=== PATIENT | male | born 1950 | race Caucasian/White ===

== ENCOUNTER 2018-06-07 12:13 | Emergency (ER) | payer OTHER, SELFPAY ==
[2017-07-31 22:09] VITALS: BMI 29.2
[2018-06-07 12:27] VITALS: BP 177/73; PULSE 88; RESP 19; TEMP 36.7; O2SAT 100
[2018-06-07 12:40] VITALS: BP 177/73; PULSE 88; RESP 19; TEMP 36.7; O2SAT 100
--- NOTE | 2018-06-07 12:40 | DI.RAD.S_ITS ---
PROCEDURE: XR KNEE LT 3V INDICATIONS: Twisted knee felt a pop in his knee TECHNIQUE: 3 views of the knee were acquired. COMPARISON: None. FINDINGS: Bones: No fractures or dislocations. No suspicious bony lesions. Soft tissues: Mild joint effusion. No suspicious soft tissue calcifications. IMPRESSION: Mild effusion. No visualized acute fracture or dislocation. However, if clinical concern and/or pain persist, short interval imaging followup in 7-10 days is recommended, as occult injury cannot be definitively excluded. Dictated by: Vneita Ritchie M.D. on 06/07/2018 at 12:06 Approved by: Venita Ritchie M.D. on 06/07/2018 at 12:11
--- NOTE | 2018-06-07 12:48 | ED_ITS ---
HPI - Extremity Injury (Lower) <SHAKILA Uriarte - Last Filed: 06/07/18 22:12> General Chief Complaint: Extremity Injury, Lower Stated Complaint: Blew knee out Time Seen by Provider: 06/07/18 12:33 Source: patient Mode of arrival: wheelchair Limitations: no limitations History of Present Illness HPI Narrative: 68-year-old male with history of Parkinson's disease and is a nonsmoker for complaint of pain into his left knee. He reports that he twisted his knee and felt a pop in his knee 1 hr prior to arrival. He denies any falls or direct trauma to the knee. He reports increased pain with ambulation and reports is having difficulty ambulating due to pain at this timeframe. Pain is to the posterior knee. He denies any other injuries. MD complaint: knee injury Related Data Home Medications Medication Instructions Recorded Confirmed VITAMIN D (Vitamin D3) 4,000 u PO QDAY #0 03/13/16 08/01/17 carbidopa-levodopa 2 tab PO QID #0 03/13/16 07/31/17 glipizide 20 mg/dose PO BID #0 03/13/16 07/31/17 insulin glargine U-300 conc 102 unit SQ DAILY #0 03/13/16 08/01/17 [Toujeo SoloStar U-300 Insulin] saxagliptin [Onglyza] 2.5 mg PO DAILY #0 03/13/16 08/01/17 aspirin 81 mg PO DAILY 08/01/17 08/01/17 atorvastatin 40 mg PO DAILY 08/01/17 08/01/17 multivitamin with minerals 1 tab PO DAILY 08/01/17 08/01/17 rasagiline 1 mg PO DAILY 08/01/17 08/01/17 Previous Rx's Medication Instructions Recorded amlodipine [Norvasc] 10 mg PO DAILY #30 tab 08/02/17 benazepril 20 mg PO DAILY #30 tab 08/02/17 Allergies Allergy/AdvReac Type Severity Reaction Status Date / Time No Known Allergies Allergy Verified 06/07/18 12:54 Review of Systems <SHAKILA Uriarte - Last Filed: 06/07/18 22:12> Constitutional Denies chills, Denies fever(s), Denies lethargy and Denies weakness Eyes Denies change in vision, Denies eye discharge, Denies irritation and Denies loss of vision ENT Ears, Nose, Mouth, and Throat: Denies change in voice, Denies neck pain and Denies sore throat Cardiovascular Denies chest pain, Denies irregular heart rhythm, Denies lightheadedness, Denies palpitations, Denies dyspnea, Denies dyspnea on exertion and Denies orthopnea Respiratory Denies cough, Denies dyspnea, Denies dyspnea on exertion and Denies wheezing Gastrointestinal Gastrointestinal: Denies abdominal pain, Denies change in bowel habits, Denies diarrhea, Denies nausea and Denies vomiting Genitourinary Denies hematuria, Denies flank pain, Denies urinary incontinence and Denies urinary urgency Musculoskeletal Denies neck pain Comments: Left knee pain Integumentary/Breasts Denies pruritus, Denies erythema, Denies rash and Denies wounds Neurologic Denies confusion, Denies loss of vision and Denies weakness Psychiatric Denies anxiety, Denies confusion, Denies depression, Denies homicidal ideation and Denies suicidal ideation Endocrine Denies palpitations Hematologic/Lymphatic Denies easy bruising Allergic/Immunologic Denies wheezing PFSH <SHAKILA Uriarte - Last Filed: 06/07/18 22:12> Medical History Diabetes mellitus (Acute) Hypercholesteremia (Acute) Hypertension (Acute) Kidney stone (Acute) Parkinson disease (Acute) Family History Father No problems noted. Brother Diabetes mellitus Social History household members: none lives independently: Yes other: He drinks 1-2 glasses of wine at night. He quit smoking in 1969 Smoking Status: Former smoker Social History household members: none lives independently: Yes other: He drinks 1-2 glasses of wine at night. He quit smoking in 1969 Smoking Status: Current some day smoker Exam <SHAKILA Uriarte - Last Filed: 06/07/18 22:12> Initial Vital Signs Initial Vital Signs: Vital Signs Temperature 98.0 F 06/07/18 12:27 Pulse Rate 88 06/07/18 12:27 Respiratory Rate 06/07/18 12:27 Blood Pressure 177/73 H 06/07/18 12:27 Pulse Oximetry 100 06/07/18 12:27 Const General: cooperative and well developed Nutritional Appearance: well nourished Orientation: alert, awake, oriented x3 and not confused [facility] Mouth: oral mucosae normal and moist mucous membranes Eyes Conjunctivae: conjunctivae normal Sclera: sclerae normal Pupils: PERRL EOM: EOM intact bilaterally Resp Effort & Inspection: normal respiratory effort, able to speak in complete sentences, no respiratory distress and no use of accessory muscles Auscultation: clear to auscultation bilaterally, no rales, no rhonchi and no wheezes Cardio Rate: regular rate Rhythm: regular rhythm Heart Sounds: no click, no gallops, no murmurs and no rubs Pulses: normal peripheral pulses Skin General: no rashes or lesions noted, No jaundice and No petechiae Neuro General: alert, oriented x3, gait normal and no focal motor deficits Speech: speech normal Extrem Other: Left knee with no signs of trauma. No swelling no ecchymosis no erythema. Negative posterior and anterior drawer sign. Negative varus and valgus stress test. Distal sensation is intact. Distal range of motion is intact. Distal pulses are intact. <Rachael Solis DO - Last Filed: 06/08/18 07:46> Initial Vital Signs Initial Vital Signs: Vital Signs Temperature 98.0 F 06/07/18 12:27 Pulse Rate 88 06/07/18 12:27 Respiratory Rate 19 06/07/18 12:27 Blood Pressure 177/73 H 06/07/18 12:27 Pulse Oximetry 100 06/07/18 12:27 Course <SHAKILA Uriarte - Last Filed: 06/07/18 22:12> Orders Ordered: ED Orders 06/07/18 12:40 XR knee LT 3V Stat Vital Signs - 8 hr 06/07/18 14:16 Pulse Rate 90 Respiratory Rate 16 Blood Pressure 172/72 H Pulse Oximetry 98 <Rachael Solis DO - Last Filed: 06/08/18 07:46> Orders Ordered: ED Orders 06/07/18 12:40 XR knee LT 3V Stat Vital Signs - 8 hr 06/07/18 14:16 Pulse Rate 90 Respiratory Rate 16 Blood Pressure 172/72 H Pulse Oximetry 98 MDM - Extremity Injury (Lower) <SHAIKLA Uriarte - Last Filed: 06/07/18 22:12> Imaging Data Left knee : Radiologist's impression: [address] [address] XRay Report Signed Patient: Kiet Ca [facility]#: [id number] : 9Acct:[id number] Age/Sex: 68 / MDate of Service: 06/07/18 Loc: ED Accession Number: [id number] Procedure: XR knee LT 3V Ordering Provider: Reg Lion PROCEDURE: XR KNEE LT 3V INDICATIONS: Twisted knee felt a pop in his knee TECHNIQUE: 3 views of the knee were acquired. COMPARISON: None. FINDINGS: Bones: No fractures or dislocations. No suspicious bony lesions. Soft tissues: Mild joint effusion. No suspicious soft tissue calcifications. IMPRESSION: Mild effusion. No visualized acute fracture or dislocation. However, if clinical concern and/or pain persist, short interval imaging followup in 7-10 days is recommended, as occult injury cannot be definitively excluded. Dictated by: Venita Ritchie M.D. on 06/07/2018 at 12:06 Approved by: Venita Ritchie M.D. on 06/07/2018 at 12:11 [facility] Narrative Medical decision making narrative: X-ray the left knee was obtained was negative for any acute fractures or dislocations. Signs and symptoms presents as sprain to the left knee. He is placed in a immobilizer and crutches. Cqve-eml-[id number] ibuprofen as needed for any discomfort. Crutches and knee immobilizer until able to bear weight with out any pain. If continued pain does not resolve follow up with primary care provider and recommend MRI. For any worsening symptoms return to the emergency room Discharge Plan Departure Patient Disposition: Home Clinical Impression: Left knee sprain Qualifiers: Encounter type: initial encounter Involved ligament of knee: unspecified ligament Qualified Code(s): S83.92XA - Sprain of unspecified site of left knee, initial encounter Discharge Date/Time: 06/07/18 14:16 Interventions: ED Discharge Assessment Last Done: 06/07/18 14:16 Instructions: DI for Knee Sprain Activity Restrictions/Additional Instructions: X-ray the left knee was obtained was negative for any acute findings. Signs and symptoms presents sprain into the left knee. Use crutches and knee immobilizer as directed until able to bear weight without any discomfort. Ice and elevation help with any swelling. Follow up with primary care provider. If continued pain that does not resolve recommend further evaluation such as MRI. Return emergency room for any worsening symptoms. Use [id number] ibuprofen as needed for any discomfort. Prescriptions: No Action glipizide 10 MG tablet 20 mg/dose PO BID Qty: 0 RF: 0 insulin glargine U-300 conc [Toujeo SoloStar U-300 Insulin] 300 UNIT/1 ML insulin pen 102 unit SQ DAILY Qty: 0 RF: 0 carbidopa-levodopa 25 MG/100 MG tablet 2 tab PO QID Qty: 0 RF: 0 saxagliptin [Onglyza] 2.5 MG tablet 2.5 mg PO DAILY Qty: 0 RF: 0 VITAMIN D (Vitamin D3) 4,000 u PO QDAY Qty: 0 RF: 0 atorvastatin 40 mg Tablet 40 mg PO DAILY RF: 0 aspirin 81 mg Tablet,Delayed Release (Dr/Ec) 81 mg PO DAILY RF: 0 multivitamin with minerals 1 tab PO DAILY RF: 0 rasagiline 1 mg Tablet 1 mg PO DAILY RF: 0 amlodipine [Norvasc] 5 mg Tablet 10 mg PO DAILY Qty: 30 RF: 0 benazepril 20 mg tablet 20 mg PO DAILY Qty: 30 RF: 0 Referrals: Yessenia Johnson MD [Primary Care Provider] - <Rachael Solis DO - Last Filed: 06/08/18 07:46> [facility]: I was immediately available in the depart ment for consultation. Documentation has been reviewed. I agree with assessment and plan.
--- NOTE | 2018-06-07 14:12 | PC.NURSE ---
pt has parkinson's disease. he would prefer not to use crutches. I agreed and told patient to use his walker or a wheelchair. pt agreed.
[2018-06-07 14:16] VITALS: BP 172/72; PULSE 90; RESP 16; O2SAT 98
== END 2018-06-07 14:16 | disposition home or self-care (01) ==
PROVIDERS: Emergency Provider Nurse Practitioner Family; Family Provider Nutritionist; PCP Nutritionist
DX: S83.92XA Sprain of unspecified site of left knee, initial encounter (principal)
CPT/HCPCS: 73562; 99283

== ENCOUNTER → 2018-08-25 10:29 | Outpatient (CLI) | payer OTHER, SELFPAY ==
[2017-07-31 22:09] VITALS: BMI 29.2
--- NOTE | 2018-08-25 10:31 | DI.MRI.S_ITS ---
PROCEDURE: MR KNEE LT WO CON INDICATIONS: Left knee injury. TECHNIQUE: Noncontrast sagittal PD fast spin echo and T2 fast spin echo with fat saturation, sagittal 3-D FLASH with fat saturation; coronal T1 spin echo and PD fast spin echo with fat saturation, and axial PD fast spin echo with fat saturation through the knee. COMPARISON: [facility], CR, XR KNEE LT 3V, 06/07/2018, 12:50. FINDINGS: Image quality: Excellent. Menisci: There is medial extrusion of the medial meniscus. Moderately displaced radial tearing of the posterior horn medial meniscus at the meniscal root ligament insertion site is present. Amorphous high signal intensity within the posterior horn and body of the medial meniscus is present, without articular surface extension. The lateral meniscus is intact. Cruciate ligaments: The anterior and posterior cruciate ligaments appear intact. Medial structures: The medial collateral ligament appears intact. There is mild T2 signal elevation surrounding the medial collateral ligament, consistent with MCL strain. Visualized portions of the pes anserinus tendons appear normal. No abnormal bursal fluid. Lateral structures: The lateral collateral ligament, long and short heads of the biceps femoris tendon appear intact. The popliteus tendon appears normal. Iliotibial band appears normal. Anterior structures: The quadriceps and patellar tendons appear intact. Patellar alignment is normal. No femoral trochlear dysplasia or ventral trochlear prominence. Moderate edema in the infrapatellar fat pad. Moderate prepatellar subcutaneous edema and fluid is present. Bones and cartilage: Linear low T1/T2 signal intensity traverses the mid weightbearing aspect of the medial tibial plateau, measuring roughly 20 mm anteroposterior by 10 mm transverse. There is moderate ill-defined surrounding T2 signal elevation. There is mild tricompartmental periarticular osteophyte formation. There is severe diffuse articular cartilage loss overlying the weightbearing aspects of the medial femoral condyle and medial tibial plateau. Mild diffuse surgical cartilage loss overlies the weightbearing aspects of the lateral femoral condyle and lateral tibial plateau. Severe articular cartilage loss overlies the patellar apex and medial patellar facet. Joint space: There is a moderate knee joint effusion and a small Mejia's cyst. Normal appearing synovial plicae are incidentally noted. IMPRESSION: 1. Mildly displaced subchondral fracture of the medial tibial plateau, with surrounding contusion. 2. Medial meniscal myxoid degeneration and tearing. 3. MCL strain. 4. Knee joint effusion and Mejia's cyst. 5. Tricompartmental osteoarthritis with associated articular cartilage loss. 6. Prepatellar bursitis. Dictated by: Bola Butler M.D. on 08/27/2018 at 9:56 Approved by: Bola Butler M.D. on 08/27/2018 at 10:09
== END ==
PROVIDERS: Family Provider Nutritionist; PCP Nutritionist; Visit Provider Nurse Practitioner Acute Care
DX: M25.562 Pain in left knee (principal); S82.142A Displaced bicondylar fracture of left tibia, initial encounter for closed fracture; S83.242A Other tear of medial meniscus, current injury, left knee, initial encounter; S83.412A Sprain of medial collateral ligament of left knee, initial encounter; M17.12 Unilateral primary osteoarthritis, left knee; M70.42 Prepatellar bursitis, left knee; M25.462 Effusion, left knee; X58.XXXA Exposure to other specified factors, initial encounter
CPT/HCPCS: 73721

== ENCOUNTER 2019-05-19 11:49 | Emergency (ER) | payer OTHER, SELFPAY ==
[2017-07-31 22:09] VITALS: BMI 29.2
[2019-05-19 11:55] VITALS: BP 179/77; PULSE 93; RESP 21; O2SAT 99
[2019-05-19 12:00] VITALS: BP 179/77; PULSE 91; RESP 18; TEMP 36.9; O2SAT 99; BMI 49.4
--- NOTE | 2019-05-19 12:00 | ED_ITS ---
HPI - General Adult General Chief complaint: Diabetic Problem Stated complaint: Altered mental status, hypoglycemia Time Seen by Provider: 05/19/19 11:50 Source: patient and EMS Mode of arrival: EMS Limitations: no limitations History of Present Illness HPI narrative: Patient is a 68-year-old male. He is an insulin-dependent diabetic. Also has Parkinson's disease and has hypertension. She reported by EMS they were called for an evaluation of a patient who was unresponsive. Upon their arrival they did find that the patient was hypoglycemic. Had a blood sugar in the 30s. He did receive 1 amp of D50. Upon arrival he was eating a peanut butter sandwich which is given to him by the paramedics. He also rec eived D10 fluids in route to the ER. His reported that last evening the patient was drinking alcohol. He states he does not remember last evening. He stated that he is unsure if he took 2 doses of his insulin or if he took his regular dose and then just did not eat anything. Upon my evaluation patient has no complaints. Related Data Home Medications Medication Instructions Recorded Confirmed VITAMIN D (Vitamin D3) 4,000 u PO QDAY #0 03/13/16 08/01/17 carbidopa-levodopa 2 tab PO QID #0 03/13/16 07/31/17 glipizide 20 mg/dose PO BID #0 03/13/16 07/31/17 insulin glargine U-300 conc 102 unit SQ DAILY #0 03/13/16 08/01/17 [Toujeo SoloStar U-300 Insulin] saxagliptin [Onglyza] 2.5 mg PO DAILY #0 03/13/16 08/01/17 aspirin 81 mg PO DAILY 08/01/17 08/01/17 atorvastatin 40 mg PO DAILY 08/01/17 08/01/17 multivitamin with minerals 1 tab PO DAILY 08/01/17 08/01/17 rasagiline 1 mg PO DAILY 08/01/17 08/01/17 Previous Rx's Medication Instructions Recorded amlodipine [Norvasc] 10 mg PO DAILY #30 tab 08/02/17 benazepril 20 mg PO DAILY #30 tab 08/02/17 Allergies Allergy/AdvReac Type Severity Reaction Status Date / Time No Known Allergies Allergy Verified 05/19/19 12:29 Review of Systems Constitutional Constitutional: Denies fever(s) and Denies headache(s) ENT Ears, Nose, Mouth, and Throat: Denies headache(s) Cardiovascular Cardiovascular: Denies chest pain and Denies dyspnea Respiratory Respiratory: Denies dyspnea Gastrointestinal Gastrointestinal: Denies abdominal pain, Denies nausea and Denies vomiting Musculoskeletal Musculoskeletal: Denies myalgias and Denies arthralgias Integumentary/Breasts Skin/Breast: Denies lesions and Denies rash Neurologic Neurologic: Reports behavioral changes, Reports confusion and Denies headache(s) Psychiatric Psychiatric: Reports behavioral changes and Reports confusion Hematologic/Lymphatic Hematologic/Lymphatic: Denies easy bleeding and Denies easy bruising Patient History Medical History Diabetes mellitus (Acute) Hypercholesteremia (Acute) Hypertension (Acute) Kidney stone (Acute) Parkinson disease (Acute) Social History household members: none lives independently: Yes other: He drinks 1-2 glasses of wine at night. He quit smoking in 1969 Smoking Status: Current some day smoker Smoking Status: Current some day smoker alcohol intake frequency: 0-2 drinks per day Substance Use Type: does not use Exam Initial Vital Signs Initial Vital Signs: Vital Signs Pulse Rate 93 H 05/19/19 11:55 Respiratory Rate 21 05/19/19 11:55 Blood Pressure 179/77 H 05/19/19 11:55 Pulse Oximetry 99 05/19/19 11:55 Const General: cooperative, comfortable and well developed Limitations: mental status not altered HENMT Head: normal to inspection and normocephalic Resp Effort & Inspection: normal respiratory effort Auscultation: clear to auscultation bilaterally Cardio Rate: regular rate Rhythm: regular rhythm GI Inspection: non-distended Palpation: soft Skin Lesions: no lesions Rashes: no rashes Neuro General: alert, awake and oriented x3 Cognition: normal cognition Speech: speech normal Extrem General: normal to inspection and capillary refill normal Psych Appearance: grossly normal and well kempt Scores GCS Stewart coma scale eye opening: Spontaneous Marely coma scale verbal response: Orientated Marely coma scale motor response: Obey commands Stewart coma scale total score: 15 Course Orders Ordered: ED Orders 05/19/19 12:07 Basic Metabolic Panel Stat Complete Blood Count AUTO DIFF Stat Ethanol (ETOH) Stat Vital Signs Vital signs: Vital Signs - 8 hr 05/19/19 11:55 05/19/19 12:00 05/19/19 14:10 Temperature 98.5 F Pulse Rate 93 H 91 H 90 Respiratory Rate 21 18 16 Blood Pressure 179/77 H Blood Pressure [Right Arm] 179/77 H 180/75 H Pulse Oximetry 99 99 99 Medical Decision Making Lab Data Lab results reviewed: Yes I reviewed the patient's lab results. Result diagrams: 05/19/19 12:07 05/19/19 12:07 Labs: Lab Results 05/19/19 05/19/19 Range/Units 12:07 12:07 WBC 9.5 (4.5-11.0) X10^3/uL RBC 4.05 L (4.5-5.9) X10^6/uL Hgb 13.7 (13.5-17.5) g/dL Hct 39.7 L (41-53) % MCV 97.9 (80-100) fL MCH 33.7 (26-34) PG MCHC 34.5 (30-36) % RDW 13.4 (11.6-14.8) % Plt Count 221 (150-400) X10^3/uL Neut % (Auto) 86.5 H (50-75) % Lymph % (Auto) 8.3 L (25-40) % Jessamine % (Auto) 4.1 (3-14) % Eos % (Auto) 0.2 L (2-4) % Baso % (Auto) 0.9 (0-2) % Neut # (Auto) 8200 H (4038-5299) /uL Lymph # (Auto) 800 L (7200-2571) /uL Jessamine # (Auto) 400 (0-900) /uL Eos # (Auto) 0 (0-450) /uL Baso # (Auto) 100 (0-100) /uL Sodium 138 (137-145) mmol/L Potassium 4.6 (3.4-5.1) mmol/L Chloride 110 H (98-107) mmol/L Carbon Dioxide 18 L (22-32) mmol/L BUN 25 H (9-20) mg/dL Creatinine 1.10 (0.66-1.25) mg/dL Estimated GFR > 60.0 (>60) mL/min BUN/Creatinine Ratio 22.7 H (6-22) Glucose 276 H (80-110) mg/dL Calcium 7.6 L (8.4-10.2) mg/dL Ethyl Alcohol 38 H ( - 10) mg/dL Point of Care Testing Glucose POC 138 Point of care testing: Point of Care Testing Glucose POC 138 [facility] Narrative Medical decision making narrative: Patient was hypoglycemic upon arrival with EMS. He did receive IV glucose and also D 50. He has been able to tolerate oral intake. He has no complaints. Has maintained his blood sugar here in the ER. We did discuss his medications. Will hold on further workup in discharged home. Patient was given return precautions and follow-up instructions. He expressed understanding and agreement with plan. Discharge Plan Departure Patient Disposition: Home Clinical Impression: Hypoglycemia Instructions: Hypoglycemia Activity Restrictions/Additional Instructions: Continue to take your medications like we discussed. Return to the emergency department for any new or worsening symptoms Prescriptions: No Action glipizide 10 MG tablet 20 mg/dose PO BID Qty: 0 RF: 0 insulin glargine U-300 conc [Toujeo SoloStar U-300 Insulin] 300 UNIT/1 ML in sulin pen 102 unit SQ DAILY Qty: 0 RF: 0 carbidopa-levodopa 25 MG/100 MG tablet 2 tab PO QID Qty: 0 RF: 0 saxagliptin [Onglyza] 2.5 MG tablet 2.5 mg PO DAILY Qty: 0 RF: 0 VITAMIN D (Vitamin D3) 4,000 u PO QDAY Qty: 0 RF: 0 atorvastatin 40 mg Tablet 40 mg PO DAILY RF: 0 aspirin 81 mg Tablet,Delayed Release (Dr/Ec) 81 mg PO DAILY RF: 0 multivitamin with minerals 1 tab PO DAILY RF: 0 rasagiline 1 mg Tablet 1 mg PO DAILY RF: 0 amlodipine [Norvasc] 5 mg Tablet 10 mg PO DAILY Qty: 30 RF: 0 benazepril 20 mg tablet 20 mg PO DAILY Qty: 30 RF: 0 Referrals: Yessenia Johnson MD [Primary Care Provider] -
[2019-05-19 12:18] LABS: Add Manual Diff / Slide Review NO; Basophils Absolute Auto 100 /uL (0-100); Basophils Percent Auto 0.9 % (0-2); Eosinophils Absolute Auto 0 /uL (0-450); Eosinophils Percent Auto 0.2 % (2-4); Hematocrit 39.7 % (41-53); Hemoglobin 13.7 g/dL (13.5-17.5); Lymphocytes Absolute Auto 800 /uL (1100-4500); Lymphocytes Percent Auto 8.3 % (25-40); Mean Corpuscular HGB Conc 34.5 % (30-36); Mean Corpuscular Hemoglobin 33.7 PG (26-34); Mean Corpuscular Volume 97.9 fL (80-100); Monocytes Absolute Auto 400 /uL (0-900); Monocytes Percent Auto 4.1 % (3-14); Neutrophils Absolute Auto 8200 /uL (1500-7000); Neutrophils Percent Auto 86.5 % (50-75); Platelet Count 221 X10^3/uL (150-400); Red Blood Cell Count 4.05 X10^6/uL (4.5-5.9); Red Cell Distribution Width 13.4 % (11.6-14.8); White Blood Cell Count 9.5 X10^3/uL (4.5-11.0)
[2019-05-19 12:32] LABS: BUN Creatinine Ratio 22.7 (6-22); Blood Urea Nitrogen 25 mg/dL (9-20); Calcium 7.6 mg/dL (8.4-10.2); Carbon Dioxide 18 mmol/L (22-32); Chloride 110 mmol/L (98-107); Estimated Glomerular Filt Rate > 60.0 mL/min (>60); Ethanol (ETOH) 38 mg/dL; Glucose 276 mg/dL (80-110); HEMOLYSIS 51 (0-50); Potassium 4.6 mmol/L (3.4-5.1); Sodium 138 mmol/L (137-145)
[2019-05-19 14:10] VITALS: BP 180/75; PULSE 90; RESP 16; O2SAT 99
== END 2019-05-19 15:01 | disposition home or self-care (01) ==
PROVIDERS: Emergency Provider Emergency Medicine; Family Provider Nutritionist; PCP Nutritionist
DX: E11.649 Type 2 diabetes mellitus with hypoglycemia without coma (principal); Z79.4 Long term (current) use of insulin; I10 Essential (primary) hypertension; G20 Parkinson's disease
CPT/HCPCS: 80048; 80320; 82962; 85025; 99283

== ENCOUNTER 2019-07-03 16:59 | Emergency (ER) | payer OTHER, SELFPAY ==
[2017-07-31 22:09] VITALS: BMI 29.2
[2019-07-03 17:00] VITALS: BP 121/65; PULSE 96; RESP 26; TEMP 37.2; O2SAT 99
--- NOTE | 2019-07-03 17:07 | DI.RAD.S_ITS ---
PROCEDURE: XR CHEST 1V INDICATIONS: chest pain TECHNIQUE: One view of the chest was acquired. COMPARISON: None. FINDINGS: Surgical changes and devices: None. Lungs and pleura: There are indistinct peripheral air space opacities in the right mid to lower lung zones. A small irregular opacity is also noted peripherally in the left lung base. No pleural effusions or pneumothorax. Mediastinum: Heart size appears mildly enlarged. Prominent cardiophrenic fat is demonstrated medially in the right lung base. Bones and chest wall: No suspicious bony lesions. Overlying soft tissues appear unremarkable. IMPRESSION: 1. Bibasilar peripheral airspace opacities suggestive of pneumonia. This includes pneumonia secondary to atypical viral etiologies. Dictated by: Rupesh Fajardo M.D. on 07/03/2019 at 17:42 Approved by: Rupesh Fajardo M.D. on 07/03/2019 at 17:43
[2019-07-03] MEDS: CARBIDOPA-LEVODOPA 25/100 TABLET 1 EACH PO ×2 (17:19)
[2019-07-03 17:23] LABS: Add Manual Diff / Slide Review NO; Basophils Absolute Auto 100 /uL (0-100); Basophils Percent Auto 0.8 % (0-2); Eosinophils Absolute Auto 100 /uL (0-450); Eosinophils Percent Auto 0.8 % (2-4); Hematocrit 39.2 % (41-53); Hemoglobin 13.3 g/dL (13.5-17.5); Lymphocytes Absolute Auto 900 /uL (1100-4500); Lymphocytes Percent Auto 8.3 % (25-40); Mean Corpuscular HGB Conc 34.1 % (30-36); Mean Corpuscular Volume 96.9 fL (80-100); Monocytes Absolute Auto 900 /uL (0-900); Monocytes Percent Auto 8.2 % (3-14); Neutrophils Absolute Auto 8700 /uL (1500-7000); Neutrophils Percent Auto 81.9 % (50-75); Platelet Count 240 X10^3/uL (150-400); Red Blood Cell Count 4.05 X10^6/uL (4.5-5.9); Red Cell Distribution Width 13.6 % (11.6-14.8); White Blood Cell Count 10.6 X10^3/uL (4.5-11.0)
[2019-07-03 17:25] LABS: Prothrombin Time 11.9 SECONDS (10.1-12.7)
[2019-07-03 17:28] LABS: PTT Partial Thromboplastin Tim 30 SECONDS (26.4-36.2)
[2019-07-03 17:30] LABS: Alanine Aminotransferase 13 IU/L (<50); Albumin 4.3 g/dL (3.5-5.0); Albumin Globulin Ratio 1.3 (1.0-2.8); Alkaline Phosphatase 92 U/L (38-126); Aspartate Aminotransferase 38 IU/L (17-59); BUN Creatinine Ratio 10.8 (6-22); Bilirubin Total 1.1 mg/dL (0.2-1.3); Blood Urea Nitrogen 18 mg/dL (9-20); Calcium 9.5 mg/dL (8.4-10.2); Carbon Dioxide 21 mmol/L (22-32); Chloride 103 mmol/L (98-107); Creatine Kinase 140 U/L (55-170); Estimated Glomerular Filt Rate 40.8 mL/min (>60); Globulin 3.3 g/dL (1.7-4.1); Glucose 119 mg/dL (80-110); HEMOLYSIS < 15 (0-50); Lipase 101 U/L (23-300); Potassium 4.4 mmol/L (3.4-5.1); Sodium 137 mmol/L (137-145); Total Protein 7.6 g/dL (6.3-8.2)
[2019-07-03 17:36] LABS: Ethanol (ETOH) < 10 mg/dL
[2019-07-03 17:42] VITALS: BP 138/64; PULSE 89; RESP 16; O2SAT 99
[2019-07-03 17:42] LABS: Troponin I < 0.012 ng/mL (0.01-0.034)
[2019-07-03 17:45] LABS: CKMB % Relative Index 1.4 % (1.5-5.0); Creatine Kinase MB 1.93 ng/mL (<2.37)
--- NOTE | 2019-07-03 17:46 | PC.NURSE ---
moving all extremities to baseline functioning. Sensory intact. No focal weakness.
[2019-07-03 17:52] LABS: NT-proBNP (BNP-Adult 18+) 123 pg/mL (<125)
[2019-07-03 18:00] VITALS: BP 147/65; PULSE 88; RESP 17; O2SAT 94
--- NOTE | 2019-07-03 18:02 | ED_ITS ---
HPI - General Adult General Chief complaint: Syncope Stated complaint: thinks kidney failure, syncopal episodes Time Seen by Provider: 07/03/19 17:19 Source: patient Mode of arrival: Wheelchair Limitations: no limitations History of Present Illness HPI narrative: 72-year-old gentleman with a history of insulin-dependent type 2 diabetes, hypertension, Parkinson's disease and alcohol use disorder presents with a near syncopal episode today. Describes being increasingly weak over the past 24 hours in the last time he had similar symptoms he found that he was in renal failure. Describes no significant fevers cough, dyspnea, abdominal pain, lower extremity edema, chest pressure or tightness. Notes that he has had only 2 glasses of wine in the last month and with this alcohol restriction he has lost 30 lb this month and is quite pleased with his progress. He has been in isolation at home and does have a caregiver coming in every other day to help with bathing and his daily house keeper was tired after 2 weeks because ?she was a bad cook?. He describes an episode today of walking into the kitchen feeling like he was somewhat faint without palpitations, nausea, diaphoresis or focal weakness. He was concerned that he might feet so he began to sit on the floor and then he found himself on the floor. It looks like he used his left arm to slow his fall on the edge of the counter and hit the right side of his glasses on the counter any has an abrasion on the right side of his face. Related Data Home Medications Medication Instructions Recorded Confirmed VITAMIN D (Vitamin D3) 4,000 u PO QDAY #0 03/13/16 08/01/17 carbidopa-levodopa 2 tab PO QID #0 03/13/16 07/31/17 glipizide 20 mg/dose PO BID #0 03/13/16 07/31/17 insulin glargine U-300 conc 102 unit SQ DAILY #0 03/13/16 08/01/17 [Gloria Col[employer]Star U-300 Insulin] saxagliptin [Onglyza] 2.5 mg PO DAILY #0 03/13/16 08/01/17 aspirin 81 mg PO DAILY 08/01/17 08/01/17 atorvastatin 40 mg PO DAILY 08/01/17 08/01/17 multivitamin with minerals 1 tab PO DAILY 08/01/17 08/01/17 rasagiline 1 mg PO DAILY 08/01/17 08/01/17 Previous Rx's Medication Instructions Recorded amlodipine [Norvasc] 10 mg PO DAILY #30 tab 08/02/17 benazepril 20 mg PO DAILY #30 tab 08/02/17 Allergies Allergy/AdvReac Type Severity Reaction Status Date / Time No Known Allergies Allergy Verified 07/03/19 17:11 Review of Systems Review of Systems Narrative: All systems reviewed and are unremarkable except as noted in HPI and below Patient History Medical History Diabetes mellitus (Acute) Hypercholesteremia (Acute) Hypertension (Acute) Kidney stone (Acute) Parkinson disease (Acute) Family History Father No problems noted. Brother Diabetes mellitus Social History household members: none lives independently: Yes other: He drinks 1-2 glasses of wine at night. He quit smoking in 1969 Smoking Status: Current some day smoker Smoking Status: Current some day smoker alcohol intake frequency: 0-2 drinks per day Alcohol type: wine and hard liquor Substance Use Type: does not use Exam Narrative Exam Narrative: General: Healthy appearing, in no acute distress. Able to give a complete and coherent history. Well-nourished well-developed HEENT: Moist mucous membranes, normal sclera with reactive pupils, abrasion to the right cheek that correlates completely to the edge of his glasses. There was no injury to the glasses and nothing that needs suturing. No bony tenderness along the maxilla or orbit. Neck: No JVD, supple Respiratory: Lungs are clear to auscultation, no wheezing no rales no rhonchi. Full and symmetrical air movement Cardiac: Regular rate and rhythm no murmurs no bruits Abdomen: Soft nontender good bowel tones, no flank pain Skin: Warm and dry, no rashes Neurologic: Grossly neurologically intact with no obvious asymmetries or abnormalities, parkinsonian-type tremor Extremities: well perfused, he has some minor bruising to the inner aspect of the left forearm that looks like he scraped along the edge his counter Psych: Cooperative, appropriate insight and affect Initial Vital Signs Initial Vital Signs: Vital Signs Temperature 98.9 F 07/03/19 17:00 Pulse Rate 96 H 07/03/19 17:00 Respiratory Rate 26 H 07/03/19 17:00 Blood Pressure 121/65 07/03/19 17:00 Pulse Oximetry 99 07/03/19 17:00 Course Orders Ordered: ED Orders 07/03/19 17:07 XR chest 1V Stat EKG-12 Lead Stat 07/03/19 17:10 Complete Blood Count AUTO DIFF Stat Comprehensive Metabolic Panel Stat Ethanol (ETOH) Stat Lipase Stat NT-proBNP (BNP-Adult 18+) Stat Partial Thromboplastin Time Stat Procalcitonin Stat Prothrombin Time INR Stat Troponin & CK Cardiac Panel Stat Discontinued Medications Carbidopa/Levodopa (Sinemet 25-100 Tab) 1 each PO NOW ONE Stop: 07/03/19 17:12 Last Admin: 07/03/19 17:19 Dose: 1 each Documented by: KYLE Carbidopa/Levodopa (Sinemet 25-100 Tab) 1 each PO NOW ONE Stop: 07/03/19 17:13 Last Admin: 07/03/19 17:19 Dose: 1 each Documented by: KYLE Vital Signs Vital signs: Vital Signs - 8 hr 07/03/19 17:00 07/03/19 17:42 07/03/19 18:00 Temperature 98.9 F Pulse Rate 96 H 89 88 Respiratory Rate 26 H 16 17 Blood Pressure 121/65 Blood Pressure [Right Arm] 138/64 147/65 H Pulse Oximetry 99 99 94 07/03/19 18:40 Temperature Pulse Rate 90 Respiratory Rate 18 Blood Pressure Blood Pressure [Right Arm] 133/92 H Pulse Oximetry 99 Medical Decision Making Medical Records Medical records reviewed: Yes I reviewed the patient's medical records. Lab Data Lab results reviewed: Yes I reviewed the patient's lab results. Lab results narrative: Creatinine is stable at 1.6 Result diagrams: 07/03/19 17:10 07/03/19 17:10 Labs: Lab Results 07/03/19 07/03/19 07/03/19 Range/Units 17:10 17:10 17:10 WBC 10.6 (4.5-11.0) X10^3/uL RBC 4.05 L (4.5-5.9) X10^6/uL Hgb 13.3 L (13.5-17.5) g/dL Hct 39.2 L (41-53) % MCV 96.9 (80-100) fL MCH 33.0 (26-34) PG MCHC 34.1 (30-36) % RDW 13.6 (11.6-14.8) % Plt Count 240 (150-400) X10^3/uL Neut % (Auto) 81.9 H (50-75) % Lymph % (Auto) 8.3 L (25-40) % [place] % (Auto) 8.2 (3-14) % Eos % (Auto) 0.8 L (2-4) % Baso % (Auto) 0.8 (0-2) % Neut # (Auto) 8700 H (4240-3602) /uL Lymph # (Auto) 900 L (6656-0717) /uL [place] # (Auto) 900 (0-900) /uL Eos # (Auto) 100 (0-450) /uL Baso # (Auto) 100 (0-100) /uL PT 11.9 (10.1-12.7) SECONDS INR 1.0 (0.9-1.3) APTT 30 (26.4-36.2) SECONDS Sodium 137 (137-145) mmol/L Potassium 4.4 (3.4-5.1) mmol/L Chloride 103 (98-107) mmol/L Carbon Dioxide 21 L (22-32) mmol/L BUN 18 (9-20) mg/dL Creatinine 1.67 H (0.66-1.25) mg/dL Estimated GFR 40.8 L (>60) mL/min BUN/Creatinine Ratio 10.8 (6-22) Glucose 119 H (80-110) mg/dL Calcium 9.5 (8.4-10.2) mg/dL Total Bilirubin 1.1 (0.2-1.3) mg/dL AST 38 (17-59) IU/L ALT 13 (<50) IU/L Alkaline Phosphatase 92 (38-126) U/L Total Creatine Kinase 140 (55-170) U/L CK-MB (CK-2) 1.93 (<2.37) ng/mL CK-MB (CK-2) Rel Index 1.4 L (1.5-5.0) % Troponin I < 0.012 (0.01-0.034) ng/mL NT-Pro-B Natriuret Pep (<125) pg/mL Total Protein 7.6 (6.3-8.2) g/dL Albumin 4.3 (3.5-5.0) g/dL Globulin 3.3 (1.7-4.1) g/dL Albumin/Globulin Ratio 1.3 (1.0-2.8) Lipase 101 (23-300) U/L Procalcitonin (<0.5) ng/mL Ethyl Alcohol ( - 10) mg/dL 07/03/19 07/03/19 07/03/19 Range/Units 17:10 17:10 17:10 WBC (4.5-11.0) X10^3/uL RBC (4.5-5.9) X10^6/uL Hgb (13.5-17.5) g/dL Hct (41-53) % MCV (80-100) fL MCH (26-34) PG MCHC (30-36) % RDW (11.6-14.8) % Plt Count (150-400) X10^3/uL Neut % (Auto) (50-75) % Lymph % (Auto) (25-40) % [place] % (Auto) (3-14) % Eos % (Auto) (2-4) % Baso % (Auto) (0-2) % Neut # (Auto) (5614-9964) /uL Lymph # (Auto) (6147-3049) /uL [place] # (Auto) (0-900) /uL Eos # (Auto) (0-450) /uL Baso # (Auto) (0-100) /uL PT (10.1-12.7) SECONDS INR (0.9-1.3) APTT (26.4-36.2) SECONDS Sodium (137-145) mmol/L Potassium (3.4-5.1) mmol/L Chloride (98-107) mmol/L Carbon Dioxide (22-32) mmol/L BUN (9-20) mg/dL Creatinine (0.66-1.25) mg/dL Estimated GFR (>60) mL/min BUN/Creatinine Ratio (6-22) Glucose (80-110) mg/dL Calcium (8.4-10.2) mg/dL Total Bilirubin (0.2-1.3) mg/dL AST (17-59) IU/L ALT (<50) IU/L Alkaline Phosphatase (38-126) U/L Total Creatine Kinase (55-170) U/L CK-MB (CK-2) (<2.37) ng/mL CK-MB (CK-2) Rel Index (1.5-5.0) % Troponin I (0.01-0.034) ng/mL NT-Pro-B Natriuret Pep 123 (<125) pg/mL Total Protein (6.3-8.2) g/dL Albumin (3.5-5.0) g/dL Globulin (1.7-4.1) g/dL Albumin/Globulin Ratio (1.0-2.8) Lipase (23-300) U/L Procalcitonin 0.08 (<0.5) ng/mL Ethyl Alcohol < 10 ( - 10) mg/dL Imaging Data Chest x-ray: Radiologist's Impression: IMPRESSION: 1. Bibasilar peripheral airspace opacities suggestive of pneumonia. This includes pneumonia secondary to atypical viral etiologies. Dictated by: Rupesh Fajardo M.D. on 07/03/2019 at 17:42 ECG Data Attestation: I personally reviewed and interpreted this ECG as follows: Interpretation: Sinus rhythm at a rate of 92 Normal axis, normal intervals Nonspecific ST T wave changes without acute ischemia MDM Narrative Medical decision making narrative: 69-year-old gentleman with weakness enough that he had a near syncopal episode today. There is no overt evidence of infection based on his exam review of systems oxygen saturations on room air are in the 95-99% range, no evidence of acute coronary syndrome, anemia, dehydration, worsening renal failure or stroke like symptoms. Chest x-ray has some by basilar infiltrate suggestive of pneumonia. His clinical exam is entirely unremarkable and he describes no fevers. A Covid19 test was done. At this point he is feeling significantly better. He is able to stand without any dizziness, he is not orthostatic. Uncertain etiology for the near syncopal episode today. At this point I believe he is safe for home discharge. He will be contacted with the results of the Covid19 testing and will make recommendations that he continue home isolation at this time. Did review the chest x-ray findings and recommended that he return if he is having further weakness, near-syncope or is developing worsening dyspnea. Discharge Plan Departure Patient Disposition: Home Clinical Impression: Near syncope, Weakness Instructions: DI for Syncope in Adults (Fainting) Activity Restrictions/Additional Instructions: Thank you for coming in today I do not have a good explanation for the weakness that you experienced and the near syncope as well as the fall. With the fall, you will have a large bruise over your cheek and it will take a bit of time for that abrasion from your glasses to heal but it should heal nicely. Similarly, I would expect moderate bruise on the inside of your left forearm were scraped along the covered. Your workup today was extensive and revealed no evidence of worsening renal failure, dehydration, overwhelming bacterial infection, heart attack or stroke. Your chest x-ray did suggest the possibility of a bilateral viral pneumonia picture. We did do a Covid19 swab to see if you do have the miles virus. You will be contacted with results In the meantime, you are safe to go home. Please continue to wear mask in case this does box turner to be miles virus to make sure that you are not infecting others. If you find that you are having worsening weakness, trouble breathing, developed high fevers, chest pain or other new concerning symptoms please feel free to return to the emergency room and I am happy to re-evaluate I hope you feel better CDC Guidelines for home isolation: - Stay away from others - Limit contact with pets and animals: If you must care for a pet, wash your hands before and after interacting with them - Wear a mask if you are sick - Cover your mouth and nose with a tissue when you cough or sneeze. Dispose of tissues in a lined trash can and wash your hands immediately with soap and water for at least 20 seconds. If soap and water are not available, clean hands with alcohol-based hand global risk management director that contains at least 60% alcohol. - Clean your hands often with soap and water for at least 20 seconds - Avoid touching your eyes, nose and mouth with unwashed hands - Do not share dishes, drinking glasses, cups, eating utensils, towels, or bedding with other people in your home. After using these items, wash them thoroughly with soap and water or put in the mobile ui/ux designer. - Clean high-touch surfaces in your isolation area (?sick room? and bathroom) every day; let a caregiver clean and disinfect high-touch surfaces in other areas of the home. Clean the area or item with soap and water or another detergent if it is dirty. Then, use a household disinfectant. Seek medical attention, but call first: - Seek medical care right away if your illness is worsening (for example, if you have difficulty breathing). - Call your doctor before going in: Before going to the doctor?s office or emergency room, call ahead and tell them your symptoms. They will tell you what to do. - If possible, put on a facemask before you enter the building. If you can?t put on a facemask, try to keep a safe distance from other people (at least 6 feet away). This will help protect the people in the office or waiting room. - Follow care instructions from your healthcare provider and local health department: Your local health authorities will give instructions on checking your symptoms and reporting information. Emergency warning signs for COVID-19: - Difficulty breathing or shortness of breath - Persistent pain or pressure in the chest - New confusion or inability to arouse - Bluish lips or face Prescriptions: No Action glipizide 10 MG tablet 20 mg/dose PO BID Qty: 0 RF: 0 insulin glargine U-300 conc [Tou[employer] SoloStar U-300 Insulin] 300 UNIT/1 ML insulin pen 102 unit SQ DAILY Qty: 0 RF: 0 carbidopa-levodopa 25 MG/100 MG tablet 2 tab PO QID Qty: 0 RF: 0 saxagliptin [Onglyza] 2.5 MG tablet 2.5 mg PO DAILY Qty: 0 RF: 0 VITAMIN D (Vitamin D3) 4,000 u PO QDAY Qty: 0 RF: 0 atorvastatin 40 mg Tablet 40 mg PO DAILY RF: 0 aspirin 81 mg Tablet,Delayed Release (Dr/Ec) 81 mg PO DAILY RF: 0 multivitamin with minerals 1 tab PO DAILY RF: 0 rasagiline 1 mg Tablet 1 mg PO DAILY RF: 0 amlodipine [Norvasc] 5 mg Tablet 10 mg PO DAILY Qty: 30 RF: 0 benazepril 20 mg tablet 20 mg PO DAILY Qty: 30 RF: 0 Referrals: Yessenia Johnson MD [Primary Care Provider] -
[2019-07-03 18:40] VITALS: BP 133/92; PULSE 90; RESP 18; O2SAT 99
[2019-07-03 18:47] LABS: Procalcitonin 0.08 ng/mL (<0.5)
[2019-07-05 08:30] LABS: COVID19 Sendout Detected (Not Detected)
== END 2019-07-03 19:21 | disposition home or self-care (01) ==
PROVIDERS: Emergency Medicine; Emergency Provider Emergency Medicine; Family Provider Nutritionist; PCP Nutritionist
DX: R55 Syncope and collapse (principal); R53.1 Weakness; E11.8 Type 2 diabetes mellitus with unspecified complications; Z79.4 Long term (current) use of insulin; I10 Essential (primary) hypertension; G20 Parkinson's disease
CPT/HCPCS: 36415; 71045; 80053; 80320; 82550; 82553; 83690; 83880; 84145; 84484; 85025; 85610; 85730; 87635; 93005; 99284

== ENCOUNTER 2021-12-20 12:45 | Emergency (ER) | payer OTHER, SELFPAY ==
[2017-07-31 22:09] VITALS: BMI 29.2
[2021-12-20 12:57] VITALS: BP 135/69; PULSE 86; RESP 16; TEMP 36.6; O2SAT 100; BMI 22.8
--- NOTE | 2021-12-20 16:06 | PC.NURSE ---
Pt c/o 6 days left neck pain, non radiating, took 800g Ibuprofen today. Denies additional sx.
--- NOTE | 2021-12-20 16:16 | DI.RAD.S_ITS ---
PROCEDURE: XR CERVICAL SPINE 2V OR 3V INDICATIONS: c/f stress fracture, no trauma arthralgia? TECHNIQUE: 3 view(s) of the cervical spine were acquired. COMPARISON: None. FINDINGS: Bones: No fractures or dislocations to the T1 level. The lateral masses of C1 appear intact on the odontoid view. No suspicious bony lesions. C5-6, C6-7 disc space narrowing and anterior osteophyte. Reversal normal cervical lordosis present. Normal bone mineralization and craniovertebral a shapes. Soft tissues: No prevertebral soft tissue swelling. IMPRESSION: No fracture or malalignment Lower cervical spine degenerative disc disease and arthropathy Approved by: Thor Pacheco M.D. on 12/20/2021 at 16:02
[2021-12-20] MEDS: LIDOCAINE PATCH 1 EACH ADH..PATCH TOP (16:38)
[2021-12-20] MEDS: ACETAMINOPHEN 325 MG TABLET 975 MG PO (16:38)
--- NOTE | 2021-12-20 17:17 | ED_ITS ---
HPI - Neck Pain/Injury <Camilla Robetrs, [facility] - Last Filed: 12/20/21 17:35> General Chief Complaint: Neck Pain/Injury Stated Complaint: Pinched nerve in neck Time Seen by Provider: 12/20/21 16:06 Mode of arrival: Wheelchair History of Present Illness HPI Narrative: This is a pleasant 71-year-old gentleman who presents with his caregiver complaining of right-sided neck and shoulder pain over the last 6 days without trauma. Patient states that he slept on his neck ?funny? and since then he has had gradual worsening of his neck pain. He denies any weakness, lightheadedness, dizziness, he does endorse mild headache occasionally. He has been taking ibuprofen, Tylenol, using Salonpas lidocaine patches, and CBD cream and states it has helped but he still has this pain. His caregiver states that she is concerned he has a compression fracture and would like a neck x-ray. Patient's weakness, he is ambulatory, he is not on any anticoagulants, he denies palpitations, recent fever, sore throat, cough. Patient has a history of diab etes, on glipizide and glargine, hypercholesterolemia, hypertension, kidney stone with CKD with baseline creatinine 1.5-1.6, and Parkinson's disease on carbidopa levodopa. Patient ambulates with a cane at baseline. He denies any sensation changes. Denies any incontinence as well. Related Data Home Medications Medication Instructions Recorded Confirmed VITAMIN D (Vitamin D3) 4,000 u PO QDAY ##0 03/13/16 08/01/17 carbidopa 25 mg-levodopa 100 mg 2 tab PO QID ##0 03/13/16 07/31/17 tablet glipizide 10 mg tablet 20 mg/dose PO BID ##0 03/13/16 07/31/17 insulin glargine U-300 conc 300 102 unit SQ DAILY ##0 03/13/16 08/01/17 unit/mL (1.5 mL) subcutaneous pen (Gloria SoloStar U-300 Insulin) saxagliptin 2.5 mg tablet (Onglyza) 2.5 mg PO DAILY ##0 03/13/16 08/01/17 aspirin 81 mg tablet,delayed 81 mg PO DAILY 05/15/18 05/15/18 release atorvastatin 40 mg tablet 40 mg PO DAILY 08/01/17 08/01/17 multivitamin with minerals 1 tab PO DAILY 08/01/17 08/01/17 rasagiline 1 mg tablet 1 mg PO DAILY 08/01/17 08/01/17 Previous Rx's Medication Instructions Recorded amlodipine 5 mg tablet (Norvasc) 10 mg PO DAILY #30 tabs 08/02/17 benazepril 20 mg tablet 20 mg PO DAILY #30 tabs 08/02/17 diclofenac sodium 1 % topical gel 2 g topical QID PRN muscle strain 12/20/21 #100 grams methocarbamol 500 mg tablet 250 mg PO BEDTIME PRN neck pain 12/20/21 #10 tabs Allergies Allergy/AdvReac Type Severity Reaction Status Date / Time No Known Allergies Allergy Verified 12/20/21 13:00 Review of Systems <SHAKILA Ingram - Last Filed: 12/20/21 17:35> Review of Systems Narrative: Review of systems is negative for acute abnormalities unless otherwise noted in HPI Patient History <SHAKILA Ingram - Last Filed: 12/20/21 17:35> Medical History Diabetes mellitus Hypercholesteremia Hypertension Kidney stone Parkinson disease Family History Father No problems noted. Brother Diabetes mellitus Social History household members: none lives independently: Yes other: He drinks 1-2 glasses of wine at night. He quit smoking in 1969 Smoking Status: Former smoker Smoking Status: Former smoker alcohol intake frequency: other Alcohol type: wine and hard liquor Substance Use Type: marijuana Exam <SHAKILA Ingram - Last Filed: 12/20/21 17:35> Narrative Exam Narrative: Reviewed vitals signs and nursing notes. General: cooperative, comfortable, in no acute distress, well groomed, unchanged over, sitting in chair, with cane at his left, EOMI HEENT: symmetrical facial expressions, moist mucous membranes Cardiovascular: regular rate and rhythm, no peripheral edema, warm extremities Respiratory: normal effort, able to speak in complete sentences, without wheezing, stridor, or abnormal breath sounds. No retractions or tachypnea. GI: abdomen soft, nontender to palpation, nondistended, without masses, rebound tenderness or exquisite tenderness with exam. MSK: moves all extremities, neurovascularly intact, no weakness, normal tone, patient does trouble when he ambulates but has equal strength bilaterally, without any new weakness or sensation changes Skin: brisk capillary refill, without pallor or erythema Neuro: normal speech and cognition, A&O x3, ambulatory, clear speech, without neuro deficit Psych: mental status is grossly normal, congruent mood, normal affect, pleasant and cooperative Initial Vital Signs Initial Vital Signs: Vital Signs Temperature 98 F 12/20/21 12:57 Pulse Rate 86 12/20/21 12:57 Respiratory Rate 16 12/20/21 12:57 Blood Pressure 135/69 12/20/21 12:57 Pulse Oximetry 100 12/20/21 12:57 Oxygen Delivery Method 12/20/21 12:57 <Aleksandra Deleon MD - Last Filed: 12/20/21 17:45> Initial Vital Signs Initial Vital Signs: Vital Signs Temperature 98 F 12/20/21 12:57 Pulse Rate 86 12/20/21 12:57 Respiratory Rate 16 12/20/21 12:57 Blood Pressure 135/69 12/20/21 12:57 Pulse Oximetry 100 12/20/21 12:57 Oxygen Delivery Method 12/20/21 12:57 Course <SHAKILA Ingram - Last Filed: 12/20/21 17:35> Orders Ordered: ED Orders 12/20/21 16:16 XR cervical spine 2V or 3V Stat Discontinued Medications Acetaminophen (Acetaminophen 325 Mg Tablet) 975 mg PO NOW ONE Stop: 12/20/21 16:17 Last Admin: 12/20/21 16:38 Dose: 975 mg Documented By: BRIDGET Lidocaine (Lidocaine Patch 1 Each Adh..Patch) 1 each TOP NOW ONE Stop: 12/20/21 16:18 Last Admin: 12/20/21 16:38 Dose: 1 each Documented By: BRIDGET Vital Signs Vital signs: Vital Signs - 8 hr 12/20/21 12:57 12/20/21 17:32 Temperature 98 F Pulse Rate 86 74 Respiratory Rate 16 18 Blood Pressure 135/69 157/69 H Pulse Oximetry 100 100 Oxygen Delivery Method Room Air Room Air <Aleksandra Deleon MD - Last Filed: 12/20/21 17:45> Orders Ordered: ED Orders 12/20/21 16:16 XR cervical spine 2V or 3V Stat Discontinued Medications Acetaminophen (Acetaminophen 325 Mg Tablet) 975 mg PO NOW ONE Stop: 12/20/21 16:17 Last Admin: 12/20/21 16:38 Dose: 975 mg Documented By: BRIDGET Lidocaine (Lidocaine Patch 1 Each Adh..Patch) 1 each TOP NOW ONE Stop: 12/20/21 16:18 Last Admin: 12/20/21 16:38 Dose: 1 each Documented By: BRIDGET Vital Signs Vital signs: Vital Signs - 8 hr 12/20/21 12:57 12/20/21 17:32 Temperature 98 F Pulse Rate 86 74 Respiratory Rate 16 18 Blood Pressure 135/69 157/69 H Pulse Oximetry 100 100 Oxygen Delivery Method Room Air Room Air [facility] - Neck Pain/Injury <SHAKILA Ingram - Last Filed: 12/20/21 17:35> Imaging Data Extremity x-ray #1: Radiologist's Impression: PROCEDURE:? XR CERVICAL SPINE 2V OR 3V ? INDICATIONS:? c/f stress fracture, no trauma arthralgia? ? TECHNIQUE:? 3 view(s) of the cervical spine were acquired.? ? COMPARISON:? None. ? FINDINGS:? ? Bones:? No fractures or dislocations to the T1 level.? The lateral masses of C1 appear intact on the odontoid view.? No suspicious bony lesions.? C5-6, C6-7 disc space narrowing and anterior osteophyte.? Reversal normal cervical lordosis present.? Normal bone mineralization and craniovertebral a shapes. ? Soft tissues:? No prevertebral soft tissue swelling.? ? ? IMPRESSION:? ? No fracture or malalignment ? Lower cervical spine degenerative disc disease and arthropathy ? ? Approved by: Thor Pacheco M.D. on 12/20/2021 at 16:02? [facility] Narrative Medical decision making narrative: This is a 71-year-old gentleman presents to the emergency department complaining of right-sided neck pain without injury for the last 6 days. He had palpable tension and for musculature to the right trapezius, without erythema, rash, other visits concern. Patient did not have any neuro deficits on my exam, ambulatory, C-spine x-ray obtained for patient's caregivers request, she was concerned about compression fracture despite lack of trauma. That was negative for acute finding, it did however show degenerative disc disease and arthralgia in the lower cervical spine. Patient was prescribed diclofenac gel to use with his other medications, counseled him about taking ibuprofen as much as he has been due to his chronic kidney disease, encouraged hydration, light range of motion, Tylenol 650 mg every 6 hours as needed with use of adjuvant topical remedies including diclofenac gel. Gave him 250 mg of Robaxin to use at night only and counseled him about risk of falling due to sedation. Patient states understanding will follow-up with his primary care provider if this is ongoing. Discharge Plan Departure Patient Disposition: Home Clinical Impression: Acute cervical sprain Qualifiers: Encounter type: initial encounter Qualified Code(s): S13.9XXA - Sprain of joints and ligaments of unspecified parts of neck, initial encounter Instructions: Neck Sprain, DI for Neck Pain Activity Restrictions/Additional Instructions: *You have been diagnosed with a sprain/strain of the muscles in your neck. Your x-ray does not show any fracture dislocation, it does show lower cervical spine degenerative disc disease and arthritis. Please use topical Voltaren gel in conjunction your other creams and medications to help yourself feel better. Please take Tylenol 650 mg every 6 hours, use topical lidocaine patches and Voltaren gel frequently, take hot showers and avoid aggressive massage or exertional stretching. Please practice range of motion to help warm up your muscles and this should start to get better in the next week. These sprains can take 2 weeks to go away. I would recommend limiting your ibuprofen use due to your kidney disease to 400 mg in between to Tylenol dose is throughout the day. Use a muscle relaxer as needed at bedtime, please start with only 250 mg, half of a tab because it will make you very sleepy. This in conjunction with your carbidopa levodopa can be sedating and I do not want you to fall. I hope you feel better soon, please come back for any worsening or if you have weakness, numbness and tingling, or altered mental status. *What to do: *Please continue to take your regular medications as directed. [ x] New medication prescriptions sent to your pharmacy: [[facility] ] [ ] New medication written as a paper prescription [ ] No new medications given *Please follow up with your primary care provider in 2-3 days, call for an appointment. Let them know you were seen in the Emergency Department and that we asked that you be seen for follow-up. We will electronically transmit a record of today's note if your PCP is in our system *If you do not have a primary care provider please contact [phone] to establish care with one of the [facility] primary care providers. *Return to Emergency Department if you should have any new, worsening, or concerning symptoms, such as [fever greater than 101F, chills, worsening pain, persistent vomiting or other bothersome symptoms]. Prescriptions: New diclofenac sodium 1 % gel 2 g topical QID PRN (Reason: muscle strain) Qty: 100 0RF Rx Instructions: apply to neck up to 4 times daily for pain methocarbamol 500 mg tablet 250 mg PO BEDTIME PRN (Reason: neck pain) Qty: 10 0RF No Action glipizide 10 MG tablet 20 mg/dose PO BID Qty: 0 insulin glargine U-300 conc [Toujeo SoloStar U-300 Insulin] 300 UNIT/1 ML insulin pen 102 unit SQ DAILY Qty: 0 carbidopa-levodopa 25 MG/100 MG tablet 2 tab PO QID Qty: 0 saxagliptin [Onglyza] 2.5 MG tablet 2.5 mg PO DAILY Qty: 0 VITAMIN D (Vitamin D3) 4,000 u PO QDAY Qty: 0 atorvastatin 40 mg Tablet 40 mg PO DAILY aspirin 81 mg Tablet,Delayed Release (Dr/Ec) 81 mg PO DAILY multivitamin with minerals 1 tab PO DAILY rasagiline 1 mg Tablet 1 mg PO DAILY amlodipine [Norvasc] 5 mg Tablet 10 mg PO DAILY Qty: 30 0RF benazepril 20 mg tablet 20 mg PO DAILY Qty: 30 0RF Referrals: Yessenia Johnson MD [Primary Care Provider] - Visit Report Forms: Patient Portal/API <Aleksandra Deleon MD - Last Filed: 12/20/21 17:45> [facility] ED Attending Moraature Attestation: I was immediately available in the department for consultation throughout this patient's visit. I agree with documentation as above. Aleksandra Deleon MD
[2021-12-20 17:32] VITALS: BP 157/69; PULSE 74; RESP 18; O2SAT 100
== END 2021-12-20 17:33 | disposition home or self-care (01) ==
PROVIDERS: Emergency Provider Nurse Practitioner Critical Care Medicine; Family Provider Nutritionist; PCP Nutritionist
DX: S13.9XXA Sprain of joints and ligaments of unspecified parts of neck, initial encounter (principal); G20 Parkinson's disease
CPT/HCPCS: 72040; 99283; 99284

== ENCOUNTER → 2022-09-29 14:06 | Outpatient (CLI) | payer OTHER, SELFPAY ==
[2017-07-31 22:09] VITALS: BMI 29.2
== END ==
PROVIDERS: Family Provider Nutritionist; PCP Nutritionist; Visit Provider Urology
DX: R33.9 Retention of urine, unspecified (principal); G20 Parkinson's disease; R35.1 Nocturia; R79.89 Other specified abnormal findings of blood chemistry; Z87.442 Personal history of urinary calculi
CPT/HCPCS: 87077; 87086; 87186; 99214

== ENCOUNTER → 2022-10-03 14:32 | Outpatient (CLI) | payer OTHER, SELFPAY ==
[2017-07-31 22:09] VITALS: BMI 29.2
--- NOTE | 2022-10-03 14:34 | DI.RAD.S_ITS ---
PROCEDURE: XR KUB INDICATIONS: History of kidney stones TECHNIQUE: One view of the abdomen acquired. COMPARISON: [facility], , KUB XRAY (1 VIEW ABDOMEN), 03/28/2016, 10:57. FINDINGS: Surgical changes and devices: None. Interval removal of prior left ureteral stent. Bowel: Bowel gas pattern is normal. Large burden of stool. Soft tissues: No suspicious abdominal calcifications. Visualized solid organ contours appear normal in size. Bones: No suspicious bony lesions. Degenerative changes of the lumbar spine and pubic symphysis. IMPRESSION: 1. No definite kidney stones are identified. CT is more sensitive for the detection of renal stones if clinically indicated. 2. Nonobstructive bowel gas pattern. Large burden of stool, correlate for constipation. Dictated by: Janusz Franco M.D. on 10/03/2022 at 17:56 Approved by: Janusz Franco M.D. on 10/03/2022 at 17:57
== END ==
PROVIDERS: Family Provider Nutritionist; PCP Nutritionist; Referring Provider Urology; Visit Provider Urology
DX: Z09 Encounter for follow-up examination after completed treatment for conditions other than malignant neoplasm (principal); Z87.442 Personal history of urinary calculi
CPT/HCPCS: 74018

== ENCOUNTER 2024-01-03 10:45 | Outpatient (RCR) | payer OTHER, SELFPAY ==
[2017-07-31 22:09] VITALS: BMI 29.2
[2023-07-31 10:30] VITALS: BP 105/63; BP 125/48; BP 133/68
--- NOTE | 2023-07-31 15:30 | PT.OIE ---
Current Diagnoses Parkinson's disease without dyskinesia, without mention of fluctuations (07/31/23) Other lack of coordination (07/31/23) Weakness (07/31/23) Past Medical History (Last Updated 10/03/22 @ 14:04 by Heladio Stern MD) Diabetes mellitus Elevated serum creatinine History of arthritis History of kidney stones Hypercholesteremia Hypertension Kidney stone Nocturia more than twice per night Parkinson disease Urinary retention UTI (urinary tract infection) Past Surgical History (Last Reviewed 09/29/22 @ 13:56 by Heladio Stern MD) History of circumcision as Hx of vasectomy Visit Care Team Role Provider Type Yessenia Johnson MD Family Provider Non-Staff Primary Care Provider Specialty: Family Practice Address: [address] [place] [address], [id number] Email: Attending Provider Referring Provider Specialty: Address: Phone: Fax: Email: Physical Therapy Initial Evaluation PT-OP-A Visit Information Start: 07/31/23 10:30 Freq: Status: Active Protocol: Document 07/31/23 10:30 NM (Rec: 07/31/23 12:20 NM [id number]) Out-Patient Physical Therapy Visit Information Visit Information Visit Type Initial Evaluation Visit Note 15 visits Visit Start Time 10:30 Visit Stop Time 11:15 Visit Number 1 Evaluation Information Evaluation Date 07/31/23 Precautions Precautions Parkinson's Disease, fall risk , Orthostatic hypotension slow positional transitions* * PT-OP-B Current Condition Start: 07/31/23 10:30 Freq: Status: Active Protocol: Document 07/31/23 10:30 NM (Rec: 07/31/23 12:20 NM [id number]) Current Condition History of Current Condition Onset Date 12 years ago Current Complaints endurance and strength History of Current Condition Pt presents with BLE weakness. He has hx of Parkinson's disease, 12 years since dx. States he has good days and bad days. States weakness has progressively worsened. His daughter is getting ; he has wanting to dance with her. He uses a spc (5 years), only when he feels unsteady. States he has had no falls recently. He has a walker and electric wheel chair (that he hasn't used in years). Currently lives in 1 story home, lives with son and grandson, has a caregiver (primarily for showering and during mornings for medications. Pt reports that he has a walk in shower. States he is very sedentary overall, can only walk across yard with spc before becoming fatigued. States no dizziness. Currently on carbidopa/ levadopa, entacopone, and 1 more than he can't remember that he takes 4x/day every 4 hours. He has rigidity, decreased trunk rotation, muscle stiffness, bradykinesia ; no tremors, no freezing with gait or activities. States that he has had previous PT for PD which has been temporarily helpful. States R side is more affect (Leg > arms). He recently bought a theracycle that he is planning on using to supplement PT. Prior Treatments and Tests previous L RTC injury, no repair Treatment Goals Patient/Caregiver Goals slow dance with daughter in September for her wedding, improve household and community ambulation Current Functional Impairments (Reported) Functional Limitations- ADL's tranfers household Functional Limitations- Mobility/Gait household ambulation with spc; use of golf cart (street legal) which has more independence Functional Limitations- Recreation/ wood working Hobbies Functional Limitations- Other no longer driving PT-OP-C Subjective Start: 07/31/23 10:30 Freq: Status: Active Protocol: Document 07/31/23 10:30 NM (Rec: 07/31/23 12:20 NM [id number]) OP-PT Subjective Patient Comments Patient Comments see hx above for pt report Patient Questionnaires ABC- Activity Specific Balance Confidence Scale ABC Score 76.9% Dizziness Handicap Inventory DHI Score 28 (mild) Other Questionnaire Name and Score Falls Efficacy Scale International: 37/64 OP-PT Pain Assessment Comments Pain Comments Pt denies pain, reports 0/10 pain on chart PT-OP-D Balance Start: 07/31/23 10:30 Freq: Status: Active Protocol: Document 07/31/23 10:30 NM (Rec: 07/31/23 12:20 NM [id number]) Balance Tests Watkins Balance Test Watkins Balance Test Score 35/56 Semi-Tandem Standing Semi-Tandem Standing Balance 3 sec PT-OP-E Functional Tests Start: 07/31/23 10:30 Freq: Status: Active Protocol: Document 07/31/23 10:30 NM (Rec: 07/31/23 12:20 NM [id number]) Functional Tests 6 Minute Walk Test Distance 737 Device Used spc Comments festinating; several standing rest breaks 30 Second Sit to Stand Test Score 15 Comments 20, knees remain flexed; retropulses PT-OP-F Manual Assessment Start: 07/31/23 10:30 Freq: Status: Active Protocol: Document 07/31/23 10:30 NM (Rec: 07/31/23 12:20 NM [id number]) Manual Assessments Soft Tissue Assessment Soft Tissue Mobility Assessment Observable limitations in B hamstring and heel cord length . Joint Mobility Assessment Joint Mobility Assessment Rigidity of trunk, BLE/BUE. Limitations in PROM and AROM of BLE/BUE due to tone PT-OP-G Mobility & Gait Start: 07/31/23 10:30 Freq: Status: Active Protocol: Document 07/31/23 10:30 NM (Rec: 07/31/23 12:20 NM [id number]) OP Gait Assessment Gait Gait Assistance Required: Standby Assistance,Contact Guard Assist Distance (Feet) 737 Assistive Devices Assistive Device Gait Belt,Straight Cane Gait Deviations General Gait Pattern Festinating,Flexed Trunk, Narrow Based Gait Factors Limiting Gait Function Factors Limiting Gait Function Abnormal Tonal Influences, Decreased Activity Tolerance, Decreased Strength,Limited Range of Motion,Poor Balance Comments Gait Comments Decreased cardiovascular endurance. SBA>CGA with fatigue Stair Climbing Evaluation Evaluation Level of Assist On Stairs Contact Guard Assistance Devices Stair Climbing Assistive Devices Left Railing Technique/Endurance Stair Climbing Direction Ascend and Descend Stair Climbing Technique Step Over Step Number of Steps Climbed 4 Stair Climbing Set # Repetitions (reps) 2 Comments Stair Climbing Comments Decreased stability with descent, increased trunk sway and and backward trunk lean PT-OP-H Neuro Start: 07/31/23 10:30 Freq: Status: Active Protocol: Document 07/31/23 10:30 NM (Rec: 07/31/23 12:20 NM [id number]) Coordination Evaluation Upper Extremity Tests Right Finger to Nose Test Moderate Impairment Finger to Therapist's Finger Test Moderate Impairment Finger to Finger Test Moderate Impairment Alternate Nose to Finger Test Moderate Impairment Pronation/Supination Test Minimal Impairment Left Finger to Nose Test Moderate Impairment Finger to Therapist's Finger Test Moderate Impairment Finger to Finger Test Moderate Impairment Alternate Nose to Finger Test Moderate Impairment Pronation/Supination Test Minimal Impairment Lower Extremity Tests Right Alternate Heel to Knee; Heel to Toe Test Moderate Impairment Heel on [place] Test Minimal Impairment Foot Tapping Test Minimal Impairment Left Alternate Heel to Knee; Heel to Toe Test Minimal Impairment Heel on [place] Test Minimal Impairment Foot Tapping Test Minimal Impairment Comments Coordination Comments limited Vital Signs Blood Pressure Sitting Blood Pressure (90/60-120/80 mmHg) 105/63 Blood Pressure Source Automatic Cuff,Right Upper Extremity Standing Blood Pressure (90/60-120/80 mmHg) 125/48 H Blood Pressure Source Automatic Cuff,Right Upper Extremity Supine Blood Pressure (90/60-120/80 mmHg) 133/68 H Blood Pressure Source Automatic Cuff,Right Upper Extremity Comments Vital Signs Comments Denies symptoms with orthostatic testing PT-OP-J Posture/Palpation/Skin Start: 07/31/23 10:30 Freq: Status: Active Protocol: Document 07/31/23 10:30 NM (Rec: 07/31/23 12:20 NM [id number]) Posture Evaluation Position Standing Head/C-Spine Posture Forward Head T-Spine Posture Increased Kyphosis Pelvis Posture Anteriorly Tilted Weight Distribution Weight Shifted Posterior Comments Posture Comments Forward trunk flexion posture. During movement, tendency for retropulsion. Demos synergistic movements of neck/ trunk with BUE/BLE movement PT-OP-K Range of Motion Start: 07/31/23 10:30 Freq: Status: Active Protocol: Document 07/31/23 10:30 NM (Rec: 07/31/23 14:56 NM [id number]) Hip Goniometric Range of Motion Hip ROM Limitations Hip ROM Limitations Muscle Tone Comments Increased rigidity Knee Goniometric Range of Motion Knee ROM Limitations Knee ROM Limitations Soft Tissue Tightness, Contracture Comments Hamstring length limited: 130 deg L, 140 deg R PT-OP-M Strength Start: 07/31/23 10:30 Freq: Status: Active Protocol: Document 07/31/23 10:30 NM (Rec: 07/31/23 12:20 NM [id number]) Hip Strength Hip Manual Muscle Testing Right Flexion (L2) 3+ Fair+ Extension (S1) 4- Good- Abduction 4- Good- Adduction 4- Good- Left Flexion (L2) 4- Good- Extension (S1) 4- Good- Abduction 4- Good- Adduction 4- Good- Knee Strength Knee Manual Muscle Testing Right Flexion (S2) 4- Good- Extension (L3) 4- Good- Left Flexion (S2) 4- Good- Extension (L3) 4- Good- Ankle/Foot Strength Ankle and Foot Manual Muscle Testing Left Dorsiflexion (L4) 4 Good Plantarflexion (S1) 4 Good Inversion 4 Good Eversion (S1) 4 Good Right Dorsiflexion (L4) 3+ Fair+ Plantarflexion (S1) 4- Good- Inversion 4- Good- Eversion (S1) 4- Good- PT-OP-Q Treatments Start: 07/31/23 10:30 Freq: Status: Active Protocol: Document 07/31/23 10:30 NM (Rec: 07/31/23 14:56 NM [id number]) Self-Care/Home Management Treatment Education Patient Education Fall Risk,Safety Other Education 8 minutes- Education on orthostatics, slow transitions from positional changes to allow blood pressure to regulate. Education on incorporation of theracycle into weekly activity 2-3x/wk starting for 10 minutes with slow progression in time as pt tolerance and cardiovascular endurance improves. Brief education on fall risk reduction during gait due to festinating gait. Educated further on the research behind exercise and improved PD symptoms. Pt verbalizes agreement. PT-OP-T Assessment and Plan Start: 07/31/23 10:30 Freq: Status: Active Protocol: Document 07/31/23 10:30 NM (Rec: 07/31/23 12:20 NM [id number]) Physical Therapy Assessment Rehab Potential Rehabilitation Potential Good Evaluation Complexity Number of Personal Factors/Comorbidities 3 or More Number of Body Systems Impaired 1-2 Clinical Presentation at Evaluation Stable Impairments Impairments Activity Tolerance,Balance, Coordination,Functional Activities,Functional Mobility ,Gait,Integument,Posture,ROM, Sensation,Soft Tissue Mobility ,Strength,Tone,Transfers Goals Four Impairment HEP Impairment not performing HEP Short Term Goal (STG) Pt will report compliance with HEP at least 2x/wk in order to promote independence with HEP and maximize progression with PT. STG Duration 5 weeks Senior Living Goal (LTG) Pt will report compliance with HEP at least 3x/wk in order to promote independence with HEP and transition into maintenance program upon discharge from PT. LTG Duration 10 weeks Three Impairment balance, strength, posture Impairment 30 sec STS score 15 with retropulsion, 20 chair Short Term Goal (STG) Pt will be able to perform at least 10 sit to stands without UE assistance and without retropulsion in order to demonstrate improved posture, decreased fall risk, and improved BLE strength for gait /transfers STG Duration 5 weeks [employer] Director Goal (LTG) Pt will be able to perform 30 second STS test from standard chair without UE assistance and without retropulsion in order to demonstrate improved posture, decreased fall risk, and improved BLE strength for gait/transfers LTG Duration 10 weeks Two Impairment endurance, gait Impairment 6 MWT distance 737 ft with spc , 3 standing rest breaks Short Term Goal (STG) Pt will complete 6 MWT using LRAD with fewer than 3 standing rest breaks in order to demonstrate improved endurance and BLE strength STG Duration 5 weeks Senior Living Goal (LTG) Pt will improve 6 MWT distance by at least 82 m (269 ft, 1 MDC) using LRAD in order to demonstrate improved endurance and BLE strength LTG Duration 10 weeks One Impairment balance, fall risk Impairment Watkins 35/56 Short Term Goal (STG) Pt will improve Watkins score to at least 40/56 (1 MDC) in order to demonstrate improved balance and decreased fall risk STG Duration 5 weeks Senior Living Goal (LTG) Pt will improve Watkins score to at least 48/56 in order to demonstrate improved balance and decreased fall risk LTG Duration 10 weeks Assessment Summary Assessment Pt is a 73 y.o. male diagnosed with Parkinson's Disease presenting with impairments in BLE strength, balance, and gait. He has had Parkinson's Disease for 12 years with several motor symptoms including rigidity and bradykinesia. Pt does not have tremors or freezing, but he does demonstrate signs of synergistic patterns with movement. He uses a spc for gait. Pt demonstrates a festinating gait pattern, which worsens with fatigue. He also has a flexed trunk with standing and gait; however, pt demonstrates retropulsion with stairs and sit to stand transfers. During 30 sec STS test, pt able to perform without UE assistance but demonstrates posterior trunk lean and does not fully extend knees. Pt has observable limitations in bilateral heel cord and hamstring length, in addition to trunk rigidity. Pt 's Watkins score was 35/56, indicating increase fall risk and minimum cut off for safe ambulation with AD. His 6 MWT distance is 737 feet, which is below age and gender-related norms. He requires several standing rest breaks and his festinating gait worsens with fatigue. Pt is deconditioned; he performs primarily household ambulation only. PT educated pt on exam findings and plan of care. Further education on initiating and slowly progressing cardiovascular exercise to improve endurance. Depending on pt tolerance to PT, pt would likely benefit further from LSVT BIG after this episode of care. Pt would benefit from skilled PT in order to improve BLE strength and balance, decrease fall risk, and improve ability to participate in functional ADLs /recreational activities with fewer limitations. Physical Therapy Plan Frequency and Duration Frequency of Treatment 1-2x/wk Duration of treatment (weeks) 10 Plan of Care Start Date 07/31/23 Plan of Care End Date 10/13/23 Therapeutic Interventions Therapeutic Interventions Balance Training,Coordination Training,Gait Training,Home Exercise Program,Joint Mobilizations,Manual Therapy, Neuromuscular Re-education, Orthotic/Prosthetic Management ,Patient/Caregiver Education, Self-Care/Home Management, Sensory Integration,Soft Tissue Mobilization,Taping, Therapeutic Activities, Therapeutic Exercises Modalities Cold Pack/Ice Massage,Electric Stimulation,Hot Packs Next Visit Focus/Plan Next Note Type Treatment Note Next Visit Plan TUG BIG STS POC: reduce retropulsion, decrease festination, improve cardiovascular endurance and BLE strength
--- NOTE | 2023-08-03 12:14 | PT.OTN ---
Current Diagnoses Parkinson's disease without dyskinesia, without mention of fluctuations (08/03/23) Other lack of coordination (08/03/23) Weakness (08/03/23) Physical Therapy Treatment Note PT-OP-A Visit Information Start: 07/31/23 10:30 Freq: Status: Active Protocol: Document 08/03/23 10:35 NM (Rec: 08/03/23 11:20 NM [id number]) Out-Patient Physical Therapy Visit Information Visit Information Visit Type Treatment Note Visit Note 15 visits Visit Start Time 10:35 Visit Stop Time 11:15 Visit Number 05/04 Evaluation Information Evaluation Date 07/31/23 PT-OP-B Current Condition Start: 07/31/23 10:30 Freq: Status: Active Protocol: Document 07/31/23 10:30 NM (Rec: 07/31/23 12:20 NM [id number]) Current Condition History of Current Condition Onset Date 12 years ago Current Complaints endurance and strength History of Current Condition Pt presents with BLE weakness. He has hx of Parkinson's disease, 12 years since dx. States he has good days and bad days. States weakness has progressively worsened. His daughter is getting ; he has wanting to dance with her. He uses a spc (5 years), only when he feels unsteady. States he has had no falls recently. He has a walker and electric wheel chair (that he hasn't used in years). Currently lives in [address], lives with son and grandson, has a caregiver (primarily for showering and during mornings for medications. Pt reports that he has a walk in shower. States he is very sedentary overall, can only walk across yard with spc before becoming fatigued. States no dizziness. Currently on carbidopa/ levadopa, entacopone, and 1 more than he can't remember that he takes 4x/day every 4 hours. He has rigidity, decreased trunk rotation, muscle stiffness, bradykinesia ; no tremors, no freezing with gait or activities. States that he has had previous PT for PD which has been temporarily helpful. States R side is more affect (Leg > arms). He recently bought a theracycle that he is planning on using to supplement PT. Prior Treatments and Tests previous L RTC injury, no repair Treatment Goals Patient/Caregiver Goals slow dance with daughter in September for her wedding, improve household and community ambulation Current Functional Impairments (Reported) Functional Limitations- ADL's tranfers household Functional Limitations- Mobility/Gait household ambulation with spc; use of golf cart (street legal) which has more independence Functional Limitations- Recreation/ wood working Hobbies Functional Limitations- Other no longer driving PT-OP-C Subjective Start: 07/31/23 10:30 Freq: Status: Active Protocol: Document 08/03/23 10:35 NM (Rec: 08/03/23 11:20 NM [id number]) OP-PT Subjective Patient Comments Patient Comments Pt reports that he is not walking well today. Presents with spc. States he was tired after evaluation. Has not tried theracycle yet. PT-OP-D Balance Start: 07/31/23 10:30 Freq: Status: Active Protocol: Document 07/31/23 10:30 NM (Rec: 07/31/23 12:20 NM [id number]) Balance Tests Watkins Balance Test Watkins Balance Test Score 35/56 Semi-Tandem Standing Semi-Tandem Standing Balance 3 sec PT-OP-E Functional Tests Start: 07/31/23 10:30 Freq: Status: Active Protocol: Document 07/31/23 10:30 NM (Rec: 07/31/23 12:20 NM [id number]) Functional Tests 6 Minute Walk Test Distance 737 Device Used spc Comments festinating; several standing rest breaks 30 Second Sit to Stand Test Score 15 Comments 20, knees remain flexed; retropulses PT-OP-F Manual Assessment Start: 07/31/23 10:30 Freq: Status: Active Protocol: Document 07/31/23 10:30 NM (Rec: 07/31/23 12:20 NM [id number]) Manual Assessments Soft Tissue Assessment Soft Tissue Mobility Assessment Observable limitations in B hamstring and heel cord length . Joint Mobility Assessment Joint Mobility Assessment Rigidity of trunk, BLE/BUE. Limitations in PROM and AROM of BLE/BUE due to tone PT-OP-G Mobility & Gait Start: 07/31/23 10:30 Freq: Status: Active Protocol: Document 07/31/23 10:30 NM (Rec: 07/31/23 12:20 NM [id number]) OP Gait Assessment Gait Gait Assistance Required: Standby Assistance,Contact Guard Assist Distance (Feet) 737 Assistive Devices Assistive Device Gait Belt,Straight Cane Gait Deviations General Gait Pattern Festinating,Flexed Trunk, Narrow Based Gait Factors Limiting Gait Function Factors Limiting Gait Function Abnormal Tonal Influences, Decreased Activity Tolerance, Decreased Strength,Limited Range of Motion,Poor Balance Comments Gait Comments Decreased cardiovascular endurance. SBA>CGA with fatigue Stair Climbing Evaluation Evaluation Level of Assist On Stairs Contact Guard Assistance Devices Stair Climbing Assistive Devices Left Railing Technique/Endurance Stair Climbing Direction Ascend and Descend Stair Climbing Technique Step Over Step Number of Steps Climbed 4 Stair Climbing Set # Repetitions (reps) 2 Comments Stair Climbing Comments Decreased stability with descent, increased trunk sway and and backward trunk lean PT-OP-H Neuro Start: 07/31/23 10:30 Freq: Status: Active Protocol: Document 07/31/23 10:30 NM (Rec: 07/31/23 12:20 NM [id number]) Coordination Evaluation Upper Extremity Tests Right Finger to Nose Test Moderate Impairment Finger to Therapist's Finger Test Moderate Impairment Finger to Finger Test Moderate Impairment Alternate Nose to Finger Test Moderate Impairment Pronation/Supination Test Minimal Impairment Left Finger to Nose Test Moderate Impairment Finger to Therapist's Finger Test Moderate Impairment Finger to Finger Test Moderate Impairment Alternate Nose to Finger Test Moderate Impairment Pronation/Supination Test Minimal Impairment Lower Extremity Tests Right Alternate Heel to Knee; Heel to Toe Test Moderate Impairment Heel on [place] Test Minimal Impairment Foot Tapping Test Minimal Impairment Left Alternate Heel to Knee; Heel to Toe Test Minimal Impairment Heel on [place] Test Minimal Impairment Foot Tapping Test Minimal Impairment Comments Coordination Comments limited Vital Signs Blood Pressure Sitting Blood Pressure (90/60-120/80 mmHg) 105/63 Blood Pressure Source Automatic Cuff,Right Upper Extremity Standing Blood Pressure (90/60-120/80 mmHg) 125/48 H Blood Pressure Source Automatic Cuff,Right Upper Extremity Supine Blood Pressure (90/60-120/80 mmHg) 133/68 H Blood Pressure Source Automatic Cuff,Right Upper Extremity Comments Vital Signs Comments Denies symptoms with orthostatic testing PT-OP-J Posture/Palpation/Skin Start: 07/31/23 10:30 Freq: Status: Active Protocol: Document 07/31/23 10:30 NM (Rec: 07/31/23 12:20 NM [id number]) Posture Evaluation Position Standing Head/C-Spine Posture Forward Head T-Spine Posture Increased Kyphosis Pelvis Posture Anteriorly Tilted Weight Distribution Weight Shifted Posterior Comments Posture Comments Forward trunk flexion posture. During movement, tendency for retropulsion. Demos synergistic movements of neck/ trunk with BUE/BLE movement PT-OP-K Range of Motion Start: 07/31/23 10:30 Freq: Status: Active Protocol: Document 07/31/23 10:30 NM (Rec: 07/31/23 14:56 NM [id number]) Hip Goniometric Range of Motion Hip ROM Limitations Hip ROM Limitations Muscle Tone Comments Increased rigidity Knee Goniometric Range of Motion Knee ROM Limitations Knee ROM Limitations Soft Tissue Tightness, Contracture Comments Hamstring length limited: 130 deg L, 140 deg R PT-OP-M Strength Start: 07/31/23 10:30 Freq: Status: Active Protocol: Document 07/31/23 10:30 NM (Rec: 07/31/23 12:20 NM [id number]) Hip Strength Hip Manual Muscle Testing Right Flexion (L2) 3+ Fair+ Extension (S1) 4- Good- Abduction 4- Good- Adduction 4- Good- Left Flexion (L2) 4- Good- Extension (S1) 4- Good- Abduction 4- Good- Adduction 4- Good- Knee Strength Knee Manual Muscle Testing Right Flexion (S2) 4- Good- Extension (L3) 4- Good- Left Flexion (S2) 4- Good- Extension (L3) 4- Good- Ankle/Foot Strength Ankle and Foot Manual Muscle Testing Left Dorsiflexion (L4) 4 Good Plantarflexion (S1) 4 Good Inversion 4 Good Eversion (S1) 4 Good Right Dorsiflexion (L4) 3+ Fair+ Plantarflexion (S1) 4- Good- Inversion 4- Good- Eversion (S1) 4- Good- PT-OP-Q Treatments Start: 07/31/23 10:30 Freq: Status: Active Protocol: Document 08/03/23 10:35 NM (Rec: 08/03/23 11:20 NM [id number]) Therapeutic Exercises Sitting Exercises HS stretch Sitting Exercise Name seated with heel up Side bilateral Reps/Minutes 60 ea Comments slight contractures hip abduction Sitting Exercise Name 1. glute medius activation, 2. hip abduction Side bilateral Reps/Minutes 1. 2x30, 2. 2x10 Comments pain free; challenging Standing Exercises STS Standing Exercise Name 1. STS with arms in front for ant WS, 2. BIG STS Side bilateral Equipment Used cued TKE Reps/Minutes 1. 1x10, 2. 2x10 with touch to PT hand for target Comments cued large amplitude motions, ant weight shift, no retropulsion; inc time Neuro Re-Education Treatment Balance Activities Stepping outside TRISHA Details CGA Surface stable Comments 1. lateral stepping to cone with same side arm movement 1hand support on ballet bar > decrease support to no hand support, 5x5 reps bilaterally. Cued large movements, upright posture 2. fwd stepping to cone with backward step to start, 1x10 ea Less stable on L side stepping than R side. Cued wider TRISHA and large movements, upright posture, slower steps 3. Square step: stepping around 4 2ft squares, 3 reps ea direction: fwd, side, retro , side Cued not to look at ground. Challenged with retro step d/t retropulsion 4. waltz square step mirroring PT, 3 reps ea direction. PT and pt flat hand at shldr level. Cued not to look at ground, larger posterior step. Challenged w/ retro step d/t retropulsion Self-Care/Home Management Treatment Education Patient Education Home Exercise Program Other Education HEP: sit to stand with caregiver nearby for balance assistance and safety PT-OP-T Assessment and Plan Start: 07/31/23 10:30 Freq: Status: Active Protocol: Document 08/03/23 10:35 NM (Rec: 08/03/23 11:20 NM [id number]) Physical Therapy Assessment Goals Four Impairment HEP Impairment not performing HEP Short Term Goal (STG) Pt will report compliance with HEP at least 2x/wk in order to promote independence with HEP and maximize progression with PT. STG Duration 5 weeks Longterm Goal (LTG) Pt will report compliance with HEP at least 3x/wk in order to promote independence with HEP and transition into maintenance program upon discharge from PT. LTG Duration 10 weeks Three Impairment balance, strength, posture Impairment 30 sec STS score 15 with retropulsion, 20 chair Short Term Goal (STG) Pt will be able to perform at least 10 sit to stands without UE assistance and without retropulsion in order to demonstrate improved posture, decreased fall risk, and improved BLE strength for gait /transfers STG Duration 5 weeks Longterm Goal (LTG) Pt will be able to perform 30 second STS test from standard chair without UE assistance and without retropulsion in order to demonstrate improved posture, decreased fall risk, and improved BLE strength for gait/transfers LTG Duration 10 weeks Two Impairment endurance, gait Impairment 6 MWT distance 737 ft with spc , 3 standing rest breaks Short Term Goal (STG) Pt will complete 6 MWT using LRAD with fewer than 3 standing rest breaks in order to demonstrate improved endurance and BLE strength STG Duration 5 weeks Lining Stamper Goal (LTG) Pt will improve 6 MWT distance by at least 82 m (269 ft, 1 MDC) using LRAD in order to demonstrate improved endurance and BLE strength LTG Duration 10 weeks One Impairment balance, fall risk Impairment Watkins 35/56 Short Term Goal (STG) Pt will improve Watkins score to at least 40/56 (1 MDC) in order to demonstrate improved balance and decreased fall risk STG Duration 5 weeks Longterm Goal (LTG) Pt will improve Watkins score to at least 48/56 in order to demonstrate improved balance and decreased fall risk LTG Duration 10 weeks Assessment Summary Assessment Pt tolerated session well but fatigues easily. He consistently demonstrates posterior trunk lean and retropulsion with sit to stands. Initiated large amplitude strengthening and balance functional movements. During sit to stands, pt cued extensively for anterior weight shift and larger movements, wider TRISHA. Initiating stepping outside of TRISHA for balance, gait. Pt challenged with retro stepping due to posterior lean. Demos improvement in stepping with less UE support with reps. Fatigues easily and require frequent rest breaks; requires increased time with activity due to bradykinesia. Pt would benefit from skilled PT to decrease fall risk, improve safety awareness and balance in order to improve activity tolerance. Physical Therapy Plan Frequency and Duration Frequency of Treatment 1-2x/wk Duration of treatment (weeks) 10 Plan of Care Start Date 07/31/23 Plan of Care End Date 10/13/23 Therapeutic Interventions Therapeutic Interventions Balance Training,Coordination Training,Gait Training,Home Exercise Program,Joint Mobilizations,Manual Therapy, Neuromuscular Re-education, Orthotic/Prosthetic Management ,Patient/Caregiver Education, Self-Care/Home Management, Sensory Integration,Soft Tissue Mobilization,Taping, Therapeutic Activities, Therapeutic Exercises Modalities Cold Pack/Ice Massage,Electric Stimulation,Hot Packs Next Visit Focus/Plan Next Note Type Treatment Note Next Visit Plan TUG, BIG STS review Stepping, shuttle balance, hurdles, weight shift, limit posterior lean POC: reduce retropulsion, decrease festination, improve cardiovascular endurance and BLE strength
--- NOTE | 2023-08-07 16:01 | PT.OTN ---
Current Diagnoses Parkinson's disease without dyskinesia, without mention of fluctuations (08/07/23) Other lack of coordination (08/07/23) Weakness (08/07/23) Physical Therapy Treatment Note PT-OP-A Visit Information Start: 07/31/23 10:30 Freq: Status: Active Protocol: Document 08/07/23 10:30 NM (Rec: 08/07/23 11:17 NM [id number]) Out-Patient Physical Therapy Visit Information Visit Information Visit Type Treatment Note Visit Note 15 visits Visit Start Time 10:30 Visit Stop Time 11:15 Visit Number 3/15 Evaluation Information Evaluation Date 07/31/23 Precautions Precautions Parkinson's Disease, fall risk , Orthostatic hypotension slow positional transitions* * PT-OP-B Current Condition Start: 07/31/23 10:30 Freq: Status: Active Protocol: Document 07/31/23 10:30 NM (Rec: 07/31/23 12:20 NM [id number]) Current Condition History of Current Condition Onset Date 12 years ago Current Complaints endurance and strength History of Current Condition Pt presents with BLE weakness. He has hx of Parkinson's disease, 12 years since dx. States he has good days and bad days. States weakness has progressively worsened. His daughter is getting ; he has wanting to dance with her. He uses a spc (5 years), only when he feels unsteady. States he has had no falls recently. He has a walker and electric wheel chair (that he hasn't used in years). Currently lives in [address], lives with son and grandson, has a caregiver (primarily for showering and during mornings for medications. Pt reports that he has a walk in shower. States he is very sedentary overall, can only walk across yard with spc before becoming fatigued. States no dizziness. Currently on carbidopa/ levadopa, entacopone, and 1 more than he can't remember that he takes 4x/day every 4 hours. He has rigidity, decreased trunk rotation, muscle stiffness, bradykinesia ; no tremors, no freezing with gait or activities. States that he has had previous PT for PD which has been temporarily helpful. States R side is more affect (Leg > arms). He recently bought a theracycle that he is planning on using to supplement PT. Prior Treatments and Tests previous L RTC injury, no repair Treatment Goals Patient/Caregiver Goals slow dance with daughter in September for her wedding, improve household and community ambulation Current Functional Impairments (Reported) Functional Limitations- ADL's tranfers household Functional Limitations- Mobility/Gait household ambulation with spc; use of golf cart (street legal) which has more independence Functional Limitations- Recreation/ wood working Hobbies Functional Limitations- Other no longer driving PT-OP-C Subjective Start: 07/31/23 10:30 Freq: Status: Active Protocol: Document 08/07/23 10:30 NM (Rec: 08/07/23 11:17 NM [id number]) OP-PT Subjective Patient Comments Patient Comments Pt reports that he had difficulty walking yesterday, unsure why. States he was exhausted after last session but reports doing well today. He has been practicing STS. He reports they are not getting easier and his abs are sore. PT-OP-D Balance Start: 07/31/23 10:30 Freq: Status: Active Protocol: Document 07/31/23 10:30 NM (Rec: 07/31/23 12:20 NM [id number]) Balance Tests Watkins Balance Test Watkins Balance Test Score 35/56 Semi-Tandem Standing Semi-Tandem Standing Balance 3 sec PT-OP-E Functional Tests Start: 07/31/23 10:30 Freq: Status: Active Protocol: Document 07/31/23 10:30 NM (Rec: 07/31/23 12:20 NM [id number]) Functional Tests 6 Minute Walk Test Distance 737 Device Used spc Comments festinating; several standing rest breaks 30 Second Sit to Stand Test Score 15 Comments 20, knees remain flexed; retropulses PT-OP-F Manual Assessment Start: 07/31/23 10:30 Freq: Status: Active Protocol: Document 07/31/23 10:30 NM (Rec: 07/31/23 12:20 NM [id number]) Manual Assessments Soft Tissue Assessment Soft Tissue Mobility Assessment Observable limitations in B hamstring and heel cord length . Joint Mobility Assessment Joint Mobility Assessment Rigidity of trunk, BLE/BUE. Limitations in PROM and AROM of BLE/BUE due to tone PT-OP-G Mobility & Gait Start: 07/31/23 10:30 Freq: Status: Active Protocol: Document 07/31/23 10:30 NM (Rec: 07/31/23 12:20 NM [id number]) OP Gait Assessment Gait Gait Assistance Required: Standby Assistance,Contact Guard Assist Distance (Feet) 737 Assistive Devices Assistive Device Gait Belt,Straight Cane Gait Deviations General Gait Pattern Festinating,Flexed Trunk, Narrow Based Gait Factors Limiting Gait Function Factors Limiting Gait Function Abnormal Tonal Influences, Decreased Activity Tolerance, Decreased Strength,Limited Range of Motion,Poor Balance Comments Gait Comments Decreased cardiovascular endurance. SBA>CGA with fatigue Stair Climbing Evaluation Evaluation Level of Assist On Stairs Contact Guard Assistance Devices Stair Climbing Assistive Devices Left Railing Technique/Endurance Stair Climbing Direction Ascend and Descend Stair Climbing Technique Step Over Step Number of Steps Climbed 4 Stair Climbing Set # Repetitions (reps) 2 Comments Stair Climbing Comments Decreased stability with descent, increased trunk sway and and backward trunk lean PT-OP-H Neuro Start: 07/31/23 10:30 Freq: Status: Active Protocol: Document 07/31/23 10:30 NM (Rec: 07/31/23 12:20 NM [id number]) Coordination Evaluation Upper Extremity Tests Right Finger to Nose Test Moderate Impairment Finger to Therapist's Finger Test Moderate Impairment Finger to Finger Test Moderate Impairment Alternate Nose to Finger Test Moderate Impairment Pronation/Supination Test Minimal Impairment Left Finger to Nose Test Moderate Impairment Finger to Therapist's Finger Test Moderate Impairment Finger to Finger Test Moderate Impairment Alternate Nose to Finger Test Moderate Impairment Pronation/Supination Test Minimal Impairment Lower Extremity Tests Right Alternate Heel to Knee; Heel to Toe Test Moderate Impairment Heel on [place] Test Minimal Impairment Foot Tapping Test Minimal Impairment Left Alternate Heel to Knee; Heel to Toe Test Minimal Impairment Heel on [place] Test Minimal Impairment Foot Tapping Test Minimal Impairment Comments Coordination Comments limited Vital Signs Blood Pressure Sitting Blood Pressure (90/60-120/80 mmHg) 105/63 Blood Pressure Source Automatic Cuff,Right Upper Extremity Standing Blood Pressure (90/60-120/80 mmHg) 125/48 H Blood Pressure Source Automatic Cuff,Right Upper Extremity Supine Blood Pressure (90/60-120/80 mmHg) 133/68 H Blood Pressure Source Automatic Cuff,Right Upper Extremity Comments Vital Signs Comments Denies symptoms with orthostatic testing PT-OP-J Posture/Palpation/Skin Start: 07/31/23 10:30 Freq: Status: Active Protocol: Document 07/31/23 10:30 NM (Rec: 07/31/23 12:20 NM [id number]) Posture Evaluation Position Standing Head/C-Spine Posture Forward Head T-Spine Posture Increased Kyphosis Pelvis Posture Anteriorly Tilted Weight Distribution Weight Shifted Posterior Comments Posture Comments Forward trunk flexion posture. During movement, tendency for retropulsion. Demos synergistic movements of neck/ trunk with BUE/BLE movement PT-OP-K Range of Motion Start: 07/31/23 10:30 Freq: Status: Active Protocol: Document 07/31/23 10:30 NM (Rec: 07/31/23 14:56 NM [id number]) Hip Goniometric Range of Motion Hip ROM Limitations Hip ROM Limitations Muscle Tone Comments Increased rigidity Knee Goniometric Range of Motion Knee ROM Limitations Knee ROM Limitations Soft Tissue Tightness, Contracture Comments Hamstring length limited: 130 deg L, 140 deg R PT-OP-M Strength Start: 07/31/23 10:30 Freq: Status: Active Protocol: Document 07/31/23 10:30 NM (Rec: 07/31/23 12:20 NM [id number]) Hip Strength Hip Manual Muscle Testing Right Flexion (L2) 3+ Fair+ Extension (S1) 4- Good- Abduction 4- Good- Adduction 4- Good- Left Flexion (L2) 4- Good- Extension (S1) 4- Good- Abduction 4- Good- Adduction 4- Good- Knee Strength Knee Manual Muscle Testing Right Flexion (S2) 4- Good- Extension (L3) 4- Good- Left Flexion (S2) 4- Good- Extension (L3) 4- Good- Ankle/Foot Strength Ankle and Foot Manual Muscle Testing Left Dorsiflexion (L4) 4 Good Plantarflexion (S1) 4 Good Inversion 4 Good Eversion (S1) 4 Good Right Dorsiflexion (L4) 3+ Fair+ Plantarflexion (S1) 4- Good- Inversion 4- Good- Eversion (S1) 4- Good- PT-OP-Q Treatments Start: 07/31/23 10:30 Freq: Status: Active Protocol: Document 08/07/23 10:30 NM (Rec: 08/07/23 11:17 NM [id number]) Therapeutic Exercises Sitting Exercises trunk flexion Sitting Exercise Name fwd ball rolls for anterior weight shift Side bilateral Reps/Minutes 1x15 Standing Exercises pallof Standing Exercise Name walkouts only (anti-rotation) Side bilateral Resistance lvl 1 band peach Reps/Minutes 1x5 ea direction; close SBA for balance Comments challenging; cued large amp movement and steps lat pull down Side bilateral Resistance lvl 2>lvl 3 Reps/Minutes 1x10 > 2x5 with 3 concentric and 3 eccentric count Comments challenging; close SBA for balance STS Standing Exercise Name STS from mesh chair Side bilateral Reps/Minutes 1x10 Comments cued large amplitude motions, ant weight shift, no retropulsion; inc time Neuro Re-Education Treatment Balance Activities Retro walking Details Fwd ambulation > retro gait Surface stable Reps/Duration 3 sets x 10 ft Comments Challenged with retro gait, demos posterior trunk lean. CGA to steady. Cued larger step, slight anterior trunk lean, toes up to ibis for DF Hurdles Details Fwd, lateral Surface stable Reps/Duration 2 sets ea 5 hurdles Comments Improved when leading with LLE . CGA-close SBA Weight shifting Details ball rolls: anterior>side weight shifts Surface stable Reps/Duration 1x10 (5 ea direction) Comments Tech rolling large slovak ball to pt for ant WS and fwd lean, then pt roll ball around body 5x to R and then 5x to L, then pt roll ball back to tech . Reports low back is achy following exercise Stepping outside TRISHA Details CGA- close SBA Surface stable Reps/Duration 1x8 ea Comments 4 colors in square, PT calling out color and pt stepping toward that color Cued for large amplitude step with audible stomping sound and arms large to prevent forward flexed posture. PT-OP-T Assessment and Plan Start: 07/31/23 10:30 Freq: Status: Active Protocol: Document 08/07/23 10:30 NM (Rec: 08/07/23 11:17 NM [id number]) Physical Therapy Assessment Goals Four Impairment HEP Impairment not performing HEP Short Term Goal (STG) Pt will report compliance with HEP at least 2x/wk in order to promote independence with HEP and maximize progression with PT. STG Duration 5 weeks [employer] Technical Assistant Goal (LTG) Pt will report compliance with HEP at least 3x/wk in order to promote independence with HEP and transition into maintenance program upon discharge from PT. LTG Duration 10 weeks Three Impairment balance, strength, posture Impairment 30 sec STS score 15 with retropulsion, 20 chair Short Term Goal (STG) Pt will be able to perform at least 10 sit to stands without UE assistance and without retropulsion in order to demonstrate improved posture, decreased fall risk, and improved BLE strength for gait /transfers STG Duration 5 weeks Mcfp Goal (LTG) Pt will be able to perform 30 second STS test from standard chair without UE assistance and without retropulsion in order to demonstrate improved posture, decreased fall risk, and improved BLE strength for gait/transfers LTG Duration 10 weeks Two Impairment endurance, gait Impairment 6 MWT distance 737 ft with spc , 3 standing rest breaks Short Term Goal (STG) Pt will complete 6 MWT using LRAD with fewer than 3 standing rest breaks in order to demonstrate improved endurance and BLE strength STG Duration 5 weeks Mcfp Goal (LTG) Pt will improve 6 MWT distance by at least 82 m (269 ft, 1 MDC) using LRAD in order to demonstrate improved endurance and BLE strength LTG Duration 10 weeks One Impairment balance, fall risk Impairment Watkins 35/56 Short Term Goal (STG) Pt will improve Watkins score to at least 40/56 (1 MDC) in order to demonstrate improved balance and decreased fall risk STG Duration 5 weeks Mcfp Goal (LTG) Pt will improve Watkins score to at least 48/56 in order to demonstrate improved balance and decreased fall risk LTG Duration 10 weeks Assessment Summary Assessment Pt tolerated well and required increased time. He requires frequent breaks between activities due to deconditioning. Pt has been trying to improve cardio with use of theracycle every other day. During sit to stand, pt demonstrates improved anterior weight shift and eccentric control. Continues to requires cues for full upright posture , knee extension, scooting forward before trying to stand up. Emphasis on anterior weight shift with ball flexion and ball rolls. Pt able to shift weight better today while rolling ball around body from in front of him compared to weight shifts last session . Standing lat pull downs and pallof walkouts added to challenge both core strength while maintaining balance against resistance. During hurdles and stepping, pt more confident when stepping with LLE vs RLE. Challenged with maintain balance during retro stepping, tries to overcompensate against posterior trunk lean and stepping with increased forward trunk lean. During stepping outside TRISHA, pt able to perform with more confidence and control today; however, continues to have small amplitude movements and requires cues to perform larger amplitude movements. Pt would benefit from skilled PT to improve balance and gait, in addition to endurance and strength in order to improve activity tolerance and QOL. Physical Therapy Plan Frequency and Duration Frequency of Treatment 1-2x/wk Duration of treatment (weeks) 10 Plan of Care Start Date 07/31/23 Plan of Care End Date 10/13/23 Therapeutic Interventions Therapeutic Interventions Balance Training,Coordination Training,Gait Training,Home Exercise Program,Joint Mobilizations,Manual Therapy, Neuromuscular Re-education, Orthotic/Prosthetic Management ,Patient/Caregiver Education, Self-Care/Home Management, Sensory Integration,Soft Tissue Mobilization,Taping, Therapeutic Activities, Therapeutic Exercises Modalities Cold Pack/Ice Massage,Electric Stimulation,Hot Packs Next Visit Focus/Plan Next Note Type Treatment Note Next Visit Plan TUG Leg press, stepping outside TRISHA, pallof and lat pull down Stepping, shuttle balance, hurdles, weight shift, limit posterior lean POC: reduce retropulsion, decrease festination, improve cardiovascular endurance and BLE strength
--- NOTE | 2023-08-10 11:22 | PT.OTN ---
Current Diagnoses Parkinson's disease without dyskinesia, without mention of fluctuations (08/10/23) Other lack of coordination (08/10/23) Weakness (08/10/23) Physical Therapy Treatment Note PT-OP-A Visit Information Start: 07/31/23 10:30 Freq: Status: Active Protocol: Document 08/10/23 10:34 NM (Rec: 08/10/23 11:22 NM [id number]) Out-Patient Physical Therapy Visit Information Visit Information Visit Type Treatment Note Visit Note 15 visits Visit Start Time 10:34 Visit Stop Time 11:14 Visit Number 07/02 Evaluation Information Evaluation Date 07/31/23 Precautions Precautions Parkinson's Disease, fall risk , Orthostatic hypotension slow positional transitions* * PT-OP-B Current Condition Start: 07/31/23 10:30 Freq: Status: Active Protocol: Document 07/31/23 10:30 NM (Rec: 07/31/23 12:20 NM [id number]) Current Condition History of Current Condition Onset Date 12 years ago Current Complaints endurance and strength History of Current Condition Pt presents with BLE weakness. He has hx of Parkinson's disease, 12 years since dx. States he has good days and bad days. States weakness has progressively worsened. His daughter is getting ; he has wanting to dance with her. He uses a spc (5 years), only when he feels unsteady. States he has had no falls recently. He has a walker and electric wheel chair (that he hasn't used in years). Currently lives in [address], lives with son and grandson, has a caregiver (primarily for showering and during mornings for medications. Pt reports that he has a walk in shower. States he is very sedentary overall, can only walk across yard with spc before becoming fatigued. States no dizziness. Currently on carbidopa/ levadopa, entacopone, and 1 more than he can't remember that he takes 4x/day every 4 hours. He has rigidity, decreased trunk rotation, muscle stiffness, bradykinesia ; no tremors, no freezing with gait or activities. States that he has had previous PT for PD which has been temporarily helpful. States R side is more affect (Leg > arms). He recently bought a theracycle that he is planning on using to supplement PT. Prior Treatments and Tests previous L RTC injury, no repair Treatment Goals Patient/Caregiver Goals slow dance with daughter in September for her wedding, improve household and community ambulation Current Functional Impairments (Reported) Functional Limitations- ADL's tranfers household Functional Limitations- Mobility/Gait household ambulation with spc; use of golf cart (street legal) which has more independence Functional Limitations- Recreation/ wood working Hobbies Functional Limitations- Other no longer driving PT-OP-C Subjective Start: 07/31/23 10:30 Freq: Status: Active Protocol: Document 08/10/23 10:34 NM (Rec: 08/10/23 11:22 NM [id number]) OP-PT Subjective Patient Comments Patient Comments Pt reports feeling tired today , states he took warm bath today (remarks first timein 20 years). He is planning to dance with his daughter to stand by me. He reports that he did his exercises once. PT-OP-D Balance Start: 07/31/23 10:30 Freq: Status: Active Protocol: Document 07/31/23 10:30 NM (Rec: 07/31/23 12:20 NM [id number]) Balance Tests Watkins Balance Test Watkins Balance Test Score 35/56 Semi-Tandem Standing Semi-Tandem Standing Balance 3 sec PT-OP-E Functional Tests Start: 07/31/23 10:30 Freq: Status: Active Protocol: Document 07/31/23 10:30 NM (Rec: 07/31/23 12:20 NM [id number]) Functional Tests 6 Minute Walk Test Distance 737 Device Used spc Comments festinating; several standing rest breaks 30 Second Sit to Stand Test Score 15 Comments 20, knees remain flexed; retropulses PT-OP-F Manual Assessment Start: 07/31/23 10:30 Freq: Status: Active Protocol: Document 07/31/23 10:30 NM (Rec: 07/31/23 12:20 NM [id number]) Manual Assessments Soft Tissue Assessment Soft Tissue Mobility Assessment Observable limitations in B hamstring and heel cord length . Joint Mobility Assessment Joint Mobility Assessment Rigidity of trunk, BLE/BUE. Limitations in PROM and AROM of BLE/BUE due to tone PT-OP-G Mobility & Gait Start: 07/31/23 10:30 Freq: Status: Active Protocol: Document 07/31/23 10:30 NM (Rec: 07/31/23 12:20 NM [id number]) OP Gait Assessment Gait Gait Assistance Required: Standby Assistance,Contact Guard Assist Distance (Feet) 737 Assistive Devices Assistive Device Gait Belt,Straight Cane Gait Deviations General Gait Pattern Festinating,Flexed Trunk, Narrow Based Gait Factors Limiting Gait Function Factors Limiting Gait Function Abnormal Tonal Influences, Decreased Activity Tolerance, Decreased Strength,Limited Range of Motion,Poor Balance Comments Gait Comments Decreased cardiovascular endurance. SBA>CGA with fatigue Stair Climbing Evaluation Evaluation Level of Assist On Stairs Contact Guard Assistance Devices Stair Climbing Assistive Devices Left Railing Technique/Endurance Stair Climbing Direction Ascend and Descend Stair Climbing Technique Step Over Step Number of Steps Climbed 4 Stair Climbing Set # Repetitions (reps) 2 Comments Stair Climbing Comments Decreased stability with descent, increased trunk sway and and backward trunk lean PT-OP-H Neuro Start: 07/31/23 10:30 Freq: Status: Active Protocol: Document 07/31/23 10:30 NM (Rec: 07/31/23 12:20 NM [id number]) Coordination Evaluation Upper Extremity Tests Right Finger to Nose Test Moderate Impairment Finger to Therapist's Finger Test Moderate Impairment Finger to Finger Test Moderate Impairment Alternate Nose to Finger Test Moderate Impairment Pronation/Supination Test Minimal Impairment Left Finger to Nose Test Moderate Impairment Finger to Therapist's Finger Test Moderate Impairment Finger to Finger Test Moderate Impairment Alternate Nose to Finger Test Moderate Impairment Pronation/Supination Test Minimal Impairment Lower Extremity Tests Right Alternate Heel to Knee; Heel to Toe Test Moderate Impairment Heel on [place] Test Minimal Impairment Foot Tapping Test Minimal Impairment Left Alternate Heel to Knee; Heel to Toe Test Minimal Impairment Heel on [place] Test Minimal Impairment Foot Tapping Test Minimal Impairment Comments Coordination Comments limited Vital Signs Blood Pressure Sitting Blood Pressure (90/60-120/80 mmHg) 105/63 Blood Pressure Source Automatic Cuff,Right Upper Extremity Standing Blood Pressure (90/60-120/80 mmHg) 125/48 H Blood Pressure Source Automatic Cuff,Right Upper Extremity Supine Blood Pressure (90/60-120/80 mmHg) 133/68 H Blood Pressure Source Automatic Cuff,Right Upper Extremity Comments Vital Signs Comments Denies symptoms with orthostatic testing PT-OP-J Posture/Palpation/Skin Start: 07/31/23 10:30 Freq: Status: Active Protocol: Document 07/31/23 10:30 NM (Rec: 07/31/23 12:20 NM [id number]) Posture Evaluation Position Standing Head/C-Spine Posture Forward Head T-Spine Posture Increased Kyphosis Pelvis Posture Anteriorly Tilted Weight Distribution Weight Shifted Posterior Comments Posture Comments Forward trunk flexion posture. During movement, tendency for retropulsion. Demos synergistic movements of neck/ trunk with BUE/BLE movement PT-OP-K Range of Motion Start: 07/31/23 10:30 Freq: Status: Active Protocol: Document 07/31/23 10:30 NM (Rec: 07/31/23 14:56 NM [id number]) Hip Goniometric Range of Motion Hip ROM Limitations Hip ROM Limitations Muscle Tone Comments Increased rigidity Knee Goniometric Range of Motion Knee ROM Limitations Knee ROM Limitations Soft Tissue Tightness, Contracture Comments Hamstring length limited: 130 deg L, 140 deg R PT-OP-M Strength Start: 07/31/23 10:30 Freq: Status: Active Protocol: Document 07/31/23 10:30 NM (Rec: 07/31/23 12:20 NM [id number]) Hip Strength Hip Manual Muscle Testing Right Flexion (L2) 3+ Fair+ Extension (S1) 4- Good- Abduction 4- Good- Adduction 4- Good- Left Flexion (L2) 4- Good- Extension (S1) 4- Good- Abduction 4- Good- Adduction 4- Good- Knee Strength Knee Manual Muscle Testing Right Flexion (S2) 4- Good- Extension (L3) 4- Good- Left Flexion (S2) 4- Good- Extension (L3) 4- Good- Ankle/Foot Strength Ankle and Foot Manual Muscle Testing Left Dorsiflexion (L4) 4 Good Plantarflexion (S1) 4 Good Inversion 4 Good Eversion (S1) 4 Good Right Dorsiflexion (L4) 3+ Fair+ Plantarflexion (S1) 4- Good- Inversion 4- Good- Eversion (S1) 4- Good- PT-OP-Q Treatments Start: 07/31/23 10:30 Freq: Status: Active Protocol: Document 08/10/23 10:34 NM (Rec: 08/10/23 11:22 NM [id number]) Therapeutic Exercises Standing Exercises step up Standing Exercise Name non-alt, 6 step Side bilateral Equipment Used no UE assist, close SBA Reps/Minutes 1x10 ea Comments cued wider TRISHA; added to HEP w / caregiver pallof Standing Exercise Name walkouts only (anti-rotation) Side bilateral Resistance lvl 1 band peach Reps/Minutes 1x5 ea direction; close SBA for balance Comments challenging; cued large amp movement and steps STS Standing Exercise Name STS from mesh chair Side bilateral Reps/Minutes 2x8 Comments improved weight shift and descent; cued TKE, tall posture Neuro Re-Education Treatment Balance Activities TUG Details 3x Equipment with spc Comments 15.3 sec, 13.5, 12.8 secs foam Surface unstable Equipment // bars, close SBA Comments 1. stance, 2 min total Inc trunk sway, improved with looking to distance w/ focus. Less post trunk lean 2. marching, 1x8 ea Non-alt > alt. Inc trunk lean with L stance. Cued less post trunk lean 3. head turns horizontal, 1x10 ea direction Challenging on foam, but improved with reps. Fatiguing. Cued to look up/ahead Retro walking Details Fwd ambulation > retro gait Surface stable Reps/Duration 3 sets x 10 ft Comments Challenged with retro gait, demos posterior trunk lean. CGA to steady. Cued larger step, slight anterior trunk lean, toes up to ibis for DF. Improved wider TRISHA, less crossing w/ cueing PT-OP-T Assessment and Plan Start: 07/31/23 10:30 Freq: Status: Active Protocol: Document 08/10/23 10:34 NM (Rec: 08/10/23 11:22 NM [id number]) Physical Therapy Assessment Goals Four Impairment HEP Impairment not performing HEP Short Term Goal (STG) Pt will report compliance with HEP at least 2x/wk in order to promote independence with HEP and maximize progression with PT. STG Duration 5 weeks Fisher Goal (LTG) Pt will report compliance with HEP at least 3x/wk in order to promote independence with HEP and transition into maintenance program upon discharge from PT. LTG Duration 10 weeks Three Impairment balance, strength, posture Impairment 30 sec STS score 15 with retropulsion, 20 chair Short Term Goal (STG) Pt will be able to perform at least 10 sit to stands without UE assistance and without retropulsion in order to demonstrate improved posture, decreased fall risk, and improved BLE strength for gait /transfers STG Duration 5 weeks Fisher Goal (LTG) Pt will be able to perform 30 second STS test from standard chair without UE assistance and without retropulsion in order to demonstrate improved posture, decreased fall risk, and improved BLE strength for gait/transfers LTG Duration 10 weeks Two Impairment endurance, gait Impairment 6 MWT distance 737 ft with spc , 3 standing rest breaks Short Term Goal (STG) Pt will complete 6 MWT using LRAD with fewer than 3 standing rest breaks in order to demonstrate improved endurance and BLE strength STG Duration 5 weeks Fisher Goal (LTG) Pt will improve 6 MWT distance by at least 82 m (269 ft, 1 MDC) using LRAD in order to demonstrate improved endurance and BLE strength LTG Duration 10 weeks One Impairment balance, fall risk Impairment Watkins 35/56 Short Term Goal (STG) Pt will improve Watkins score to at least 40/56 (1 MDC) in order to demonstrate improved balance and decreased fall risk STG Duration 5 weeks Fisher Goal (LTG) Pt will improve Watkins score to at least 48/56 in order to demonstrate improved balance and decreased fall risk LTG Duration 10 weeks Assessment Summary Assessment Pt tolerated session well but was very fatigued by end of session. He is making progress with sit to stands, larger amplitude movements. However, continues to have festinating gait and narrow TRISHA w/o cueing . During retro steps, pt able to take larger steps with wide TRISHA, more stability. Continued with core and balance training. Initiated unstable surface training to challenge proprioception and vestibular input. Pt demos less posterior trunk lean while on foam. During gait and marching, demos increased lateral trunk lean with L stance. Initiated step ups and added to HEP with instruction to perform with caregiver only. Pt would benefit from skilled PT for balance and gait training in order to decrease fall risk and improve ADL tolerance. Physical Therapy Plan Frequency and Duration Frequency of Treatment 1-2x/wk Duration of treatment (weeks) 10 Plan of Care Start Date 07/31/23 Plan of Care End Date 10/13/23 Therapeutic Interventions Therapeutic Interventions Balance Training,Coordination Training,Gait Training,Home Exercise Program,Joint Mobilizations,Manual Therapy, Neuromuscular Re-education, Orthotic/Prosthetic Management ,Patient/Caregiver Education, Self-Care/Home Management, Sensory Integration,Soft Tissue Mobilization,Taping, Therapeutic Activities, Therapeutic Exercises Modalities Cold Pack/Ice Massage,Electric Stimulation,Hot Packs Next Visit Focus/Plan Next Note Type Treatment Note Next Visit Plan Focus large amp movement: Leg press, stepping outside TRISHA, arm swing with gait, spc sequencing and placement, dynamic balance Stepping, shuttle balance, hurdles, weight shift, limit posterior lean POC: reduce retropulsion, decrease festination, improve cardiovascular endurance and BLE strength
--- NOTE | 2023-08-23 13:47 | PT.OTN ---
Current Diagnoses Parkinson's disease without dyskinesia, without mention of fluctuations (08/23/23) Other lack of coordination (08/23/23) Weakness (08/23/23) Physical Therapy Treatment Note PT-OP-A Visit Information Start: 07/31/23 10:30 Freq: Status: Active Protocol: Document 08/23/23 13:06 NBM (Rec: 08/23/23 13:47 NBM [id number]) Out-Patient Physical Therapy Visit Information Visit Information Visit Type Treatment Note Visit Note 15 visits Visit Start Time 13:06 Visit Stop Time 13:45 Visit Number 09/01 Number of COMBATANT SWIMMER Visits 2 Evaluation Information Evaluation Date 07/31/23 Precautions Precautions Parkinson's Disease, fall risk , Orthostatic hypotension slow positional transitions* * PT-OP-B Current Condition Start: 07/31/23 10:30 Freq: Status: Active Protocol: Document 07/31/23 10:30 NM (Rec: 07/31/23 12:20 NM [id number]) Current Condition History of Current Condition Onset Date 12 years ago Current Complaints endurance and strength History of Current Condition Pt presents with BLE weakness. He has hx of Parkinson's disease, 12 years since dx. States he has good days and bad days. States weakness has progressively worsened. His daughter is getting ; he has wanting to dance with her. He uses a spc (5 years), only when he feels unsteady. States he has had no falls recently. He has a walker and electric wheel chair (that he hasn't used in years). Currently lives in 1 story home, lives with son and grandson, has a caregiver (primarily for showering and during mornings for medications. Pt reports that he has a walk in shower. States he is very sedentary overall, can only walk across yard with spc before becoming fatigued. States no dizziness. Currently on carbidopa/ levadopa, entacopone, and 1 more than he can't remember that he takes 4x/day every 4 hours. He has rigidity, decreased trunk rotation, muscle stiffness, bradykinesia ; no tremors, no freezing with gait or activities. States that he has had previous PT for PD which has been temporarily helpful. States R side is more affect (Leg > arms). He recently bought a theracycle that he is planning on using to supplement PT. Prior Treatments and Tests previous L RTC injury, no repair Treatment Goals Patient/Caregiver Goals slow dance with daughter in September for her wedding, improve household and community ambulation Current Functional Impairments (Reported) Functional Limitations- ADL's tranfers household Functional Limitations- Mobility/Gait household ambulation with spc; use of golf cart (street legal) which has more independence Functional Limitations- Recreation/ wood working Hobbies Functional Limitations- Other no longer driving PT-OP-C Subjective Start: 07/31/23 10:30 Freq: Status: Active Protocol: Document 08/23/23 13:06 NBM (Rec: 08/23/23 13:47 NBM [id number]) OP-PT Subjective Patient Comments Patient Comments Darrell reports he went shrimping on the boat last weekend. Pt was worn out after last PT visit and is feeling strong today. Pt fell asleep in zer0- gravity position with legs up and straightened for 5 hours which felt good. I've been doing some stretching but not enough. End of session pt reports toes curl a lot. PT-OP-D Balance Start: 07/31/23 10:30 Freq: Status: Active Protocol: Document 07/31/23 10:30 NM (Rec: 07/31/23 12:20 NM [id number]) Balance Tests Watkins Balance Test Watkins Balance Test Score 35/56 Semi-Tandem Standing Semi-Tandem Standing Balance 3 sec PT-OP-E Functional Tests Start: 07/31/23 10:30 Freq: Status: Active Protocol: Document 07/31/23 10:30 NM (Rec: 07/31/23 12:20 NM [id number]) Functional Tests 6 Minute Walk Test Distance 737 Device Used spc Comments festinating; several standing rest breaks 30 Second Sit to Stand Test Score 15 Comments 20, knees remain flexed; retropulses PT-OP-F Manual Assessment Start: 07/31/23 10:30 Freq: Status: Active Protocol: Document 07/31/23 10:30 NM (Rec: 07/31/23 12:20 NM [id number]) Manual Assessments Soft Tissue Assessment Soft Tissue Mobility Assessment Observable limitations in B hamstring and heel cord length . Joint Mobility Assessment Joint Mobility Assessment Rigidity of trunk, BLE/BUE. Limitations in PROM and AROM of BLE/BUE due to tone PT-OP-G Mobility & Gait Start: 07/31/23 10:30 Freq: Status: Active Protocol: Document 07/31/23 10:30 NM (Rec: 07/31/23 12:20 NM [id number]) OP Gait Assessment Gait Gait Assistance Required: Standby Assistance,Contact Guard Assist Distance (Feet) 737 Assistive Devices Assistive Device Gait Belt,Straight Cane Gait Deviations General Gait Pattern Festinating,Flexed Trunk, Narrow Based Gait Factors Limiting Gait Function Factors Limiting Gait Function Abnormal Tonal Influences, Decreased Activity Tolerance, Decreased Strength,Limited Range of Motion,Poor Balance Comments Gait Comments Decreased cardiovascular endurance. SBA>CGA with fatigue Stair Climbing Evaluation Evaluation Level of Assist On Stairs Contact Guard Assistance Devices Stair Climbing Assistive Devices Left Railing Technique/Endurance Stair Climbing Direction Ascend and Descend Stair Climbing Technique Step Over Step Number of Steps Climbed 4 Stair Climbing Set # Repetitions (reps) 2 Comments Stair Climbing Comments Decreased stability with descent, increased trunk sway and and backward trunk lean PT-OP-H Neuro Start: 07/31/23 10:30 Freq: Status: Active Protocol: Document 07/31/23 10:30 NM (Rec: 07/31/23 12:20 NM [id number]) Coordination Evaluation Upper Extremity Tests Right Finger to Nose Test Moderate Impairment Finger to Therapist's Finger Test Moderate Impairment Finger to Finger Test Moderate Impairment Alternate Nose to Finger Test Moderate Impairment Pronation/Supination Test Minimal Impairment Left Finger to Nose Test Moderate Impairment Finger to Therapist's Finger Test Moderate Impairment Finger to Finger Test Moderate Impairment Alternate Nose to Finger Test Moderate Impairment Pronation/Supination Test Minimal Impairment Lower Extremity Tests Right Alternate Heel to Knee; Heel to Toe Test Moderate Impairment Heel on [place] Test Minimal Impairment Foot Tapping Test Minimal Impairment Left Alternate Heel to Knee; Heel to Toe Test Minimal Impairment Heel on [place] Test Minimal Impairment Foot Tapping Test Minimal Impairment Comments Coordination Comments limited Vital Signs Blood Pressure Sitting Blood Pressure (90/60-120/80 mmHg) 105/63 Blood Pressure Source Automatic Cuff,Right Upper Extremity Standing Blood Pressure (90/60-120/80 mmHg) 125/48 H Blood Pressure Source Automatic Cuff,Right Upper Extremity Supine Blood Pressure (90/60-120/80 mmHg) 133/68 H Blood Pressure Source Automatic Cuff,Right Upper Extremity Comments Vital Signs Comments Denies symptoms with orthostatic testing PT-OP-J Posture/Palpation/Skin Start: 07/31/23 10:30 Freq: Status: Active Protocol: Document 07/31/23 10:30 NM (Rec: 07/31/23 12:20 NM [id number]) Posture Evaluation Position Standing Head/C-Spine Posture Forward Head T-Spine Posture Increased Kyphosis Pelvis Posture Anteriorly Tilted Weight Distribution Weight Shifted Posterior Comments Posture Comments Forward trunk flexion posture. During movement, tendency for retropulsion. Demos synergistic movements of neck/ trunk with BUE/BLE movement PT-OP-K Range of Motion Start: 07/31/23 10:30 Freq: Status: Active Protocol: Document 07/31/23 10:30 NM (Rec: 07/31/23 14:56 NM [id number]) Hip Goniometric Range of Motion Hip ROM Limitations Hip ROM Limitations Muscle Tone Comments Increased rigidity Knee Goniometric Range of Motion Knee ROM Limitations Knee ROM Limitations Soft Tissue Tightness, Contracture Comments Hamstring length limited: 130 deg L, 140 deg R PT-OP-M Strength Start: 07/31/23 10:30 Freq: Status: Active Protocol: Document 07/31/23 10:30 NM (Rec: 07/31/23 12:20 NM [id number]) Hip Strength Hip Manual Muscle Testing Right Flexion (L2) 3+ Fair+ Extension (S1) 4- Good- Abduction 4- Good- Adduction 4- Good- Left Flexion (L2) 4- Good- Extension (S1) 4- Good- Abduction 4- Good- Adduction 4- Good- Knee Strength Knee Manual Muscle Testing Right Flexion (S2) 4- Good- Extension (L3) 4- Good- Left Flexion (S2) 4- Good- Extension (L3) 4- Good- Ankle/Foot Strength Ankle and Foot Manual Muscle Testing Left Dorsiflexion (L4) 4 Good Plantarflexion (S1) 4 Good Inversion 4 Good Eversion (S1) 4 Good Right Dorsiflexion (L4) 3+ Fair+ Plantarflexion (S1) 4- Good- Inversion 4- Good- Eversion (S1) 4- Good- PT-OP-Q Treatments Start: 07/31/23 10:30 Freq: Status: Active Protocol: Document 08/23/23 13:06 NBM (Rec: 08/23/23 13:47 NBM [id number]) Gym Equipment Shuttle Recovery Bilateral Details cues for LE alignment Shuttle Recovery Platform Stable Reps/Time 62#x10 w/ ball Shuttle Balance blue Details a/p WBOS, NBOS, no UE support Comments WBOS: pt able to still board < 2 min; EC 30s; head turns/nods NBOS: EO, focus on stilling board. Cues for distant focal point, upright posture. Dc'd d/t pt c/o fatigue. Therapeutic Exercises Supine Exercises HS stretch Supine Exercise Name hamstring stretch Side bilateral Equipment Used on Shuttle Recovery Reps/Minutes x60s each Comments w/ ankle pumps, after leg press end of session pec stretch Supine Exercise Name T and goalpost positions Side bilateral Equipment Used while on Shuttle Recovery Reps/Minutes x60s Comments pos feedback response Sitting Exercises Piriformis stretch Sitting Exercise Name 1. Figure 4 2. knee to opp shoulder Side bilateral Equipment Used standard mesh chair Reps/Minutes x60s ea trunk flexion Sitting Exercise Name fwd ball rolls for anterior weight shift Side bilateral Equipment Used 75cm red physioball Reps/Minutes 1x15 HS stretch Sitting Exercise Name seated Side bilateral Reps/Minutes 2x60 ea Comments slight contractures feel it pull hip abduction Sitting Exercise Name 1. glute medius activation, 2. hip abduction Side bilateral Resistance Lvl 1 Tb Reps/Minutes 1. x30, 2. 2x10 Comments pain free; challenging Standing Exercises STS Standing Exercise Name STS from mesh chair - no UE support Side bilateral Reps/Minutes 2x8 Comments VC slow descent; cued TKE/ glutes, tall posture, hurts so good PT-OP-T Assessment and Plan Start: 07/31/23 10:30 Freq: Status: Active Protocol: Document 08/23/23 13:06 [facility] (Rec: 08/23/23 13:47 [facility] [id number]) Physical Therapy Assessment Goals Four Impairment HEP Impairment not performing HEP Short Term Goal (STG) Pt will report compliance with HEP at least 2x/wk in order to promote independence with HEP and maximize progression with PT. STG Duration 5 weeks Non Licensed Nuclear Equipment Operator Goal (LTG) Pt will report compliance with HEP at least 3x/wk in order to promote independence with HEP and transition into maintenance program upon discharge from PT. LTG Duration 10 weeks Three Impairment balance, strength, posture Impairment 30 sec STS score 15 with retropulsion, 20 chair Short Term Goal (STG) Pt will be able to perform at least 10 sit to stands without UE assistance and without retropulsion in order to demonstrate improved posture, decreased fall risk, and improved BLE strength for gait /transfers STG Duration 5 weeks Assisted Goal (LTG) Pt will be able to perform 30 second STS test from standard chair without UE assistance and without retropulsion in order to demonstrate improved posture, decreased fall risk, and improved BLE strength for gait/transfers LTG Duration 10 weeks Two Impairment endurance, gait Impairment 6 MWT distance 737 ft with spc , 3 standing rest breaks Short Term Goal (STG) Pt will complete 6 MWT using LRAD with fewer than 3 standing rest breaks in order to demonstrate improved endurance and BLE strength STG Duration 5 weeks Non Licensed Nuclear Equipment Operator Goal (LTG) Pt will improve 6 MWT distance by at least 82 m (269 ft, 1 MDC) using LRAD in order to demonstrate improved endurance and BLE strength LTG Duration 10 weeks One Impairment balance, fall risk Impairment Watkins 35/56 Short Term Goal (STG) Pt will improve Watkins score to at least 40/56 (1 MDC) in order to demonstrate improved balance and decreased fall risk STG Duration 5 weeks Assisted Goal (LTG) Pt will improve Watkins score to at least 48/56 in order to demonstrate improved balance and decreased fall risk LTG Duration 10 weeks Assessment Summary Assessment Treatment focus on balance, stretching, and LE strengthening. Darrell is able to still Shuttle Balance platform on blue chains in WBOS and NBOS without UE support and tolerates about 6min of activity before discontinuing due to fatigue. He requires no cues for seated HS stretch today. Pt requires cues for eccentric control with fatigue during STS and is ready for rest break at end of each set. Physical Therapy Plan Frequency and Duration Frequency of Treatment 1-2x/wk Duration of treatment (weeks) 10 Plan of Care Start Date 07/31/23 Plan of Care End Date 10/13/23 Therapeutic Interventions Therapeutic Interventions Balance Training,Coordination Training,Gait Training,Home Exercise Program,Joint Mobilizations,Manual Therapy, Neuromuscular Re-education, Orthotic/Prosthetic Management ,Patient/Caregiver Education, Self-Care/Home Management, Sensory Integration,Soft Tissue Mobilization,Taping, Therapeutic Activities, Therapeutic Exercises Modalities Cold Pack/Ice Massage,Electric Stimulation,Hot Packs Next Visit Focus/Plan Next Note Type Treatment Note Next Visit Plan Focus large amp movement: Leg press, stepping outside TRISHA, arm swing with gait, spc sequencing and placement, dynamic balance Stepping, shuttle balance, hurdles, weight shift, limit posterior lean POC: reduce retropulsion, decrease festination, improve cardiovascular endurance and BLE strength
--- NOTE | 2023-08-25 15:28 | PT.OTN ---
Current Diagnoses Parkinson's disease without dyskinesia, without mention of fluctuations (08/25/23) Other lack of coordination (08/25/23) Weakness (08/25/23) Physical Therapy Treatment Note PT-OP-A Visit Information Start: 07/31/23 10:30 Freq: Status: Active Protocol: Document 08/25/23 13:51 NM (Rec: 08/25/23 14:34 NM [id number]) Out-Patient Physical Therapy Visit Information Visit Information Visit Type Treatment Note Visit Start Time 13:50 Visit Stop Time 14:30 Visit Number 10/01 Evaluation Information Evaluation Date 07/31/23 PT-OP-B Current Condition Start: 07/31/23 10:30 Freq: Status: Active Protocol: Document 07/31/23 10:30 NM (Rec: 07/31/23 12:20 NM [id number]) Current Condition History of Current Condition Onset Date 12 years ago Current Complaints endurance and strength History of Current Condition Pt presents with BLE weakness. He has hx of Parkinson's disease, 12 years since dx. States he has good days and bad days. States weakness has progressively worsened. His daughter is getting ; he has wanting to dance with her. He uses a spc (5 years), only when he feels unsteady. States he has had no falls recently. He has a walker and electric wheel chair (that he hasn't used in years). Currently lives in [address], lives with son and grandson, has a caregiver (primarily for showering and during mornings for medications. Pt reports that he has a walk in shower. States he is very sedentary overall, can only walk across yard with spc before becoming fatigued. States no dizziness. Currently on carbidopa/ levadopa, entacopone, and 1 more than he can't remember that he takes 4x/day every 4 hours. He has rigidity, decreased trunk rotation, muscle stiffness, bradykinesia ; no tremors, no freezing with gait or activities. States that he has had previous PT for PD which has been temporarily helpful. States R side is more affect (Leg > arms). He recently bought a theracycle that he is planning on using to supplement PT. Prior Treatments and Tests previous L RTC injury, no repair Treatment Goals Patient/Caregiver Goals slow dance with daughter in September for her wedding, improve household and community ambulation Current Functional Impairments (Reported) Functional Limitations- ADL's tranfers household Functional Limitations- Mobility/Gait household ambulation with spc; use of golf cart (street legal) which has more independence Functional Limitations- Recreation/ wood working Hobbies Functional Limitations- Other no longer driving PT-OP-C Subjective Start: 07/31/23 10:30 Freq: Status: Active Protocol: Document 08/25/23 13:51 NM (Rec: 08/25/23 14:34 NM [id number]) OP-PT Subjective Patient Comments Patient Comments Pt reports that his legs feel like rubber, tired. Just took his meds and woke up from a nap so groggy but meds will kick in about 30 minutes. Reports stretching feels good, compliant with stretching HEP . Reports approved for more visits PT-OP-D Balance Start: 07/31/23 10:30 Freq: Status: Active Protocol: Document 07/31/23 10:30 NM (Rec: 07/31/23 12:20 NM [id number]) Balance Tests Watkins Balance Test Watkins Balance Test Score 35/56 Semi-Tandem Standing Semi-Tandem Standing Balance 3 sec PT-OP-E Functional Tests Start: 07/31/23 10:30 Freq: Status: Active Protocol: Document 07/31/23 10:30 NM (Rec: 07/31/23 12:20 NM [id number]) Functional Tests 6 Minute Walk Test Distance 737 Device Used spc Comments festinating; several standing rest breaks 30 Second Sit to Stand Test Score 15 Comments 20, knees remain flexed; retropulses PT-OP-F Manual Assessment Start: 07/31/23 10:30 Freq: Status: Active Protocol: Document 07/31/23 10:30 NM (Rec: 07/31/23 12:20 NM [id number]) Manual Assessments Soft Tissue Assessment Soft Tissue Mobility Assessment Observable limitations in B hamstring and heel cord length . Joint Mobility Assessment Joint Mobility Assessment Rigidity of trunk, BLE/BUE. Limitations in PROM and AROM of BLE/BUE due to tone PT-OP-G Mobility & Gait Start: 07/31/23 10:30 Freq: Status: Active Protocol: Document 07/31/23 10:30 NM (Rec: 07/31/23 12:20 NM [id number]) OP Gait Assessment Gait Gait Assistance Required: Standby Assistance,Contact Guard Assist Distance (Feet) 737 Assistive Devices Assistive Device Gait Belt,Straight Cane Gait Deviations General Gait Pattern Festinating,Flexed Trunk, Narrow Based Gait Factors Limiting Gait Function Factors Limiting Gait Function Abnormal Tonal Influences, Decreased Activity Tolerance, Decreased Strength,Limited Range of Motion,Poor Balance Comments Gait Comments Decreased cardiovascular endurance. SBA>CGA with fatigue Stair Climbing Evaluation Evaluation Level of Assist On Stairs Contact Guard Assistance Devices Stair Climbing Assistive Devices Left Railing Technique/Endurance Stair Climbing Direction Ascend and Descend Stair Climbing Technique Step Over Step Number of Steps Climbed 4 Stair Climbing Set # Repetitions (reps) 2 Comments Stair Climbing Comments Decreased stability with descent, increased trunk sway and and backward trunk lean PT-OP-H Neuro Start: 07/31/23 10:30 Freq: Status: Active Protocol: Document 07/31/23 10:30 NM (Rec: 07/31/23 12:20 NM [id number]) Coordination Evaluation Upper Extremity Tests Right Finger to Nose Test Moderate Impairment Finger to Therapist's Finger Test Moderate Impairment Finger to Finger Test Moderate Impairment Alternate Nose to Finger Test Moderate Impairment Pronation/Supination Test Minimal Impairment Left Finger to Nose Test Moderate Impairment Finger to Therapist's Finger Test Moderate Impairment Finger to Finger Test Moderate Impairment Alternate Nose to Finger Test Moderate Impairment Pronation/Supination Test Minimal Impairment Lower Extremity Tests Right Alternate Heel to Knee; Heel to Toe Test Moderate Impairment Heel on [place] Test Minimal Impairment Foot Tapping Test Minimal Impairment Left Alternate Heel to Knee; Heel to Toe Test Minimal Impairment Heel on [place] Test Minimal Impairment Foot Tapping Test Minimal Impairment Comments Coordination Comments limited Vital Signs Blood Pressure Sitting Blood Pressure (90/60-120/80 mmHg) 105/63 Blood Pressure Source Automatic Cuff,Right Upper Extremity Standing Blood Pressure (90/60-120/80 mmHg) 125/48 H Blood Pressure Source Automatic Cuff,Right Upper Extremity Supine Blood Pressure (90/60-120/80 mmHg) 133/68 H Blood Pressure Source Automatic Cuff,Right Upper Extremity Comments Vital Signs Comments Denies symptoms with orthostatic testing PT-OP-J Posture/Palpation/Skin Start: 07/31/23 10:30 Freq: Status: Active Protocol: Document 07/31/23 10:30 NM (Rec: 07/31/23 12:20 NM [id number]) Posture Evaluation Position Standing Head/C-Spine Posture Forward Head T-Spine Posture Increased Kyphosis Pelvis Posture Anteriorly Tilted Weight Distribution Weight Shifted Posterior Comments Posture Comments Forward trunk flexion posture. During movement, tendency for retropulsion. Demos synergistic movements of neck/ trunk with BUE/BLE movement PT-OP-K Range of Motion Start: 07/31/23 10:30 Freq: Status: Active Protocol: Document 07/31/23 10:30 NM (Rec: 07/31/23 14:56 NM [id number]) Hip Goniometric Range of Motion Hip ROM Limitations Hip ROM Limitations Muscle Tone Comments Increased rigidity Knee Goniometric Range of Motion Knee ROM Limitations Knee ROM Limitations Soft Tissue Tightness, Contracture Comments Hamstring length limited: 130 deg L, 140 deg R PT-OP-M Strength Start: 07/31/23 10:30 Freq: Status: Active Protocol: Document 07/31/23 10:30 NM (Rec: 07/31/23 12:20 NM [id number]) Hip Strength Hip Manual Muscle Testing Right Flexion (L2) 3+ Fair+ Extension (S1) 4- Good- Abduction 4- Good- Adduction 4- Good- Left Flexion (L2) 4- Good- Extension (S1) 4- Good- Abduction 4- Good- Adduction 4- Good- Knee Strength Knee Manual Muscle Testing Right Flexion (S2) 4- Good- Extension (L3) 4- Good- Left Flexion (S2) 4- Good- Extension (L3) 4- Good- Ankle/Foot Strength Ankle and Foot Manual Muscle Testing Left Dorsiflexion (L4) 4 Good Plantarflexion (S1) 4 Good Inversion 4 Good Eversion (S1) 4 Good Right Dorsiflexion (L4) 3+ Fair+ Plantarflexion (S1) 4- Good- Inversion 4- Good- Eversion (S1) 4- Good- PT-OP-Q Treatments Start: 07/31/23 10:30 Freq: Status: Active Protocol: Document 08/25/23 13:51 NM (Rec: 08/25/23 14:34 NM [id number]) Gym Equipment Shuttle Recovery Bilateral Details improved alignment of BLE Shuttle Recovery Platform Stable Reps/Time 62# 2x10 Therapeutic Exercises Supine Exercises LTR Side bilateral Reps/Minutes 60 Comments post stretching; good feedback response HS stretch Supine Exercise Name hamstring stretch Side bilateral Equipment Used on Shuttle Recovery Reps/Minutes x60s each Comments between sets pec stretch Supine Exercise Name T, goalpost, low T positions Side bilateral Reps/Minutes 60 ea Comments good feedback piriformis stretch Supine Exercise Name Figure 4 Side bilateral Reps/Minutes 60 ea Comments good feedback Sitting Exercises HS stretch Sitting Exercise Name seated Side bilateral Reps/Minutes 2x60 ea Standing Exercises calf stretch Standing Exercise Name calf and hamstring stretch Side bilateral Equipment Used WILLARD Reps/Minutes 60 STS Standing Exercise Name STS from mesh chair - no UE support Side bilateral Reps/Minutes 5 with ball toss to floor Comments improved descent, good alignment, good fwd reach Neuro Re-Education Treatment Balance Activities ball toss Details APA reactions Equipment blue kick ball Comments 1. fwd toss with BLE shoulder width apart, 2x60 2. fwd toss with staggered stance, ea foot in front, 60 ea CGA to steady with min A x 2 to correct balance reactions. Good anticipation 3. for trunk rotation, 2' ball toss ea direction Cued turn and then toss PT-OP-T Assessment and Plan Start: 07/31/23 10:30 Freq: Status: Active Protocol: Document 08/25/23 13:51 NM (Rec: 08/25/23 14:34 NM [id number]) Physical Therapy Assessment Goals Four Impairment HEP Impairment not performing HEP Short Term Goal (STG) Pt will report compliance with HEP at least 2x/wk in order to promote independence with HEP and maximize progression with PT. STG Duration 5 weeks Long-Term Goal (LTG) Pt will report compliance with HEP at least 3x/wk in order to promote independence with HEP and transition into maintenance program upon discharge from PT. LTG Duration 10 weeks Three Impairment balance, strength, posture Impairment 30 sec STS score 15 with retropulsion, 20 chair Short Term Goal (STG) Pt will be able to perform at least 10 sit to stands without UE assistance and without retropulsion in order to demonstrate improved posture, decreased fall risk, and improved BLE strength for gait /transfers STG Duration 5 weeks Insurance Salesperson Goal (LTG) Pt will be able to perform 30 second STS test from standard chair without UE assistance and without retropulsion in order to demonstrate improved posture, decreased fall risk, and improved BLE strength for gait/transfers LTG Duration 10 weeks Two Impairment endurance, gait Impairment 6 MWT distance 737 ft with spc , 3 standing rest breaks Short Term Goal (STG) Pt will complete 6 MWT using LRAD with fewer than 3 standing rest breaks in order to demonstrate improved endurance and BLE strength STG Duration 5 weeks Long-Term Goal (LTG) Pt will improve 6 MWT distance by at least 82 m (269 ft, 1 MDC) using LRAD in order to demonstrate improved endurance and BLE strength LTG Duration 10 weeks One Impairment balance, fall risk Impairment Watkins 35/56 Short Term Goal (STG) Pt will improve Watkins score to at least 40/56 (1 MDC) in order to demonstrate improved balance and decreased fall risk STG Duration 5 weeks Long-Term Goal (LTG) Pt will improve [place] score to at least 48/56 in order to demonstrate improved balance and decreased fall risk LTG Duration 10 weeks Assessment Summary Assessment Pt tolerated session well despite fatigue. Continued with stretching for tissue elongation, especially hamstrings. Pt able to progress with number of reps on leg press, demonstrates improved alignment of BLE. Emphasis on anticipatory balance reactions today. Pt CGA during ball toss activities. Able to successfully transition from squat to standing while catching ball without LOB most reps; however, pt was min A to assist maintaining balance 2 times. Added trunk rotation with ball toss to improve trunk mobility. Pt would benefit from global strengthening, flexibility and balance training in order to decrease fall risk and improve symptom management. Physical Therapy Plan Frequency and Duration Frequency of Treatment 1-2x/wk Duration of treatment (weeks) 10 Plan of Care Start Date 07/31/23 Plan of Care End Date 10/13/23 Therapeutic Interventions Therapeutic Interventions Balance Training,Coordination Training,Gait Training,Home Exercise Program,Joint Mobilizations,Manual Therapy, Neuromuscular Re-education, Orthotic/Prosthetic Management ,Patient/Caregiver Education, Self-Care/Home Management, Sensory Integration,Soft Tissue Mobilization,Taping, Therapeutic Activities, Therapeutic Exercises Modalities Cold Pack/Ice Massage,Electric Stimulation,Hot Packs Next Visit Focus/Plan Next Note Type Treatment Note Next Visit Plan Focus large amp movement, endurance and strengthening. Next session: continue stretching, arm swing and thoracic rotation (seated), biodex or scifit warm up Leg press, stepping outside TRISHA, arm swing with gait, spc sequencing and placement, dynamic balance Stepping, shuttle balance, hurdles, weight shift, limit posterior lean POC: reduce retropulsion, decrease festination, improve cardiovascular endurance and BLE strength
--- NOTE | 2023-08-29 12:28 | PT.OTN ---
Current Diagnoses Parkinson's disease without dyskinesia, without mention of fluctuations (08/29/23) Other lack of coordination (08/29/23) Weakness (08/29/23) Physical Therapy Treatment Note PT-OP-A Visit Information Start: 07/31/23 10:30 Freq: Status: Active Protocol: Document 08/29/23 11:32 NBM (Rec: 08/29/23 12:28 NBM [id number]) Out-Patient Physical Therapy Visit Information Visit Information Visit Type Treatment Note Visit Start Time 11:24 Visit Stop Time 12:12 Visit Number 11/01 Number of POLICE SPECIALIST Visits 1 Evaluation Information Evaluation Date 07/31/23 Precautions Precautions Parkinson's Disease, fall risk , Orthostatic hypotension slow positional transitions* * PT-OP-B Current Condition Start: 07/31/23 10:30 Freq: Status: Active Protocol: Document 07/31/23 10:30 NM (Rec: 07/31/23 12:20 NM [id number]) Current Condition History of Current Condition Onset Date 12 years ago Current Complaints endurance and strength History of Current Condition Pt presents with BLE weakness. He has hx of Parkinson's disease, 12 years since dx. States he has good days and bad days. States weakness has progressively worsened. His daughter is getting ; he has wanting to dance with her. He uses a spc (5 years), only when he feels unsteady. States he has had no falls recently. He has a walker and electric wheel chair (that he hasn't used in years). Currently [place] [address] [place], lives with son and grandson, has a caregiver (primarily for showering and during mornings for medications. Pt reports that he has a walk in shower. States he is very sedentary overall, can only walk across yard with spc before becoming fatigued. States no dizziness. Currently on carbidopa/ levadopa, entacopone, and 1 more than he can't remember that he takes 4x/day every 4 hours. He has rigidity, decreased trunk rotation, muscle stiffness, bradykinesia ; no tremors, no freezing with gait or activities. States that he has had previous PT for PD which has been temporarily helpful. States R side is more affect (Leg > arms). He recently bought a theracycle that he is planning on using to supplement PT. Prior Treatments and Tests previous L RTC injury, no repair Treatment Goals Patient/Caregiver Goals slow dance with daughter in September for her wedding, improve household and community ambulation Current Functional Impairments (Reported) Functional Limitations- ADL's tranfers household Functional Limitations- Mobility/Gait household ambulation with spc; use of golf cart (street legal) which has more independence Functional Limitations- Recreation/ wood working Hobbies Functional Limitations- Other no longer driving PT-OP-C Subjective Start: 07/31/23 10:30 Freq: Status: Active Protocol: Document 08/29/23 11:32 NBM (Rec: 08/29/23 12:28 NBM [id number]) OP-PT Subjective Patient Comments Patient Comments Darrell reports he was tired after his last visit. The stretching seems to help a lot . He worked on his golf cart yesterday. His legs feel week. He finds he's spending more time standing up than he was. This appt is during his nap time so he may be feeling more tired. Patient Reported Progress Improving PT-OP-D Balance Start: 07/31/23 10:30 Freq: Status: Active Protocol: Document 07/31/23 10:30 NM (Rec: 07/31/23 12:20 NM [id number]) Balance Tests Watkins Balance Test Watkins Balance Test Score 35/56 Semi-Tandem Standing Semi-Tandem Standing Balance 3 sec PT-OP-E Functional Tests Start: 07/31/23 10:30 Freq: Status: Active Protocol: Document 07/31/23 10:30 NM (Rec: 07/31/23 12:20 NM [id number]) Functional Tests 6 Minute Walk Test Distance 737 Device Used spc Comments festinating; several standing rest breaks 30 Second Sit to Stand Test Score 15 Comments 20, knees remain flexed; retropulses PT-OP-F Manual Assessment Start: 07/31/23 10:30 Freq: Status: Active Protocol: Document 07/31/23 10:30 NM (Rec: 07/31/23 12:20 NM [id number]) Manual Assessments Soft Tissue Assessment Soft Tissue Mobility Assessment Observable limitations in B hamstring and heel cord length . Joint Mobility Assessment Joint Mobility Assessment Rigidity of trunk, BLE/BUE. Limitations in PROM and AROM of BLE/BUE due to tone PT-OP-G Mobility & Gait Start: 07/31/23 10:30 Freq: Status: Active Protocol: Document 07/31/23 10:30 NM (Rec: 07/31/23 12:20 NM [id number]) OP Gait Assessment Gait Gait Assistance Required: Standby Assistance,Contact Guard Assist Distance (Feet) 737 Assistive Devices Assistive Device Gait Belt,Straight Cane Gait Deviations General Gait Pattern Festinating,Flexed Trunk, Narrow Based Gait Factors Limiting Gait Function Factors Limiting Gait Function Abnormal Tonal Influences, Decreased Activity Tolerance, Decreased Strength,Limited Range of Motion,Poor Balance Comments Gait Comments Decreased cardiovascular endurance. SBA>CGA with fatigue Stair Climbing Evaluation Evaluation Level of Assist On Stairs Contact Guard Assistance Devices Stair Climbing Assistive Devices Left Railing Technique/Endurance Stair Climbing Direction Ascend and Descend Stair Climbing Technique Step Over Step Number of Steps Climbed 4 Stair Climbing Set # Repetitions (reps) 2 Comments Stair Climbing Comments Decreased stability with descent, increased trunk sway and and backward trunk lean PT-OP-H Neuro Start: 07/31/23 10:30 Freq: Status: Active Protocol: Document 07/31/23 10:30 NM (Rec: 07/31/23 12:20 NM [id number]) Coordination Evaluation Upper Extremity Tests Right Finger to Nose Test Moderate Impairment Finger to Therapist's Finger Test Moderate Impairment Finger to Finger Test Moderate Impairment Alternate Nose to Finger Test Moderate Impairment Pronation/Supination Test Minimal Impairment Left Finger to Nose Test Moderate Impairment Finger to Therapist's Finger Test Moderate Impairment Finger to Finger Test Moderate Impairment Alternate Nose to Finger Test Moderate Impairment Pronation/Supination Test Minimal Impairment Lower Extremity Tests Right Alternate Heel to Knee; Heel to Toe Test Moderate Impairment Heel on [place] Test Minimal Impairment Foot Tapping Test Minimal Impairment Left Alternate Heel to Knee; Heel to Toe Test Minimal Impairment Heel on [place] Test Minimal Impairment Foot Tapping Test Minimal Impairment Comments Coordination Comments limited Vital Signs Blood Pressure Sitting Blood Pressure (90/60-120/80 mmHg) 105/63 Blood Pressure Source Automatic Cuff,Right Upper Extremity Standing Blood Pressure (90/60-120/80 mmHg) 125/48 H Blood Pressure Source Automatic Cuff,Right Upper Extremity Supine Blood Pressure (90/60-120/80 mmHg) 133/68 H Blood Pressure Source Automatic Cuff,Right Upper Extremity Comments Vital Signs Comments Denies symptoms with orthostatic testing PT-OP-J Posture/Palpation/Skin Start: 07/31/23 10:30 Freq: Status: Active Protocol: Document 07/31/23 10:30 NM (Rec: 07/31/23 12:20 NM [id number]) Posture Evaluation Position Standing Head/C-Spine Posture Forward Head T-Spine Posture Increased Kyphosis Pelvis Posture Anteriorly Tilted Weight Distribution Weight Shifted Posterior Comments Posture Comments Forward trunk flexion posture. During movement, tendency for retropulsion. Demos synergistic movements of neck/ trunk with BUE/BLE movement PT-OP-K Range of Motion Start: 07/31/23 10:30 Freq: Status: Active Protocol: Document 07/31/23 10:30 NM (Rec: 07/31/23 14:56 NM [id number]) Hip Goniometric Range of Motion Hip ROM Limitations Hip ROM Limitations Muscle Tone Comments Increased rigidity Knee Goniometric Range of Motion Knee ROM Limitations Knee ROM Limitations Soft Tissue Tightness, Contracture Comments Hamstring length limited: 130 deg L, 140 deg R PT-OP-M Strength Start: 07/31/23 10:30 Freq: Status: Active Protocol: Document 07/31/23 10:30 NM (Rec: 07/31/23 12:20 NM [id number]) Hip Strength Hip Manual Muscle Testing Right Flexion (L2) 3+ Fair+ Extension (S1) 4- Good- Abduction 4- Good- Adduction 4- Good- Left Flexion (L2) 4- Good- Extension (S1) 4- Good- Abduction 4- Good- Adduction 4- Good- Knee Strength Knee Manual Muscle Testing Right Flexion (S2) 4- Good- Extension (L3) 4- Good- Left Flexion (S2) 4- Good- Extension (L3) 4- Good- Ankle/Foot Strength Ankle and Foot Manual Muscle Testing Left Dorsiflexion (L4) 4 Good Plantarflexion (S1) 4 Good Inversion 4 Good Eversion (S1) 4 Good Right Dorsiflexion (L4) 3+ Fair+ Plantarflexion (S1) 4- Good- Inversion 4- Good- Eversion (S1) 4- Good- PT-OP-Q Treatments Start: 07/31/23 10:30 Freq: Status: Active Protocol: Document 08/29/23 11:32 NBM (Rec: 08/29/23 12:28 NBM [id number]) Gym Equipment Shuttle Recovery Bilateral Details improved alignment of BLE Shuttle Recovery Platform Stable Reps/Time 62# 2x10 Therapeutic Exercises Supine Exercises LTR Side bilateral Reps/Minutes 60 Comments good feedback response HS stretch Supine Exercise Name hamstring stretch Side bilateral Equipment Used on Shuttle Recovery Reps/Minutes x60s each Comments w/ ankle pumps, after leg press. VC for R 5th digit ext pec stretch Supine Exercise Name T, goalpost, W Side bilateral Equipment Used on Shuttle Recovery Reps/Minutes 60 ea Comments good feedback piriformis stretch Supine Exercise Name 1. Figure 4 2. knee to opp jim Side bilateral Equipment Used on Shuttle Recovery Reps/Minutes 60 ea Comments good feedback Sidelying Exercises open book stretch Sidelying Exercise Name next session Sitting Exercises trunk rotation Sitting Exercise Name 1.AROM 2. stretch Side bilateral Reps/Minutes 1.x10 ea 2. 3x 15s ea Comments feels good Piriformis stretch Sitting Exercise Name 1. Figure 4 2. knee to opp shoulder Side bilateral Equipment Used standard mesh chair Reps/Minutes x60s ea HS stretch Sitting Exercise Name seated Side bilateral Reps/Minutes 2x60 ea Standing Exercises calf stretch Standing Exercise Name calf and hamstring stretch - pt declines today d/t fatigue after leg press Side bilateral Equipment Used WILLARD Reps/Minutes 60 Self-Care/Home Management Treatment Education Patient Education Body Mechanics,Home Exercise Program,Pain Management Other Education Pt complains of low back pain while lying down. Edu to pt for log roll method - HO given and shared with caregiver end of session. PT-OP-T Assessment and Plan Start: 07/31/23 10:30 Freq: Status: Active Protocol: Document 08/29/23 11:32 NB (Rec: 08/29/23 12:28 [facility] [id number]) Physical Therapy Assessment Goals Four Impairment HEP Impairment not performing HEP Short Term Goal (STG) Pt will report compliance with HEP at least 2x/wk in order to promote independence with HEP and maximize progression with PT. STG Duration 5 weeks Intermediate Goal (LTG) Pt will report compliance with HEP at least 3x/wk in order to promote independence with HEP and transition into maintenance program upon discharge from PT. LTG Duration 10 weeks Three Impairment balance, strength, posture Impairment 30 sec STS score 15 with retropulsion, 20 chair Short Term Goal (STG) Pt will be able to perform at least 10 sit to stands without UE assistance and without retropulsion in order to demonstrate improved posture, decreased fall risk, and improved BLE strength for gait /transfers STG Duration 5 weeks Intermediate Goal (LTG) Pt will be able to perform 30 second STS test from standard chair without UE assistance and without retropulsion in order to demonstrate improved posture, decreased fall risk, and improved BLE strength for gait/transfers LTG Duration 10 weeks Two Impairment endurance, gait Impairment 6 MWT distance 737 ft with spc , 3 standing rest breaks Short Term Goal (STG) Pt will complete 6 MWT using LRAD with fewer than 3 standing rest breaks in order to demonstrate improved endurance and BLE strength STG Duration 5 weeks Beautician Apprentice Goal (LTG) Pt will improve 6 MWT distance by at least 82 m (269 ft, 1 MDC) using LRAD in order to demonstrate improved endurance and BLE strength LTG Duration 10 weeks One Impairment balance, fall risk Impairment Watkins 35/56 Short Term Goal (STG) Pt will improve Watkins score to at least 40/56 (1 MDC) in order to demonstrate improved balance and decreased fall risk STG Duration 5 weeks Intermediate Goal (LTG) Pt will improve Watkins score to at least 48/56 in order to demonstrate improved balance and decreased fall risk LTG Duration 10 weeks Assessment Summary Assessment Darrell initially reported feeling well but quickly needed to sit down start of session after walking in to clinic from waiting area reporting he must have got up and moved too fast, so treatment focus on seated stretching and thoracic rotation start of session, followed by LE strengthening and stretching on Shuttle Recovery. Pt declines standing calf stretch due to fatigue. Pt complains of low back pain while lying down - edu to pt for log roll method - HO given and shared with caregiver end of session. Manual supine hamstring stretch performed bilaterally w/ conract/relax with positive feedback response and pt demos less stiffness and improved amplitude with gait end of session. Frequent verbal check-ins this session due to facial grimacing as side effect of medication per pt. Physical Therapy Plan Frequency and Duration Frequency of Treatment 1-2x/wk Duration of treatment (weeks) 10 Plan of Care Start Date 07/31/23 Plan of Care End Date 10/13/23 Therapeutic Interventions Therapeutic Interventions Balance Training,Coordination Training,Gait Training,Home Exercise Program,Joint Mobilizations,Manual Therapy, Neuromuscular Re-education, Orthotic/Prosthetic Management ,Patient/Caregiver Education, Self-Care/Home Management, Sensory Integration,Soft Tissue Mobilization,Taping, Therapeutic Activities, Therapeutic Exercises Modalities Cold Pack/Ice Massage,Electric Stimulation,Hot Packs Next Visit Focus/Plan Next Note Type Treatment Note Next Visit Plan Consider open book stretch next session for thoracic rotation mobiilty. Focus large amp movement, endurance and strengthening. Next session: continue stretching, arm swing and thoracic rotation (seated), biodex or scifit warm up Leg press, stepping outside TRISHA, arm swing with gait, spc sequencing and placement, dynamic balance Stepping, shuttle balance, hurdles, weight shift, limit posterior lean POC: reduce retropulsion, decrease festination, improve cardiovascular endurance and BLE strength
--- NOTE | 2023-09-05 13:52 | PT.OTN ---
Current Diagnoses Parkinson's disease without dyskinesia, without mention of fluctuations (09/05/23) Other lack of coordination (09/05/23) Weakness (09/05/23) Physical Therapy Treatment Note PT-OP-A Visit Information Start: 07/31/23 10:30 Freq: Status: Active Protocol: Document 09/05/23 11:14 NM (Rec: 09/05/23 12:07 NM [id number]) Out-Patient Physical Therapy Visit Information Visit Information Visit Type Progress Note Visit Start Time 11:15 Visit Stop Time 12:00 Visit Number 01/01 Evaluation Information Evaluation Date 07/31/23 Precautions Precautions Parkinson's Disease, fall risk , Orthostatic hypotension slow positional transitions* * PT-OP-B Current Condition Start: 07/31/23 10:30 Freq: Status: Active Protocol: Document 07/31/23 10:30 NM (Rec: 07/31/23 12:20 NM [id number]) Current Condition History of Current Condition Onset Date 12 years ago Current Complaints endurance and strength History of Current Condition Pt presents with BLE weakness. He has hx of Parkinson's disease, 12 years since dx. States he has good days and bad days. States weakness has progressively worsened. His daughter is getting ; he has wanting to dance with her. He uses a spc (5 years), only when he feels unsteady. States he has had no falls recently. He has a walker and electric wheel chair (that he hasn't used in years). Currently lives in [address], lives with son and grandson, has a caregiver (primarily for showering and during mornings for medications. Pt reports that he has a walk in shower. States he is very sedentary overall, can only walk across yard with spc before becoming fatigued. States no dizziness. Currently on carbidopa/ levadopa, entacopone, and 1 more than he can't remember that he takes 4x/day every 4 hours. He has rigidity, decreased trunk rotation, muscle stiffness, bradykinesia ; no tremors, no freezing with gait or activities. States that he has had previous PT for PD which has been temporarily helpful. States R side is more affect (Leg > arms). He recently bought a theracycle that he is planning on using to supplement PT. Prior Treatments and Tests previous L RTC injury, no repair Treatment Goals Patient/Caregiver Goals slow dance with daughter in September for her wedding, improve household and community ambulation Current Functional Impairments (Reported) Functional Limitations- ADL's tranfers household Functional Limitations- Mobility/Gait household ambulation with spc; use of golf cart (street legal) which has more independence Functional Limitations- Recreation/ wood working Hobbies Functional Limitations- Other no longer driving PT-OP-C Subjective Start: 07/31/23 10:30 Freq: Status: Active Protocol: Document 09/05/23 11:14 NM (Rec: 09/05/23 12:07 NM [id number]) OP-PT Subjective Patient Comments Patient Comments Pt reports that he is very tired. Legs are not stretched out. Pt reports that he has more stamina when feeling good . He worked on the golf cart the other day and realized that he never took a nap. He also reports that he is more aware of his walking, takes longer strides, and reports walking better when he does that. PT-OP-D Balance Start: 07/31/23 10:30 Freq: Status: Active Protocol: Document 07/31/23 10:30 NM (Rec: 07/31/23 12:20 NM [id number]) Balance Tests Watkins Balance Test Watkins Balance Test Score 35/56 Semi-Tandem Standing Semi-Tandem Standing Balance 3 sec PT-OP-E Functional Tests Start: 07/31/23 10:30 Freq: Status: Active Protocol: Document 07/31/23 10:30 NM (Rec: 07/31/23 12:20 NM [id number]) Functional Tests 6 Minute Walk Test Distance 737 Device Used spc Comments festinating; several standing rest breaks 30 Second Sit to Stand Test Score 15 Comments 20, knees remain flexed; retropulses PT-OP-F Manual Assessment Start: 07/31/23 10:30 Freq: Status: Active Protocol: Document 07/31/23 10:30 NM (Rec: 07/31/23 12:20 NM [id number]) Manual Assessments Soft Tissue Assessment Soft Tissue Mobility Assessment Observable limitations in B hamstring and heel cord length . Joint Mobility Assessment Joint Mobility Assessment Rigidity of trunk, BLE/BUE. Limitations in PROM and AROM of BLE/BUE due to tone PT-OP-G Mobility & Gait Start: 07/31/23 10:30 Freq: Status: Active Protocol: Document 07/31/23 10:30 NM (Rec: 07/31/23 12:20 NM [id number]) OP Gait Assessment Gait Gait Assistance Required: Standby Assistance,Contact Guard Assist Distance (Feet) 737 Assistive Devices Assistive Device Gait Belt,Straight Cane Gait Deviations General Gait Pattern Festinating,Flexed Trunk, Narrow Based Gait Factors Limiting Gait Function Factors Limiting Gait Function Abnormal Tonal Influences, Decreased Activity Tolerance, Decreased Strength,Limited Range of Motion,Poor Balance Comments Gait Comments Decreased cardiovascular endurance. SBA>CGA with fatigue Stair Climbing Evaluation Evaluation Level of Assist On Stairs Contact Guard Assistance Devices Stair Climbing Assistive Devices Left Railing Technique/Endurance Stair Climbing Direction Ascend and Descend Stair Climbing Technique Step Over Step Number of Steps Climbed 4 Stair Climbing Set # Repetitions (reps) 2 Comments Stair Climbing Comments Decreased stability with descent, increased trunk sway and and backward trunk lean PT-OP-H Neuro Start: 07/31/23 10:30 Freq: Status: Active Protocol: Document 07/31/23 10:30 NM (Rec: 07/31/23 12:20 NM [id number]) Coordination Evaluation Upper Extremity Tests Right Finger to Nose Test Moderate Impairment Finger to Therapist's Finger Test Moderate Impairment Finger to Finger Test Moderate Impairment Alternate Nose to Finger Test Moderate Impairment Pronation/Supination Test Minimal Impairment Left Finger to Nose Test Moderate Impairment Finger to Therapist's Finger Test Moderate Impairment Finger to Finger Test Moderate Impairment Alternate Nose to Finger Test Moderate Impairment Pronation/Supination Test Minimal Impairment Lower Extremity Tests Right Alternate Heel to Knee; Heel to Toe Test Moderate Impairment Heel on [place] Test Minimal Impairment Foot Tapping Test Minimal Impairment Left Alternate Heel to Knee; Heel to Toe Test Minimal Impairment Heel on [place] Test Minimal Impairment Foot Tapping Test Minimal Impairment Comments Coordination Comments limited Vital Signs Blood Pressure Sitting Blood Pressure (90/60-120/80 mmHg) 105/63 Blood Pressure Source Automatic Cuff,Right Upper Extremity Standing Blood Pressure (90/60-120/80 mmHg) 125/48 H Blood Pressure Source Automatic Cuff,Right Upper Extremity Supine Blood Pressure (90/60-120/80 mmHg) 133/68 H Blood Pressure Source Automatic Cuff,Right Upper Extremity Comments Vital Signs Comments Denies symptoms with orthostatic testing PT-OP-J Posture/Palpation/Skin Start: 07/31/23 10:30 Freq: Status: Active Protocol: Document 07/31/23 10:30 NM (Rec: 07/31/23 12:20 NM [id number]) Posture Evaluation Position Standing Head/C-Spine Posture Forward Head T-Spine Posture Increased Kyphosis Pelvis Posture Anteriorly Tilted Weight Distribution Weight Shifted Posterior Comments Posture Comments Forward trunk flexion posture. During movement, tendency for retropulsion. Demos synergistic movements of neck/ trunk with BUE/BLE movement PT-OP-K Range of Motion Start: 07/31/23 10:30 Freq: Status: Active Protocol: Document 07/31/23 10:30 NM (Rec: 07/31/23 14:56 NM [id number]) Hip Goniometric Range of Motion Hip ROM Limitations Hip ROM Limitations Muscle Tone Comments Increased rigidity Knee Goniometric Range of Motion Knee ROM Limitations Knee ROM Limitations Soft Tissue Tightness, Contracture Comments Hamstring length limited: 130 deg L, 140 deg R PT-OP-M Strength Start: 07/31/23 10:30 Freq: Status: Active Protocol: Document 07/31/23 10:30 NM (Rec: 07/31/23 12:20 NM [id number]) Hip Strength Hip Manual Muscle Testing Right Flexion (L2) 3+ Fair+ Extension (S1) 4- Good- Abduction 4- Good- Adduction 4- Good- Left Flexion (L2) 4- Good- Extension (S1) 4- Good- Abduction 4- Good- Adduction 4- Good- Knee Strength Knee Manual Muscle Testing Right Flexion (S2) 4- Good- Extension (L3) 4- Good- Left Flexion (S2) 4- Good- Extension (L3) 4- Good- Ankle/Foot Strength Ankle and Foot Manual Muscle Testing Left Dorsiflexion (L4) 4 Good Plantarflexion (S1) 4 Good Inversion 4 Good Eversion (S1) 4 Good Right Dorsiflexion (L4) 3+ Fair+ Plantarflexion (S1) 4- Good- Inversion 4- Good- Eversion (S1) 4- Good- PT-OP-Q Treatments Start: 07/31/23 10:30 Freq: Status: Active Protocol: Document 09/05/23 11:14 NM (Rec: 09/05/23 12:07 NM [id number]) Therapeutic Exercises Supine Exercises HS stretch Supine Exercise Name passive HS stretch Side bilateral Equipment Used on PT shoulder Reps/Minutes 2x60 ea Comments followed by 60 passive stretch w/ gravity assisted on mat pec stretch Supine Exercise Name T, goalpost, W Side bilateral Equipment Used on Shuttle Recovery Reps/Minutes 60 ea Comments good feedback piriformis stretch Supine Exercise Name 1. Figure 4 2. knee to opp jim Side bilateral Equipment Used on Shuttle Recovery Reps/Minutes 60 ea Comments good feedback Gait Training Gait Activity 6 MWT Device Used spc Level of Assistance CGA Surface stable Distance/Duration 443 ft Treatment Focus endurance, speed, form Comments Demos festination of gait, freezing at corners and encountering obstacles or people. Cued for bigger steps, which help limit freezing. Moderate cues for spc use and positioning on ground SPC Distance/Duration various distances around clinic Treatment Focus spc use, stability Comments Cued to move spc more lateral to foot vs at his toe and to place on ground for stability Neuro Re-Education Treatment Balance Activities Watkins Comments 46/56 Retro walking Surface stable Reps/Duration 5 reps x5 ft Comments Back to chair ~ sitting Stepping outside TRISHA Reps/Duration 10 ea direction ea leg Comments 1. fwd with opp hand 2. bwd with opp hand 3. lateral with same hand Cued for form, larger steps and wider TRISHA. Hands big, fingers apart. CGA to steady isatu with bwd step PT-OP-T Assessment and Plan Start: 07/31/23 10:30 Freq: Status: Active Protocol: Document 09/05/23 11:14 NM (Rec: 09/05/23 12:07 NM [id number]) Physical Therapy Assessment Goals Four Impairment HEP Impairment not performing HEP Short Term Goal (STG) Pt will report compliance with HEP at least 2x/wk in order to promote independence with HEP and maximize progression with PT. 09/05/23: 3-4x/wk STG Duration 5 weeks MET Predatory Game Hunter Goal (LTG) Pt will report compliance with HEP at least 3x/wk in order to promote independence with HEP and transition into maintenance program upon discharge from PT. LTG Duration 10 weeks Three Impairment balance, strength, posture Impairment 30 sec STS score 15 with retropulsion, 20 chair Short Term Goal (STG) Pt will be able to perform at least 10 sit to stands without UE assistance and without retropulsion in order to demonstrate improved posture, decreased fall risk, and improved BLE strength for gait /transfers 09/05/23: pt able to perform 10 sit to stands without UE assist and good form in previous sessions from standard chair STG Duration 5 weeks MET Half-Way Goal (LTG) Pt will be able to perform 30 second STS test from standard chair without UE assistance and without retropulsion in order to demonstrate improved posture, decreased fall risk, and improved BLE strength for gait/transfers LTG Duration 10 weeks Two Impairment endurance, gait Impairment 6 MWT distance 737 ft with spc , 3 standing rest breaks Short Term Goal (STG) Pt will complete 6 MWT using LRAD with fewer than 3 standing rest breaks in order to demonstrate improved endurance and BLE strength 09/05/23: pt had 5 rest breaks, ambulating with spc x 443 ft. Very fatigued; demos festinating gait, increased instance of gait freezing today STG Duration 5 weeks NOT MET Half-Way Goal (LTG) Pt will improve 6 MWT distance by at least 82 m (269 ft, 1 MDC) using LRAD in order to demonstrate improved endurance and BLE strength LTG Duration 10 weeks One Impairment balance, fall risk Impairment Watkins 35/56 Short Term Goal (STG) Pt will improve Watkins score to at least 40/56 (1 MDC) in order to demonstrate improved balance and decreased fall risk 09/05/23: 46/56 STG Duration 5 weeks MET Predatory Game Hunter Goal (LTG) Pt will improve Watkins score to at least 48/56 in order to demonstrate improved balance and decreased fall risk 09/05/23: 46/56 LTG Duration 10 weeks Progress Towards Goals Progress Towards Goals Progressing Toward Goals Progress Comments Met 3/4 STGs Assessment Summary Assessment Pt fatigues quickly with session. He demonstrated more freezing of gait and festination today during 6 MWT . Pt starts freezing and shuffling feet when turning corners, approaching objects or people, which was not observed in last 6 MWT. Pt continues to demonstrate increased trunk rigidity and decreased arm swing with gait. PT consistently cued for spc placement and use for stability. Pt has difficulty coordinating opposite arm/leg with stepping, cueing for larger amplitude movement. Pt responds best to stretching, PT educating pt to perform daily especially prior to PT. Physical Therapy Plan Frequency and Duration Frequency of Treatment 1-2x/wk Duration of treatment (weeks) 10 Plan of Care Start Date 07/31/23 Plan of Care End Date 10/13/23 Therapeutic Interventions Therapeutic Interventions Balance Training,Coordination Training,Gait Training,Home Exercise Program,Joint Mobilizations,Manual Therapy, Neuromuscular Re-education, Orthotic/Prosthetic Management ,Patient/Caregiver Education, Self-Care/Home Management, Sensory Integration,Soft Tissue Mobilization,Taping, Therapeutic Activities, Therapeutic Exercises Modalities Cold Pack/Ice Massage,Electric Stimulation,Hot Packs Next Visit Focus/Plan Next Note Type Treatment Note Next Visit Plan open book, trunk rotation w/ gait and stepping, add metronome 96 bpm with gait or stepping, bungee ambulation multi direction Focus large amp movement, endurance and strengthening. Next session: continue stretching, arm swing and thoracic rotation (seated), biodex or scifit warm up Leg press, stepping outside TRISHA, arm swing with gait, spc sequencing and placement, dynamic balance Stepping, shuttle balance, hurdles, weight shift, limit posterior lean POC: reduce retropulsion, decrease festination, improve cardiovascular endurance and BLE strength
--- NOTE | 2023-09-08 12:19 | PT.OTN ---
Current Diagnoses Parkinson's disease without dyskinesia, without mention of fluctuations (09/08/23) Other lack of coordination (09/08/23) Weakness (09/08/23) Physical Therapy Treatment Note PT-OP-A Visit Information Start: 07/31/23 10:30 Freq: Status: Active Protocol: Document 09/08/23 11:12 NBM (Rec: 09/08/23 12:19 NBM [id number]) Out-Patient Physical Therapy Visit Information Visit Information Visit Type Treatment Note Visit Start Time 11:18 Visit Stop Time 12:07 Visit Number 11 Number of EDUCATIONAL RESOURCE COORDINATOR Visits 1 PT-OP-B Current Condition Start: 07/31/23 10:30 Freq: Status: Active Protocol: Document 07/31/23 10:30 NM (Rec: 07/31/23 12:20 NM [id number]) Current Condition History of Current Condition Onset Date 12 years ago Current Complaints endurance and strength History of Current Condition Pt presents with BLE weakness. He has hx of Parkinson's disease, 12 years since dx. States he has good days and bad days. States weakness has progressively worsened. His daughter is getting ; he has wanting to dance with her. He uses a spc (5 years), only when he feels unsteady. States he has had no falls recently. He has a walker and electric wheel chair (that he hasn't used in years). Currently lives [place], lives with son and grandson, has a caregiver (primarily for showering and during mornings for medications. Pt reports that he has a walk in shower. States he is very sedentary overall, can only walk across yard with spc before becoming fatigued. States no dizziness. Currently on carbidopa/ levadopa, entacopone, and 1 more than he can't remember that he takes 4x/day every 4 hours. He has rigidity, decreased trunk rotation, muscle stiffness, bradykinesia ; no tremors, no freezing with gait or activities. States that he has had previous PT for PD which has been temporarily helpful. States R side is more affect (Leg > arms). He recently bought a theracycle that he is planning on using to supplement PT. Prior Treatments and Tests previous L RTC injury, no repair Treatment Goals Patient/Caregiver Goals slow dance with daughter in September for her wedding, improve household and community ambulation Current Functional Impairments (Reported) Functional Limitations- ADL's tranfers household Functional Limitations- Mobility/Gait household ambulation with spc; use of golf cart (street legal) which has more independence Functional Limitations- Recreation/ wood working Hobbies Functional Limitations- Other no longer driving PT-OP-C Subjective Start: 07/31/23 10:30 Freq: Status: Active Protocol: Document 09/08/23 11:12 NBM (Rec: 09/08/23 12:19 NBM [id number]) OP-PT Subjective Patient Comments Patient Comments Darrell reports he drove the golf cart in today, so he needs to be able to drive after appt. He felt very tired after last visit, I couldn't bear my own weight. His caregiver Ewa used the rolling pin on his legs, but last night his girlfriend massaged them and that helped so much. He's been stretching several times a day and when he does he can take longer steps. PT-OP-D Balance Start: 07/31/23 10:30 Freq: Status: Active Protocol: Document 07/31/23 10:30 NM (Rec: 07/31/23 12:20 NM [id number]) Balance Tests Watkins Balance Test Watkins Balance Test Score 35/56 Semi-Tandem Standing Semi-Tandem Standing Balance 3 sec PT-OP-E Functional Tests Start: 07/31/23 10:30 Freq: Status: Active Protocol: Document 07/31/23 10:30 NM (Rec: 07/31/23 12:20 NM [id number]) Functional Tests 6 Minute Walk Test Distance 737 Device Used spc Comments festinating; several standing rest breaks 30 Second Sit to Stand Test Score 15 Comments 20, knees remain flexed; retropulses PT-OP-F Manual Assessment Start: 07/31/23 10:30 Freq: Status: Active Protocol: Document 07/31/23 10:30 NM (Rec: 07/31/23 12:20 NM [id number]) Manual Assessments Soft Tissue Assessment Soft Tissue Mobility Assessment Observable limitations in B hamstring and heel cord length . Joint Mobility Assessment Joint Mobility Assessment Rigidity of trunk, BLE/BUE. Limitations in PROM and AROM of BLE/BUE due to tone PT-OP-G Mobility & Gait Start: 07/31/23 10:30 Freq: Status: Active Protocol: Document 07/31/23 10:30 NM (Rec: 07/31/23 12:20 NM [id number]) OP Gait Assessment Gait Gait Assistance Required: Standby Assistance,Contact Guard Assist Distance (Feet) 737 Assistive Devices Assistive Device Gait Belt,Straight Cane Gait Deviations General Gait Pattern Festinating,Flexed Trunk, Narrow Based Gait Factors Limiting Gait Function Factors Limiting Gait Function Abnormal Tonal Influences, Decreased Activity Tolerance, Decreased Strength,Limited Range of Motion,Poor Balance Comments Gait Comments Decreased cardiovascular endurance. SBA>CGA with fatigue Stair Climbing Evaluation Evaluation Level of Assist On Stairs Contact Guard Assistance Devices Stair Climbing Assistive Devices Left Railing Technique/Endurance Stair Climbing Direction Ascend and Descend Stair Climbing Technique Step Over Step Number of Steps Climbed 4 Stair Climbing Set # Repetitions (reps) 2 Comments Stair Climbing Comments Decreased stability with descent, increased trunk sway and and backward trunk lean PT-OP-H Neuro Start: 07/31/23 10:30 Freq: Status: Active Protocol: Document 07/31/23 10:30 NM (Rec: 07/31/23 12:20 NM [id number]) Coordination Evaluation Upper Extremity Tests Right Finger to Nose Test Moderate Impairment Finger to Therapist's Finger Test Moderate Impairment Finger to Finger Test Moderate Impairment Alternate Nose to Finger Test Moderate Impairment Pronation/Supination Test Minimal Impairment Left Finger to Nose Test Moderate Impairment Finger to Therapist's Finger Test Moderate Impairment Finger to Finger Test Moderate Impairment Alternate Nose to Finger Test Moderate Impairment Pronation/Supination Test Minimal Impairment Lower Extremity Tests Right Alternate Heel to Knee; Heel to Toe Test Moderate Impairment Heel on [place] Test Minimal Impairment Foot Tapping Test Minimal Impairment Left Alternate Heel to Knee; Heel to Toe Test Minimal Impairment Heel on [place] Test Minimal Impairment Foot Tapping Test Minimal Impairment Comments Coordination Comments limited Vital Signs Blood Pressure Sitting Blood Pressure (90/60-120/80 mmHg) 105/63 Blood Pressure Source Automatic Cuff,Right Upper Extremity Standing Blood Pressure (90/60-120/80 mmHg) 125/48 H Blood Pressure Source Automatic Cuff,Right Upper Extremity Supine Blood Pressure (90/60-120/80 mmHg) 133/68 H Blood Pressure Source Automatic Cuff,Right Upper Extremity Comments Vital Signs Comments Denies symptoms with orthostatic testing PT-OP-J Posture/Palpation/Skin Start: 07/31/23 10:30 Freq: Status: Active Protocol: Document 07/31/23 10:30 NM (Rec: 07/31/23 12:20 NM [id number]) Posture Evaluation Position Standing Head/C-Spine Posture Forward Head T-Spine Posture Increased Kyphosis Pelvis Posture Anteriorly Tilted Weight Distribution Weight Shifted Posterior Comments Posture Comments Forward trunk flexion posture. During movement, tendency for retropulsion. Demos synergistic movements of neck/ trunk with BUE/BLE movement PT-OP-K Range of Motion Start: 07/31/23 10:30 Freq: Status: Active Protocol: Document 07/31/23 10:30 NM (Rec: 07/31/23 14:56 NM [id number]) Hip Goniometric Range of Motion Hip ROM Limitations Hip ROM Limitations Muscle Tone Comments Increased rigidity Knee Goniometric Range of Motion Knee ROM Limitations Knee ROM Limitations Soft Tissue Tightness, Contracture Comments Hamstring length limited: 130 deg L, 140 deg R PT-OP-M Strength Start: 07/31/23 10:30 Freq: Status: Active Protocol: Document 07/31/23 10:30 NM (Rec: 07/31/23 12:20 NM [id number]) Hip Strength Hip Manual Muscle Testing Right Flexion (L2) 3+ Fair+ Extension (S1) 4- Good- Abduction 4- Good- Adduction 4- Good- Left Flexion (L2) 4- Good- Extension (S1) 4- Good- Abduction 4- Good- Adduction 4- Good- Knee Strength Knee Manual Muscle Testing Right Flexion (S2) 4- Good- Extension (L3) 4- Good- Left Flexion (S2) 4- Good- Extension (L3) 4- Good- Ankle/Foot Strength Ankle and Foot Manual Muscle Testing Left Dorsiflexion (L4) 4 Good Plantarflexion (S1) 4 Good Inversion 4 Good Eversion (S1) 4 Good Right Dorsiflexion (L4) 3+ Fair+ Plantarflexion (S1) 4- Good- Inversion 4- Good- Eversion (S1) 4- Good- PT-OP-Q Treatments Start: 07/31/23 10:30 Freq: Status: Active Protocol: Document 09/08/23 11:12 NBM (Rec: 09/08/23 12:19 NBM [id number]) Cardio Equipment Recumbent Elliptical (BiodNAVX) Duration (Minutes) 6 Resistance 4 Seat Position 10 Other UE/LEs Therapeutic Exercises Sidelying Exercises open book stretch Sidelying Exercise Name added to HEP Side bilateral Reps/Minutes x10 AROM, x5 breathcycle hold Comments no pain, cues for scapular setting to initiate Sitting Exercises trunk rotation Sitting Exercise Name 1.AROM 2. stretch Side bilateral Reps/Minutes 1.x10 ea 2. 3x 15s ea Comments cues for nose in alignment w/ spine Piriformis stretch Sitting Exercise Name 1. Figure 4 2. knee to opp shoulder Side bilateral Equipment Used standard mesh chair Reps/Minutes x60s ea Standing Exercises STS Standing Exercise Name STS from 25>24 plinth about bed height - no UE support Side bilateral Equipment Used cues for gluteal squeeze. Reps/Minutes 2x6 Comments cues for eccentric control w/ last inch, 1 extra attempt to stand from 24 Gait Training Gait Activity SPC Distance/Duration various distances around clinic Treatment Focus spc use, stability Comments Cued to move spc more lateral to foot vs at his toe and to place on ground for stability Manual Therapy Treatment Manual Techniques HS stretch Body Location B Hamstrings Body Position Supine Reps/Duration 3x10s contract/relax Comments L>R tightness Positive feedback response. Neuro Re-Education Treatment Balance Activities Stepping outside TRISHA Details chair nearby for rest prn. Equipment metronome 96 bpm in 4/4 time. Reps/Duration 10 ea direction ea leg Comments 1. fwd with opp hand 2. bwd with opp hand 3. lateral with same hand, alt Cued for form, larger steps and wider TRISHA. Hands big, fingers apart. CGA to steady isatu with bwd step, one LOB w/ self-recovery L lateral step Self-Care/Home Management Treatment Education Patient Education Home Exercise Program Other Education Added to HEP: Open book stretch - HO given. PT-OP-T Assessment and Plan Start: 07/31/23 10:30 Freq: Status: Active Protocol: Document 09/08/23 11:12 [facility] (Rec: 09/08/23 12:19 [facility] [id number]) Physical Therapy Assessment Goals Four Impairment HEP Impairment not performing HEP Short Term Goal (STG) Pt will report compliance with HEP at least 2x/wk in order to promote independence with HEP and maximize progression with PT. 09/05/23: 3-4x/wk STG Duration 5 weeks MET Halfway Goal (LTG) Pt will report compliance with HEP at least 3x/wk in order to promote independence with HEP and transition into maintenance program upon discharge from PT. LTG Duration 10 weeks Three Impairment balance, strength, posture Impairment 30 sec STS score 15 with retropulsion, 20 chair Short Term Goal (STG) Pt will be able to perform at least 10 sit to stands without UE assistance and without retropulsion in order to demonstrate improved posture, decreased fall risk, and improved BLE strength for gait /transfers 09/05/23: pt able to perform 10 sit to stands without UE assist and good form in previous sessions from standard chair STG Duration 5 weeks MET [employer] Goal (LTG) Pt will be able to perform 30 second STS test from standard chair without UE assistance and without retropulsion in order to demonstrate improved posture, decreased fall risk, and improved BLE strength for gait/transfers LTG Duration 10 weeks Two Impairment endurance, gait Impairment 6 MWT distance 737 ft with spc , 3 standing rest breaks Short Term Goal (STG) Pt will complete 6 MWT using LRAD with fewer than 3 standing rest breaks in order to demonstrate improved endurance and BLE strength 09/05/23: pt had 5 rest breaks, ambulating with spc x 443 ft. Very fatigued; demos festinating gait, increased instance of gait freezing today STG Duration 5 weeks NOT MET [employer] Goal (LTG) Pt will improve 6 MWT distance by at least 82 m (269 ft, 1 MDC) using LRAD in order to demonstrate improved endurance and BLE strength LTG Duration 10 weeks One Impairment balance, fall risk Impairment Watkins 35/56 Short Term Goal (STG) Pt will improve Watkins score to at least 40/56 (1 MDC) in order to demonstrate improved balance and decreased fall risk 09/05/23: 46/56 STG Duration 5 weeks MET Halfway Goal (LTG) Pt will improve Watkins score to at least 48/56 in order to demonstrate improved balance and decreased fall risk 09/05/23: 46/56 LTG Duration 10 weeks Assessment Summary Assessment Darrell presents today w/ cane in RUE and ambulates with longer steps without cueing. Biodex start of treatment for neural priming. Treatment focus on gait with reciprocal arm swing , balance w/ stepping outside TRISHA, thoracic mobility and stretching. He is able to alternate lateral step outside of base of support w/ 96bpm metronome but has one loss of balance to left w/ self- recovery; backward step is challenging necessitating CGA for balance. Added to HEP: Open book stretch - HO given. Physical Therapy Plan Frequency and Duration Frequency of Treatment 1-2x/wk Duration of treatment (weeks) 10 Plan of Care Start Date 07/31/23 Plan of Care End Date 10/13/23 Therapeutic Interventions Therapeutic Interventions Balance Training,Coordination Training,Gait Training,Home Exercise Program,Joint Mobilizations,Manual Therapy, Neuromuscular Re-education, Orthotic/Prosthetic Management ,Patient/Caregiver Education, Self-Care/Home Management, Sensory Integration,Soft Tissue Mobilization,Taping, Therapeutic Activities, Therapeutic Exercises Modalities Cold Pack/Ice Massage,Electric Stimulation,Hot Packs Next Visit Focus/Plan Next Note Type Treatment Note Next Visit Plan open book, trunk rotation w/ gait and stepping, add metronome 96 bpm with gait or stepping, bungee ambulation multi direction Focus large amp movement, endurance and strengthening. Next session: continue stretching, arm swing and thoracic rotation (seated), biodex or scifit warm up Leg press, stepping outside TRISHA, arm swing with gait, spc sequencing and placement, dynamic balance Stepping, shuttle balance, hurdles, weight shift, limit posterior lean POC: reduce retropulsion, decrease festination, improve cardiovascular endurance and BLE strength
--- NOTE | 2023-09-18 15:24 | PT.OTN ---
Current Diagnoses Parkinson's disease without dyskinesia, without mention of fluctuations (09/18/23) Other lack of coordination (09/18/23) Weakness (09/18/23) Physical Therapy Treatment Note PT-OP-A Visit Information Start: 07/31/23 10:30 Freq: Status: Active Protocol: Document 09/18/23 12:58 NM (Rec: 09/18/23 13:47 NM [id number]) Out-Patient Physical Therapy Visit Information Visit Information Visit Type Progress Note Visit Start Time 13:00 Visit Stop Time 13:45 Visit Number 14 Evaluation Information Evaluation Date 07/31/23 Precautions Precautions Parkinson's Disease, fall risk , Orthostatic hypotension slow positional transitions* * PT-OP-B Current Condition Start: 07/31/23 10:30 Freq: Status: Active Protocol: Document 07/31/23 10:30 NM (Rec: 07/31/23 12:20 NM [id number]) Current Condition History of Current Condition Onset Date 12 years ago Current Complaints endurance and strength History of Current Condition Pt presents with BLE weakness. He has hx of Parkinson's disease, 12 years since dx. States he has good days and bad days. States weakness has progressively worsened. His daughter is getting ; he has wanting to dance with her. He uses a spc (5 years), only when he feels unsteady. States he has had no falls recently. He has a walker and electric wheel chair (that he hasn't used in years). Currently lives in [address] [place], lives with son and grandson, has a caregiver (primarily for showering and during mornings for medications. Pt reports that he has a walk in shower. States he is very sedentary overall, can only walk across yard with spc before becoming fatigued. States no dizziness. Currently on carbidopa/ levadopa, entacopone, and 1 more than he can't remember that he takes 4x/day every 4 hours. He has rigidity, decreased trunk rotation, muscle stiffness, bradykinesia ; no tremors, no freezing with gait or activities. States that he has had previous PT for PD which has been temporarily helpful. States R side is more affect (Leg > arms). He recently bought a theracycle that he is planning on using to supplement PT. Prior Treatments and Tests previous L RTC injury, no repair Treatment Goals Patient/Caregiver Goals slow dance with daughter in September for her wedding, improve household and community ambulation Current Functional Impairments (Reported) Functional Limitations- ADL's tranfers household Functional Limitations- Mobility/Gait household ambulation with spc; use of golf cart (street legal) which has more independence Functional Limitations- Recreation/ wood working Hobbies Functional Limitations- Other no longer driving PT-OP-C Subjective Start: 07/31/23 10:30 Freq: Status: Active Protocol: Document 09/18/23 12:58 NM (Rec: 09/18/23 13:47 NM [id number]) OP-PT Subjective Patient Comments Patient Comments Pt reports stiff muscles today . States that he was walking really good this past weekend . Reports wiped out after PT, has been doing less than he was. Pt has reached out to PCP and states approved for more visits; has to send to insurance. States that sometimes he does really well with PT and other times he does not feel like he has improved. PT-OP-D Balance Start: 07/31/23 10:30 Freq: Status: Active Protocol: Document 07/31/23 10:30 NM (Rec: 07/31/23 12:20 NM [id number]) Balance Tests Watkins Balance Test Watkins Balance Test Score 35/56 Semi-Tandem Standing Semi-Tandem Standing Balance 3 sec PT-OP-E Functional Tests Start: 07/31/23 10:30 Freq: Status: Active Protocol: Document 07/31/23 10:30 NM (Rec: 07/31/23 12:20 NM [id number]) Functional Tests 6 Minute Walk Test Distance 737 Device Used spc Comments festinating; several standing rest breaks 30 Second Sit to Stand Test Score 15 Comments 20, knees remain flexed; retropulses PT-OP-F Manual Assessment Start: 07/31/23 10:30 Freq: Status: Active Protocol: Document 07/31/23 10:30 NM (Rec: 07/31/23 12:20 NM [id number]) Manual Assessments Soft Tissue Assessment Soft Tissue Mobility Assessment Observable limitations in B hamstring and heel cord length . Joint Mobility Assessment Joint Mobility Assessment Rigidity of trunk, BLE/BUE. Limitations in PROM and AROM of BLE/BUE due to tone PT-OP-G Mobility & Gait Start: 07/31/23 10:30 Freq: Status: Active Protocol: Document 07/31/23 10:30 NM (Rec: 07/31/23 12:20 NM [id number]) OP Gait Assessment Gait Gait Assistance Required: Standby Assistance,Contact Guard Assist Distance (Feet) 737 Assistive Devices Assistive Device Gait Belt,Straight Cane Gait Deviations General Gait Pattern Festinating,Flexed Trunk, Narrow Based Gait Factors Limiting Gait Function Factors Limiting Gait Function Abnormal Tonal Influences, Decreased Activity Tolerance, Decreased Strength,Limited Range of Motion,Poor Balance Comments Gait Comments Decreased cardiovascular endurance. SBA>CGA with fatigue Stair Climbing Evaluation Evaluation Level of Assist On Stairs Contact Guard Assistance Devices Stair Climbing Assistive Devices Left Railing Technique/Endurance Stair Climbing Direction Ascend and Descend Stair Climbing Technique Step Over Step Number of Steps Climbed 4 Stair Climbing Set # Repetitions (reps) 2 Comments Stair Climbing Comments Decreased stability with descent, increased trunk sway and and backward trunk lean PT-OP-H Neuro Start: 07/31/23 10:30 Freq: Status: Active Protocol: Document 07/31/23 10:30 NM (Rec: 07/31/23 12:20 NM [id number]) Coordination Evaluation Upper Extremity Tests Right Finger to Nose Test Moderate Impairment Finger to Therapist's Finger Test Moderate Impairment Finger to Finger Test Moderate Impairment Alternate Nose to Finger Test Moderate Impairment Pronation/Supination Test Minimal Impairment Left Finger to Nose Test Moderate Impairment Finger to Therapist's Finger Test Moderate Impairment Finger to Finger Test Moderate Impairment Alternate Nose to Finger Test Moderate Impairment Pronation/Supination Test Minimal Impairment Lower Extremity Tests Right Alternate Heel to Knee; Heel to Toe Test Moderate Impairment Heel on [place] Test Minimal Impairment Foot Tapping Test Minimal Impairment Left Alternate Heel to Knee; Heel to Toe Test Minimal Impairment Heel on [place] Test Minimal Impairment Foot Tapping Test Minimal Impairment Comments Coordination Comments limited Vital Signs Blood Pressure Sitting Blood Pressure (90/60-120/80 mmHg) 105/63 Blood Pressure Source Automatic Cuff,Right Upper Extremity Standing Blood Pressure (90/60-120/80 mmHg) 125/48 H Blood Pressure Source Automatic Cuff,Right Upper Extremity Supine Blood Pressure (90/60-120/80 mmHg) 133/68 H Blood Pressure Source Automatic Cuff,Right Upper Extremity Comments Vital Signs Comments Denies symptoms with orthostatic testing PT-OP-J Posture/Palpation/Skin Start: 07/31/23 10:30 Freq: Status: Active Protocol: Document 07/31/23 10:30 NM (Rec: 07/31/23 12:20 NM [id number]) Posture Evaluation Position Standing Head/C-Spine Posture Forward Head T-Spine Posture Increased Kyphosis Pelvis Posture Anteriorly Tilted Weight Distribution Weight Shifted Posterior Comments Posture Comments Forward trunk flexion posture. During movement, tendency for retropulsion. Demos synergistic movements of neck/ trunk with BUE/BLE movement PT-OP-K Range of Motion Start: 07/31/23 10:30 Freq: Status: Active Protocol: Document 07/31/23 10:30 NM (Rec: 07/31/23 14:56 NM [id number]) Hip Goniometric Range of Motion Hip ROM Limitations Hip ROM Limitations Muscle Tone Comments Increased rigidity Knee Goniometric Range of Motion Knee ROM Limitations Knee ROM Limitations Soft Tissue Tightness, Contracture Comments Hamstring length limited: 130 deg L, 140 deg R PT-OP-M Strength Start: 07/31/23 10:30 Freq: Status: Active Protocol: Document 07/31/23 10:30 NM (Rec: 07/31/23 12:20 NM [id number]) Hip Strength Hip Manual Muscle Testing Right Flexion (L2) 3+ Fair+ Extension (S1) 4- Good- Abduction 4- Good- Adduction 4- Good- Left Flexion (L2) 4- Good- Extension (S1) 4- Good- Abduction 4- Good- Adduction 4- Good- Knee Strength Knee Manual Muscle Testing Right Flexion (S2) 4- Good- Extension (L3) 4- Good- Left Flexion (S2) 4- Good- Extension (L3) 4- Good- Ankle/Foot Strength Ankle and Foot Manual Muscle Testing Left Dorsiflexion (L4) 4 Good Plantarflexion (S1) 4 Good Inversion 4 Good Eversion (S1) 4 Good Right Dorsiflexion (L4) 3+ Fair+ Plantarflexion (S1) 4- Good- Inversion 4- Good- Eversion (S1) 4- Good- PT-OP-Q Treatments Start: 07/31/23 10:30 Freq: Status: Active Protocol: Document 09/18/23 12:58 NM (Rec: 09/18/23 13:47 NM [id number]) Therapeutic Exercises Supine Exercises HS stretch Supine Exercise Name passive HS stretch Side bilateral Equipment Used contract-relax on PT shoulder Reps/Minutes x60 ea (3x10 holds) Comments followed by 60 passive stretch w/ gravity assisted on mat pec stretch Supine Exercise Name goal post>T Side bilateral Reps/Minutes x60s Comments gentle pull reported, no pain Sidelying Exercises open book stretch Side bilateral Reps/Minutes 10 AROM with 3-4 breath hold Comments start of session Sitting Exercises Piriformis stretch Sitting Exercise Name 1. Figure 4 2. knee to opp shoulder Side bilateral Reps/Minutes 60 sec ea Comments start of session HS stretch Sitting Exercise Name long sit Side bilateral Reps/Minutes x60 ea Gait Training Gait Activity 6 MWT Device Used new spc, 2 Level of Assistance CGA to steady prn Surface stable Distance/Duration 440 ft Treatment Focus endurance, speed, step length Comments Only 3 rest breaks. Less festination, but still occurs as changing surfaces and with fatigue, harder to turn L than R. One episode of freezing. Cued to not step on the cracks, which naturally increases pt gait speed and step length SPC Device Used Pt's new hand-carved cane 2 longer Level of Assistance CGA Surface stable Distance/Duration various distances around clinic- max 100 ft Treatment Focus step length, spc use, stability, amplitude, turns L> R Comments Cued spc placement and sequencing with RLE further away from RLE. Educated to extend R arm further for safety with spc placement, which also naturally increases step length. Cueing for stride length, try to step past R or L toes. Mentally and physically fatiguing for pt Neuro Re-Education Treatment Balance Activities Stepping outside TRISHA Details CGA, 1 instance min A to steady Surface stable Equipment colored feet on ground for visual target, verbal cues Comments 1. Fwd step and reach, 10 ea direction 2. Side step and reach, 5 ea direction 3. Backward step and reach, 10 ea direction Pt performing stepping ea direction with large amplitude BUE movement out w/ step and return to center over TRISHA with clap. Cued for stomp and clap, improved coordination with reps 4. Dancing: retro ambulation , lateral stepping, fwd ambulation to colored dots on floor- ea 10 ft apart x5 reps ea direction PT with contact support at hip /gait belt on pt and 1 hand support for CGA to steady prn, calling out color and direction to pt as dual task, then pt ambulating fwd/lateral /retro to correct spot. Requires increased time PT-OP-T Assessment and Plan Start: 07/31/23 10:30 Freq: Status: Active Protocol: Document 09/18/23 12:58 NM (Rec: 09/18/23 13:47 NM [id number]) Physical Therapy Assessment Goals Five Impairment gait, stride length Impairment festinating gait, episodes of freezing [facility] Goal (LTG) Pt will ambulate with increased stride length with L foot passing R foot and R foot passing L foot at least 75% of the time without cues using LRAD in order to demonstrate improved foot clearance with gait and safety during ambulation LTG Duration 12 weeks- NEW GOAL 09/18/23 Four Impairment HEP Impairment not performing HEP Short Term Goal (STG) Pt will report compliance with HEP at least 2x/wk in order to promote independence with HEP and maximize progression with PT. 09/05/23: 3-4x/wk STG Duration 5 weeks MET [facility] Goal (LTG) Pt will report compliance with HEP at least 3x/wk in order to promote independence with HEP and transition into maintenance program upon discharge from PT. 09/18/23: performing HEP 3x/wk LTG Duration 10 weeks MET Three Impairment balance, strength, posture Impairment 30 sec STS score 15 with retropulsion, 20 chair Short Term Goal (STG) Pt will be able to perform at least 10 sit to stands without UE assistance and without retropulsion in order to demonstrate improved posture, decreased fall risk, and improved BLE strength for gait /transfers 09/05/23: pt able to perform 10 sit to stands without UE assist and good form in previous sessions from standard chair STG Duration 5 weeks MET [facility] Goal (LTG) UPDATED GOAL 09/17: Pt will be able to perform 5x STS test without UE support in 16 seconds or less (cut off specific to Parkinson's) in order to demonstrate decreased fall risk, improved posture, and BLE strength for gait and transfers. Pt will be able to perform 30 second STS test from standard chair without UE assistance and without retropulsion in order to demonstrate improved posture, decreased fall risk, and improved BLE strength for gait/transfers 09/18/23: 7 STS with improved form, eccentric lowering in 30 seconds w/o UE support LTG Duration 10 weeks MET 09/18/23; goal updated 09/18/23 Two Impairment endurance, gait Impairment 6 MWT distance 737 ft with spc , 3 standing rest breaks Short Term Goal (STG) Pt will complete 6 MWT using LRAD with fewer than 3 standing rest breaks in order to demonstrate improved endurance and BLE strength 09/05/23: pt had 5 rest breaks, ambulating with spc x 443 ft. Very fatigued; demos festinating gait, increased instance of gait freezing today STG Duration 5 weeks NOT MET [facility] [employer] Goal (LTG) NOT MET-- Pt will improve 6 MWT distance by at least 82 m (269 ft, 1 MDC) using LRAD in order to demonstrate improved endurance and BLE strength 09/18/23: 441 ft with spc; 3 standing rest breaks, 1 instance of freezing, still has festination of gait LTG Duration 10 weeks NOT MET on 09/18/23- d/ c on 09/18/23; LTG UPDATED -see #5 One Impairment balance, fall risk Impairment Watkins 35/56 Short Term Goal (STG) Pt will improve Watkins score to at least 40/56 (1 MDC) in order to demonstrate improved balance and decreased fall risk 09/05/23: 46/56 STG Duration 5 weeks MET [facility] Goal (LTG) Pt will improve Watkins score to at least 48/56 in order to demonstrate improved balance and decreased fall risk 09/05/23: 46/56 LTG Duration 10 weeks PROGRESSING Progress Towards Goals Progress Towards Goals Progressing Toward Goals,Slow Progress due to Medical Issues ,Goals Met Progress Comments 6 MWT goal updated to reflect pt's current gait status; sit to stand/transfer goal updated Assessment Summary Assessment Pt tolerated session well but was very fatigued at the end of the session. During 6 MWT, pt ambulated 441 ft with his new spc; he had fewer standing rest breaks and instances of festinating and freezing gait. However, still demonstrates festination as he fatigues or turns. Since evaluation, pt has demonstrated more instances of festination and instances of freezing, which he reports that he has not performed before. Pt has more difficulty with turning L. Extensive cueing today with gait and transfers on spc placement, sequencing, and safety due to pt tendency to hold closer to his body. Improved with verbal cueing but limited carryover by end of session, possibly due to fatigue. Pt met STS goal today , demonstrating good form with no compensations and no UE assistance; he is only able to perform 7 within 30 seconds. Continued with promoting large amplitude movements while stepping and reaching outside of TRISHA. With verbal cues from PT and external visual targets , pt able to simulate dancing with light support at pt waist and hand, cueing for directional changes and promoting quick change in movement forward/lateral/ backward. Physical Therapy Plan Frequency and Duration Frequency of Treatment 1-2x/wk Duration of treatment (weeks) 10 Plan of Care Start Date 09/18/23 Plan of Care End Date 12/01/23 Therapeutic Interventions Therapeutic Interventions Balance Training,Coordination Training,Gait Training,Home Exercise Program,Joint Mobilizations,Manual Therapy, Neuromuscular Re-education, Orthotic/Prosthetic Management ,Patient/Caregiver Education, Self-Care/Home Management, Sensory Integration,Soft Tissue Mobilization,Taping, Therapeutic Activities, Therapeutic Exercises Modalities Cold Pack/Ice Massage,Electric Stimulation,Hot Packs Next Visit Focus/Plan Next Note Type Treatment Note Next Visit Plan Large amplitude movement with stepping, add ~ dancing using external targets: fwd, bwd, lateral; add arms/stomp and clap, music or metronome gait: stride length, spc placement for safety, turns, fwd/retro gait, hurdles Address postural abnormalities , strengthening (core, BLE) Depending on auth, will either discharge (if none received) or 1-2x/wk (decrease frequency if improve) POC: reduce retropulsion, decrease festination, improve cardiovascular endurance and BLE strength
--- NOTE | 2023-09-18 15:25 | PT.OPPOC ---
Physical, Occupational & Speech Therapy At [facility] Current Diagnoses Parkinson's disease without dyskinesia, without mention of fluctuations (09/18/23) Other lack of coordination (09/18/23) Weakness (09/18/23) Visit Care Team Role Provider Type Yessenia Johnson MD Family Provider Non-Staff Primary Care Provider Specialty: Family Practice Address: [address] [place] [address], [id number] Email: Attending Provider Referring Provider Specialty: Address: Phone: Fax: Email: Plan Of Care PT-OP-T Assessment and Plan Start: 07/31/23 10:30 Freq: Status: Active Protocol: Document 09/18/23 12:58 NM (Rec: 09/18/23 13:47 NM [id number]) Physical Therapy Assessment Goals Five Impairment gait, stride length Impairment festinating gait, episodes of freezing Geospatial Imagery Intelligence Analyst Goal (LTG) Pt will ambulate with increased stride length with L foot passing R foot and R foot passing L foot at least 75% of the time without cues using LRAD in order to demonstrate improved foot clearance with gait and safety during ambulation LTG Duration 12 weeks- NEW GOAL 09/18/23 Four Impairment HEP Impairment not performing HEP Short Term Goal (STG) Pt will report compliance with HEP at least 2x/wk in order to promote independence with HEP and maximize progression with PT. 09/05/23: 3-4x/wk STG Duration 5 weeks MET Residential Goal (LTG) Pt will report compliance with HEP at least 3x/wk in order to promote independence with HEP and transition into maintenance program upon discharge from PT. 09/18/23: performing HEP 3x/wk LTG Duration 10 weeks MET Three Impairment balance, strength, posture Impairment 30 sec STS score 15 with retropulsion, 20 chair Short Term Goal (STG) Pt will be able to perform at least 10 sit to stands without UE assistance and without retropulsion in order to demonstrate improved posture, decreased fall risk, and improved BLE strength for gait /transfers 09/05/23: pt able to perform 10 sit to stands without UE assist and good form in previous sessions from standard chair STG Duration 5 weeks MET Residential Goal (LTG) UPDATED GOAL 09/17: Pt will be able to perform 5x STS test without UE support in 16 seconds or less (cut off specific to Parkinson's) in order to demonstrate decreased fall risk, improved posture, and BLE strength for gait and transfers. Pt will be able to perform 30 second STS test from standard chair without UE assistance and without retropulsion in order to demonstrate improved posture, decreased fall risk, and improved BLE strength for gait/transfers 09/18/23: 7 STS with improved form, eccentric lowering in 30 seconds w/o UE support LTG Duration 10 weeks MET 09/18/23; goal updated 09/18/23 Two Impairment endurance, gait Impairment 6 MWT distance 737 ft with spc , 3 standing rest breaks Short Term Goal (STG) Pt will complete 6 MWT using LRAD with fewer than 3 standing rest breaks in order to demonstrate improved endurance and BLE strength 09/05/23: pt had 5 rest breaks, ambulating with spc x 443 ft. Very fatigued; demos festinating gait, increased instance of gait freezing today STG Duration 5 weeks NOT MET Geospatial Imagery Intelligence Analyst Goal (LTG) NOT MET-- Pt will improve 6 MWT distance by at least 82 m (269 ft, 1 MDC) using LRAD in order to demonstrate improved endurance and BLE strength 09/18/23: 441 ft with spc; 3 standing rest breaks, 1 instance of freezing, still has festination of gait LTG Duration 10 weeks NOT MET on 09/18/23- d/ c on 09/18/23; LTG UPDATED -see #5 One Impairment balance, fall risk Impairment Watkins 35/56 Short Term Goal (STG) Pt will improve Watkins score to at least 40/56 (1 MDC) in order to demonstrate improved balance and decreased fall risk 09/05/23: 46/56 STG Duration 5 weeks MET Residential Goal (LTG) Pt will improve Watkins score to at least 48/56 in order to demonstrate improved balance and decreased fall risk 09/05/23: 46/56 LTG Duration 10 weeks PROGRESSING Progress Towards Goals Progress Towards Goals Progressing Toward Goals,Slow Progress due to Medical Issues ,Goals Met Progress Comments 6 MWT goal updated to reflect pt's current gait status; sit to stand/transfer goal updated Assessment Summary Assessment Pt has been seen x 13 visits since evaluation in July 2023 for gait and balance abnormalities related to Parkinson's disease. He is progressing toward goals. However, he is now demonstrating more frequent festination during gait and now has instances of freezing. Festination and freezing are worse with turning, fatigue, and approaching obstacles. Pt continues to require consistent cueing for stride length, foot clearance, and AD placement for safety. However , he is able to perform sit to stand transfer without assistance, only increased time. Watkins balance test improved from 35/56 to 46/56 since evaluation. Goals updated to reflect pt current status. He is compliant with daily stretching HEP, but has limited compliance with strengthening HEP due to fatigue. Pt would benefit from additional PT, but is awaiting further authorization for more visits. PT educated pt that he would need to return to PCP at last visit with PT in August otherwise pt would have to be discharged from PT; pt reports that he has reached out but has received more approval but is still waiting for auth to be processed. Darrell would benefit from skilled PT in order to address gait, posture, and balance impairments related to Parkinson's disease in order to reduce fall risk, promote independence, improve ability to participate in pt's important life events, and increase QOL. Physical Therapy Plan Frequency and Duration Frequency of Treatment 1-2x/wk Duration of treatment (weeks) 10 Plan of Care Start Date 09/18/23 Plan of Care End Date 12/01/23 Therapeutic Interventions Therapeutic Interventions Balance Training,Coordination Training,Gait Training,Home Exercise Program,Joint Mobilizations,Manual Therapy, Neuromuscular Re-education, Orthotic/Prosthetic Management ,Patient/Caregiver Education, Self-Care/Home Management, Sensory Integration,Soft Tissue Mobilization,Taping, Therapeutic Activities, Therapeutic Exercises Modalities Cold Pack/Ice Massage,Electric Stimulation,Hot Packs Next Visit Focus/Plan Next Note Type Treatment Note Next Visit Plan Large amplitude movement with stepping, add ~ dancing using external targets: fwd, bwd, lateral; add arms/stomp and clap, music or metronome gait: stride length, spc placement for safety, turns, fwd/retro gait, hurdles Address postural abnormalities , strengthening (core, BLE) Depending on auth, will either discharge (if none received) or 1-2x/wk (decrease frequency if improve) POC: reduce retropulsion, decrease festination, improve cardiovascular endurance and BLE strength Plan of Care Dates Plan of Care Start Date 09/18/23 Plan of Care End Date 12/01/23 Electronically Signed by: Amanda Rivera, PT 09/18/23 1525 If you are in agreement with this Plan of Care, please return a signed and dated copy. I have reviewed this Plan of Care and certify that the skilled therapy services above are required to meet the patient?s needs. Physician Signature Date Printed Name and Credentials Clinical Instructor Signature Printed Name and Credentials
--- NOTE | 2023-09-20 12:14 | PT.OTN ---
Current Diagnoses Parkinson's disease without dyskinesia, without mention of fluctuations (09/20/23) Other lack of coordination (09/20/23) Weakness (09/20/23) Physical Therapy Treatment Note PT-OP-A Visit Information Start: 07/31/23 10:30 Freq: Status: Active Protocol: Document 09/20/23 11:23 NBM (Rec: 09/20/23 12:14 NBM [id number]) Out-Patient Physical Therapy Visit Information Visit Information Visit Type Treatment Note Visit Start Time 11:25 Visit Stop Time 12:05 Visit Number 15/ Number of [employer] [employer] SPECIALIST Visits 1 PT-OP-B Current Condition Start: 07/31/23 10:30 Freq: Status: Active Protocol: Document 07/31/23 10:30 NM (Rec: 07/31/23 12:20 NM [id number]) Current Condition History of Current Condition Onset Date 12 years ago Current Complaints endurance and strength History of Current Condition Pt presents with BLE weakness. He has hx of Parkinson's disease, 12 years since dx. States he has good days and bad days. States weakness has progressively worsened. His daughter is getting ; he has wanting to dance with her. He uses a spc (5 years), only when he feels unsteady. States he has had no falls recently. He has a walker and electric wheel chair (that he hasn't used in years). Currently lives in [address] [place], lives with son and grandson, has a caregiver (primarily for showering and during mornings for medications. Pt reports that he has a walk in shower. States he is very sedentary overall, can only walk across yard with spc before becoming fatigued. States no dizziness. Currently on carbidopa/ levadopa, entacopone, and 1 more than he can't remember that he takes 4x/day every 4 hours. He has rigidity, decreased trunk rotation, muscle stiffness, bradykinesia ; no tremors, no freezing with gait or activities. States that he has had previous PT for PD which has been temporarily helpful. States R side is more affect (Leg > arms). He recently bought a theracycle that he is planning on using to supplement PT. Prior Treatments and Tests previous L RTC injury, no repair Treatment Goals Patient/Caregiver Goals slow dance with daughter in September for her wedding, improve household and community ambulation Current Functional Impairments (Reported) Functional Limitations- ADL's tranfers household Functional Limitations- Mobility/Gait household ambulation with spc; use of golf cart (street legal) which has more independence Functional Limitations- Recreation/ wood working Hobbies Functional Limitations- Other no longer driving PT-OP-C Subjective Start: 07/31/23 10:30 Freq: Status: Active Protocol: Document 09/20/23 11:23 NBM (Rec: 09/20/23 12:14 NBM [id number]) OP-PT Subjective Patient Comments Patient Comments Darrell reports he has more visits approved and notified front end software engineer of referral number. He was fine after last appointment but is tired today ; maybe time of day matters based on when he takes his medications. Muscles are tight and he wants to stretch before possibly walking. It seems the more I stretch the more they stiffen up. PT-OP-D Balance Start: 07/31/23 10:30 Freq: Status: Active Protocol: Document 07/31/23 10:30 NM (Rec: 07/31/23 12:20 NM [id number]) Balance Tests Watkins Balance Test Watkins Balance Test Score 35/56 Semi-Tandem Standing Semi-Tandem Standing Balance 3 sec PT-OP-E Functional Tests Start: 07/31/23 10:30 Freq: Status: Active Protocol: Document 07/31/23 10:30 NM (Rec: 07/31/23 12:20 NM [id number]) Functional Tests 6 Minute Walk Test Distance 737 Device Used spc Comments festinating; several standing rest breaks 30 Second Sit to Stand Test Score 15 Comments 20, knees remain flexed; retropulses PT-OP-F Manual Assessment Start: 07/31/23 10:30 Freq: Status: Active Protocol: Document 07/31/23 10:30 NM (Rec: 07/31/23 12:20 NM [id number]) Manual Assessments Soft Tissue Assessment Soft Tissue Mobility Assessment Observable limitations in B hamstring and heel cord length . Joint Mobility Assessment Joint Mobility Assessment Rigidity of trunk, BLE/BUE. Limitations in PROM and AROM of BLE/BUE due to tone PT-OP-G Mobility & Gait Start: 07/31/23 10:30 Freq: Status: Active Protocol: Document 07/31/23 10:30 NM (Rec: 07/31/23 12:20 NM [id number]) OP Gait Assessment Gait Gait Assistance Required: Standby Assistance,Contact Guard Assist Distance (Feet) 737 Assistive Devices Assistive Device Gait Belt,Straight Cane Gait Deviations General Gait Pattern Festinating,Flexed Trunk, Narrow Based Gait Factors Limiting Gait Function Factors Limiting Gait Function Abnormal Tonal Influences, Decreased Activity Tolerance, Decreased Strength,Limited Range of Motion,Poor Balance Comments Gait Comments Decreased cardiovascular endurance. SBA>CGA with fatigue Stair Climbing Evaluation Evaluation Level of Assist On Stairs Contact Guard Assistance Devices Stair Climbing Assistive Devices Left Railing Technique/Endurance Stair Climbing Direction Ascend and Descend Stair Climbing Technique Step Over Step Number of Steps Climbed 4 Stair Climbing Set # Repetitions (reps) 2 Comments Stair Climbing Comments Decreased stability with descent, increased trunk sway and and backward trunk lean PT-OP-H Neuro Start: 07/31/23 10:30 Freq: Status: Active Protocol: Document 07/31/23 10:30 NM (Rec: 07/31/23 12:20 NM [id number]) Coordination Evaluation Upper Extremity Tests Right Finger to Nose Test Moderate Impairment Finger to Therapist's Finger Test Moderate Impairment Finger to Finger Test Moderate Impairment Alternate Nose to Finger Test Moderate Impairment Pronation/Supination Test Minimal Impairment Left Finger to Nose Test Moderate Impairment Finger to Therapist's Finger Test Moderate Impairment Finger to Finger Test Moderate Impairment Alternate Nose to Finger Test Moderate Impairment Pronation/Supination Test Minimal Impairment Lower Extremity Tests Right Alternate Heel to Knee; Heel to Toe Test Moderate Impairment Heel on [place] Test Minimal Impairment Foot Tapping Test Minimal Impairment Left Alternate Heel to Knee; Heel to Toe Test Minimal Impairment Heel on [place] Test Minimal Impairment Foot Tapping Test Minimal Impairment Comments Coordination Comments limited Vital Signs Blood Pressure Sitting Blood Pressure (90/60-120/80 mmHg) 105/63 Blood Pressure Source Automatic Cuff,Right Upper Extremity Standing Blood Pressure (90/60-120/80 mmHg) 125/48 H Blood Pressure Source Automatic Cuff,Right Upper Extremity Supine Blood Pressure (90/60-120/80 mmHg) 133/68 H Blood Pressure Source Automatic Cuff,Right Upper Extremity Comments Vital Signs Comments Denies symptoms with orthostatic testing PT-OP-J Posture/Palpation/Skin Start: 07/31/23 10:30 Freq: Status: Active Protocol: Document 07/31/23 10:30 NM (Rec: 07/31/23 12:20 NM [id number]) Posture Evaluation Position Standing Head/C-Spine Posture Forward Head T-Spine Posture Increased Kyphosis Pelvis Posture Anteriorly Tilted Weight Distribution Weight Shifted Posterior Comments Posture Comments Forward trunk flexion posture. During movement, tendency for retropulsion. Demos synergistic movements of neck/ trunk with BUE/BLE movement PT-OP-K Range of Motion Start: 07/31/23 10:30 Freq: Status: Active Protocol: Document 07/31/23 10:30 NM (Rec: 07/31/23 14:56 NM [id number]) Hip Goniometric Range of Motion Hip ROM Limitations Hip ROM Limitations Muscle Tone Comments Increased rigidity Knee Goniometric Range of Motion Knee ROM Limitations Knee ROM Limitations Soft Tissue Tightness, Contracture Comments Hamstring length limited: 130 deg L, 140 deg R PT-OP-M Strength Start: 07/31/23 10:30 Freq: Status: Active Protocol: Document 07/31/23 10:30 NM (Rec: 07/31/23 12:20 NM [id number]) Hip Strength Hip Manual Muscle Testing Right Flexion (L2) 3+ Fair+ Extension (S1) 4- Good- Abduction 4- Good- Adduction 4- Good- Left Flexion (L2) 4- Good- Extension (S1) 4- Good- Abduction 4- Good- Adduction 4- Good- Knee Strength Knee Manual Muscle Testing Right Flexion (S2) 4- Good- Extension (L3) 4- Good- Left Flexion (S2) 4- Good- Extension (L3) 4- Good- Ankle/Foot Strength Ankle and Foot Manual Muscle Testing Left Dorsiflexion (L4) 4 Good Plantarflexion (S1) 4 Good Inversion 4 Good Eversion (S1) 4 Good Right Dorsiflexion (L4) 3+ Fair+ Plantarflexion (S1) 4- Good- Inversion 4- Good- Eversion (S1) 4- Good- PT-OP-Q Treatments Start: 07/31/23 10:30 Freq: Status: Active Protocol: Document 09/20/23 11:23 NBM (Rec: 09/20/23 12:14 NBM [id number]) Therapeutic Exercises Supine Exercises DKTC Supine Exercise Name double knee to chest stretch Side bilateral Reps/Minutes x60s Comments cues for hand placement HS curl Side bilateral Equipment Used 55cm ball Reps/Minutes x5 LTR Supine Exercise Name w/ PPT Side bilateral Reps/Minutes x10 ea Comments initial verbal cue for PPT Sidelying Exercises hip flexor stretch Sidelying Exercise Name passive, knee bent and supported Side bilateral Equipment Used strap Reps/Minutes x60s ea Comments positive feedback response open book stretch Side bilateral Reps/Minutes 10 AROM with 3-4 breath hold Sitting Exercises trunk rotation Sitting Exercise Name 1.AROM 2. stretch Side bilateral Reps/Minutes 1.x10 ea 2. 3x 15s ea Comments cues for nose in alignment w/ spine Piriformis stretch Sitting Exercise Name 1. Figure 4 2. knee to opp shoulder Side bilateral Reps/Minutes 60 sec ea Comments start of session HS stretch Side bilateral Equipment Used w and wo strap Reps/Minutes x60 ea Standing Exercises calf stretch Side bilateral Equipment Used WILLARD Reps/Minutes 60 ea Gait Training Gait Activity SPC Device Used Pt's new hand-carved cane 2 longer Level of Assistance CGA Surface stable Distance/Duration various distances around clinic- max 245 ft EOS Treatment Focus step length, spc use, stability, amplitude, turns L> R Comments Cued spc placement and sequencing with RLE further away from RLE. Educated to extend R arm further for safety with spc placement, which also naturally increases step length. Cueing for stride length, try to step past R or L toes. longest distance 245 ft w/ two brief standing rest breaks and requiring seated rest break after. PT-OP-T Assessment and Plan Start: 07/31/23 10:30 Freq: Status: Active Protocol: Document 09/20/23 11:23 [facility] (Rec: 09/20/23 12:14 [facility] [id number]) Physical Therapy Assessment Assessment Summary Assessment Darrell presents w/ reported fatigue and LE stiffness. Treatment focus on stretching for trunk mobility and improved gait w/ focus on large amplitude. 3# DB added to L arm slightly improves L arm swing w/ gait. With fatigue pt requires cues for increasing amplitude, which improves after seated rest break. Physical Therapy Plan Frequency and Duration Frequency of Treatment 1-2x/wk Duration of treatment (weeks) 10 Plan of Care Start Date 09/18/23 Plan of Care End Date 12/01/23 Therapeutic Interventions Therapeutic Interventions Balance Training,Coordination Training,Gait Training,Home Exercise Program,Joint Mobilizations,Manual Therapy, Neuromuscular Re-education, Orthotic/Prosthetic Management ,Patient/Caregiver Education, Self-Care/Home Management, Sensory Integration,Soft Tissue Mobilization,Taping, Therapeutic Activities, Therapeutic Exercises Modalities Cold Pack/Ice Massage,Electric Stimulation,Hot Packs Next Visit Focus/Plan Next Note Type Treatment Note Next Visit Plan Large amplitude movement with stepping, add ~ dancing using external targets: fwd, bwd, lateral; add arms/stomp and clap, music or metronome gait: stride length, spc placement for safety, turns, fwd/retro gait, hurdles Address postural abnormalities , strengthening (core, BLE) Depending on auth, will either discharge (if none received) or 1-2x/wk (decrease frequency if improve) POC: reduce retropulsion, decrease festination, improve cardiovascular endurance and BLE strength
--- NOTE | 2023-09-25 13:09 | PT-OP ANOTE ---
WAIT LIST - PT called and spoke to pt at 1304 regarding no further auth. PT informed pt that the auth for 15 visits that he thought he had is the current auth with 15 visits that he just completed. [facility]. I informed him multiple times (in previous sessions and today on the phone) that he will have to go in for a new appointment, which usually takes a long time. We will cancel the appointments that are scheduled and waitlist him in case he does manage to get in/get new auth sooner rather than later; however, I told him that realistically we will discharge, then do a new evaluation with a new referral due to the estimated timeline. He agreed. He will call to update us with his appointment date so we can plan accordingly
--- NOTE | 2023-11-02 15:48 | PT.OTN ---
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 He has hx of Parkinson's disease, 12 years since dx. States he has good days and bad days. States weakness has progressively worsened. His daughter is getting ; he has wanting to dance with her. He uses a spc (5 years), only when he feels unsteady. States he has had no falls recently. He has a walker and electric wheel chair (that he hasn't used in years). Currently lives in 1 story home, lives with son and grandson, has a caregiver (primarily for showering and during mornings for medications. Pt reports that he has a walk in shower. States he is very sedentary overall, can only walk across yard with spc before becoming fatigued. States no dizziness. Currently on carbidopa/ levadopa, entacopone, and 1 more than he can't remember that he takes 4x/day every 4 hours. He has rigidity, decreased trunk rotation, muscle stiffness, bradykinesia ; no tremors, no freezing with gait or activities. States that he has had previous PT for PD which has been temporarily helpful. States R side is more affect (Leg > arms). He recently bought a theracycle that he is planning on using to supplement PT. Prior Treatments and Tests previous L RTC injury, no repair Treatment Goals Patient/Caregiver Goals slow dance with daughter in September for her wedding, improve household and community ambulation Current Functional Impairments (Reported) Functional Limitations- ADL's tranfers household Functional Limitations- Mobility/Gait household ambulation with spc; use of golf cart (street legal) which has more independence Functional Limitations- Recreation/ wood working Hobbies Functional Limitations- Other no longer driving PT-OP-C Subjective Start: 07/31/23 10:30 Freq: Status: Active Protocol: Document 11/02/23 13:01 NM (Rec: 11/02/23 13:49 NM [id number]) OP-PT Subjective Patient Comments Patient Comments Pt reports that he was able to dance with his daughters, which was wonderful. Presents with B HS tightness and spc, states has been doing stretches. Wants to improve his standing time and endurance PT-OP-D Balance Start: 07/31/23 10:30 Freq: Status: Active Protocol: Document 07/31/23 10:30 NM (Rec: 07/31/23 12:20 NM [id number]) Balance Tests Watkins Balance Test Watkins Balance Test Score 35/56 Semi-Tandem Standing Semi-Tandem Standing Balance 3 sec PT-OP-E Functional Tests Start: 07/31/23 10:30 Freq: Status: Active Protocol: Document 07/31/23 10:30 NM (Rec: 07/31/23 12:20 NM [id number]) Functional Tests 6 Minute Walk Test Distance 737 Device Used spc Comments festinating; several standing rest breaks 30 Second Sit to Stand Test Score 15 Comments 20, knees remain flexed; retropulses PT-OP-F Manual Assessment Start: 07/31/23 10:30 Freq: Status: Active Protocol: Document 07/31/23 10:30 NM (Rec: 07/31/23 12:20 NM [id number]) Manual Assessments Soft Tissue Assessment Soft Tissue Mobility Assessment Observable limitations in B hamstring and heel cord length . Joint Mobility Assessment Joint Mobility Assessment Rigidity of trunk, BLE/BUE. Limitations in PROM and AROM of BLE/BUE due to tone PT-OP-G Mobility & Gait Start: 07/31/23 10:30 Freq: Status: Active Protocol: Document 07/31/23 10:30 NM (Rec: 07/31/23 12:20 NM [id number]) OP Gait Assessment Gait Gait Assistance Required: Standby Assistance,Contact Guard Assist Distance (Feet) 737 Assistive Devices Assistive Device Gait Belt,Straight Cane Gait Deviations General Gait Pattern Festinating,Flexed Trunk, Narrow Based Gait Factors Limiting Gait Function Factors Limiting Gait Function Abnormal Tonal Influences, Decreased Activity Tolerance, Decreased Strength,Limited Range of Motion,Poor Balance Comments Gait Comments Decreased cardiovascular endurance. SBA>CGA with fatigue Stair Climbing Evaluation Evaluation Level of Assist On Stairs Contact Guard Assistance Devices Stair Climbing Assistive Devices Left Railing Technique/Endurance Stair Climbing Direction Ascend and Descend Stair Climbing Technique Step Over Step Number of Steps Climbed 4 Stair Climbing Set # Repetitions (reps) 2 Comments Stair Climbing Comments Decreased stability with descent, increased trunk sway and and backward trunk lean PT-OP-H Neuro Start: 07/31/23 10:30 Freq: Status: Active Protocol: Document 07/31/23 10:30 NM (Rec: 07/31/23 12:20 NM [id number]) Coordination Evaluation Upper Extremity Tests Right Finger to Nose Test Moderate Impairment Finger to Therapist's Finger Test Moderate Impairment Finger to Finger Test Moderate Impairment Alternate Nose to Finger Test Moderate Impairment Pronation/Supination Test Minimal Impairment Left Finger to Nose Test Moderate Impairment Finger to Therapist's Finger Test Moderate Impairment Finger to Finger Test Moderate Impairment Alternate Nose to Finger Test Moderate Impairment Pronation/Supination Test Minimal Impairment Lower Extremity Tests Right Alternate Heel to Knee; Heel to Toe Test Moderate Impairment Heel on [place] Test Minimal Impairment Foot Tapping Test Minimal Impairment Left Alternate Heel to Knee; Heel to Toe Test Minimal Impairment Heel on [place] Test Minimal Impairment Foot Tapping Test Minimal Impairment Comments Coordination Comments limited Vital Signs Blood Pressure Sitting Blood Pressure (90/60-120/80 mmHg) 105/63 Blood Pressure Source Automatic Cuff,Right Upper Extremity Standing Blood Pressure (90/60-120/80 mmHg) 125/48 H Blood Pressure Source Automatic Cuff,Right Upper Extremity Supine Blood Pressure (90/60-120/80 mmHg) 133/68 H Blood Pressure Source Automatic Cuff,Right Upper Extremity Comments Vital Signs Comments Denies symptoms with orthostatic testing PT-OP-J Posture/Palpation/Skin Start: 07/31/23 10:30 Freq: Status: Active Protocol: Document 07/31/23 10:30 NM (Rec: 07/31/23 12:20 NM [id number]) Posture Evaluation Position Standing Head/C-Spine Posture Forward Head T-Spine Posture Increased Kyphosis Pelvis Posture Anteriorly Tilted Weight Distribution Weight Shifted Posterior Comments Posture Comments Forward trunk flexion posture. During movement, tendency for retropulsion. Demos synergistic movements of neck/ trunk with BUE/BLE movement PT-OP-K Range of Motion Start: 07/31/23 10:30 Freq: Status: Active Protocol: Document 07/31/23 10:30 NM (Rec: 07/31/23 14:56 NM [id number]) Hip Goniometric Range of Motion Hip ROM Limitations Hip ROM Limitations Muscle Tone Comments Increased rigidity Knee Goniometric Range of Motion Knee ROM Limitations Knee ROM Limitations Soft Tissue Tightness, Contracture Comments Hamstring length limited: 130 deg L, 140 deg R PT-OP-M Strength Start: 07/31/23 10:30 Freq: Status: Active Protocol: Document 07/31/23 10:30 NM (Rec: 07/31/23 12:20 NM [id number]) Hip Strength Hip Manual Muscle Testing Right Flexion (L2) 3+ Fair+ Extension (S1) 4- Good- Abduction 4- Good- Adduction 4- Good- Left Flexion (L2) 4- Good- Extension (S1) 4- Good- Abduction 4- Good- Adduction 4- Good- Knee Strength Knee Manual Muscle Testing Right Flexion (S2) 4- Good- Extension (L3) 4- Good- Left Flexion (S2) 4- Good- Extension (L3) 4- Good- Ankle/Foot Strength Ankle and Foot Manual Muscle Testing Left Dorsiflexion (L4) 4 Good Plantarflexion (S1) 4 Good Inversion 4 Good Eversion (S1) 4 Good Right Dorsiflexion (L4) 3+ Fair+ Plantarflexion (S1) 4- Good- Inversion 4- Good- Eversion (S1) 4- Good- PT-OP-Q Treatments Start: 07/31/23 10:30 Freq: Status: Active Protocol: Document 11/02/23 13:01 NM (Rec: 11/02/23 13:49 NM [id number]) Therapeutic Exercises Supine Exercises HS stretch Supine Exercise Name with strap Side bilateral Reps/Minutes 2x60 ea Comments edu that knee has to be straight Standing Exercises stepping Standing Exercise Name retro stepping for HS lengthening Side bilateral Equipment Used spc and CGA Reps/Minutes 25 ft Comments requires increased time; cued toe first STS Standing Exercise Name 1. from int, 2. 5x STS test Reps/Minutes 1. 10 with BIG form, 2. 26 sec Comments improved form, cued TKE to promote HS length Manual Therapy Treatment Consent Patient gave verbal consent for manual Yes treatment Soft Tissue Mobilization B hamstring/calves Comments distal > proximal rolling with rolling pin and moderate intensity circles Manual Techniques HS stretch Type contract-relax Body Position Supine Reps/Duration 5x5 Comments for passive HS stretch, moving into hip flexion Neuro Re-Education Treatment Balance Activities Watkins Reps/Duration 47/56 Comments requires increased time Improved WS with stepping, reaching, less with turning Hurdles Equipment w/o hand support, CGA to min A Reps/Duration 2 reps x 4 Comments 1. fwd with 2 feet 2. lateral with 2 feet Demos 1 LOB without fall, but catches self on bar and min A to correct. Cued to step closer to luiz prior to stepping Weight shifting Equipment CGA Comments Turning in kiana w/o spc cued for larger steps, fewer steps to prevent festination of gait and to promote trunk rotation Stepping outside TRISHA Details on bosu Equipment CGA, no hand support Comments 1. fwd alternating, 10 ea 2. lateral, 10 ea PT-OP-T Assessment and Plan Start: 07/31/23 10:30 Freq: Status: Active Protocol: Document 11/02/23 13:01 NM (Rec: 11/02/23 13:49 NM [id number]) Physical Therapy Assessment Goals Five Impairment gait, stride length Impairment festinating gait, episodes of freezing [facility]itentiary Goal (LTG) Pt will ambulate with increased stride length with L foot passing R foot and R foot passing L foot at least 75% of the time without cues using LRAD in order to demonstrate improved foot clearance with gait and safety during ambulation LTG Duration 12 weeks- NEW GOAL 09/18/23 Four Impairment HEP Impairment not performing HEP Short Term Goal (STG) Pt will report compliance with HEP at least 2x/wk in order to promote independence with HEP and maximize progression with PT. 09/05/23: 3-4x/wk STG Duration 5 weeks MET [facility] Goal (LTG) Pt will report compliance with HEP at least 3x/wk in order to promote independence with HEP and transition into maintenance program upon discharge from PT. 09/18/23: performing HEP 3x/wk LTG Duration 10 weeks MET Three Impairment balance, strength, posture Impairment 30 sec STS score 15 with retropulsion, 20 chair Short Term Goal (STG) Pt will be able to perform at least 10 sit to stands without UE assistance and without retropulsion in order to demonstrate improved posture, decreased fall risk, and improved BLE strength for gait /transfers 09/05/23: pt able to perform 10 sit to stands without UE assist and good form in previous sessions from standard chair STG Duration 5 weeks MET [facility] Goal (LTG) UPDATED GOAL 09/17: Pt will be able to perform 5x STS test without UE support in 16 seconds or less (cut off specific to Parkinson's) in order to demonstrate decreased fall risk, improved posture, and BLE strength for gait and transfers. Pt will be able to perform 30 second STS test from standard chair without UE assistance and without retropulsion in order to demonstrate improved posture, decreased fall risk, and improved BLE strength for gait/transfers 09/18/23: 7 STS with improved form, eccentric lowering in 30 seconds w/o UE support 11/02/23: 26 sec LTG Duration 10 weeks MET 09/18/23; goal updated 09/18/23 Two Impairment endurance, gait Impairment 6 MWT distance 737 ft with spc , 3 standing rest breaks Short Term Goal (STG) Pt will complete 6 MWT using LRAD with fewer than 3 standing rest breaks in order to demonstrate improved endurance and BLE strength 09/05/23: pt had 5 rest breaks, ambulating with spc x 443 ft. Very fatigued; demos festinating gait, increased instance of gait freezing today STG Duration 5 weeks NOT MET Hair Specialist Goal (LTG) NOT MET-- Pt will improve 6 MWT distance by at least 82 m (269 ft, 1 MDC) using LRAD in order to demonstrate improved endurance and BLE strength 09/18/23: 441 ft with spc; 3 standing rest breaks, 1 instance of freezing, still has festination of gait LTG Duration 10 weeks NOT MET on 09/18/23- d/ c on 09/18/23; LTG UPDATED -see #5 One Impairment balance, fall risk Impairment Watkins 35/56 Short Term Goal (STG) Pt will improve Watkins score to at least 40/56 (1 MDC) in order to demonstrate improved balance and decreased fall risk 09/05/23: 46/56 STG Duration 5 weeks MET Hair Specialist Goal (LTG) Pt will improve Watkins score to at least 48/56 in order to demonstrate improved balance and decreased fall risk 09/05/23: 46/56 11/02/23: 47/56 LTG Duration 10 weeks PROGRESSING Assessment Summary Assessment Pt tolerated session well. Demonstrates improved weight shifting onto 1 LE and maintaining balance with good centered TRISHA. Pt continues to have very restricted hamstrings that limit gait, improved length with soft tissue mobilization and stretching. PT educated pt on performing at home as part of HEP, recommending stretch up to 2 minutes per day. Good feedback for supine stretch with strap. Pt continues to require cues to maintain wider TRISHA during gait and with stance. During hurdles, demos 1 near LOB but able to recover . Cued for foot clearance and closer placement to luiz before stepping. Pt took PD medications during visit at 1330. He continues to have festinating gait but is able to have larger amplitude movements when cued. Pt would benefit from skilled PT to improve flexibility and parkinson's gait symptom management. Physical Therapy Plan Frequency and Duration Frequency of Treatment 1-2x/wk Duration of treatment (weeks) 10 Plan of Care Start Date 09/18/23 Plan of Care End Date 12/01/23 Therapeutic Interventions Therapeutic Interventions Balance Training,Coordination Training,Gait Training,Home Exercise Program,Joint Mobilizations,Manual Therapy, Neuromuscular Re-education, Orthotic/Prosthetic Management ,Patient/Caregiver Education, Self-Care/Home Management, Sensory Integration,Soft Tissue Mobilization,Taping, Therapeutic Activities, Therapeutic Exercises Modalities Cold Pack/Ice Massage,Electric Stimulation,Hot Packs Next Visit Focus/Plan Next Note Type Treatment Note Next Visit Plan Large amplitude movement with gait, hurdles, unstable surface, balance rxn, trunk rotation and extension posturing (lat, low row) gait: stride length, spc placement for safety, turns, fwd/retro gait, hurdles Address postural abnormalities , strengthening (core, BLE) POC: reduce retropulsion, decrease festination, improve cardiovascular endurance and BLE strength
--- NOTE | 2023-11-02 15:50 | PT.OTN ---
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 He has hx of Parkinson's disease, 12 years since dx. States he has good days and bad days. States weakness has progressively worsened. His daughter is getting ; he has wanting to dance with her. He uses a spc (5 years), only when he feels unsteady. States he has had no falls recently. He has a walker and electric wheel chair (that he hasn't used in years). Currently lives in 1 story home, lives with son and grandson, has a caregiver (primarily for showering and during mornings for medications. Pt reports that he has a walk in shower. States he is very sedentary overall, can only walk across yard with spc before becoming fatigued. States no dizziness. Currently on carbidopa/ levadopa, entacopone, and 1 more than he can't remember that he takes 4x/day every 4 hours. He has rigidity, decreased trunk rotation, muscle stiffness, bradykinesia ; no tremors, no freezing with gait or activities. States that he has had previous PT for PD which has been temporarily helpful. States R side is more affect (Leg > arms). He recently bought a theracycle that he is planning on using to supplement PT. Prior Treatments and Tests previous L RTC injury, no repair Treatment Goals Patient/Caregiver Goals slow dance with daughter in September for her wedding, improve household and community ambulation Current Functional Impairments (Reported) Functional Limitations- ADL's tranfers household Functional Limitations- Mobility/Gait household ambulation with spc; use of golf cart (street legal) which has more independence Functional Limitations- Recreation/ wood working Hobbies Functional Limitations- Other no longer driving PT-OP-C Subjective Start: 07/31/23 10:30 Freq: Status: Active Protocol: Document 11/02/23 13:01 NM (Rec: 11/02/23 13:49 NM [id number]) OP-PT Subjective Patient Comments Patient Comments Pt reports that he was able to dance with his daughters, which was wonderful. Presents with B HS tightness and spc, states has been doing stretches. Wants to improve his standing time and endurance PT-OP-D Balance Start: 07/31/23 10:30 Freq: Status: Active Protocol: Document 07/31/23 10:30 NM (Rec: 07/31/23 12:20 NM [id number]) Balance Tests Watkins Balance Test Watkins Balance Test Score 35/56 Semi-Tandem Standing Semi-Tandem Standing Balance 3 sec PT-OP-E Functional Tests Start: 07/31/23 10:30 Freq: Status: Active Protocol: Document 07/31/23 10:30 NM (Rec: 07/31/23 12:20 NM [id number]) Functional Tests 6 Minute Walk Test Distance 737 Device Used spc Comments festinating; several standing rest breaks 30 Second Sit to Stand Test Score 15 Comments 20, knees remain flexed; retropulses PT-OP-F Manual Assessment Start: 07/31/23 10:30 Freq: Status: Active Protocol: Document 07/31/23 10:30 NM (Rec: 07/31/23 12:20 NM [id number]) Manual Assessments Soft Tissue Assessment Soft Tissue Mobility Assessment Observable limitations in B hamstring and heel cord length . Joint Mobility Assessment Joint Mobility Assessment Rigidity of trunk, BLE/BUE. Limitations in PROM and AROM of BLE/BUE due to tone PT-OP-G Mobility & Gait Start: 07/31/23 10:30 Freq: Status: Active Protocol: Document 07/31/23 10:30 NM (Rec: 07/31/23 12:20 NM [id number]) OP Gait Assessment Gait Gait Assistance Required: Standby Assistance,Contact Guard Assist Distance (Feet) 737 Assistive Devices Assistive Device Gait Belt,Straight Cane Gait Deviations General Gait Pattern Festinating,Flexed Trunk, Narrow Based Gait Factors Limiting Gait Function Factors Limiting Gait Function Abnormal Tonal Influences, Decreased Activity Tolerance, Decreased Strength,Limited Range of Motion,Poor Balance Comments Gait Comments Decreased cardiovascular endurance. SBA>CGA with fatigue Stair Climbing Evaluation Evaluation Level of Assist On Stairs Contact Guard Assistance Devices Stair Climbing Assistive Devices Left Railing Technique/Endurance Stair Climbing Direction Ascend and Descend Stair Climbing Technique Step Over Step Number of Steps Climbed 4 Stair Climbing Set # Repetitions (reps) 2 Comments Stair Climbing Comments Decreased stability with descent, increased trunk sway and and backward trunk lean PT-OP-H Neuro Start: 07/31/23 10:30 Freq: Status: Active Protocol: Document 07/31/23 10:30 NM (Rec: 07/31/23 12:20 NM [id number]) Coordination Evaluation Upper Extremity Tests Right Finger to Nose Test Moderate Impairment Finger to Therapist's Finger Test Moderate Impairment Finger to Finger Test Moderate Impairment Alternate Nose to Finger Test Moderate Impairment Pronation/Supination Test Minimal Impairment Left Finger to Nose Test Moderate Impairment Finger to Therapist's Finger Test Moderate Impairment Finger to Finger Test Moderate Impairment Alternate Nose to Finger Test Moderate Impairment Pronation/Supination Test Minimal Impairment Lower Extremity Tests Right Alternate Heel to Knee; Heel to Toe Test Moderate Impairment Heel on [place] Test Minimal Impairment Foot Tapping Test Minimal Impairment Left Alternate Heel to Knee; Heel to Toe Test Minimal Impairment Heel on [place] Test Minimal Impairment Foot Tapping Test Minimal Impairment Comments Coordination Comments limited Vital Signs Blood Pressure Sitting Blood Pressure (90/60-120/80 mmHg) 105/63 Blood Pressure Source Automatic Cuff,Right Upper Extremity Standing Blood Pressure (90/60-120/80 mmHg) 125/48 H Blood Pressure Source Automatic Cuff,Right Upper Extremity Supine Blood Pressure (90/60-120/80 mmHg) 133/68 H Blood Pressure Source Automatic Cuff,Right Upper Extremity Comments Vital Signs Comments Denies symptoms with orthostatic testing PT-OP-J Posture/Palpation/Skin Start: 07/31/23 10:30 Freq: Status: Active Protocol: Document 07/31/23 10:30 NM (Rec: 07/31/23 12:20 NM [id number]) Posture Evaluation Position Standing Head/C-Spine Posture Forward Head T-Spine Posture Increased Kyphosis Pelvis Posture Anteriorly Tilted Weight Distribution Weight Shifted Posterior Comments Posture Comments Forward trunk flexion posture. During movement, tendency for retropulsion. Demos synergistic movements of neck/ trunk with BUE/BLE movement PT-OP-K Range of Motion Start: 07/31/23 10:30 Freq: Status: Active Protocol: Document 07/31/23 10:30 NM (Rec: 07/31/23 14:56 NM [id number]) Hip Goniometric Range of Motion Hip ROM Limitations Hip ROM Limitations Muscle Tone Comments Increased rigidity Knee Goniometric Range of Motion Knee ROM Limitations Knee ROM Limitations Soft Tissue Tightness, Contracture Comments Hamstring length limited: 130 deg L, 140 deg R PT-OP-M Strength Start: 07/31/23 10:30 Freq: Status: Active Protocol: Document 07/31/23 10:30 NM (Rec: 07/31/23 12:20 NM [id number]) Hip Strength Hip Manual Muscle Testing Right Flexion (L2) 3+ Fair+ Extension (S1) 4- Good- Abduction 4- Good- Adduction 4- Good- Left Flexion (L2) 4- Good- Extension (S1) 4- Good- Abduction 4- Good- Adduction 4- Good- Knee Strength Knee Manual Muscle Testing Right Flexion (S2) 4- Good- Extension (L3) 4- Good- Left Flexion (S2) 4- Good- Extension (L3) 4- Good- Ankle/Foot Strength Ankle and Foot Manual Muscle Testing Left Dorsiflexion (L4) 4 Good Plantarflexion (S1) 4 Good Inversion 4 Good Eversion (S1) 4 Good Right Dorsiflexion (L4) 3+ Fair+ Plantarflexion (S1) 4- Good- Inversion 4- Good- Eversion (S1) 4- Good- PT-OP-Q Treatments Start: 07/31/23 10:30 Freq: Status: Active Protocol: Document 11/02/23 13:01 NM (Rec: 11/02/23 13:49 NM [id number]) Therapeutic Exercises Supine Exercises HS stretch Supine Exercise Name with strap Side bilateral Reps/Minutes 2x60 ea Comments edu that knee has to be straight Standing Exercises stepping Standing Exercise Name retro stepping for HS lengthening Side bilateral Equipment Used spc and CGA Reps/Minutes 25 ft Comments requires increased time; cued toe first STS Standing Exercise Name 1. from int, 2. 5x STS test Reps/Minutes 1. 10 with BIG form, 2. 26 sec Comments improved form, cued TKE to promote HS length Manual Therapy Treatment Consent Patient gave verbal consent for manual Yes treatment Soft Tissue Mobilization B hamstring/calves Comments distal > proximal rolling with rolling pin and moderate intensity circles Manual Techniques HS stretch Type contract-relax Body Position Supine Reps/Duration 5x5 Comments for passive HS stretch, moving into hip flexion Neuro Re-Education Treatment Balance Activities Watkins Reps/Duration 47/56 Comments requires increased time Improved WS with stepping, reaching, less with turning Hurdles Equipment w/o hand support, CGA to min A Reps/Duration 2 reps x 4 Comments 1. fwd with 2 feet 2. lateral with 2 feet Demos 1 LOB without fall, but catches self on bar and min A to correct. Cued to step closer to luiz prior to stepping Weight shifting Equipment CGA Comments Turning in burns paiute w/o spc cued for larger steps, fewer steps to prevent festination of gait and to promote trunk rotation Stepping outside TRISHA Details on bosu Equipment CGA, no hand support Comments 1. fwd alternating, 10 ea 2. lateral, 10 ea PT-OP-T Assessment and Plan Start: 07/31/23 10:30 Freq: Status: Active Protocol: Document 11/02/23 13:01 NM (Rec: 11/02/23 13:49 NM [id number]) Physical Therapy Assessment Goals Five Impairment gait, stride length Impairment festinating gait, episodes of freezing Longterm Goal (LTG) Pt will ambulate with increased stride length with L foot passing R foot and R foot passing L foot at least 75% of the time without cues using LRAD in order to demonstrate improved foot clearance with gait and safety during ambulation LTG Duration 12 weeks- NEW GOAL 09/18/23 Four Impairment HEP Impairment not performing HEP Short Term Goal (STG) Pt will report compliance with HEP at least 2x/wk in order to promote independence with HEP and maximize progression with PT. 09/05/23: 3-4x/wk STG Duration 5 weeks MET Longterm Goal (LTG) Pt will report compliance with HEP at least 3x/wk in order to promote independence with HEP and transition into maintenance program upon discharge from PT. 09/18/23: performing HEP 3x/wk LTG Duration 10 weeks MET Three Impairment balance, strength, posture Impairment 30 sec STS score 15 with retropulsion, 20 chair Short Term Goal (STG) Pt will be able to perform at least 10 sit to stands without UE assistance and without retropulsion in order to demonstrate improved posture, decreased fall risk, and improved BLE strength for gait /transfers 09/05/23: pt able to perform 10 sit to stands without UE assist and good form in previous sessions from standard chair STG Duration 5 weeks MET Longterm Goal (LTG) UPDATED GOAL 09/17: Pt will be able to perform 5x STS test without UE support in 16 seconds or less (cut off specific to Parkinson's) in order to demonstrate decreased fall risk, improved posture, and BLE strength for gait and transfers. Pt will be able to perform 30 second STS test from standard chair without UE assistance and without retropulsion in order to demonstrate improved posture, decreased fall risk, and improved BLE strength for gait/transfers 09/18/23: 7 STS with improved form, eccentric lowering in 30 seconds w/o UE support 11/02/23: 26 sec LTG Duration 10 weeks MET 09/18/23; goal updated 09/18/23 Two Impairment endurance, gait Impairment 6 MWT distance 737 ft with spc , 3 standing rest breaks Short Term Goal (STG) Pt will complete 6 MWT using LRAD with fewer than 3 standing rest breaks in order to demonstrate improved endurance and BLE strength 09/05/23: pt had 5 rest breaks, ambulating with spc x 443 ft. Very fatigued; demos festinating gait, increased instance of gait freezing today STG Duration 5 weeks NOT MET Auger Operator Goal (LTG) NOT MET-- Pt will improve 6 MWT distance by at least 82 m (269 ft, 1 MDC) using LRAD in order to demonstrate improved endurance and BLE strength 09/18/23: 441 ft with spc; 3 standing rest breaks, 1 instance of freezing, still has festination of gait LTG Duration 10 weeks NOT MET on 09/18/23- d/ c on 09/18/23; LTG UPDATED -see #5 One Impairment balance, fall risk Impairment Watkins 35/56 Short Term Goal (STG) Pt will improve Watkins score to at least 40/56 (1 MDC) in order to demonstrate improved balance and decreased fall risk 09/05/23: 46/56 STG Duration 5 weeks MET Auger Operator Goal (LTG) Pt will improve Watkins score to at least 48/56 in order to demonstrate improved balance and decreased fall risk 09/05/23: 46/56 11/02/23: 47/56 LTG Duration 10 weeks PROGRESSING Assessment Summary Assessment Pt tolerated session well. Demonstrates improved weight shifting onto 1 LE and maintaining balance with good centered TRISHA. Pt continues to have very restricted hamstrings that limit gait, improved length with soft tissue mobilization and stretching. PT educated pt on performing at home as part of HEP, recommending stretch up to 2 minutes per day. Good feedback for supine stretch with strap. Pt continues to require cues to maintain wider TRISHA during gait and with stance. During hurdles, demos 1 near LOB but able to recover . Cued for foot clearance and closer placement to luiz before stepping. Pt took PD medications during visit at 1330. He continues to have festinating gait but is able to have larger amplitude movements when cued. Pt would benefit from skilled PT to improve flexibility and parkinson's gait symptom management. Physical Therapy Plan Frequency and Duration Frequency of Treatment 1-2x/wk Duration of treatment (weeks) 10 Plan of Care Start Date 09/18/23 Plan of Care End Date 12/01/23 Therapeutic Interventions Therapeutic Interventions Balance Training,Coordination Training,Gait Training,Home Exercise Program,Joint Mobilizations,Manual Therapy, Neuromuscular Re-education, Orthotic/Prosthetic Management ,Patient/Caregiver Education, Self-Care/Home Management, Sensory Integration,Soft Tissue Mobilization,Taping, Therapeutic Activities, Therapeutic Exercises Modalities Cold Pack/Ice Massage,Electric Stimulation,Hot Packs Next Visit Focus/Plan Next Note Type Treatment Note Next Visit Plan Large amplitude movement with gait, hurdles, unstable surface, balance rxn, trunk rotation and extension posturing (lat, low row) gait: stride length, spc placement for safety, turns, fwd/retro gait, hurdles Address postural abnormalities , strengthening (core, BLE) POC: reduce retropulsion, decrease festination, improve cardiovascular endurance and BLE strength
--- NOTE | 2023-11-07 16:56 | PT.OTN ---
Current Diagnoses Parkinson's disease without dyskinesia, without mention of fluctuations (11/07/23) Other lack of coordination (11/07/23) Weakness (11/07/23) Physical Therapy Treatment Note PT-OP-A Visit Information Start: 07/31/23 10:30 Freq: Status: Active Protocol: Document 11/07/23 15:26 NBM (Rec: 11/07/23 16:53 NBM [id number]) Out-Patient Physical Therapy Visit Information Visit Information Visit Type Progress Note Visit Note new set of 15 (includes IE) Visit Start Time 15:25 Visit Stop Time 14:10 Visit Number 3 Number of DBA Visits 1 Evaluation Information Evaluation Date 07/31/23 Precautions Precautions Parkinson's Disease, fall risk , Orthostatic hypotension slow positional transitions* * PT-OP-B Current Condition Start: 07/31/23 10:30 Freq: Status: Active Protocol: Document 07/31/23 10:30 NM (Rec: 07/31/23 12:20 NM [id number]) Current Condition History of Current Condition Onset Date 12 years ago Current Complaints endurance and strength History of Current Condition Pt presents with BLE weakness. He has hx of Parkinson's disease, 12 years since dx. States he has good days and bad days. States weakness has progressively worsened. His daughter is getting ; he has wanting to dance with her. He uses a spc (5 years), only when he feels unsteady. States he has had no falls recently. He has a walker and electric wheel chair (that he hasn't used in years). Currently lives in 1 story home, lives with son and grandson, has a caregiver (primarily for showering and during mornings for medications. Pt reports that he has a walk in shower. States he is very sedentary overall, can only walk across yard with spc before becoming fatigued. States no dizziness. Currently on carbidopa/ levadopa, entacopone, and 1 more than he can't remember that he takes 4x/day every 4 hours. He has rigidity, decreased trunk rotation, muscle stiffness, bradykinesia ; no tremors, no freezing with gait or activities. States that he has had previous PT for PD which has been temporarily helpful. States R side is more affect (Leg > arms). He recently bought a theracycle that he is planning on using to supplement PT. Prior Treatments and Tests previous L RTC injury, no repair Treatment Goals Patient/Caregiver Goals slow dance with daughter in September for her wedding, improve household and community ambulation Current Functional Impairments (Reported) Functional Limitations- ADL's tranfers household Functional Limitations- Mobility/Gait household ambulation with spc; use of golf cart (street legal) which has more independence Functional Limitations- Recreation/ wood working Hobbies Functional Limitations- Other no longer driving PT-OP-C Subjective Start: 07/31/23 10:30 Freq: Status: Active Protocol: Document 11/07/23 15:26 NBM (Rec: 11/07/23 16:53 NBM [id number]) OP-PT Subjective Patient Comments Patient Comments Darrlel reports he danced with both twin daughters and ex and granddaughter - I lit up the floor. He's been stretching more and reports he really needs stretching. His new goal is to stand up in kitchen and cook night without having to lean against counter. Caregiver Ewa suggested he ask for massage therapist reccommendation. She has massaged him with a rolling pin and that helped. Patient Reported Progress Improving PT-OP-D Balance Start: 07/31/23 10:30 Freq: Status: Active Protocol: Document 07/31/23 10:30 NM (Rec: 07/31/23 12:20 NM [id number]) Balance Tests Watkins Balance Test Watkins Balance Test Score 35/56 Semi-Tandem Standing Semi-Tandem Standing Balance 3 sec PT-OP-E Functional Tests Start: 07/31/23 10:30 Freq: Status: Active Protocol: Document 07/31/23 10:30 NM (Rec: 07/31/23 12:20 NM [id number]) Functional Tests 6 Minute Walk Test Distance 737 Device Used spc Comments festinating; several standing rest breaks 30 Second Sit to Stand Test Score 15 Comments 20, knees remain flexed; retropulses PT-OP-F Manual Assessment Start: 07/31/23 10:30 Freq: Status: Active Protocol: Document 07/31/23 10:30 NM (Rec: 07/31/23 12:20 NM [id number]) Manual Assessments Soft Tissue Assessment Soft Tissue Mobility Assessment Observable limitations in B hamstring and heel cord length . Joint Mobility Assessment Joint Mobility Assessment Rigidity of trunk, BLE/BUE. Limitations in PROM and AROM of BLE/BUE due to tone PT-OP-G Mobility & Gait Start: 07/31/23 10:30 Freq: Status: Active Protocol: Document 07/31/23 10:30 NM (Rec: 07/31/23 12:20 NM [id number]) OP Gait Assessment Gait Gait Assistance Required: Standby Assistance,Contact Guard Assist Distance (Feet) 737 Assistive Devices Assistive Device Gait Belt,Straight Cane Gait Deviations General Gait Pattern Festinating,Flexed Trunk, Narrow Based Gait Factors Limiting Gait Function Factors Limiting Gait Function Abnormal Tonal Influences, Decreased Activity Tolerance, Decreased Strength,Limited Range of Motion,Poor Balance Comments Gait Comments Decreased cardiovascular endurance. SBA>CGA with fatigue Stair Climbing Evaluation Evaluation Level of Assist On Stairs Contact Guard Assistance Devices Stair Climbing Assistive Devices Left Railing Technique/Endurance Stair Climbing Direction Ascend and Descend Stair Climbing Technique Step Over Step Number of Steps Climbed 4 Stair Climbing Set # Repetitions (reps) 2 Comments Stair Climbing Comments Decreased stability with descent, increased trunk sway and and backward trunk lean PT-OP-H Neuro Start: 07/31/23 10:30 Freq: Status: Active Protocol: Document 07/31/23 10:30 NM (Rec: 07/31/23 12:20 NM [id number]) Coordination Evaluation Upper Extremity Tests Right Finger to Nose Test Moderate Impairment Finger to Therapist's Finger Test Moderate Impairment Finger to Finger Test Moderate Impairment Alternate Nose to Finger Test Moderate Impairment Pronation/Supination Test Minimal Impairment Left Finger to Nose Test Moderate Impairment Finger to Therapist's Finger Test Moderate Impairment Finger to Finger Test Moderate Impairment Alternate Nose to Finger Test Moderate Impairment Pronation/Supination Test Minimal Impairment Lower Extremity Tests Right Alternate Heel to Knee; Heel to Toe Test Moderate Impairment Heel on [place] Test Minimal Impairment Foot Tapping Test Minimal Impairment Left Alternate Heel to Knee; Heel to Toe Test Minimal Impairment Heel on [place] Test Minimal Impairment Foot Tapping Test Minimal Impairment Comments Coordination Comments limited Vital Signs Blood Pressure Sitting Blood Pressure (90/60-120/80 mmHg) 105/63 Blood Pressure Source Automatic Cuff,Right Upper Extremity Standing Blood Pressure (90/60-120/80 mmHg) 125/48 H Blood Pressure Source Automatic Cuff,Right Upper Extremity Supine Blood Pressure (90/60-120/80 mmHg) 133/68 H Blood Pressure Source Automatic Cuff,Right Upper Extremity Comments Vital Signs Comments Denies symptoms with orthostatic testing PT-OP-J Posture/Palpation/Skin Start: 07/31/23 10:30 Freq: Status: Active Protocol: Document 07/31/23 10:30 NM (Rec: 07/31/23 12:20 NM [id number]) Posture Evaluation Position Standing Head/C-Spine Posture Forward Head T-Spine Posture Increased Kyphosis Pelvis Posture Anteriorly Tilted Weight Distribution Weight Shifted Posterior Comments Posture Comments Forward trunk flexion posture. During movement, tendency for retropulsion. Demos synergistic movements of neck/ trunk with BUE/BLE movement PT-OP-K Range of Motion Start: 07/31/23 10:30 Freq: Status: Active Protocol: Document 07/31/23 10:30 NM (Rec: 07/31/23 14:56 NM [id number]) Hip Goniometric Range of Motion Hip ROM Limitations Hip ROM Limitations Muscle Tone Comments Increased rigidity Knee Goniometric Range of Motion Knee ROM Limitations Knee ROM Limitations Soft Tissue Tightness, Contracture Comments Hamstring length limited: 130 deg L, 140 deg R PT-OP-M Strength Start: 07/31/23 10:30 Freq: Status: Active Protocol: Document 07/31/23 10:30 NM (Rec: 07/31/23 12:20 NM [id number]) Hip Strength Hip Manual Muscle Testing Right Flexion (L2) 3+ Fair+ Extension (S1) 4- Good- Abduction 4- Good- Adduction 4- Good- Left Flexion (L2) 4- Good- Extension (S1) 4- Good- Abduction 4- Good- Adduction 4- Good- Knee Strength Knee Manual Muscle Testing Right Flexion (S2) 4- Good- Extension (L3) 4- Good- Left Flexion (S2) 4- Good- Extension (L3) 4- Good- Ankle/Foot Strength Ankle and Foot Manual Muscle Testing Left Dorsiflexion (L4) 4 Good Plantarflexion (S1) 4 Good Inversion 4 Good Eversion (S1) 4 Good Right Dorsiflexion (L4) 3+ Fair+ Plantarflexion (S1) 4- Good- Inversion 4- Good- Eversion (S1) 4- Good- PT-OP-Q Treatments Start: 07/31/23 10:30 Freq: Status: Active Protocol: Document 11/07/23 15:26 NBM (Rec: 11/07/23 16:53 NBM [id number]) Therapeutic Exercises Standing Exercises low row Side bilateral Resistance Lvl 1 peach>Lvl 2 Tb Reps/Minutes x10 ea Comments cues for scap setting, UT overactivation w/ fatigue lat pull down Standing Exercise Name close SBA Side bilateral Resistance lvl 3 Reps/Minutes x10 with 3 concentric and 3 eccentric count Comments challenging; cues for eccentric control; initial tactile UT overactivation STS Standing Exercise Name no UE support Equipment Used standard mesh chair Reps/Minutes x10 Comments improved form, cued TKE to promote HS length, eccentric control Gait Training Gait Activity SPC Description carpet, tile, pavement Device Used Pt's newer hand-carved cane ( dog) in RUE Level of Assistance CGA Surface stable Distance/Duration various distances around clinic between activities (max 165 ft) Treatment Focus step length, spc use, stability, amplitude, turns L> R Comments Cueing for amplitude, L arm swing and stride length. longest distance 165 ft end of session over carpet, tile, and pavement - pt starts shuffling gait after 65 ft until cued for amplitude. Manual Therapy Treatment Consent Patient gave verbal consent for manual Yes treatment Manual Techniques HS stretch Type gentle contract-relax Body Position Hooklying Reps/Duration 5x5 ea Comments for passive HS stretch, moving into hip flexion R>L tightness. Neuro Re-Education Treatment Balance Activities Hurdles Equipment w/o hand support, CGA to min A Reps/Duration fwd 10ft x 4, lat 10 ft x2 ea Comments 1. fwd with 2 feet step-to 2. lateral with 2 feet Demos 1 LOB fwd without fall, but catches self on bar and CGA to correct. Lateral one contact w/ luiz stepping to R first lap. Improves w/ repetition w/ both . PT-OP-T Assessment and Plan Start: 07/31/23 10:30 Freq: Status: Active Protocol: Document 11/07/23 15:26 [facility] (Rec: 11/07/23 16:53 [facility] [id number]) Physical Therapy Assessment Goals Five Impairment gait, stride length Impairment festinating gait, episodes of freezing Fdc Goal (LTG) Pt will ambulate with increased stride length with L foot passing R foot and R foot passing L foot at least 75% of the time without cues using LRAD in order to demonstrate improved foot clearance with gait and safety during ambulation LTG Duration 12 weeks- NEW GOAL 09/18/23 Four Impairment HEP Impairment not performing HEP Short Term Goal (STG) Pt will report compliance with HEP at least 2x/wk in order to promote independence with HEP and maximize progression with PT. 09/05/23: 3-4x/wk STG Duration 5 weeks MET Fdc Goal (LTG) Pt will report compliance with HEP at least 3x/wk in order to promote independence with HEP and transition into maintenance program upon discharge from PT. 09/18/23: performing HEP 3x/wk LTG Duration 10 weeks MET Three Impairment balance, strength, posture Impairment 30 sec STS score 15 with retropulsion, 20 chair Short Term Goal (STG) Pt will be able to perform at least 10 sit to stands without UE assistance and without retropulsion in order to demonstrate improved posture, decreased fall risk, and improved BLE strength for gait /transfers 09/05/23: pt able to perform 10 sit to stands without UE assist and good form in previous sessions from standard chair STG Duration 5 weeks MET Clinical Services Consultant Goal (LTG) UPDATED GOAL 09/17: Pt will be able to perform 5x STS test without UE support in 16 seconds or less (cut off specific to Parkinson's) in order to demonstrate decreased fall risk, improved posture, and BLE strength for gait and transfers. Pt will be able to perform 30 second STS test from standard chair without UE assistance and without retropulsion in order to demonstrate improved posture, decreased fall risk, and improved BLE strength for gait/transfers 09/18/23: 7 STS with improved form, eccentric lowering in 30 seconds w/o UE support 11/02/23: 26 sec LTG Duration 10 weeks MET 09/18/23; goal updated 09/18/23 One Impairment balance, fall risk Impairment Watkins 35/56 Short Term Goal (STG) Pt will improve Watkins score to at least 40/56 (1 MDC) in order to demonstrate improved balance and decreased fall risk 09/05/23: 46/56 STG Duration 5 weeks MET Clinical Services Consultant Goal (LTG) Pt will improve Watkins score to at least 48/56 in order to demonstrate improved balance and decreased fall risk 09/05/23: 46/56 11/02/23: 47/56 LTG Duration 10 weeks PROGRESSING Assessment Summary Assessment Darrell presents w/ SPC in RUE. Treatment focus on LE strengthening, stretching and balance. Low row is trialed and pt requires initial cues for Upper trapezius m. overactivation w/ fatigue but self-awareness improves with cueing. He requires initial cues for TKE w/ STS and eccentric control. Over hurdles he demos 1 LOB forward without fall, but catches self on bar and CGA to correct ; laterally he has one contact w/ luiz stepping to R first lap, and he demos improvement with both forward and lateral stepping using repetition and cueing for max hip flexion, slower pacing, and eccentric control (quieter). His Hamstring range of motion improves bilaterally with manual PNF using gentle contract/relax technique, and pt demonstrates improved stride length and upright posture w/ max distance of 165 ft over carpet, tile and pavement following to end session. He requires cues for amplitude, L arm swing and stride length due to shuffling gait after ~65 ft. Physical Therapy Plan Frequency and Duration Frequency of Treatment 1-2x/wk Duration of treatment (weeks) 10 Plan of Care Start Date 09/18/23 Plan of Care End Date 12/01/23 Therapeutic Interventions Therapeutic Interventions Balance Training,Coordination Training,Gait Training,Home Exercise Program,Joint Mobilizations,Manual Therapy, Neuromuscular Re-education, Orthotic/Prosthetic Management ,Patient/Caregiver Education, Self-Care/Home Management, Sensory Integration,Soft Tissue Mobilization,Taping, Therapeutic Activities, Therapeutic Exercises Modalities Cold Pack/Ice Massage,Electric Stimulation,Hot Packs Next Visit Focus/Plan Next Note Type Treatment Note Next Visit Plan Next: Massage therapist info. Consider adding low row to HEP . POC: Large amplitude movement with gait, hurdles, unstable surface, balance rxn, trunk rotation and extension posturing (lat, low row) gait: stride length, spc placement for safety, turns, fwd/retro gait, hurdles Address postural abnormalities , strengthening (core, BLE) POC: reduce retropulsion, decrease festination, improve cardiovascular endurance and BLE strength
--- NOTE | 2023-11-09 15:27 | PT.OTN ---
Current Diagnoses Parkinson's disease without dyskinesia, without mention of fluctuations (11/09/23) Other lack of coordination (11/09/23) Weakness (11/09/23) Physical Therapy Treatment Note PT-OP-A Visit Information Start: 07/31/23 10:30 Freq: Status: Active Protocol: Document 11/09/23 14:32 NM (Rec: 11/09/23 15:27 NM [id number]) Out-Patient Physical Therapy Visit Information Visit Information Visit Type Treatment Note Visit Note new set of 15 (includes IE) Visit Start Time 14:33 Visit Stop Time 15:13 Visit Number 07/02 Evaluation Information Evaluation Date 07/31/23 Precautions Precautions Parkinson's Disease, fall risk , Orthostatic hypotension slow positional transitions* * PT-OP-B Current Condition Start: 07/31/23 10:30 Freq: Status: Active Protocol: Document 07/31/23 10:30 NM (Rec: 07/31/23 12:20 NM [id number]) Current Condition History of Current Condition Onset Date 12 years ago Current Complaints endurance and strength History of Current Condition Pt presents with BLE weakness. He has hx of Parkinson's disease, 12 years since dx. States he has good days and bad days. States weakness has progressively worsened. His daughter is getting ; he has wanting to dance with her. He uses a spc (5 years), only when he feels unsteady. States he has had no falls recently. He has a walker and electric wheel chair (that he hasn't used in years). Currently lives in [address], lives with son and grandson, has a caregiver (primarily for showering and during mornings for medications. Pt reports that he has a walk in shower. States he is very sedentary overall, can only walk across yard with spc before becoming fatigued. States no dizziness. Currently on carbidopa/ levadopa, entacopone, and 1 more than he can't remember that he takes 4x/day every 4 hours. He has rigidity, decreased trunk rotation, muscle stiffness, bradykinesia ; no tremors, no freezing with gait or activities. States that he has had previous PT for PD which has been temporarily helpful. States R side is more affect (Leg > arms). He recently bought a theracycle that he is planning on using to supplement PT. Prior Treatments and Tests previous L RTC injury, no repair Treatment Goals Patient/Caregiver Goals slow dance with daughter in September for her wedding, improve household and community ambulation Current Functional Impairments (Reported) Functional Limitations- ADL's tranfers household Functional Limitations- Mobility/Gait household ambulation with spc; use of golf cart (street legal) which has more independence Functional Limitations- Recreation/ wood working Hobbies Functional Limitations- Other no longer driving PT-OP-C Subjective Start: 07/31/23 10:30 Freq: Status: Active Protocol: Document 11/09/23 14:32 NM (Rec: 11/09/23 15:27 NM [id number]) OP-PT Subjective Patient Comments Patient Comments Pt reports feeling stiff today , but states felt good after last session. Reports stretching went well last time . PT-OP-D Balance Start: 07/31/23 10:30 Freq: Status: Active Protocol: Document 07/31/23 10:30 NM (Rec: 07/31/23 12:20 NM [id number]) Balance Tests Watkins Balance Test Watkins Balance Test Score 35/56 Semi-Tandem Standing Semi-Tandem Standing Balance 3 sec PT-OP-E Functional Tests Start: 07/31/23 10:30 Freq: Status: Active Protocol: Document 07/31/23 10:30 NM (Rec: 07/31/23 12:20 NM [id number]) Functional Tests 6 Minute Walk Test Distance 737 Device Used spc Comments festinating; several standing rest breaks 30 Second Sit to Stand Test Score 15 Comments 20, knees remain flexed; retropulses PT-OP-F Manual Assessment Start: 07/31/23 10:30 Freq: Status: Active Protocol: Document 07/31/23 10:30 NM (Rec: 07/31/23 12:20 NM [id number]) Manual Assessments Soft Tissue Assessment Soft Tissue Mobility Assessment Observable limitations in B hamstring and heel cord length . Joint Mobility Assessment Joint Mobility Assessment Rigidity of trunk, BLE/BUE. Limitations in PROM and AROM of BLE/BUE due to tone PT-OP-G Mobility & Gait Start: 07/31/23 10:30 Freq: Status: Active Protocol: Document 07/31/23 10:30 NM (Rec: 07/31/23 12:20 NM [id number]) OP Gait Assessment Gait Gait Assistance Required: Standby Assistance,Contact Guard Assist Distance (Feet) 737 Assistive Devices Assistive Device Gait Belt,Straight Cane Gait Deviations General Gait Pattern Festinating,Flexed Trunk, Narrow Based Gait Factors Limiting Gait Function Factors Limiting Gait Function Abnormal Tonal Influences, Decreased Activity Tolerance, Decreased Strength,Limited Range of Motion,Poor Balance Comments Gait Comments Decreased cardiovascular endurance. SBA>CGA with fatigue Stair Climbing Evaluation Evaluation Level of Assist On Stairs Contact Guard Assistance Devices Stair Climbing Assistive Devices Left Railing Technique/Endurance Stair Climbing Direction Ascend and Descend Stair Climbing Technique Step Over Step Number of Steps Climbed 4 Stair Climbing Set # Repetitions (reps) 2 Comments Stair Climbing Comments Decreased stability with descent, increased trunk sway and and backward trunk lean PT-OP-H Neuro Start: 07/31/23 10:30 Freq: Status: Active Protocol: Document 07/31/23 10:30 NM (Rec: 07/31/23 12:20 NM [id number]) Coordination Evaluation Upper Extremity Tests Right Finger to Nose Test Moderate Impairment Finger to Therapist's Finger Test Moderate Impairment Finger to Finger Test Moderate Impairment Alternate Nose to Finger Test Moderate Impairment Pronation/Supination Test Minimal Impairment Left Finger to Nose Test Moderate Impairment Finger to Therapist's Finger Test Moderate Impairment Finger to Finger Test Moderate Impairment Alternate Nose to Finger Test Moderate Impairment Pronation/Supination Test Minimal Impairment Lower Extremity Tests Right Alternate Heel to Knee; Heel to Toe Test Moderate Impairment Heel on [place] Test Minimal Impairment Foot Tapping Test Minimal Impairment Left Alternate Heel to Knee; Heel to Toe Test Minimal Impairment Heel on [place] Test Minimal Impairment Foot Tapping Test Minimal Impairment Comments Coordination Comments limited Vital Signs Blood Pressure Sitting Blood Pressure (90/60-120/80 mmHg) 105/63 Blood Pressure Source Automatic Cuff,Right Upper Extremity Standing Blood Pressure (90/60-120/80 mmHg) 125/48 H Blood Pressure Source Automatic Cuff,Right Upper Extremity Supine Blood Pressure (90/60-120/80 mmHg) 133/68 H Blood Pressure Source Automatic Cuff,Right Upper Extremity Comments Vital Signs Comments Denies symptoms with orthostatic testing PT-OP-J Posture/Palpation/Skin Start: 07/31/23 10:30 Freq: Status: Active Protocol: Document 07/31/23 10:30 NM (Rec: 07/31/23 12:20 NM [id number]) Posture Evaluation Position Standing Head/C-Spine Posture Forward Head T-Spine Posture Increased Kyphosis Pelvis Posture Anteriorly Tilted Weight Distribution Weight Shifted Posterior Comments Posture Comments Forward trunk flexion posture. During movement, tendency for retropulsion. Demos synergistic movements of neck/ trunk with BUE/BLE movement PT-OP-K Range of Motion Start: 07/31/23 10:30 Freq: Status: Active Protocol: Document 07/31/23 10:30 NM (Rec: 07/31/23 14:56 NM [id number]) Hip Goniometric Range of Motion Hip ROM Limitations Hip ROM Limitations Muscle Tone Comments Increased rigidity Knee Goniometric Range of Motion Knee ROM Limitations Knee ROM Limitations Soft Tissue Tightness, Contracture Comments Hamstring length limited: 130 deg L, 140 deg R PT-OP-M Strength Start: 07/31/23 10:30 Freq: Status: Active Protocol: Document 07/31/23 10:30 NM (Rec: 07/31/23 12:20 NM [id number]) Hip Strength Hip Manual Muscle Testing Right Flexion (L2) 3+ Fair+ Extension (S1) 4- Good- Abduction 4- Good- Adduction 4- Good- Left Flexion (L2) 4- Good- Extension (S1) 4- Good- Abduction 4- Good- Adduction 4- Good- Knee Strength Knee Manual Muscle Testing Right Flexion (S2) 4- Good- Extension (L3) 4- Good- Left Flexion (S2) 4- Good- Extension (L3) 4- Good- Ankle/Foot Strength Ankle and Foot Manual Muscle Testing Left Dorsiflexion (L4) 4 Good Plantarflexion (S1) 4 Good Inversion 4 Good Eversion (S1) 4 Good Right Dorsiflexion (L4) 3+ Fair+ Plantarflexion (S1) 4- Good- Inversion 4- Good- Eversion (S1) 4- Good- PT-OP-Q Treatments Start: 07/31/23 10:30 Freq: Status: Active Protocol: Document 11/09/23 14:32 NM (Rec: 11/09/23 15:27 NM [id number]) Therapeutic Exercises Sitting Exercises HS stretch Side bilateral Equipment Used strap, heel elevated on step Reps/Minutes 2x60 ea Comments btwn sets of hurdles Standing Exercises trunk rotation Standing Exercise Name 1. normal TRISHA, 2. retro stepping w/ rot, 3. fwd stepping w/ rot Side bilateral Resistance AROM Equipment Used blue ball in hand Reps/Minutes 15 ea direction Comments cued eyes to follow ball; close SBA-CGA (HEP-trunk rot in sitting) low row Standing Exercise Name HEP - w/ caregiver present only Side bilateral Resistance level 3 tb Reps/Minutes 2x10 ea Comments cues for scap setting, UT overactivation w/ fatigue lat pull down Standing Exercise Name close SBA - HEP only if caregiver present Side bilateral Resistance lvl 3 Reps/Minutes 2x10 with 3 concentric and 3 eccentric count Comments improved control, initial cues to limit UT comp Gait Training Gait Activity hurdles Device Used spc Level of Assistance CGA-min A Surface stable Distance/Duration [address]dles x [address] Treatment Focus heel strike, control, longer stance time, foot clearance, larger amplitude Comments 1. fwd w/ 2 feet in between ea luiz, ea leg leading 2. fwd w/ 1 foot in between ea hurlde (non-reciprocal), ea leg leading 3. reciprocal- very challenging to maintain control w/ hurdles metronome Device Used spc in RUE Level of Assistance close SBA with prn CGA Surface stable and unstable (outdoors- sidewalk, gravel, incline) Distance/Duration 10 minutes Treatment Focus step length, large amplitude movements Comments 78-80 bpm Cueing for correct execution, spc placement slightly fwd, step through, upright posture, L arm relaxation to facilitate rotation PT-OP-T Assessment and Plan Start: 07/31/23 10:30 Freq: Status: Active Protocol: Document 11/09/23 14:32 NM (Rec: 11/09/23 15:27 NM [id number]) Physical Therapy Assessment Goals Five Impairment gait, stride length Impairment festinating gait, episodes of freezing Shelter Goal (LTG) Pt will ambulate with increased stride length with L foot passing R foot and R foot passing L foot at least 75% of the time without cues using LRAD in order to demonstrate improved foot clearance with gait and safety during ambulation LTG Duration 12 weeks- NEW GOAL 09/18/23 Four Impairment HEP Impairment not performing HEP Short Term Goal (STG) Pt will report compliance with HEP at least 2x/wk in order to promote independence with HEP and maximize progression with PT. 09/05/23: 3-4x/wk STG Duration 5 weeks MET Shelter Goal (LTG) Pt will report compliance with HEP at least 3x/wk in order to promote independence with HEP and transition into maintenance program upon discharge from PT. 09/18/23: performing HEP 3x/wk LTG Duration 10 weeks MET Three Impairment balance, strength, posture Impairment 30 sec STS score 15 with retropulsion, 20 chair Short Term Goal (STG) Pt will be able to perform at least 10 sit to stands without UE assistance and without retropulsion in order to demonstrate improved posture, decreased fall risk, and improved BLE strength for gait /transfers 09/05/23: pt able to perform 10 sit to stands without UE assist and good form in previous sessions from standard chair STG Duration 5 weeks MET Shelter Goal (LTG) UPDATED GOAL 09/17: Pt will be able to perform 5x STS test without UE support in 16 seconds or less (cut off specific to Parkinson's) in order to demonstrate decreased fall risk, improved posture, and BLE strength for gait and transfers. Pt will be able to perform 30 second STS test from standard chair without UE assistance and without retropulsion in order to demonstrate improved posture, decreased fall risk, and improved BLE strength for gait/transfers 09/18/23: 7 STS with improved form, eccentric lowering in 30 seconds w/o UE support 11/02/23: 26 sec LTG Duration 10 weeks MET 09/18/23; goal updated 09/18/23 One Impairment balance, fall risk Impairment Watkins 35/56 Short Term Goal (STG) Pt will improve Watkins score to at least 40/56 (1 MDC) in order to demonstrate improved balance and decreased fall risk 09/05/23: 46/56 STG Duration 5 weeks MET Shelter Goal (LTG) Pt will improve Watkins score to at least 48/56 in order to demonstrate improved balance and decreased fall risk 09/05/23: 46/56 11/02/23: 47/56 LTG Duration 10 weeks PROGRESSING Assessment Summary Assessment Pt tolerated session well and demonstrates improvements in larger amplitude movements with gait and stepping. Emphasis on postural control, especially extension, and facilitation of rotation. Pt able to step forward, retro, and laterally while rotating trunk with minimal contact to steady. Demos larger stepping without cueing. During indoor and outdoor ambulation, pt responds well to metronome to promote better control and larger step length with step through pattern using spc. Educated to relax contralateral arm to reduce rigidity in stance. Pt would benefit from skilled PT for progressive postural and BLE strengthening, mobility, and balance/gait training to decrease fall risk and improve symptom management of parkinson's disease. Physical Therapy Plan Frequency and Duration Frequency of Treatment 1-2x/wk Duration of treatment (weeks) 10 Plan of Care Start Date 09/18/23 Plan of Care End Date 12/01/23 Therapeutic Interventions Therapeutic Interventions Balance Training,Coordination Training,Gait Training,Home Exercise Program,Joint Mobilizations,Manual Therapy, Neuromuscular Re-education, Orthotic/Prosthetic Management ,Patient/Caregiver Education, Self-Care/Home Management, Sensory Integration,Soft Tissue Mobilization,Taping, Therapeutic Activities, Therapeutic Exercises Modalities Cold Pack/Ice Massage,Electric Stimulation,Hot Packs Next Visit Focus/Plan Next Note Type Treatment Note Next Visit Plan Next: Massage therapist info ( give HO- forgot). Multidirectional stepping w/ rotation or ball toss (~corn hole), hurdles, gait training w/ metronome (indoor/outdoor) POC: Large amplitude movement with gait, hurdles, unstable surface, balance rxn, trunk rotation and extension posturing (w/ STS, gait) gait: stride length, spc placement for safety, turns, fwd/retro gait, hurdles Address postural abnormalities , strengthening (core, BLE) POC: reduce retropulsion, decrease festination, improve cardiovascular endurance and BLE strength
--- NOTE | 2023-11-21 16:58 | PT.OTN ---
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 He has hx of Parkinson's disease, 12 years since dx. States he has good days and bad days. States weakness has progressively worsened. His daughter is getting ; he has wanting to dance with her. He uses a spc (5 years), only when he feels unsteady. States he has had no falls recently. He has a walker and electric wheel chair (that he hasn't used in years). Currently lives in 1 story home, lives with son and grandson, has a caregiver (primarily for showering and during mornings for medications. Pt reports that he has a walk in shower. States he is very sedentary overall, can only walk across yard with spc before becoming fatigued. States no dizziness. Currently on carbidopa/ levadopa, entacopone, and 1 more than he can't remember that he takes 4x/day every 4 hours. He has rigidity, decreased trunk rotation, muscle stiffness, bradykinesia ; no tremors, no freezing with gait or activities. States that he has had previous PT for PD which has been temporarily helpful. States R side is more affect (Leg > arms). He recently bought a theracycle that he is planning on using to supplement PT. Prior Treatments and Tests previous L RTC injury, no repair Treatment Goals Patient/Caregiver Goals slow dance with daughter in September for her wedding, improve household and community ambulation Current Functional Impairments (Reported) Functional Limitations- ADL's tranfers household Functional Limitations- Mobility/Gait household ambulation with spc; use of golf cart (street legal) which has more independence Functional Limitations- Recreation/ wood working Hobbies Functional Limitations- Other no longer driving PT-OP-C Subjective Start: 07/31/23 10:30 Freq: Status: Active Protocol: Document 11/21/23 14:37 NBM (Rec: 11/21/23 15:24 NBM [id number]) OP-PT Subjective Patient Comments Patient Comments Darrell reports [facility] will [facility] 12 massages or accupuncture or combination per year. He was stretching hamstrings recently . He thinks his balance is getting better and feels more stable drying legs after shower. He still uses the handrail for the steps at back patio but he doesn't feel like he needs it now. PT-OP-D Balance Start: 07/31/23 10:30 Freq: Status: Active Protocol: Document 07/31/23 10:30 NM (Rec: 07/31/23 12:20 NM [id number]) Balance Tests Watkins Balance Test Watkins Balance Test Score 35/56 Semi-Tandem Standing Semi-Tandem Standing Balance 3 sec PT-OP-E Functional Tests Start: 07/31/23 10:30 Freq: Status: Active Protocol: Document 07/31/23 10:30 NM (Rec: 07/31/23 12:20 NM [id number]) Functional Tests 6 Minute Walk Test Distance 737 Device Used spc Comments festinating; several standing rest breaks 30 Second Sit to Stand Test Score 15 Comments 20, knees remain flexed; retropulses PT-OP-F Manual Assessment Start: 07/31/23 10:30 Freq: Status: Active Protocol: Document 07/31/23 10:30 NM (Rec: 07/31/23 12:20 NM [id number]) Manual Assessments Soft Tissue Assessment Soft Tissue Mobility Assessment Observable limitations in B hamstring and heel cord length . Joint Mobility Assessment Joint Mobility Assessment Rigidity of trunk, BLE/BUE. Limitations in PROM and AROM of BLE/BUE due to tone PT-OP-G Mobility & Gait Start: 07/31/23 10:30 Freq: Status: Active Protocol: Document 07/31/23 10:30 NM (Rec: 07/31/23 12:20 NM [id number]) OP Gait Assessment Gait Gait Assistance Required: Standby Assistance,Contact Guard Assist Distance (Feet) 737 Assistive Devices Assistive Device Gait Belt,Straight Cane Gait Deviations General Gait Pattern Festinating,Flexed Trunk, Narrow Based Gait Factors Limiting Gait Function Factors Limiting Gait Function Abnormal Tonal Influences, Decreased Activity Tolerance, Decreased Strength,Limited Range of Motion,Poor Balance Comments Gait Comments Decreased cardiovascular endurance. SBA>CGA with fatigue Stair Climbing Evaluation Evaluation Level of Assist On Stairs Contact Guard Assistance Devices Stair Climbing Assistive Devices Left Railing Technique/Endurance Stair Climbing Direction Ascend and Descend Stair Climbing Technique Step Over Step Number of Steps Climbed 4 Stair Climbing Set # Repetitions (reps) 2 Comments Stair Climbing Comments Decreased stability with descent, increased trunk sway and and backward trunk lean PT-OP-H Neuro Start: 07/31/23 10:30 Freq: Status: Active Protocol: Document 07/31/23 10:30 NM (Rec: 07/31/23 12:20 NM [id number]) Coordination Evaluation Upper Extremity Tests Right Finger to Nose Test Moderate Impairment Finger to Therapist's Finger Test Moderate Impairment Finger to Finger Test Moderate Impairment Alternate Nose to Finger Test Moderate Impairment Pronation/Supination Test Minimal Impairment Left Finger to Nose Test Moderate Impairment Finger to Therapist's Finger Test Moderate Impairment Finger to Finger Test Moderate Impairment Alternate Nose to Finger Test Moderate Impairment Pronation/Supination Test Minimal Impairment Lower Extremity Tests Right Alternate Heel to Knee; Heel to Toe Test Moderate Impairment Heel on [place] Test Minimal Impairment Foot Tapping Test Minimal Impairment Left Alternate Heel to Knee; Heel to Toe Test Minimal Impairment Heel on [place] Test Minimal Impairment Foot Tapping Test Minimal Impairment Comments Coordination Comments limited Vital Signs Blood Pressure Sitting Blood Pressure (90/60-120/80 mmHg) 105/63 Blood Pressure Source Automatic Cuff,Right Upper Extremity Standing Blood Pressure (90/60-120/80 mmHg) 125/48 H Blood Pressure Source Automatic Cuff,Right Upper Extremity Supine Blood Pressure (90/60-120/80 mmHg) 133/68 H Blood Pressure Source Automatic Cuff,Right Upper Extremity Comments Vital Signs Comments Denies symptoms with orthostatic testing PT-OP-J Posture/Palpation/Skin Start: 07/31/23 10:30 Freq: Status: Active Protocol: Document 07/31/23 10:30 NM (Rec: 07/31/23 12:20 NM [id number]) Posture Evaluation Position Standing Head/C-Spine Posture Forward Head T-Spine Posture Increased Kyphosis Pelvis Posture Anteriorly Tilted Weight Distribution Weight Shifted Posterior Comments Posture Comments Forward trunk flexion posture. During movement, tendency for retropulsion. Demos synergistic movements of neck/ trunk with BUE/BLE movement PT-OP-K Range of Motion Start: 07/31/23 10:30 Freq: Status: Active Protocol: Document 07/31/23 10:30 NM (Rec: 07/31/23 14:56 NM [id number]) Hip Goniometric Range of Motion Hip ROM Limitations Hip ROM Limitations Muscle Tone Comments Increased rigidity Knee Goniometric Range of Motion Knee ROM Limitations Knee ROM Limitations Soft Tissue Tightness, Contracture Comments Hamstring length limited: 130 deg L, 140 deg R PT-OP-M Strength Start: 07/31/23 10:30 Freq: Status: Active Protocol: Document 07/31/23 10:30 NM (Rec: 07/31/23 12:20 NM [id number]) Hip Strength Hip Manual Muscle Testing Right Flexion (L2) 3+ Fair+ Extension (S1) 4- Good- Abduction 4- Good- Adduction 4- Good- Left Flexion (L2) 4- Good- Extension (S1) 4- Good- Abduction 4- Good- Adduction 4- Good- Knee Strength Knee Manual Muscle Testing Right Flexion (S2) 4- Good- Extension (L3) 4- Good- Left Flexion (S2) 4- Good- Extension (L3) 4- Good- Ankle/Foot Strength Ankle and Foot Manual Muscle Testing Left Dorsiflexion (L4) 4 Good Plantarflexion (S1) 4 Good Inversion 4 Good Eversion (S1) 4 Good Right Dorsiflexion (L4) 3+ Fair+ Plantarflexion (S1) 4- Good- Inversion 4- Good- Eversion (S1) 4- Good- PT-OP-Q Treatments Start: 07/31/23 10:30 Freq: Status: Active Protocol: Document 11/21/23 14:37 NBM (Rec: 11/21/23 15:24 NBM [id number]) Therapeutic Exercises Sitting Exercises HS stretch Side bilateral Reps/Minutes 2x60 ea Standing Exercises STS Standing Exercise Name no UE support Side bilateral Resistance Lvl 1 Tb above knees Equipment Used oversized chair Reps/Minutes x10, 2x5 w/ Lvl 1 band Comments cued TKE to promote HS length Gait Training Gait Activity hurdles Description no UE support besides SPC Device Used spc in R hand Level of Assistance CGA-min A Surface stable Distance/Duration 3 hurdles 2 ft apart fwd x4, 6 tammy 1ft fwd x4, lat x2 ea Treatment Focus heel strike, control, longer stance time, foot clearance, larger amplitude Comments 1. fwd w/ 2 feet in between ea luiz, ea leg leading 2. fwd w/ 1 foot in between ea luiz (non-reciprocal), ea leg leading 3. reciprocal- improved balance today, better with each rep. SPC Description carpet, tile Device Used Pt's newer hand-carved cane ( dog) in RUE Level of Assistance CGA Surface stable Distance/Duration hallway ambulation x2 ea Treatment Focus step length, spc use, stability, amplitude, turns L> R Comments Ambulation w/ SPC 1.balance reactions to directional change on command (stop, turns, turn around) 2.visual scanning for: - numbers (can find at eye level only) -colors -reaching and touching at eye level. Neuro Re-Education Treatment Balance Activities SL Stance Details UE support as needed Surface firm Equipment // bars Reps/Duration trials Comments max w/o UE support: L 5 sec, R 8 sec w/ cueing for upright posture, gluteal activation and distant focal point. PT-OP-T Assessment and Plan Start: 07/31/23 10:30 Freq: Status: Active Protocol: Document 11/21/23 14:37 [facility] (Rec: 11/21/23 15:24 [facility] [id number]) Physical Therapy Assessment Goals Five Impairment gait, stride length Impairment festinating gait, episodes of freezing [place] Goal (LTG) Pt will ambulate with increased stride length with L foot passing R foot and R foot passing L foot at least 75% of the time without cues using LRAD in order to demonstrate improved foot clearance with gait and safety during ambulation LTG Duration 12 weeks- NEW GOAL 09/18/23 Four Impairment HEP Impairment not performing HEP Short Term Goal (STG) Pt will report compliance with HEP at least 2x/wk in order to promote independence with HEP and maximize progression with PT. 09/05/23: 3-4x/wk STG Duration 5 weeks MET [place] Goal (LTG) Pt will report compliance with HEP at least 3x/wk in order to promote independence with HEP and transition into maintenance program upon discharge from PT. 09/18/23: performing HEP 3x/wk LTG Duration 10 weeks MET Three Impairment balance, strength, posture Impairment 30 sec STS score 15 with retropulsion, 20 chair Short Term Goal (STG) Pt will be able to perform at least 10 sit to stands without UE assistance and without retropulsion in order to demonstrate improved posture, decreased fall risk, and improved BLE strength for gait /transfers 09/05/23: pt able to perform 10 sit to stands without UE assist and good form in previous sessions from standard chair STG Duration 5 weeks MET [place] Goal (LTG) UPDATED GOAL 09/17: Pt will be able to perform 5x STS test without UE support in 16 seconds or less (cut off specific to Parkinson's) in order to demonstrate decreased fall risk, improved posture, and BLE strength for gait and transfers. Pt will be able to perform 30 second STS test from standard chair without UE assistance and without retropulsion in order to demonstrate improved posture, decreased fall risk, and improved BLE strength for gait/transfers 09/18/23: 7 STS with improved form, eccentric lowering in 30 seconds w/o UE support 11/02/23: 26 sec LTG Duration 10 weeks MET 09/18/23; goal updated 09/18/23 One Impairment balance, fall risk Impairment Watkins 35/56 Short Term Goal (STG) Pt will improve Watkins score to at least 40/56 (1 MDC) in order to demonstrate improved balance and decreased fall risk 09/05/23: 46/56 STG Duration 5 weeks MET [place] Goal (LTG) Pt will improve Watkins score to at least 48/56 in order to demonstrate improved balance and decreased fall risk 09/05/23: 46/56 11/02/23: 47/56 LTG Duration 10 weeks PROGRESSING Assessment Summary Assessment Treatment focus on balance and ambulation with single point cane w/ emphasis on balance reactions and visual scanning with cognitive task. Darrell performs well with balance reactions and presents w/ improved stride length and sequencing, but is challenged w/ dual cognitive on motor tasking of identifying numbers with visual scanning while ambulating w/ SPC. Physical Therapy Plan Frequency and Duration Frequency of Treatment 1-2x/wk Duration of treatment (weeks) 10 Plan of Care Start Date 09/18/23 Plan of Care End Date 12/01/23 Therapeutic Interventions Therapeutic Interventions Balance Training,Coordination Training,Gait Training,Home Exercise Program,Joint Mobilizations,Manual Therapy, Neuromuscular Re-education, Orthotic/Prosthetic Management ,Patient/Caregiver Education, Self-Care/Home Management, Sensory Integration,Soft Tissue Mobilization,Taping, Therapeutic Activities, Therapeutic Exercises Modalities Cold Pack/Ice Massage,Electric Stimulation,Hot Packs Next Visit Focus/Plan Next Note Type Treatment Note Next Visit Plan Multidirectional stepping w/ rotation or ball toss (~corn hole), hurdles, gait training w/ metronome (indoor/outdoor) POC: Large amplitude movement with gait, hurdles, unstable surface, balance rxn, trunk rotation and extension posturing (w/ STS, gait) gait: stride length, spc placement for safety, turns, fwd/retro gait, hurdles Address postural abnormalities , strengthening (core, BLE) POC: reduce retropulsion, decrease festination, improve cardiovascular endurance and BLE strength
--- NOTE | 2023-11-23 15:27 | PT.OTN ---
Current Diagnoses Parkinson's disease without dyskinesia, without mention of fluctuations (11/23/23) Other lack of coordination (11/23/23) Weakness (11/23/23) Physical Therapy Treatment Note PT-OP-A Visit Information Start: 07/31/23 10:30 Freq: Status: Active Protocol: Document 11/23/23 14:34 NM (Rec: 11/23/23 15:27 NM [id number]) Out-Patient Physical Therapy Visit Information Visit Information Visit Type Treatment Note Visit Note new set of 15 (includes IE) Visit Start Time 14:36 Visit Stop Time 15:15 Visit Number 10/01 Evaluation Information Evaluation Date 07/31/23 Precautions Precautions Parkinson's Disease, fall risk , Orthostatic hypotension slow positional transitions* * PT-OP-B Current Condition Start: 07/31/23 10:30 Freq: Status: Active Protocol: Document 07/31/23 10:30 NM (Rec: 07/31/23 12:20 NM [id number]) Current Condition History of Current Condition Onset Date 12 years ago Current Complaints endurance and strength History of Current Condition Pt presents with BLE weakness. He has hx of Parkinson's disease, 12 years since dx. States he has good days and bad days. States weakness has progressively worsened. His daughter is getting ; he has wanting to dance with her. He uses a spc (5 years), only when he feels unsteady. States he has had no falls recently. He has a walker and electric wheel chair (that he hasn't used in years). Currently lives in [address] [address], lives with son and grandson, has a caregiver (primarily for showering and during mornings for medications. Pt reports that he has a walk in shower. States he is very sedentary overall, can only walk across yard with spc before becoming fatigued. States no dizziness. Currently on carbidopa/ levadopa, entacopone, and 1 more than he can't remember that he takes 4x/day every 4 hours. He has rigidity, decreased trunk rotation, muscle stiffness, bradykinesia ; no tremors, no freezing with gait or activities. States that he has had previous PT for PD which has been temporarily helpful. States R side is more affect (Leg > arms). He recently bought a theracycle that he is planning on using to supplement PT. Prior Treatments and Tests previous L RTC injury, no repair Treatment Goals Patient/Caregiver Goals slow dance with daughter in September for her wedding, improve household and community ambulation Current Functional Impairments (Reported) Functional Limitations- ADL's tranfers household Functional Limitations- Mobility/Gait household ambulation with spc; use of golf cart (street legal) which has more independence Functional Limitations- Recreation/ wood working Hobbies Functional Limitations- Other no longer driving PT-OP-C Subjective Start: 07/31/23 10:30 Freq: Status: Active Protocol: Document 11/23/23 14:34 NM (Rec: 11/23/23 15:27 NM [id number]) OP-PT Subjective Patient Comments Patient Comments Pt reports that he is doing well since last session. Reports compliance with HEP PT-OP-D Balance Start: 07/31/23 10:30 Freq: Status: Active Protocol: Document 07/31/23 10:30 NM (Rec: 07/31/23 12:20 NM [id number]) Balance Tests Watkins Balance Test Watkins Balance Test Score 35/56 Semi-Tandem Standing Semi-Tandem Standing Balance 3 sec PT-OP-E Functional Tests Start: 07/31/23 10:30 Freq: Status: Active Protocol: Document 07/31/23 10:30 NM (Rec: 07/31/23 12:20 NM [id number]) Functional Tests 6 Minute Walk Test Distance 737 Device Used spc Comments festinating; several standing rest breaks 30 Second Sit to Stand Test Score 15 Comments 20, knees remain flexed; retropulses PT-OP-F Manual Assessment Start: 07/31/23 10:30 Freq: Status: Active Protocol: Document 07/31/23 10:30 NM (Rec: 07/31/23 12:20 NM [id number]) Manual Assessments Soft Tissue Assessment Soft Tissue Mobility Assessment Observable limitations in B hamstring and heel cord length . Joint Mobility Assessment Joint Mobility Assessment Rigidity of trunk, BLE/BUE. Limitations in PROM and AROM of BLE/BUE due to tone PT-OP-G Mobility & Gait Start: 07/31/23 10:30 Freq: Status: Active Protocol: Document 07/31/23 10:30 NM (Rec: 07/31/23 12:20 NM [id number]) OP Gait Assessment Gait Gait Assistance Required: Standby Assistance,Contact Guard Assist Distance (Feet) 737 Assistive Devices Assistive Device Gait Belt,Straight Cane Gait Deviations General Gait Pattern Festinating,Flexed Trunk, Narrow Based Gait Factors Limiting Gait Function Factors Limiting Gait Function Abnormal Tonal Influences, Decreased Activity Tolerance, Decreased Strength,Limited Range of Motion,Poor Balance Comments Gait Comments Decreased cardiovascular endurance. SBA>CGA with fatigue Stair Climbing Evaluation Evaluation Level of Assist On Stairs Contact Guard Assistance Devices Stair Climbing Assistive Devices Left Railing Technique/Endurance Stair Climbing Direction Ascend and Descend Stair Climbing Technique Step Over Step Number of Steps Climbed 4 Stair Climbing Set # Repetitions (reps) 2 Comments Stair Climbing Comments Decreased stability with descent, increased trunk sway and and backward trunk lean PT-OP-H Neuro Start: 07/31/23 10:30 Freq: Status: Active Protocol: Document 07/31/23 10:30 NM (Rec: 07/31/23 12:20 NM [id number]) Coordination Evaluation Upper Extremity Tests Right Finger to Nose Test Moderate Impairment Finger to Therapist's Finger Test Moderate Impairment Finger to Finger Test Moderate Impairment Alternate Nose to Finger Test Moderate Impairment Pronation/Supination Test Minimal Impairment Left Finger to Nose Test Moderate Impairment Finger to Therapist's Finger Test Moderate Impairment Finger to Finger Test Moderate Impairment Alternate Nose to Finger Test Moderate Impairment Pronation/Supination Test Minimal Impairment Lower Extremity Tests Right Alternate Heel to Knee; Heel to Toe Test Moderate Impairment Heel on [place] Test Minimal Impairment Foot Tapping Test Minimal Impairment Left Alternate Heel to Knee; Heel to Toe Test Minimal Impairment Heel on [place] Test Minimal Impairment Foot Tapping Test Minimal Impairment Comments Coordination Comments limited Vital Signs Blood Pressure Sitting Blood Pressure (90/60-120/80 mmHg) 105/63 Blood Pressure Source Automatic Cuff,Right Upper Extremity Standing Blood Pressure (90/60-120/80 mmHg) 125/48 H Blood Pressure Source Automatic Cuff,Right Upper Extremity Supine Blood Pressure (90/60-120/80 mmHg) 133/68 H Blood Pressure Source Automatic Cuff,Right Upper Extremity Comments Vital Signs Comments Denies symptoms with orthostatic testing PT-OP-J Posture/Palpation/Skin Start: 07/31/23 10:30 Freq: Status: Active Protocol: Document 07/31/23 10:30 NM (Rec: 07/31/23 12:20 NM [id number]) Posture Evaluation Position Standing Head/C-Spine Posture Forward Head T-Spine Posture Increased Kyphosis Pelvis Posture Anteriorly Tilted Weight Distribution Weight Shifted Posterior Comments Posture Comments Forward trunk flexion posture. During movement, tendency for retropulsion. Demos synergistic movements of neck/ trunk with BUE/BLE movement PT-OP-K Range of Motion Start: 07/31/23 10:30 Freq: Status: Active Protocol: Document 07/31/23 10:30 NM (Rec: 07/31/23 14:56 NM [id number]) Hip Goniometric Range of Motion Hip ROM Limitations Hip ROM Limitations Muscle Tone Comments Increased rigidity Knee Goniometric Range of Motion Knee ROM Limitations Knee ROM Limitations Soft Tissue Tightness, Contracture Comments Hamstring length limited: 130 deg L, 140 deg R PT-OP-M Strength Start: 07/31/23 10:30 Freq: Status: Active Protocol: Document 07/31/23 10:30 NM (Rec: 07/31/23 12:20 NM [id number]) Hip Strength Hip Manual Muscle Testing Right Flexion (L2) 3+ Fair+ Extension (S1) 4- Good- Abduction 4- Good- Adduction 4- Good- Left Flexion (L2) 4- Good- Extension (S1) 4- Good- Abduction 4- Good- Adduction 4- Good- Knee Strength Knee Manual Muscle Testing Right Flexion (S2) 4- Good- Extension (L3) 4- Good- Left Flexion (S2) 4- Good- Extension (L3) 4- Good- Ankle/Foot Strength Ankle and Foot Manual Muscle Testing Left Dorsiflexion (L4) 4 Good Plantarflexion (S1) 4 Good Inversion 4 Good Eversion (S1) 4 Good Right Dorsiflexion (L4) 3+ Fair+ Plantarflexion (S1) 4- Good- Inversion 4- Good- Eversion (S1) 4- Good- PT-OP-Q Treatments Start: 07/31/23 10:30 Freq: Status: Active Protocol: Document 11/23/23 14:34 NM (Rec: 11/23/23 15:27 NM [id number]) Therapeutic Exercises Sitting Exercises deadlift Sitting Exercise Name 1. STS w/ deadlift, 2. deadlift in standing (from sit initially) Side bilateral Resistance level 2 band at feet Reps/Minutes 1. 10, 2. 10 Comments prn tactile cues for anterior wt shift Piriformis stretch Sitting Exercise Name 1. Figure 4 2. knee to opp shoulder Side bilateral Reps/Minutes 60 sec ea Comments during rest break in sitting HS stretch Side bilateral Reps/Minutes 2x60 ea Comments during sitting rest break Standing Exercises trunk rotation Standing Exercise Name at waist ht Side bilateral Resistance level 1 band Reps/Minutes 10 ea direction Comments close SBA for safety Neuro Re-Education Treatment Balance Activities shuttle balance Details for weight shift A/P Surface red Reps/Duration 2x3 min Comments Cued to push through toes to promote ant weight shift w/o increased trunk lean Performed w/ dual tasking SL Stance Surface firm, stable Equipment //bars Comments 1. w/ 1 finger support: 30 sec ea 2. w/o UE support and CGA: 8 sec R x2; 5 and 6 sec L Weight shifting Comments 1. resisted fwd and retro stepping with posterior resistance (green bungee) x8 ft ea direction, to goff bag toss - 10 reps (5 R, 5 L) 2. picking up goff bags from ground to place in bucket- 20 reps 3. placing and picking up goff bag from cone for fwd wt shift while dual tasking, 20 reps PT-OP-T Assessment and Plan Start: 07/31/23 10:30 Freq: Status: Active Protocol: Document 11/23/23 14:34 NM (Rec: 11/23/23 15:27 NM [id number]) Physical Therapy Assessment Goals Five Impairment gait, stride length Impairment festinating gait, episodes of freezing Longterm Goal (LTG) Pt will ambulate with increased stride length with L foot passing R foot and R foot passing L foot at least 75% of the time without cues using LRAD in order to demonstrate improved foot clearance with gait and safety during ambulation LTG Duration 12 weeks- NEW GOAL 09/18/23 Four Impairment HEP Impairment not performing HEP Short Term Goal (STG) Pt will report compliance with HEP at least 2x/wk in order to promote independence with HEP and maximize progression with PT. 09/05/23: 3-4x/wk STG Duration 5 weeks MET Copy Technician Goal (LTG) Pt will report compliance with HEP at least 3x/wk in order to promote independence with HEP and transition into maintenance program upon discharge from PT. 09/18/23: performing HEP 3x/wk LTG Duration 10 weeks MET Three Impairment balance, strength, posture Impairment 30 sec STS score 15 with retropulsion, 20 chair Short Term Goal (STG) Pt will be able to perform at least 10 sit to stands without UE assistance and without retropulsion in order to demonstrate improved posture, decreased fall risk, and improved BLE strength for gait /transfers 09/05/23: pt able to perform 10 sit to stands without UE assist and good form in previous sessions from standard chair STG Duration 5 weeks MET Longterm Goal (LTG) UPDATED GOAL 09/17: Pt will be able to perform 5x STS test without UE support in 16 seconds or less (cut off specific to Parkinson's) in order to demonstrate decreased fall risk, improved posture, and BLE strength for gait and transfers. Pt will be able to perform 30 second STS test from standard chair without UE assistance and without retropulsion in order to demonstrate improved posture, decreased fall risk, and improved BLE strength for gait/transfers 09/18/23: 7 STS with improved form, eccentric lowering in 30 seconds w/o UE support 11/02/23: 26 sec LTG Duration 10 weeks MET 09/18/23; goal updated 09/18/23 One Impairment balance, fall risk Impairment Watkins 35/56 Short Term Goal (STG) Pt will improve Watkins score to at least 40/56 (1 MDC) in order to demonstrate improved balance and decreased fall risk 09/05/23: 46/56 STG Duration 5 weeks MET Copy Technician Goal (LTG) Pt will improve Watkins score to at least 48/56 in order to demonstrate improved balance and decreased fall risk 09/05/23: 46/56 11/02/23: 47/56 LTG Duration 10 weeks PROGRESSING Assessment Summary Assessment Pt tolerated session well and demonstrates improvements in performing and sustaining large amplitude motions. Pt demonstrates step through stride length for at least 75% of gait in clinic today. Emphasis on weight shifting, especially with reactive and anticipatory balance today. Pt challenged with maintaining anterior weight shift without performing suspension balance strategy. Requires cueing for safety and sequencing with spc during resisted stepping, but able to maintain good anterior trunk positioning with posterior resistance. Pt would benefit from skilled PT to improve gait, balance, and postural abnormalities related to parkinson's disease in order to improve functional mobility and promote independence. Physical Therapy Plan Frequency and Duration Frequency of Treatment 1-2x/wk Duration of treatment (weeks) 10 Plan of Care Start Date 09/18/23 Plan of Care End Date 12/01/23 Therapeutic Interventions Therapeutic Interventions Balance Training,Coordination Training,Gait Training,Home Exercise Program,Joint Mobilizations,Manual Therapy, Neuromuscular Re-education, Orthotic/Prosthetic Management ,Patient/Caregiver Education, Self-Care/Home Management, Sensory Integration,Soft Tissue Mobilization,Taping, Therapeutic Activities, Therapeutic Exercises Modalities Cold Pack/Ice Massage,Electric Stimulation,Hot Packs Next Visit Focus/Plan Next Note Type Treatment Note Next Visit Plan Multidirectional stepping w/ rotation, hurdles, gait training w/ metronome (indoor/ outdoor), STS w/ ball toss POC: Large amplitude movement with gait, hurdles, unstable surface, balance rxn, trunk rotation and extension posturing (w/ STS, gait) gait: stride length, spc placement for safety, turns, fwd/retro gait, hurdles Address postural abnormalities , strengthening (core, BLE) POC: reduce retropulsion, decrease festination, improve cardiovascular endurance and BLE strength
--- NOTE | 2023-11-30 15:42 | PT.OTN ---
Current Diagnoses Parkinson's disease without dyskinesia, without mention of fluctuations (11/30/23) Other lack of coordination (11/30/23) Weakness (11/30/23) Physical Therapy Treatment Note PT-OP-A Visit Information Start: 07/31/23 10:30 Freq: Status: Active Protocol: Document 11/30/23 14:30 NM (Rec: 11/30/23 15:42 NM [id number]) Out-Patient Physical Therapy Visit Information Visit Information Visit Type Progress Note Visit Note new set of 15 (includes IE) Visit Start Time 14:32 Visit Stop Time 15:15 Visit Number 15 Number of CHIEF EXECUTIVE OFFICER Visits 0 Evaluation Information Evaluation Date 07/31/23 Precautions Precautions Parkinson's Disease, fall risk , Orthostatic hypotension slow positional transitions* * PT-OP-B Current Condition Start: 07/31/23 10:30 Freq: Status: Active Protocol: Document 07/31/23 10:30 NM (Rec: 07/31/23 12:20 NM [id number]) Current Condition History of Current Condition Onset Date 12 years ago Current Complaints endurance and strength History of Current Condition Pt presents with BLE weakness. He has hx of Parkinson's disease, 12 years since dx. States he has good days and bad days. States weakness has progressively worsened. His daughter is getting ; he has wanting to dance with her. He uses a spc (5 years), only when he feels unsteady. States he has had no falls recently. He has a walker and electric wheel chair (that he hasn't used in years). Currently lives in 1 story home, lives with son and grandson, has a caregiver (primarily for showering and during mornings for medications. Pt reports that he has a walk in shower. States he is very sedentary overall, can only walk across yard with spc before becoming fatigued. States no dizziness. Currently on carbidopa/ levadopa, entacopone, and 1 more than he can't remember that he takes 4x/day every 4 hours. He has rigidity, decreased trunk rotation, muscle stiffness, bradykinesia ; no tremors, no freezing with gait or activities. States that he has had previous PT for PD which has been temporarily helpful. States R side is more affect (Leg > arms). He recently bought a theracycle that he is planning on using to supplement PT. Prior Treatments and Tests previous L RTC injury, no repair Treatment Goals Patient/Caregiver Goals slow dance with daughter in September for her wedding, improve household and community ambulation Current Functional Impairments (Reported) Functional Limitations- ADL's tranfers household Functional Limitations- Mobility/Gait household ambulation with spc; use of golf cart (street legal) which has more independence Functional Limitations- Recreation/ wood working Hobbies Functional Limitations- Other no longer driving PT-OP-C Subjective Start: 07/31/23 10:30 Freq: Status: Active Protocol: Document 11/30/23 14:30 NM (Rec: 11/30/23 15:42 NM [id number]) OP-PT Subjective Patient Comments Patient Comments Pt reports that he feels tired , tight, and weak. Reports that he still feels tired from Monday. Took meds a little late today but states that they kicked in. PT-OP-D Balance Start: 07/31/23 10:30 Freq: Status: Active Protocol: Document 07/31/23 10:30 NM (Rec: 07/31/23 12:20 NM [id number]) Balance Tests Watkins Balance Test Watkins Balance Test Score 35/56 Semi-Tandem Standing Semi-Tandem Standing Balance 3 sec PT-OP-E Functional Tests Start: 07/31/23 10:30 Freq: Status: Active Protocol: Document 07/31/23 10:30 NM (Rec: 07/31/23 12:20 NM [id number]) Functional Tests 6 Minute Walk Test Distance 737 Device Used spc Comments festinating; several standing rest breaks 30 Second Sit to Stand Test Score 15 Comments 20, knees remain flexed; retropulses PT-OP-F Manual Assessment Start: 07/31/23 10:30 Freq: Status: Active Protocol: Document 07/31/23 10:30 NM (Rec: 07/31/23 12:20 NM [id number]) Manual Assessments Soft Tissue Assessment Soft Tissue Mobility Assessment Observable limitations in B hamstring and heel cord length . Joint Mobility Assessment Joint Mobility Assessment Rigidity of trunk, BLE/BUE. Limitations in PROM and AROM of BLE/BUE due to tone PT-OP-G Mobility & Gait Start: 07/31/23 10:30 Freq: Status: Active Protocol: Document 07/31/23 10:30 NM (Rec: 07/31/23 12:20 NM [id number]) OP Gait Assessment Gait Gait Assistance Required: Standby Assistance,Contact Guard Assist Distance (Feet) 737 Assistive Devices Assistive Device Gait Belt,Straight Cane Gait Deviations General Gait Pattern Festinating,Flexed Trunk, Narrow Based Gait Factors Limiting Gait Function Factors Limiting Gait Function Abnormal Tonal Influences, Decreased Activity Tolerance, Decreased Strength,Limited Range of Motion,Poor Balance Comments Gait Comments Decreased cardiovascular endurance. SBA>CGA with fatigue Stair Climbing Evaluation Evaluation Level of Assist On Stairs Contact Guard Assistance Devices Stair Climbing Assistive Devices Left Railing Technique/Endurance Stair Climbing Direction Ascend and Descend Stair Climbing Technique Step Over Step Number of Steps Climbed 4 Stair Climbing Set # Repetitions (reps) 2 Comments Stair Climbing Comments Decreased stability with descent, increased trunk sway and and backward trunk lean PT-OP-H Neuro Start: 07/31/23 10:30 Freq: Status: Active Protocol: Document 07/31/23 10:30 NM (Rec: 07/31/23 12:20 NM [id number]) Coordination Evaluation Upper Extremity Tests Right Finger to Nose Test Moderate Impairment Finger to Therapist's Finger Test Moderate Impairment Finger to Finger Test Moderate Impairment Alternate Nose to Finger Test Moderate Impairment Pronation/Supination Test Minimal Impairment Left Finger to Nose Test Moderate Impairment Finger to Therapist's Finger Test Moderate Impairment Finger to Finger Test Moderate Impairment Alternate Nose to Finger Test Moderate Impairment Pronation/Supination Test Minimal Impairment Lower Extremity Tests Right Alternate Heel to Knee; Heel to Toe Test Moderate Impairment Heel on [place] Test Minimal Impairment Foot Tapping Test Minimal Impairment Left Alternate Heel to Knee; Heel to Toe Test Minimal Impairment Heel on [place] Test Minimal Impairment Foot Tapping Test Minimal Impairment Comments Coordination Comments limited Vital Signs Blood Pressure Sitting Blood Pressure (90/60-120/80 mmHg) 105/63 Blood Pressure Source Automatic Cuff,Right Upper Extremity Standing Blood Pressure (90/60-120/80 mmHg) 125/48 H Blood Pressure Source Automatic Cuff,Right Upper Extremity Supine Blood Pressure (90/60-120/80 mmHg) 133/68 H Blood Pressure Source Automatic Cuff,Right Upper Extremity Comments Vital Signs Comments Denies symptoms with orthostatic testing PT-OP-J Posture/Palpation/Skin Start: 07/31/23 10:30 Freq: Status: Active Protocol: Document 07/31/23 10:30 NM (Rec: 07/31/23 12:20 NM [id number]) Posture Evaluation Position Standing Head/C-Spine Posture Forward Head T-Spine Posture Increased Kyphosis Pelvis Posture Anteriorly Tilted Weight Distribution Weight Shifted Posterior Comments Posture Comments Forward trunk flexion posture. During movement, tendency for retropulsion. Demos synergistic movements of neck/ trunk with BUE/BLE movement PT-OP-K Range of Motion Start: 07/31/23 10:30 Freq: Status: Active Protocol: Document 07/31/23 10:30 NM (Rec: 07/31/23 14:56 NM [id number]) Hip Goniometric Range of Motion Hip ROM Limitations Hip ROM Limitations Muscle Tone Comments Increased rigidity Knee Goniometric Range of Motion Knee ROM Limitations Knee ROM Limitations Soft Tissue Tightness, Contracture Comments Hamstring length limited: 130 deg L, 140 deg R PT-OP-M Strength Start: 07/31/23 10:30 Freq: Status: Active Protocol: Document 07/31/23 10:30 NM (Rec: 07/31/23 12:20 NM [id number]) Hip Strength Hip Manual Muscle Testing Right Flexion (L2) 3+ Fair+ Extension (S1) 4- Good- Abduction 4- Good- Adduction 4- Good- Left Flexion (L2) 4- Good- Extension (S1) 4- Good- Abduction 4- Good- Adduction 4- Good- Knee Strength Knee Manual Muscle Testing Right Flexion (S2) 4- Good- Extension (L3) 4- Good- Left Flexion (S2) 4- Good- Extension (L3) 4- Good- Ankle/Foot Strength Ankle and Foot Manual Muscle Testing Left Dorsiflexion (L4) 4 Good Plantarflexion (S1) 4 Good Inversion 4 Good Eversion (S1) 4 Good Right Dorsiflexion (L4) 3+ Fair+ Plantarflexion (S1) 4- Good- Inversion 4- Good- Eversion (S1) 4- Good- PT-OP-Q Treatments Start: 07/31/23 10:30 Freq: Status: Active Protocol: Document 11/30/23 14:30 NM (Rec: 11/30/23 15:42 NM [id number]) Therapeutic Exercises Supine Exercises pec stretch Supine Exercise Name 1. goal post>T, 2. HABD alternating (HEP) Side bilateral Reps/Minutes 1. 2x60 ea, 2. 10 ea piriformis stretch Supine Exercise Name 1. Figure 4 2. knee to opp shoulder Side bilateral Reps/Minutes 2x60 ea Sidelying Exercises open book stretch Sidelying Exercise Name open book trunk rot w/ band Side bilateral Resistance level 1 band Reps/Minutes 15 ea Comments cued eyes follow hands, full ROM Standing Exercises calf stretch Standing Exercise Name 1. gastrocnemius, 2. soleus Side bilateral Equipment Used WILLARD Reps/Minutes 60 ea step up Standing Exercise Name step up > lunge w/ large amplitude Side bilateral Equipment Used 6 step, 1 instance CGA Reps/Minutes 5 R, 5 L, 5 alternating Comments fatiguing STS Standing Exercise Name 5x STS Side bilateral Equipment Used standard chair Reps/Minutes 15 seconds Comments end of session, fatigued Manual Therapy Treatment Consent Patient gave verbal consent for manual Yes treatment Manual Techniques HS stretch Body Position Hooklying Reps/Duration 2 min ea side Comments passive stretch of calf and hamstring on PT shoulder in hooklying Neuro Re-Education Treatment Balance Activities Watkins Reps/Duration 40/56 Hurdles Details close SBA- CGA Comments 1. fwd hurdles, 6 repsx2 Cued softer landing, ankle DF 2. lateral hurdles, 6 reps x2 Improved speed and landing Only clipped 2 hurdles Stepping outside TRISHA Details CGA Comments 1. FWD step and reach, stepping fwd and bwd over luiz 2. lateral step and reach, stepping ea direction over luiz large amplitude movements with hands PT-OP-T Assessment and Plan Start: 07/31/23 10:30 Freq: Status: Active Protocol: Document 11/30/23 14:30 NM (Rec: 11/30/23 15:42 NM [id number]) Physical Therapy Assessment Goals Five Impairment gait, stride length Impairment festinating gait, episodes of freezing Licensed Investment Sales Assistant Goal (LTG) Pt will ambulate with increased stride length with L foot passing R foot and R foot passing L foot at least 75% of the time without cues using LRAD in order to demonstrate improved foot clearance with gait and safety during ambulation 11/30/23: Pt demonstrates step- through pattern at least 60% of time, but less when demonstrating a freezing episode LTG Duration 8 weeks- NEW GOAL 09/18/23; PROGRESSING 11/30/23 Four Impairment HEP Impairment not performing HEP Short Term Goal (STG) Pt will report compliance with HEP at least 2x/wk in order to promote independence with HEP and maximize progression with PT. 09/05/23: 3-4x/wk STG Duration 5 weeks [facility] Goal (LTG) Pt will report compliance with HEP at least 3x/wk in order to promote independence with HEP and transition into maintenance program upon discharge from PT. 09/18/23: performing HEP 3x/wk LTG Duration 10 weeks MET Three Impairment balance, strength, posture Impairment 30 sec STS score 15 with retropulsion, 20 chair Short Term Goal (STG) Pt will be able to perform at least 10 sit to stands without UE assistance and without retropulsion in order to demonstrate improved posture, decreased fall risk, and improved BLE strength for gait /transfers 09/05/23: pt able to perform 10 sit to stands without UE assist and good form in previous sessions from standard chair STG Duration 5 weeks [facility] Goal (LTG) UPDATED GOAL 09/17: Pt will be able to perform 5x STS test without UE support in 16 seconds or less (cut off specific to Parkinson's) in order to demonstrate decreased fall risk, improved posture, and BLE strength for gait and transfers. Pt will be able to perform 30 second STS test from standard chair without UE assistance and without retropulsion in order to demonstrate improved posture, decreased fall risk, and improved BLE strength for gait/transfers 09/18/23: 7 STS with improved form, eccentric lowering in 30 seconds w/o UE support 11/02/23: 26 sec 11/30/23: 15 seconds LTG Duration 10 weeks MET 09/18/23; goal updated 09/18/23- MET 11/30/23 One Impairment balance, fall risk Impairment Watkins 35/56 Short Term Goal (STG) Pt will improve Watkins score to at least 40/56 (1 MDC) in order to demonstrate improved balance and decreased fall risk 09/05/23: 46/56 STG Duration 5 weeks [facility] Goal (LTG) Pt will improve Watkins score to at least 48/56 in order to demonstrate improved balance and decreased fall risk 09/05/23: 46/56 11/02/23: 47/56 11/30/23: 40/56 LTG Duration 8 weeks PROGRESSING; NOT MET Assessment Summary Assessment Pt tolerated session well and demonstrates good effort. He is very fatigued this session and has increased muscle tightness in BLE. Session emphasis on addressing goals and improving stepping balance , in addition to stride length . Pt able to perform larger amplitude forward and lateral stepping over objects with improved foot clearance. He continues to require moderate cues to decrease freezing episodes while approaching objects or people, especially as he fatigues. Pt's stride length is improved at least 60 % of the time, but he still demonstrates decreased foot clearance and begins to stumble or catch feet as he approaches obstacles or with turning. Pt's Watkins score decreased to 40/56, likely related to fatigue as performed at end of session. Physical Therapy Plan Frequency and Duration Frequency of Treatment 1-2x/wk Duration of treatment (weeks) 8 Plan of Care Start Date 11/30/23 Plan of Care End Date 02/02/24 Therapeutic Interventions Therapeutic Interventions Balance Training,Coordination Training,Gait Training,Home Exercise Program,Joint Mobilizations,Manual Therapy, Neuromuscular Re-education, Orthotic/Prosthetic Management ,Patient/Caregiver Education, Self-Care/Home Management, Sensory Integration,Soft Tissue Mobilization,Taping, Therapeutic Activities, Therapeutic Exercises Modalities Cold Pack/Ice Massage,Electric Stimulation,Hot Packs Next Visit Focus/Plan Next Note Type Treatment Note Next Visit Plan Trial seated open book w/ band (add HEP), STS w/ ball toss POC: Large amplitude movement with gait, hurdles, unstable surface, balance rxn, trunk rotation and extension posturing (w/ STS, gait) gait: stride length, spc placement for safety, turns, fwd/retro gait, hurdles Address postural abnormalities , strengthening (core, BLE) POC: reduce retropulsion, decrease festination, improve cardiovascular endurance and BLE strength
--- NOTE | 2023-11-30 15:43 | PT.OPPOC ---
Addendum entered and electronically signed by Amanda Rivera, PT 11/30/23 16:00: plan of care faxed to referring provider at [facility] #[phone] Original Note: Physical, Occupational & Speech Therapy At [facility] Current Diagnoses Parkinson's disease without dyskinesia, without mention of fluctuations (11/30/23) Other lack of coordination (11/30/23) Weakness (11/30/23) Visit Care Team Role Provider Type Yessenia Johnson MD Family Provider Non-Staff Primary Care Provider Specialty: Family Practice Address: [address] [place] [address], [id number] Email: Attending Provider Referring Provider Specialty: Address: Phone: Fax: Email: Plan Of Care PT-OP-B Current Condition Start: 07/31/23 10:30 Freq: Status: Active Protocol: Document 07/31/23 10:30 NM (Rec: 07/31/23 12:20 NM [id number]) Current Condition History of Current Condition Onset Date 12 years ago Current Complaints endurance and strength History of Current Condition Pt presents with BLE weakness. He has hx of Parkinson's disease, 12 years since dx. States he has good days and bad days. States weakness has progressively worsened. His daughter is getting ; he has wanting to dance with her. He uses a spc (5 years), only when he feels unsteady. States he has had no falls recently. He has a walker and electric wheel chair (that he hasn't used in years). Currently lives in [address], lives with son and grandson, has a caregiver (primarily for showering and during mornings for medications. Pt reports that he has a walk in shower. States he is very sedentary overall, can only walk across yard with spc before becoming fatigued. States no dizziness. Currently on carbidopa/ levadopa, entacopone, and 1 more than he can't remember that he takes 4x/day every 4 hours. He has rigidity, decreased trunk rotation, muscle stiffness, bradykinesia ; no tremors, no freezing with gait or activities. States that he has had previous PT for PD which has been temporarily helpful. States R side is more affect (Leg > arms). He recently bought a theracycle that he is planning on using to supplement PT. Prior Treatments and Tests previous L RTC injury, no repair Treatment Goals Patient/Caregiver Goals slow dance with daughter in September for her wedding, improve household and community ambulation Current Functional Impairments (Reported) Functional Limitations- ADL's tranfers household Functional Limitations- Mobility/Gait household ambulation with spc; use of golf cart (street legal) which has more independence Functional Limitations- Recreation/ wood working Hobbies Functional Limitations- Other no longer driving PT-OP-T Assessment and Plan Start: 07/31/23 10:30 Freq: Status: Active Protocol: Document 11/30/23 14:30 NM (Rec: 11/30/23 15:42 NM [id number]) Physical Therapy Assessment Goals Five Impairment gait, stride length Impairment festinating gait, episodes of freezing Satellite Tv Technician Goal (LTG) Pt will ambulate with increased stride length with L foot passing R foot and R foot passing L foot at least 75% of the time without cues using LRAD in order to demonstrate improved foot clearance with gait and safety during ambulation 11/30/23: Pt demonstrates step- through pattern at least 60% of time, but less when demonstrating a freezing episode LTG Duration 8 weeks- NEW GOAL 09/18/23; PROGRESSING 11/30/23 Four Impairment HEP Impairment not performing HEP Short Term Goal (STG) Pt will report compliance with HEP at least 2x/wk in order to promote independence with HEP and maximize progression with PT. 09/05/23: 3-4x/wk STG Duration 5 weeks MET Satellite Tv Technician Goal (LTG) Pt will report compliance with HEP at least 3x/wk in order to promote independence with HEP and transition into maintenance program upon discharge from PT. 09/18/23: performing HEP 3x/wk LTG Duration 10 weeks MET Three Impairment balance, strength, posture Impairment 30 sec STS score 15 with retropulsion, 20 chair Short Term Goal (STG) Pt will be able to perform at least 10 sit to stands without UE assistance and without retropulsion in order to demonstrate improved posture, decreased fall risk, and improved BLE strength for gait /transfers 09/05/23: pt able to perform 10 sit to stands without UE assist and good form in previous sessions from standard chair STG Duration 5 weeks MET Satellite Tv Technician Goal (LTG) UPDATED GOAL 09/17: Pt will be able to perform 5x STS test without UE support in 16 seconds or less (cut off specific to Parkinson's) in order to demonstrate decreased fall risk, improved posture, and BLE strength for gait and transfers. Pt will be able to perform 30 second STS test from standard chair without UE assistance and without retropulsion in order to demonstrate improved posture, decreased fall risk, and improved BLE strength for gait/transfers 09/18/23: 7 STS with improved form, eccentric lowering in 30 seconds w/o UE support 11/02/23: 26 sec 11/30/23: 15 seconds LTG Duration 10 weeks MET 09/18/23; goal updated 09/18/23- MET 11/30/23 One Impairment balance, fall risk Impairment Watkins 35/56 Short Term Goal (STG) Pt will improve Watkins score to at least 40/56 (1 MDC) in order to demonstrate improved balance and decreased fall risk 09/05/23: 46/56 STG Duration 5 weeks MET [facility] Living Goal (LTG) Pt will improve Watkins score to at least 48/56 in order to demonstrate improved balance and decreased fall risk 09/05/23: 46/56 11/02/23: 47/56 11/30/23: 40/56 LTG Duration 8 weeks PROGRESSING; NOT MET Assessment Summary Assessment Pt has attended x23 visits since initial evaluation in July 2023 for gait and balance related changes due to Parkinson's disease. Pt is progressing toward goals, meeting several since initial evaluation. He had a break between his last scheduled appt in September 19 at last POC, returning in mid-October due to waiting for [facility] authorization; as a result, pt has not been treated for additional authorized visits. He currently met STS goal, indicating improvement in transfers. Pt's balance is improved since initial evaluation, currently 40/56 on Watkins balance score; small decrease from re-assessment in October 2023 since performed at end of session. Pt still has 7 remaining visits on current authorization. He would benefit from continued skilled PT to address gait impairments related to freezing, festination, and standing tolerance in order to improve safety during ADLs, increased endurance, and to decrease fall risk while managing Parkinson's symptoms. Physical Therapy Plan Frequency and Duration Frequency of Treatment 1-2x/wk Duration of treatment (weeks) 8 Plan of Care Start Date 11/30/23 Plan of Care End Date 02/02/24 Therapeutic Interventions Therapeutic Interventions Balance Training,Coordination Training,Gait Training,Home Exercise Program,Joint Mobilizations,Manual Therapy, Neuromuscular Re-education, Orthotic/Prosthetic Management ,Patient/Caregiver Education, Self-Care/Home Management, Sensory Integration,Soft Tissue Mobilization,Taping, Therapeutic Activities, Therapeutic Exercises Modalities Cold Pack/Ice Massage,Electric Stimulation,Hot Packs Next Visit Focus/Plan Next Note Type Treatment Note Next Visit Plan Trial seated open book w/ band (add HEP), STS w/ ball toss POC: Large amplitude movement with gait, hurdles, unstable surface, balance rxn, trunk rotation and extension posturing (w/ STS, gait) gait: stride length, spc placement for safety, turns, fwd/retro gait, hurdles Address postural abnormalities , strengthening (core, BLE) POC: reduce retropulsion, decrease festination, improve cardiovascular endurance and BLE strength Plan of Care Dates Plan of Care Start Date 11/30/23 Plan of Care End Date 02/02/24 Electronically Signed by: Amanda Rivera, PT 11/30/23 0581 If you are in agreement with this Plan of Care, please return a signed and dated copy. I have reviewed this Plan of Care and certify that the skilled therapy services above are required to meet the patient?s needs. Physician Signature Date Printed Name and Credentials Clinical Instructor Signature Printed Name and Credentials
--- NOTE | 2023-12-04 16:46 | PT.OTN ---
Current Diagnoses Parkinson's disease without dyskinesia, without mention of fluctuations (12/04/23) Other lack of coordination (12/04/23) Weakness (12/04/23) Physical Therapy Treatment Note PT-OP-A Visit Information Start: 07/31/23 10:30 Freq: Status: Active Protocol: Document 12/04/23 11:58 AB (Rec: 12/04/23 15:21 AB [id number]) Out-Patient Physical Therapy Visit Information Visit Information Visit Type Treatment Note Visit Note new set of 15 (includes IE) Visit Start Time 14:35 Visit Stop Time 15:19 Visit Number 01/01 Number of DESIGN TRANSFERRER Visits 1 Evaluation Information Evaluation Date 07/31/23 Precautions Precautions Parkinson's Disease, fall risk , Orthostatic hypotension slow positional transitions* * PT-OP-B Current Condition Start: 07/31/23 10:30 Freq: Status: Active Protocol: Document 07/31/23 10:30 NM (Rec: 07/31/23 12:20 NM [id number]) Current Condition History of Current Condition Onset Date 12 years ago Current Complaints endurance and strength History of Current Condition Pt presents with BLE weakness. He has hx of Parkinson's disease, 12 years since dx. States he has good days and bad days. States weakness has progressively worsened. His daughter is getting ; he has wanting to dance with her. He uses a spc (5 years), only when he feels unsteady. States he has had no falls recently. He has a walker and electric wheel chair (that he hasn't used in years). Currently lives in 1 story home, lives with son and grandson, has a caregiver (primarily for showering and during mornings for medications. Pt reports that he has a walk in shower. States he is very sedentary overall, can only walk across yard with spc before becoming fatigued. States no dizziness. Currently on carbidopa/ levadopa, entacopone, and 1 more than he can't remember that he takes 4x/day every 4 hours. He has rigidity, decreased trunk rotation, muscle stiffness, bradykinesia ; no tremors, no freezing with gait or activities. States that he has had previous PT for PD which has been temporarily helpful. States R side is more affect (Leg > arms). He recently bought a theracycle that he is planning on using to supplement PT. Prior Treatments and Tests previous L RTC injury, no repair Treatment Goals Patient/Caregiver Goals slow dance with daughter in September for her wedding, improve household and community ambulation Current Functional Impairments (Reported) Functional Limitations- ADL's tranfers household Functional Limitations- Mobility/Gait household ambulation with spc; use of golf cart (street legal) which has more independence Functional Limitations- Recreation/ wood working Hobbies Functional Limitations- Other no longer driving PT-OP-C Subjective Start: 07/31/23 10:30 Freq: Status: Active Protocol: Document 12/04/23 11:58 AB (Rec: 12/04/23 15:21 AB [id number]) OP-PT Subjective Patient Comments Patient Comments Patient reports feeling stiff today. Patient reports having no pain start of session. Patient request stopping prior to reaching mat in gym. PT-OP-D Balance Start: 07/31/23 10:30 Freq: Status: Active Protocol: Document 07/31/23 10:30 NM (Rec: 07/31/23 12:20 NM [id number]) Balance Tests Watkins Balance Test Watkins Balance Test Score 35/56 Semi-Tandem Standing Semi-Tandem Standing Balance 3 sec PT-OP-E Functional Tests Start: 07/31/23 10:30 Freq: Status: Active Protocol: Document 07/31/23 10:30 NM (Rec: 07/31/23 12:20 NM [id number]) Functional Tests 6 Minute Walk Test Distance 737 Device Used spc Comments festinating; several standing rest breaks 30 Second Sit to Stand Test Score 15 Comments 20, knees remain flexed; retropulses PT-OP-F Manual Assessment Start: 07/31/23 10:30 Freq: Status: Active Protocol: Document 07/31/23 10:30 NM (Rec: 07/31/23 12:20 NM [id number]) Manual Assessments Soft Tissue Assessment Soft Tissue Mobility Assessment Observable limitations in B hamstring and heel cord length . Joint Mobility Assessment Joint Mobility Assessment Rigidity of trunk, BLE/BUE. Limitations in PROM and AROM of BLE/BUE due to tone PT-OP-G Mobility & Gait Start: 07/31/23 10:30 Freq: Status: Active Protocol: Document 07/31/23 10:30 NM (Rec: 07/31/23 12:20 NM [id number]) OP Gait Assessment Gait Gait Assistance Required: Standby Assistance,Contact Guard Assist Distance (Feet) 737 Assistive Devices Assistive Device Gait Belt,Straight Cane Gait Deviations General Gait Pattern Festinating,Flexed Trunk, Narrow Based Gait Factors Limiting Gait Function Factors Limiting Gait Function Abnormal Tonal Influences, Decreased Activity Tolerance, Decreased Strength,Limited Range of Motion,Poor Balance Comments Gait Comments Decreased cardiovascular endurance. SBA>CGA with fatigue Stair Climbing Evaluation Evaluation Level of Assist On Stairs Contact Guard Assistance Devices Stair Climbing Assistive Devices Left Railing Technique/Endurance Stair Climbing Direction Ascend and Descend Stair Climbing Technique Step Over Step Number of Steps Climbed 4 Stair Climbing Set # Repetitions (reps) 2 Comments Stair Climbing Comments Decreased stability with descent, increased trunk sway and and backward trunk lean PT-OP-H Neuro Start: 07/31/23 10:30 Freq: Status: Active Protocol: Document 07/31/23 10:30 NM (Rec: 07/31/23 12:20 NM [id number]) Coordination Evaluation Upper Extremity Tests Right Finger to Nose Test Moderate Impairment Finger to Therapist's Finger Test Moderate Impairment Finger to Finger Test Moderate Impairment Alternate Nose to Finger Test Moderate Impairment Pronation/Supination Test Minimal Impairment Left Finger to Nose Test Moderate Impairment Finger to Therapist's Finger Test Moderate Impairment Finger to Finger Test Moderate Impairment Alternate Nose to Finger Test Moderate Impairment Pronation/Supination Test Minimal Impairment Lower Extremity Tests Right Alternate Heel to Knee; Heel to Toe Test Moderate Impairment Heel on [place] Test Minimal Impairment Foot Tapping Test Minimal Impairment Left Alternate Heel to Knee; Heel to Toe Test Minimal Impairment Heel on [place] Test Minimal Impairment Foot Tapping Test Minimal Impairment Comments Coordination Comments limited Vital Signs Blood Pressure Sitting Blood Pressure (90/60-120/80 mmHg) 105/63 Blood Pressure Source Automatic Cuff,Right Upper Extremity Standing Blood Pressure (90/60-120/80 mmHg) 125/48 H Blood Pressure Source Automatic Cuff,Right Upper Extremity Supine Blood Pressure (90/60-120/80 mmHg) 133/68 H Blood Pressure Source Automatic Cuff,Right Upper Extremity Comments Vital Signs Comments Denies symptoms with orthostatic testing PT-OP-J Posture/Palpation/Skin Start: 07/31/23 10:30 Freq: Status: Active Protocol: Document 07/31/23 10:30 NM (Rec: 07/31/23 12:20 NM [id number]) Posture Evaluation Position Standing Head/C-Spine Posture Forward Head T-Spine Posture Increased Kyphosis Pelvis Posture Anteriorly Tilted Weight Distribution Weight Shifted Posterior Comments Posture Comments Forward trunk flexion posture. During movement, tendency for retropulsion. Demos synergistic movements of neck/ trunk with BUE/BLE movement PT-OP-K Range of Motion Start: 07/31/23 10:30 Freq: Status: Active Protocol: Document 07/31/23 10:30 NM (Rec: 07/31/23 14:56 NM [id number]) Hip Goniometric Range of Motion Hip ROM Limitations Hip ROM Limitations Muscle Tone Comments Increased rigidity Knee Goniometric Range of Motion Knee ROM Limitations Knee ROM Limitations Soft Tissue Tightness, Contracture Comments Hamstring length limited: 130 deg L, 140 deg R PT-OP-M Strength Start: 07/31/23 10:30 Freq: Status: Active Protocol: Document 07/31/23 10:30 NM (Rec: 07/31/23 12:20 NM [id number]) Hip Strength Hip Manual Muscle Testing Right Flexion (L2) 3+ Fair+ Extension (S1) 4- Good- Abduction 4- Good- Adduction 4- Good- Left Flexion (L2) 4- Good- Extension (S1) 4- Good- Abduction 4- Good- Adduction 4- Good- Knee Strength Knee Manual Muscle Testing Right Flexion (S2) 4- Good- Extension (L3) 4- Good- Left Flexion (S2) 4- Good- Extension (L3) 4- Good- Ankle/Foot Strength Ankle and Foot Manual Muscle Testing Left Dorsiflexion (L4) 4 Good Plantarflexion (S1) 4 Good Inversion 4 Good Eversion (S1) 4 Good Right Dorsiflexion (L4) 3+ Fair+ Plantarflexion (S1) 4- Good- Inversion 4- Good- Eversion (S1) 4- Good- PT-OP-Q Treatments Start: 07/31/23 10:30 Freq: Status: Active Protocol: Document 12/04/23 11:58 AB (Rec: 12/04/23 15:21 AB [id number]) Therapeutic Exercises Supine Exercises modified Amor stretch Side bilateral Reps/Minutes one min X 2 each LE Breathing from diaphragm in modified restortive pose Reps/Minutes 3 min Comments verbal and tactile cues for breathing LTR Side bilateral Reps/Minutes x10 ea Comments initial verbal cue for PPT Sidelying Exercises open book stretch Side bilateral Reps/Minutes X10 each side Standing Exercises calf stretch Standing Exercise Name on WILLARD soleus and gastroc Side bilateral Reps/Minutes 60 sec each stretch Comments with UE support Therapeutic Activity Therapeutic Activity wall posture Name back to wall, verbal cues for posture Comments Performed for posture and for standing rest prior to reaching mat in gym. bed mobility Name VC for normal movement pattern Comments to left and right multiple repetitions Neuro Re-Education Treatment Balance Activities tandem stepping Details CGA hands above bars Reps/Duration 10 feet X 1 foam Details Balloon volley in modified Tandem Reps/Duration 3 min Comments CGA throughout Retro walking Details CGA hands above bars Reps/Duration 10 fet Hurdles Details CGA hands above bars Reps/Duration 10 feet X 6 PT-OP-T Assessment and Plan Start: 07/31/23 10:30 Freq: Status: Active Protocol: Document 12/04/23 11:58 AB (Rec: 12/04/23 15:21 AB [id number]) Physical Therapy Assessment Goals Five Impairment gait, stride length Impairment festinating gait, episodes of freezing Shelter Goal (LTG) Pt will ambulate with increased stride length with L foot passing R foot and R foot passing L foot at least 75% of the time without cues using LRAD in order to demonstrate improved foot clearance with gait and safety during ambulation 11/30/23: Pt demonstrates step- through pattern at least 60% of time, but less when demonstrating a freezing episode LTG Duration 8 weeks- NEW GOAL 09/18/23; PROGRESSING 11/30/23 Four Impairment HEP Impairment not performing HEP Short Term Goal (STG) Pt will report compliance with HEP at least 2x/wk in order to promote independence with HEP and maximize progression with PT. 09/05/23: 3-4x/wk STG Duration 5 weeks MET Shelter Goal (LTG) Pt will report compliance with HEP at least 3x/wk in order to promote independence with HEP and transition into maintenance program upon discharge from PT. 09/18/23: performing HEP 3x/wk LTG Duration 10 weeks MET Three Impairment balance, strength, posture Impairment 30 sec STS score 15 with retropulsion, 20 chair Short Term Goal (STG) Pt will be able to perform at least 10 sit to stands without UE assistance and without retropulsion in order to demonstrate improved posture, decreased fall risk, and improved BLE strength for gait /transfers 09/05/23: pt able to perform 10 sit to stands without UE assist and good form in previous sessions from standard chair STG Duration 5 weeks MET Shelter Goal (LTG) UPDATED GOAL 09/17: Pt will be able to perform 5x STS test without UE support in 16 seconds or less (cut off specific to Parkinson's) in order to demonstrate decreased fall risk, improved posture, and BLE strength for gait and transfers. Pt will be able to perform 30 second STS test from standard chair without UE assistance and without retropulsion in order to demonstrate improved posture, decreased fall risk, and improved BLE strength for gait/transfers 09/18/23: 7 STS with improved form, eccentric lowering in 30 seconds w/o UE support 11/02/23: 26 sec 11/30/23: 15 seconds LTG Duration 10 weeks MET 09/18/23; goal updated 09/18/23- MET 11/30/23 One Impairment balance, fall risk Impairment Watkins 35/56 Short Term Goal (STG) Pt will improve Watkins score to at least 40/56 (1 MDC) in order to demonstrate improved balance and decreased fall risk 09/05/23: 46/56 STG Duration 5 weeks MET Apartment Property Manager Goal (LTG) Pt will improve Watkins score to at least 48/56 in order to demonstrate improved balance and decreased fall risk 09/05/23: 46/56 11/02/23: 47/56 11/30/23: 40/56 LTG Duration 8 weeks PROGRESSING; NOT MET Assessment Summary Assessment Patient ambulated out of session with significant improvement in step length, clearance and velocity end of session using SPC. Physical Therapy Plan Frequency and Duration Frequency of Treatment 1-2x/wk Duration of treatment (weeks) 8 Plan of Care Start Date 11/30/23 Plan of Care End Date 02/02/24 Next Visit Focus/Plan Next Note Type Treatment Note Next Visit Plan Trial seated open book w/ band (add HEP), STS w/ ball toss POC: Large amplitude movement with gait, hurdles, unstable surface, balance rxn, trunk rotation and extension posturing (w/ STS, gait) gait: stride length, spc placement for safety, turns, fwd/retro gait, hurdles Address postural abnormalities , strengthening (core, BLE) POC: reduce retropulsion, decrease festination, improve cardiovascular endurance and BLE strength
--- NOTE | 2023-12-07 15:26 | PT.OTN ---
Current Diagnoses Parkinson's disease without dyskinesia, without mention of fluctuations (12/07/23) Other lack of coordination (12/07/23) Weakness (12/07/23) Physical Therapy Treatment Note PT-OP-A Visit Information Start: 07/31/23 10:30 Freq: Status: Active Protocol: Document 12/07/23 14:34 NM (Rec: 12/07/23 15:26 NM [id number]) Out-Patient Physical Therapy Visit Information Visit Information Visit Type Treatment Note Visit Note new set of 15 (includes IE) Visit Start Time 14:35 Visit Stop Time 15:15 Visit Number 02/01 Evaluation Information Evaluation Date 07/31/23 Precautions Precautions Parkinson's Disease, fall risk , Orthostatic hypotension slow positional transitions* * PT-OP-B Current Condition Start: 07/31/23 10:30 Freq: Status: Active Protocol: Document 07/31/23 10:30 NM (Rec: 07/31/23 12:20 NM [id number]) Current Condition History of Current Condition Onset Date 12 years ago Current Complaints endurance and strength History of Current Condition Pt presents with BLE weakness. He has hx of Parkinson's disease, 12 years since dx. States he has good days and bad days. States weakness has progressively worsened. His daughter is getting ; he has wanting to dance with her. He uses a spc (5 years), only when he feels unsteady. States he has had no falls recently. He has a walker and electric wheel chair (that he hasn't used in years). Currently lives in [address], lives with son and grandson, has a caregiver (primarily for showering and during mornings for medications. Pt reports that he has a walk in shower. States he is very sedentary overall, can only walk across yard with spc before becoming fatigued. States no dizziness. Currently on carbidopa/ levadopa, entacopone, and 1 more than he can't remember that he takes 4x/day every 4 hours. He has rigidity, decreased trunk rotation, muscle stiffness, bradykinesia ; no tremors, no freezing with gait or activities. States that he has had previous PT for PD which has been temporarily helpful. States R side is more affect (Leg > arms). He recently bought a theracycle that he is planning on using to supplement PT. Prior Treatments and Tests previous L RTC injury, no repair Treatment Goals Patient/Caregiver Goals slow dance with daughter in September for her wedding, improve household and community ambulation Current Functional Impairments (Reported) Functional Limitations- ADL's tranfers household Functional Limitations- Mobility/Gait household ambulation with spc; use of golf cart (street legal) which has more independence Functional Limitations- Recreation/ wood working Hobbies Functional Limitations- Other no longer driving PT-OP-C Subjective Start: 07/31/23 10:30 Freq: Status: Active Protocol: Document 12/07/23 14:34 NM (Rec: 12/07/23 15:26 NM [id number]) OP-PT Subjective Patient Comments Patient Comments Pt reports that he is stiff, felt worn out after last session. PT-OP-D Balance Start: 07/31/23 10:30 Freq: Status: Active Protocol: Document 07/31/23 10:30 NM (Rec: 07/31/23 12:20 NM [id number]) Balance Tests Watkins Balance Test Watkins Balance Test Score 35/56 Semi-Tandem Standing Semi-Tandem Standing Balance 3 sec PT-OP-E Functional Tests Start: 07/31/23 10:30 Freq: Status: Active Protocol: Document 07/31/23 10:30 NM (Rec: 07/31/23 12:20 NM [id number]) Functional Tests 6 Minute Walk Test Distance 737 Device Used spc Comments festinating; several standing rest breaks 30 Second Sit to Stand Test Score 15 Comments 20, knees remain flexed; retropulses PT-OP-F Manual Assessment Start: 07/31/23 10:30 Freq: Status: Active Protocol: Document 07/31/23 10:30 NM (Rec: 07/31/23 12:20 NM [id number]) Manual Assessments Soft Tissue Assessment Soft Tissue Mobility Assessment Observable limitations in B hamstring and heel cord length . Joint Mobility Assessment Joint Mobility Assessment Rigidity of trunk, BLE/BUE. Limitations in PROM and AROM of BLE/BUE due to tone PT-OP-G Mobility & Gait Start: 07/31/23 10:30 Freq: Status: Active Protocol: Document 07/31/23 10:30 NM (Rec: 07/31/23 12:20 NM [id number]) OP Gait Assessment Gait Gait Assistance Required: Standby Assistance,Contact Guard Assist Distance (Feet) 737 Assistive Devices Assistive Device Gait Belt,Straight Cane Gait Deviations General Gait Pattern Festinating,Flexed Trunk, Narrow Based Gait Factors Limiting Gait Function Factors Limiting Gait Function Abnormal Tonal Influences, Decreased Activity Tolerance, Decreased Strength,Limited Range of Motion,Poor Balance Comments Gait Comments Decreased cardiovascular endurance. SBA>CGA with fatigue Stair Climbing Evaluation Evaluation Level of Assist On Stairs Contact Guard Assistance Devices Stair Climbing Assistive Devices Left Railing Technique/Endurance Stair Climbing Direction Ascend and Descend Stair Climbing Technique Step Over Step Number of Steps Climbed 4 Stair Climbing Set # Repetitions (reps) 2 Comments Stair Climbing Comments Decreased stability with descent, increased trunk sway and and backward trunk lean PT-OP-H Neuro Start: 07/31/23 10:30 Freq: Status: Active Protocol: Document 07/31/23 10:30 NM (Rec: 07/31/23 12:20 NM [id number]) Coordination Evaluation Upper Extremity Tests Right Finger to Nose Test Moderate Impairment Finger to Therapist's Finger Test Moderate Impairment Finger to Finger Test Moderate Impairment Alternate Nose to Finger Test Moderate Impairment Pronation/Supination Test Minimal Impairment Left Finger to Nose Test Moderate Impairment Finger to Therapist's Finger Test Moderate Impairment Finger to Finger Test Moderate Impairment Alternate Nose to Finger Test Moderate Impairment Pronation/Supination Test Minimal Impairment Lower Extremity Tests Right Alternate Heel to Knee; Heel to Toe Test Moderate Impairment Heel on [place] Test Minimal Impairment Foot Tapping Test Minimal Impairment Left Alternate Heel to Knee; Heel to Toe Test Minimal Impairment Heel on [place] Test Minimal Impairment Foot Tapping Test Minimal Impairment Comments Coordination Comments limited Vital Signs Blood Pressure Sitting Blood Pressure (90/60-120/80 mmHg) 105/63 Blood Pressure Source Automatic Cuff,Right Upper Extremity Standing Blood Pressure (90/60-120/80 mmHg) 125/48 H Blood Pressure Source Automatic Cuff,Right Upper Extremity Supine Blood Pressure (90/60-120/80 mmHg) 133/68 H Blood Pressure Source Automatic Cuff,Right Upper Extremity Comments Vital Signs Comments Denies symptoms with orthostatic testing PT-OP-J Posture/Palpation/Skin Start: 07/31/23 10:30 Freq: Status: Active Protocol: Document 07/31/23 10:30 NM (Rec: 07/31/23 12:20 NM [id number]) Posture Evaluation Position Standing Head/C-Spine Posture Forward Head T-Spine Posture Increased Kyphosis Pelvis Posture Anteriorly Tilted Weight Distribution Weight Shifted Posterior Comments Posture Comments Forward trunk flexion posture. During movement, tendency for retropulsion. Demos synergistic movements of neck/ trunk with BUE/BLE movement PT-OP-K Range of Motion Start: 07/31/23 10:30 Freq: Status: Active Protocol: Document 07/31/23 10:30 NM (Rec: 07/31/23 14:56 NM [id number]) Hip Goniometric Range of Motion Hip ROM Limitations Hip ROM Limitations Muscle Tone Comments Increased rigidity Knee Goniometric Range of Motion Knee ROM Limitations Knee ROM Limitations Soft Tissue Tightness, Contracture Comments Hamstring length limited: 130 deg L, 140 deg R PT-OP-M Strength Start: 07/31/23 10:30 Freq: Status: Active Protocol: Document 07/31/23 10:30 NM (Rec: 07/31/23 12:20 NM [id number]) Hip Strength Hip Manual Muscle Testing Right Flexion (L2) 3+ Fair+ Extension (S1) 4- Good- Abduction 4- Good- Adduction 4- Good- Left Flexion (L2) 4- Good- Extension (S1) 4- Good- Abduction 4- Good- Adduction 4- Good- Knee Strength Knee Manual Muscle Testing Right Flexion (S2) 4- Good- Extension (L3) 4- Good- Left Flexion (S2) 4- Good- Extension (L3) 4- Good- Ankle/Foot Strength Ankle and Foot Manual Muscle Testing Left Dorsiflexion (L4) 4 Good Plantarflexion (S1) 4 Good Inversion 4 Good Eversion (S1) 4 Good Right Dorsiflexion (L4) 3+ Fair+ Plantarflexion (S1) 4- Good- Inversion 4- Good- Eversion (S1) 4- Good- PT-OP-Q Treatments Start: 07/31/23 10:30 Freq: Status: Active Protocol: Document 12/07/23 14:34 NM (Rec: 12/07/23 15:26 NM [id number]) Gait Training Gait Activity outdoor ambulation Device Used spc Level of Assistance CGA Surface curbs, gravel, grass, sidewalk Distance/Duration 10 minutes, various distances Treatment Focus stride length, sequencing, large amplitude movements, tall posture Comments cueing for spc sequencing with LLE as fatigues, hold slightly further from body and upright trunk positioning. Demos festination as fatigues. Improved turning in fewer steps with taller posture Neuro Re-Education Treatment Balance Activities hula hoop Details close SBA Surface stable Equipment 2# ankle wts Comments 1. stepping outside TRISHA and over hula hoop, then squat steel pickler, 4 reps w/ multidirectional turns 2. hula hoop, 3 reps for reactionay balance BOSU step up Details blue side up Surface unstable Equipment 2# ankle wt, 1 hand support on rail Reps/Duration 10 ea Comments CGA ball toss Details close SBA Equipment 2# ankle wts Comments 1. w/ trunk rotation from contralateral side then toss cross body at wall, 15 ea 2. overhead toss Hurdles Details CGA- min A Reps/Duration 6 hurdles x 4 reps Comments 1. Fwd w/ 2 feet between and alternating 2. lateral 3. Fwd while holding ball to limit visual contact 3. lateral w/ ball toss at floor btwn hurdles 3 instances min A as pt clips luiz. Cued to be closer to luiz before attempting to step over PT-OP-T Assessment and Plan Start: 07/31/23 10:30 Freq: Status: Active Protocol: Document 12/07/23 14:34 NM (Rec: 12/07/23 15:26 NM [id number]) Physical Therapy Assessment Goals Five Impairment gait, stride length Impairment festinating gait, episodes of freezing Filament Coil Winder Goal (LTG) Pt will ambulate with increased stride length with L foot passing R foot and R foot passing L foot at least 75% of the time without cues using LRAD in order to demonstrate improved foot clearance with gait and safety during ambulation 11/30/23: Pt demonstrates step- through pattern at least 60% of time, but less when demonstrating a freezing episode 12/07/23: pt demos step through pattern 75% of time, less freezing and festination LTG Duration 8 weeks- NEW GOAL 09/18/23; MET 12/07/23 Four Impairment HEP Impairment not performing HEP Short Term Goal (STG) Pt will report compliance with HEP at least 2x/wk in order to promote independence with HEP and maximize progression with PT. 09/05/23: 3-4x/wk STG Duration 5 weeks MET Care Home Goal (LTG) Pt will report compliance with HEP at least 3x/wk in order to promote independence with HEP and transition into maintenance program upon discharge from PT. 09/18/23: performing HEP 3x/wk LTG Duration 10 weeks MET Three Impairment balance, strength, posture Impairment 30 sec STS score 15 with retropulsion, 20 chair Short Term Goal (STG) Pt will be able to perform at least 10 sit to stands without UE assistance and without retropulsion in order to demonstrate improved posture, decreased fall risk, and improved BLE strength for gait /transfers 09/05/23: pt able to perform 10 sit to stands without UE assist and good form in previous sessions from standard chair STG Duration 5 weeks MET Filament Coil Winder Goal (LTG) UPDATED GOAL 09/17: Pt will be able to perform 5x STS test without UE support in 16 seconds or less (cut off specific to Parkinson's) in order to demonstrate decreased fall risk, improved posture, and BLE strength for gait and transfers. Pt will be able to perform 30 second STS test from standard chair without UE assistance and without retropulsion in order to demonstrate improved posture, decreased fall risk, and improved BLE strength for gait/transfers 09/18/23: 7 STS with improved form, eccentric lowering in 30 seconds w/o UE support 11/02/23: 26 sec 11/30/23: 15 seconds LTG Duration 10 weeks MET 09/18/23; goal updated 09/18/23- MET 11/30/23 One Impairment balance, fall risk Impairment Watkins 35/56 Short Term Goal (STG) Pt will improve Watkins score to at least 40/56 (1 MDC) in order to demonstrate improved balance and decreased fall risk 09/05/23: 46/56 STG Duration 5 weeks MET Care Home Goal (LTG) Pt will improve Watkins score to at least 48/56 in order to demonstrate improved balance and decreased fall risk 09/05/23: 46/56 11/02/23: 47/56 11/30/23: 40/56 LTG Duration 8 weeks PROGRESSING; NOT MET Assessment Summary Assessment Pt tolerated session well. Emphasis on performing large amplitude movements as fatigues, especially while navigating unstable unsurfaces . Demos improved stride length with step through pattern 75% of the time; demos flexed posture and festinating pattern as fatigued, improved with cueing. Pt demos improved reactionary and anticipatory balance with ball toss, stepping, hurdles, and picking up objects. Able to self correct with less assistance from PT with exception of hurdles, requiring min A to correct as pt attempts to take too large of step or clips luiz with foot. Pt would benefit from skilled PT for progressive balance, gait training, and strengthening in large amplitude movements in order to improve activity tolerance and offset PD symptoms. Physical Therapy Plan Frequency and Duration Frequency of Treatment 1-2x/wk Duration of treatment (weeks) 8 Plan of Care Start Date 11/30/23 Plan of Care End Date 02/02/24 Therapeutic Interventions Therapeutic Interventions Balance Training,Coordination Training,Gait Training,Home Exercise Program,Joint Mobilizations,Manual Therapy, Neuromuscular Re-education, Orthotic/Prosthetic Management ,Patient/Caregiver Education, Self-Care/Home Management, Sensory Integration,Soft Tissue Mobilization,Taping, Therapeutic Activities, Therapeutic Exercises Modalities Cold Pack/Ice Massage,Electric Stimulation,Hot Packs Next Visit Focus/Plan Next Note Type Treatment Note Next Visit Plan Trial seated open book w/ band (add HEP), navigate curbs, stairs, and grass w/ spc. large amplitude movements, tall posture, and trunk rotation POC: Large amplitude movement with gait, hurdles, unstable surface, balance rxn, trunk rotation and extension posturing (w/ STS, gait) gait: stride length, spc placement for safety, turns, fwd/retro gait, hurdles Address postural abnormalities , strengthening (core, BLE) POC: reduce retropulsion, decrease festination, improve cardiovascular endurance and BLE strength
--- NOTE | 2023-12-12 15:56 | PT.OTN ---
Current Diagnoses Parkinson's disease without dyskinesia, without mention of fluctuations (12/12/23) Other lack of coordination (12/12/23) Weakness (12/12/23) Physical Therapy Treatment Note PT-OP-A Visit Information Start: 07/31/23 10:30 Freq: Status: Active Protocol: Document 12/12/23 13:47 NM (Rec: 12/12/23 14:31 NM [id number]) Out-Patient Physical Therapy Visit Information Visit Information Visit Type Treatment Note Visit Note new set of 15 (includes IE) Visit Start Time 13:48 Visit Stop Time 14:30 Visit Number 03/03 Evaluation Information Evaluation Date 07/31/23 Precautions Precautions Parkinson's Disease, fall risk , Orthostatic hypotension slow positional transitions* * PT-OP-B Current Condition Start: 07/31/23 10:30 Freq: Status: Active Protocol: Document 07/31/23 10:30 NM (Rec: 07/31/23 12:20 NM [id number]) Current Condition History of Current Condition Onset Date 12 years ago Current Complaints endurance and strength History of Current Condition Pt presents with BLE weakness. He has hx of Parkinson's disease, 12 years since dx. States he has good days and bad days. States weakness has progressively worsened. His daughter is getting ; he has wanting to dance with her. He uses a spc (5 years), only when he feels unsteady. States he has had no falls recently. He has a walker and electric wheel chair (that he hasn't used in years). Currently lives [place] [address] [place], lives with son and grandson, has a caregiver (primarily for showering and during mornings for medications. Pt reports that he has a walk in shower. States he is very sedentary overall, can only walk across yard with spc before becoming fatigued. States no dizziness. Currently on carbidopa/ levadopa, entacopone, and 1 more than he can't remember that he takes 4x/day every 4 hours. He has rigidity, decreased trunk rotation, muscle stiffness, bradykinesia ; no tremors, no freezing with gait or activities. States that he has had previous PT for PD which has been temporarily helpful. States R side is more affect (Leg > arms). He recently bought a theracycle that he is planning on using to supplement PT. Prior Treatments and Tests previous L RTC injury, no repair Treatment Goals Patient/Caregiver Goals slow dance with daughter in September for her wedding, improve household and community ambulation Current Functional Impairments (Reported) Functional Limitations- ADL's tranfers household Functional Limitations- Mobility/Gait household ambulation with spc; use of golf cart (street legal) which has more independence Functional Limitations- Recreation/ wood working Hobbies Functional Limitations- Other no longer driving PT-OP-C Subjective Start: 07/31/23 10:30 Freq: Status: Active Protocol: Document 12/12/23 13:47 NM (Rec: 12/12/23 14:31 NM [id number]) OP-PT Subjective Patient Comments Patient Comments Pt reports that he is doign well but his legs feel tight. Reports that his caregiver Ewa will be coming in later this session to see how to help pt at home. PT-OP-D Balance Start: 07/31/23 10:30 Freq: Status: Active Protocol: Document 07/31/23 10:30 NM (Rec: 07/31/23 12:20 NM [id number]) Balance Tests Watkins Balance Test Watkins Balance Test Score 35/56 Semi-Tandem Standing Semi-Tandem Standing Balance 3 sec PT-OP-E Functional Tests Start: 07/31/23 10:30 Freq: Status: Active Protocol: Document 07/31/23 10:30 NM (Rec: 07/31/23 12:20 NM [id number]) Functional Tests 6 Minute Walk Test Distance 737 Device Used spc Comments festinating; several standing rest breaks 30 Second Sit to Stand Test Score 15 Comments 20, knees remain flexed; retropulses PT-OP-F Manual Assessment Start: 07/31/23 10:30 Freq: Status: Active Protocol: Document 07/31/23 10:30 NM (Rec: 07/31/23 12:20 NM [id number]) Manual Assessments Soft Tissue Assessment Soft Tissue Mobility Assessment Observable limitations in B hamstring and heel cord length . Joint Mobility Assessment Joint Mobility Assessment Rigidity of trunk, BLE/BUE. Limitations in PROM and AROM of BLE/BUE due to tone PT-OP-G Mobility & Gait Start: 07/31/23 10:30 Freq: Status: Active Protocol: Document 07/31/23 10:30 NM (Rec: 07/31/23 12:20 NM [id number]) OP Gait Assessment Gait Gait Assistance Required: Standby Assistance,Contact Guard Assist Distance (Feet) 737 Assistive Devices Assistive Device Gait Belt,Straight Cane Gait Deviations General Gait Pattern Festinating,Flexed Trunk, Narrow Based Gait Factors Limiting Gait Function Factors Limiting Gait Function Abnormal Tonal Influences, Decreased Activity Tolerance, Decreased Strength,Limited Range of Motion,Poor Balance Comments Gait Comments Decreased cardiovascular endurance. SBA>CGA with fatigue Stair Climbing Evaluation Evaluation Level of Assist On Stairs Contact Guard Assistance Devices Stair Climbing Assistive Devices Left Railing Technique/Endurance Stair Climbing Direction Ascend and Descend Stair Climbing Technique Step Over Step Number of Steps Climbed 4 Stair Climbing Set # Repetitions (reps) 2 Comments Stair Climbing Comments Decreased stability with descent, increased trunk sway and and backward trunk lean PT-OP-H Neuro Start: 07/31/23 10:30 Freq: Status: Active Protocol: Document 07/31/23 10:30 NM (Rec: 07/31/23 12:20 NM [id number]) Coordination Evaluation Upper Extremity Tests Right Finger to Nose Test Moderate Impairment Finger to Therapist's Finger Test Moderate Impairment Finger to Finger Test Moderate Impairment Alternate Nose to Finger Test Moderate Impairment Pronation/Supination Test Minimal Impairment Left Finger to Nose Test Moderate Impairment Finger to Therapist's Finger Test Moderate Impairment Finger to Finger Test Moderate Impairment Alternate Nose to Finger Test Moderate Impairment Pronation/Supination Test Minimal Impairment Lower Extremity Tests Right Alternate Heel to Knee; Heel to Toe Test Moderate Impairment Heel on [place] Test Minimal Impairment Foot Tapping Test Minimal Impairment Left Alternate Heel to Knee; Heel to Toe Test Minimal Impairment Heel on [place] Test Minimal Impairment Foot Tapping Test Minimal Impairment Comments Coordination Comments limited Vital Signs Blood Pressure Sitting Blood Pressure (90/60-120/80 mmHg) 105/63 Blood Pressure Source Automatic Cuff,Right Upper Extremity Standing Blood Pressure (90/60-120/80 mmHg) 125/48 H Blood Pressure Source Automatic Cuff,Right Upper Extremity Supine Blood Pressure (90/60-120/80 mmHg) 133/68 H Blood Pressure Source Automatic Cuff,Right Upper Extremity Comments Vital Signs Comments Denies symptoms with orthostatic testing PT-OP-J Posture/Palpation/Skin Start: 07/31/23 10:30 Freq: Status: Active Protocol: Document 07/31/23 10:30 NM (Rec: 07/31/23 12:20 NM [id number]) Posture Evaluation Position Standing Head/C-Spine Posture Forward Head T-Spine Posture Increased Kyphosis Pelvis Posture Anteriorly Tilted Weight Distribution Weight Shifted Posterior Comments Posture Comments Forward trunk flexion posture. During movement, tendency for retropulsion. Demos synergistic movements of neck/ trunk with BUE/BLE movement PT-OP-K Range of Motion Start: 07/31/23 10:30 Freq: Status: Active Protocol: Document 07/31/23 10:30 NM (Rec: 07/31/23 14:56 NM [id number]) Hip Goniometric Range of Motion Hip ROM Limitations Hip ROM Limitations Muscle Tone Comments Increased rigidity Knee Goniometric Range of Motion Knee ROM Limitations Knee ROM Limitations Soft Tissue Tightness, Contracture Comments Hamstring length limited: 130 deg L, 140 deg R PT-OP-M Strength Start: 07/31/23 10:30 Freq: Status: Active Protocol: Document 07/31/23 10:30 NM (Rec: 07/31/23 12:20 NM [id number]) Hip Strength Hip Manual Muscle Testing Right Flexion (L2) 3+ Fair+ Extension (S1) 4- Good- Abduction 4- Good- Adduction 4- Good- Left Flexion (L2) 4- Good- Extension (S1) 4- Good- Abduction 4- Good- Adduction 4- Good- Knee Strength Knee Manual Muscle Testing Right Flexion (S2) 4- Good- Extension (L3) 4- Good- Left Flexion (S2) 4- Good- Extension (L3) 4- Good- Ankle/Foot Strength Ankle and Foot Manual Muscle Testing Left Dorsiflexion (L4) 4 Good Plantarflexion (S1) 4 Good Inversion 4 Good Eversion (S1) 4 Good Right Dorsiflexion (L4) 3+ Fair+ Plantarflexion (S1) 4- Good- Inversion 4- Good- Eversion (S1) 4- Good- PT-OP-Q Treatments Start: 07/31/23 10:30 Freq: Status: Active Protocol: Document 12/12/23 13:47 NM (Rec: 12/12/23 14:31 NM [id number]) Therapeutic Exercises Sitting Exercises trunk rotation Sitting Exercise Name 1. open book, 2. open book w/ banded Side bilateral Resistance 1. AROM, 2. level 1 band Reps/Minutes 10 ea Piriformis stretch Sitting Exercise Name 1. figure 4 stretch, 2. cross body ADD Side bilateral Equipment Used standard chair Reps/Minutes 30 ea HS stretch Sitting Exercise Name HS and calf stretch Side bilateral Equipment Used 4 step for foot elevation, gait belt Reps/Minutes 2x60 ea Standing Exercises trunk rotation Side bilateral Resistance lvl 1 band (only 1) Reps/Minutes 10 ea Comments CGA to steady low row Side bilateral Resistance level 2 band Reps/Minutes 15 ea Comments cued for form step up Standing Exercise Name bosu Side bilateral Equipment Used 1 hand support; CGA to steady prn Reps/Minutes 10 ea Comments cued tall posture lat pull down Standing Exercise Name close SBA - HEP only if caregiver present Side bilateral Resistance lvl 2 Reps/Minutes 15 Comments cued for form STS Standing Exercise Name large amplitude Side bilateral Equipment Used std chair, level 1 band Reps/Minutes 2x10 Comments cued wide hands and wide arms Gait Training Gait Activity outdoor ambulation Device Used spc Level of Assistance CGA Surface curbs Comments 1. curbs Cueing for sequencing with spc and positioning 2. sidewalk ambulation w/ visual scanning for obstacles 3. turning while using spc Cued to maintain spc on ground with turns, wider TRISHA and fewer steps Self-Care/Home Management Treatment Education Caregiver Education Recommended use of gait belt for caregiver during standing exercises for HEP Other Education Recommended buying gait belt or stretch belt for stretches. Issued level 1 bands for HEP Educated on correct form for stretch, emphasizing that feeling resistance while standing/pushing down into FWW or pushing foot into ground in sitting is not equivalent to stretching correctly per past HEP due to pt rigidity; recommended working up to 2 minutes of stretching time PT-OP-T Assessment and Plan Start: 07/31/23 10:30 Freq: Status: Active Protocol: Document 12/12/23 13:47 NM (Rec: 12/12/23 14:31 NM [id number]) Physical Therapy Assessment Goals Five Impairment gait, stride length Impairment festinating gait, episodes of freezing Medication Specialist Goal (LTG) Pt will ambulate with increased stride length with L foot passing R foot and R foot passing L foot at least 75% of the time without cues using LRAD in order to demonstrate improved foot clearance with gait and safety during ambulation 11/30/23: Pt demonstrates step- through pattern at least 60% of time, but less when demonstrating a freezing episode 12/07/23: pt demos step through pattern 75% of time, less freezing and festination LTG Duration 8 weeks- NEW GOAL 7/1/24; MET 12/07/23 Four Impairment HEP Impairment not performing HEP Short Term Goal (STG) Pt will report compliance with HEP at least 2x/wk in order to promote independence with HEP and maximize progression with PT. 09/05/23: 3-4x/wk STG Duration 5 weeks MET Correction Goal (LTG) Pt will report compliance with HEP at least 3x/wk in order to promote independence with HEP and transition into maintenance program upon discharge from PT. 09/18/23: performing HEP 3x/wk LTG Duration 10 weeks MET Three Impairment balance, strength, posture Impairment 30 sec STS score 15 with retropulsion, 20 chair Short Term Goal (STG) Pt will be able to perform at least 10 sit to stands without UE assistance and without retropulsion in order to demonstrate improved posture, decreased fall risk, and improved BLE strength for gait /transfers 09/05/23: pt able to perform 10 sit to stands without UE assist and good form in previous sessions from standard chair STG Duration 5 weeks MET Medication Specialist Goal (LTG) UPDATED GOAL 09/17: Pt will be able to perform 5x STS test without UE support in 16 seconds or less (cut off specific to Parkinson's) in order to demonstrate decreased fall risk, improved posture, and BLE strength for gait and transfers. Pt will be able to perform 30 second STS test from standard chair without UE assistance and without retropulsion in order to demonstrate improved posture, decreased fall risk, and improved BLE strength for gait/transfers 09/18/23: 7 STS with improved form, eccentric lowering in 30 seconds w/o UE support 11/02/23: 26 sec 11/30/23: 15 seconds LTG Duration 10 weeks MET 09/18/23; goal updated 09/18/23- MET 11/30/23 One Impairment balance, fall risk Impairment Watkins 35/56 Short Term Goal (STG) Pt will improve Watkins score to at least 40/56 (1 MDC) in order to demonstrate improved balance and decreased fall risk 09/05/23: 46/56 STG Duration 5 weeks MET Medication Specialist Goal (LTG) Pt will improve Watkins score to at least 48/56 in order to demonstrate improved balance and decreased fall risk 09/05/23: 46/56 11/02/23: 47/56 11/30/23: 40/56 LTG Duration 8 weeks PROGRESSING; NOT MET Assessment Summary Assessment Pt tolerated session well, demonstrating fatigue but not worsening parkinson's symptoms at end of session. Session emphasis on establishing maintenance program for pt as discharge upcoming and pt's caregiver present at session for improved carryover at home . Pt demonstrates improvement in trunk rotation, cueing for large amplitude movements and to limit trunk/foot compensations due to effort/ fatigue. Able to progress to seated banded rotation, in addition to banded STS at thighs. Pt demonstrates improved larger amplitude motions and taller posture with less cueing today, cued only for posture as fatigues. During outdoor gait training, PT consistently cued pt for safety while turning especially for maintaining spc on ground. PT issued maintenance HEP and bands for carryover with clear education to caregiver about safety; caregiver and pt verbalize agreement. Physical Therapy Plan Frequency and Duration Frequency of Treatment 1-2x/wk Duration of treatment (weeks) 8 Plan of Care Start Date 11/30/23 Plan of Care End Date 02/02/24 Therapeutic Interventions Therapeutic Interventions Balance Training,Coordination Training,Gait Training,Home Exercise Program,Joint Mobilizations,Manual Therapy, Neuromuscular Re-education, Orthotic/Prosthetic Management ,Patient/Caregiver Education, Self-Care/Home Management, Sensory Integration,Soft Tissue Mobilization,Taping, Therapeutic Activities, Therapeutic Exercises Modalities Cold Pack/Ice Massage,Electric Stimulation,Hot Packs Next Visit Focus/Plan Next Note Type Treatment Note Next Visit Plan navigate curbs and turns. Trial big STS and big-type exercises with bungee or resistance band at trunk. cont work on unstable surfaces with fewer rest breaks POC: Large amplitude movement with gait, hurdles, unstable surface, balance rxn, trunk rotation and extension posturing (w/ STS, gait) gait: stride length, spc placement for safety, turns, fwd/retro gait, hurdles Address postural abnormalities , strengthening (core, BLE) POC: reduce retropulsion, decrease festination, improve cardiovascular endurance and BLE strength
--- NOTE | 2023-12-20 14:53 | PT-OP ANOTE ---
Pt did not show for appt today. FORENSIC ARTIST called to notify of missed appt. Pt stated didn't have the appt on his calendar but has had some updates in his appts. FORENSIC ARTIST discussed when a change is made to ask for a reprinted schedule for most up to date list. FORENSIC ARTIST also asked if got notifications via text and voice messages 7 days before and day before appt and pt stated needed to check, was unaware. FORENSIC ARTIST reminded of pt of next appt 12/28 at 1300, verbalized confirmation. Chart review only 2 more appts schedule, assess next tx if need add more.
--- NOTE | 2023-12-29 13:44 | PT.OTN ---
Current Diagnoses Parkinson's disease without dyskinesia, without mention of fluctuations (12/29/23) Other lack of coordination (12/29/23) Weakness (12/29/23) Physical Therapy Treatment Note PT-OP-A Visit Information Start: 07/31/23 10:30 Freq: Status: Active Protocol: Document 12/29/23 13:00 SP (Rec: 12/29/23 13:49 SP [id number]) Out-Patient Physical Therapy Visit Information Visit Information Visit Type Treatment Note Visit Note new set 15 (includes IE) Visit Start Time 13:00 Visit Stop Time 13:44 Visit Number Number of SURGICAL AIDE Visits 1 Evaluation Information Evaluation Date 07/31/23 Precautions Precautions Parkinson's Disease, fall risk , Orthostatic hypotension slow positional transitions* * PT-OP-B Current Condition Start: 07/31/23 10:30 Freq: Status: Active Protocol: Document 07/31/23 10:30 NM (Rec: 07/31/23 12:20 NM [id number]) Current Condition History of Current Condition Onset Date 12 years ago Current Complaints endurance and strength History of Current Condition Pt presents with BLE weakness. He has hx of Parkinson's disease, 12 years since dx. States he has good days and bad days. States weakness has progressively worsened. His daughter is getting ; he has wanting to dance with her. He uses a spc (5 years), only when he feels unsteady. States he has had no falls recently. He has a walker and electric wheel chair (that he hasn't used in years). Currently lives in 1 story home, lives with son and grandson, has a caregiver (primarily for showering and during mornings for medications. Pt reports that he has a walk in shower. States he is very sedentary overall, can only walk across yard with spc before becoming fatigued. States no dizziness. Currently on carbidopa/ levadopa, entacopone, and 1 more than he can't remember that he takes 4x/day every 4 hours. He has rigidity, decreased trunk rotation, muscle stiffness, bradykinesia ; no tremors, no freezing with gait or activities. States that he has had previous PT for PD which has been temporarily helpful. States R side is more affect (Leg > arms). He recently bought a theracycle that he is planning on using to supplement PT. Prior Treatments and Tests previous L RTC injury, no repair Treatment Goals Patient/Caregiver Goals slow dance with daughter in September for her wedding, improve household and community ambulation Current Functional Impairments (Reported) Functional Limitations- ADL's tranfers household Functional Limitations- Mobility/Gait household ambulation with spc; use of golf cart (street legal) which has more independence Functional Limitations- Recreation/ wood working Hobbies Functional Limitations- Other no longer driving PT-OP-C Subjective Start: 07/31/23 10:30 Freq: Status: Active Protocol: Document 12/29/23 13:00 SP (Rec: 12/29/23 13:49 SP [id number]) OP-PT Subjective Patient Comments Patient Comments Pt reports is sore after PT most days, but helping moving better. He states compliant with HEP home as well. PT-OP-D Balance Start: 07/31/23 10:30 Freq: Status: Active Protocol: Document 07/31/23 10:30 NM (Rec: 07/31/23 12:20 NM [id number]) Balance Tests Watkins Balance Test Watkins Balance Test Score 35/56 Semi-Tandem Standing Semi-Tandem Standing Balance 3 sec PT-OP-E Functional Tests Start: 07/31/23 10:30 Freq: Status: Active Protocol: Document 07/31/23 10:30 NM (Rec: 07/31/23 12:20 NM [id number]) Functional Tests 6 Minute Walk Test Distance 737 Device Used spc Comments festinating; several standing rest breaks 30 Second Sit to Stand Test Score 15 Comments 20, knees remain flexed; retropulses PT-OP-F Manual Assessment Start: 07/31/23 10:30 Freq: Status: Active Protocol: Document 07/31/23 10:30 NM (Rec: 07/31/23 12:20 NM [id number]) Manual Assessments Soft Tissue Assessment Soft Tissue Mobility Assessment Observable limitations in B hamstring and heel cord length . Joint Mobility Assessment Joint Mobility Assessment Rigidity of trunk, BLE/BUE. Limitations in PROM and AROM of BLE/BUE due to tone PT-OP-G Mobility & Gait Start: 07/31/23 10:30 Freq: Status: Active Protocol: Document 07/31/23 10:30 NM (Rec: 07/31/23 12:20 NM [id number]) OP Gait Assessment Gait Gait Assistance Required: Standby Assistance,Contact Guard Assist Distance (Feet) 737 Assistive Devices Assistive Device Gait Belt,Straight Cane Gait Deviations General Gait Pattern Festinating,Flexed Trunk, Narrow Based Gait Factors Limiting Gait Function Factors Limiting Gait Function Abnormal Tonal Influences, Decreased Activity Tolerance, Decreased Strength,Limited Range of Motion,Poor Balance Comments Gait Comments Decreased cardiovascular endurance. SBA>CGA with fatigue Stair Climbing Evaluation Evaluation Level of Assist On Stairs Contact Guard Assistance Devices Stair Climbing Assistive Devices Left Railing Technique/Endurance Stair Climbing Direction Ascend and Descend Stair Climbing Technique Step Over Step Number of Steps Climbed 4 Stair Climbing Set # Repetitions (reps) 2 Comments Stair Climbing Comments Decreased stability with descent, increased trunk sway and and backward trunk lean PT-OP-H Neuro Start: 07/31/23 10:30 Freq: Status: Active Protocol: Document 07/31/23 10:30 NM (Rec: 07/31/23 12:20 NM [id number]) Coordination Evaluation Upper Extremity Tests Right Finger to Nose Test Moderate Impairment Finger to Therapist's Finger Test Moderate Impairment Finger to Finger Test Moderate Impairment Alternate Nose to Finger Test Moderate Impairment Pronation/Supination Test Minimal Impairment Left Finger to Nose Test Moderate Impairment Finger to Therapist's Finger Test Moderate Impairment Finger to Finger Test Moderate Impairment Alternate Nose to Finger Test Moderate Impairment Pronation/Supination Test Minimal Impairment Lower Extremity Tests Right Alternate Heel to Knee; Heel to Toe Test Moderate Impairment Heel on [place] Test Minimal Impairment Foot Tapping Test Minimal Impairment Left Alternate Heel to Knee; Heel to Toe Test Minimal Impairment Heel on [place] Test Minimal Impairment Foot Tapping Test Minimal Impairment Comments Coordination Comments limited Vital Signs Blood Pressure Sitting Blood Pressure (90/60-120/80 mmHg) 105/63 Blood Pressure Source Automatic Cuff,Right Upper Extremity Standing Blood Pressure (90/60-120/80 mmHg) 125/48 H Blood Pressure Source Automatic Cuff,Right Upper Extremity Supine Blood Pressure (90/60-120/80 mmHg) 133/68 H Blood Pressure Source Automatic Cuff,Right Upper Extremity Comments Vital Signs Comments Denies symptoms with orthostatic testing PT-OP-J Posture/Palpation/Skin Start: 07/31/23 10:30 Freq: Status: Active Protocol: Document 07/31/23 10:30 NM (Rec: 07/31/23 12:20 NM [id number]) Posture Evaluation Position Standing Head/C-Spine Posture Forward Head T-Spine Posture Increased Kyphosis Pelvis Posture Anteriorly Tilted Weight Distribution Weight Shifted Posterior Comments Posture Comments Forward trunk flexion posture. During movement, tendency for retropulsion. Demos synergistic movements of neck/ trunk with BUE/BLE movement PT-OP-K Range of Motion Start: 07/31/23 10:30 Freq: Status: Active Protocol: Document 07/31/23 10:30 NM (Rec: 07/31/23 14:56 NM [id number]) Hip Goniometric Range of Motion Hip ROM Limitations Hip ROM Limitations Muscle Tone Comments Increased rigidity Knee Goniometric Range of Motion Knee ROM Limitations Knee ROM Limitations Soft Tissue Tightness, Contracture Comments Hamstring length limited: 130 deg L, 140 deg R PT-OP-M Strength Start: 07/31/23 10:30 Freq: Status: Active Protocol: Document 07/31/23 10:30 NM (Rec: 07/31/23 12:20 NM [id number]) Hip Strength Hip Manual Muscle Testing Right Flexion (L2) 3+ Fair+ Extension (S1) 4- Good- Abduction 4- Good- Adduction 4- Good- Left Flexion (L2) 4- Good- Extension (S1) 4- Good- Abduction 4- Good- Adduction 4- Good- Knee Strength Knee Manual Muscle Testing Right Flexion (S2) 4- Good- Extension (L3) 4- Good- Left Flexion (S2) 4- Good- Extension (L3) 4- Good- Ankle/Foot Strength Ankle and Foot Manual Muscle Testing Left Dorsiflexion (L4) 4 Good Plantarflexion (S1) 4 Good Inversion 4 Good Eversion (S1) 4 Good Right Dorsiflexion (L4) 3+ Fair+ Plantarflexion (S1) 4- Good- Inversion 4- Good- Eversion (S1) 4- Good- PT-OP-Q Treatments Start: 07/31/23 10:30 Freq: Status: Active Protocol: Document 12/29/23 13:00 SP (Rec: 12/29/23 13:49 SP [id number]) Therapeutic Exercises Sitting Exercises BIG side to side Sitting Exercise Name initiated in PT Side bilateral Reps/Minutes 5 reps x10SH Comments modeled, shape leg back, arm front palm up BIG STS Sitting Exercise Name initiated in PT: 1. AROM 2. green>red bungee cord Resistance AROM, green>red against resistance (front chair approx 12 steps from wall) Equipment Used black BIG chair Reps/Minutes x10 each Comments modeled/shaped UEs ER out as side hips slow eccentric sit arms front Piriformis stretch Sitting Exercise Name 1. figure 4 stretch, 2. cross body ADD Side bilateral Equipment Used standard chair Reps/Minutes 30 ea Comments post uneven step ups HS stretch Sitting Exercise Name HS Side bilateral Equipment Used foot on floor Reps/Minutes 5 breath Comments end tx cool down, cued breath Standing Exercises step up Standing Exercise Name bosu Side bilateral Resistance 4 step + black foam Equipment Used near stair rail, PRN needed contact Reps/Minutes 10 ea LE lead up/back down Comments cued tall posture, foot fully on step, wt shfit over LE slower ecc stepping Neuro Re-Education Treatment Balance Activities Hurdles Details CGA Equipment 6 hurldles floor then + foam fwd receiprocal, lateral floor Reps/Duration 3 laps each direction Comments Cued slower softer stepping, elongated posture, wts shift into TKE stance LE, tactile cue arm swing. 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 (LTG) Pt will ambulate with increased stride length with L foot passing R foot and R foot passing L foot at least 75% of the time without cues using LRAD in order to demonstrate improved foot clearance with gait and safety during ambulation 11/30/23: Pt demonstrates step- through pattern at least 60% of time, but less when demonstrating a freezing episode 12/07/23: pt demos step through pattern 75% of time, less freezing and festination LTG Duration 8 weeks- NEW GOAL 09/18/23; MET 12/07/23 Four Impairment HEP Impairment not performing HEP Short Term Goal (STG) Pt will report compliance with HEP at least 2x/wk in order to promote independence with HEP and maximize progression with PT. 09/05/23: 3-4x/wk STG Duration 5 weeks MET Half-Way Goal (LTG) Pt will report compliance with HEP at least 3x/wk in order to promote independence with HEP and transition into maintenance program upon discharge from PT. 09/18/23: performing HEP 3x/wk LTG Duration 10 weeks MET Three Impairment balance, strength, posture Impairment 30 sec STS score 15 with retropulsion, 20 chair Short Term Goal (STG) Pt will be able to perform at least 10 sit to stands without UE assistance and without retropulsion in order to demonstrate improved posture, decreased fall risk, and improved BLE strength for gait /transfers 09/05/23: pt able to perform 10 sit to stands without UE assist and good form in previous sessions from standard chair STG Duration 5 weeks MET Wire Stripping Machine Operator Goal (LTG) UPDATED GOAL 09/17: Pt will be able to perform 5x STS test without UE support in 16 seconds or less (cut off specific to Parkinson's) in order to demonstrate decreased fall risk, improved posture, and BLE strength for gait and transfers. Pt will be able to perform 30 second STS test from standard chair without UE assistance and without retropulsion in order to demonstrate improved posture, decreased fall risk, and improved BLE strength for gait/transfers 09/18/23: 7 STS with improved form, eccentric lowering in 30 seconds w/o UE support 11/02/23: 26 sec 11/30/23: 15 seconds LTG Duration 10 weeks MET 09/18/23; goal updated 09/18/23- MET 11/30/23 One Impairment balance, fall risk Impairment Watkins 35/56 Short Term Goal (STG) Pt will improve Watkins score to at least 40/56 (1 MDC) in order to demonstrate improved balance and decreased fall risk 09/05/23: 46/56 STG Duration 5 weeks MET Wire Stripping Machine Operator Goal (LTG) Pt will improve Watkins score to at least 48/56 in order to demonstrate improved balance and decreased fall risk 09/05/23: 46/56 11/02/23: 47/56 11/30/23: 40/56 LTG Duration 8 weeks PROGRESSING; NOT MET Assessment Summary Assessment Pt put forth good effort today , focused on increased UE, LE and trunk AROM with larger amplitude. Tactile cues for leg back further and UE arm lift side to side, and eccentric hip hinge sitting motions with and without resistance. Pt was ableto complete uneven step up/back down, cues and CG- Min 15%A with cueing wt shift forward COG over TRISHA lessened no UE support but near stairs rail. Cues for soft stepping during luiz activity and improved TKE with hip under trunk to improve stability over that stanced LE, only CGA-5%A needed. Physical Therapy Plan Frequency and Duration Frequency of Treatment 1-2x/wk Duration of treatment (weeks) 8 Plan of Care Start Date 11/30/23 Plan of Care End Date 02/02/24 Therapeutic Interventions Therapeutic Interventions Balance Training,Coordination Training,Gait Training,Home Exercise Program,Joint Mobilizations,Manual Therapy, Neuromuscular Re-education, Orthotic/Prosthetic Management ,Patient/Caregiver Education, Self-Care/Home Management, Sensory Integration,Soft Tissue Mobilization,Taping, Therapeutic Activities, Therapeutic Exercises Modalities Cold Pack/Ice Massage,Electric Stimulation,Hot Packs Next Visit Focus/Plan Next Note Type Treatment Note Next Visit Plan Next tx last visit scheduled, add navigate curbs and turns. Recheck response BIGGER STS and big-type exercises ( provide HOs next tx if needed) with bungee or resistance band at trunk. Cont work on unstable surfaces with fewer rest breaks POC: Large amplitude movement with gait, hurdles, unstable surface, balance rxn, trunk rotation and extension posturing (w/ STS, gait) gait: stride length, spc placement for safety, turns, fwd/retro gait, hurdles Address postural abnormalities , strengthening (core, BLE) POC: reduce retropulsion, decrease festination, improve cardiovascular endurance and BLE strength
--- NOTE | 2024-01-03 15:41 | PT.OTN ---
Current Diagnoses Parkinson's disease without dyskinesia, without mention of fluctuations (01/03/24) Other lack of coordination (01/03/24) Weakness (01/03/24) Physical Therapy Treatment Note PT-OP-A Visit Information Start: 07/31/23 10:30 Freq: Status: Active Protocol: Document 01/03/24 10:44 NM (Rec: 01/03/24 11:30 NM [id number]) Out-Patient Physical Therapy Visit Information Visit Information Visit Type Discharge Summary Visit Note new set 15 (includes IE) Visit Start Time 10:45 Visit Stop Time 11:25 Visit Number 14 Evaluation Information Evaluation Date 07/31/23 Precautions Precautions Parkinson's Disease, fall risk , Orthostatic hypotension slow positional transitions* * PT-OP-B Current Condition Start: 07/31/23 10:30 Freq: Status: Active Protocol: Document 07/31/23 10:30 NM (Rec: 07/31/23 12:20 NM [id number]) Current Condition History of Current Condition Onset Date 12 years ago Current Complaints endurance and strength History of Current Condition Pt presents with BLE weakness. He has hx of Parkinson's disease, 12 years since dx. States he has good days and bad days. States weakness has progressively worsened. His daughter is getting ; he has wanting to dance with her. He uses a spc (5 years), only when he feels unsteady. States he has had no falls recently. He has a walker and electric wheel chair (that he hasn't used in years). Currently lives in [address], lives with son and grandson, has a caregiver (primarily for showering and during mornings for medications. Pt reports that he has a walk in shower. States he is very sedentary overall, can only walk across yard with spc before becoming fatigued. States no dizziness. Currently on carbidopa/ levadopa, entacopone, and 1 more than he can't remember that he takes 4x/day every 4 hours. He has rigidity, decreased trunk rotation, muscle stiffness, bradykinesia ; no tremors, no freezing with gait or activities. States that he has had previous PT for PD which has been temporarily helpful. States R side is more affect (Leg > arms). He recently bought a theracycle that he is planning on using to supplement PT. Prior Treatments and Tests previous L RTC injury, no repair Treatment Goals Patient/Caregiver Goals slow dance with daughter in September for her wedding, improve household and community ambulation Current Functional Impairments (Reported) Functional Limitations- ADL's tranfers household Functional Limitations- Mobility/Gait household ambulation with spc; use of golf cart (street legal) which has more independence Functional Limitations- Recreation/ wood working Hobbies Functional Limitations- Other no longer driving PT-OP-C Subjective Start: 07/31/23 10:30 Freq: Status: Active Protocol: Document 01/03/24 10:44 NM (Rec: 01/03/24 11:30 NM [id number]) OP-PT Subjective Patient Comments Patient Comments Pt reports doing well today. States legs have been really tight, states could not walk after PT last session. He has been stretching and using CBD oil. He reports has been doing maintenance program with Ewa his caregiver, at least 3/day. Pt states ready to discharge today but is going to submit for more authorization PT-OP-D Balance Start: 07/31/23 10:30 Freq: Status: Active Protocol: Document 07/31/23 10:30 NM (Rec: 07/31/23 12:20 NM [id number]) Balance Tests Watkins Balance Test Watkins Balance Test Score 35/56 Semi-Tandem Standing Semi-Tandem Standing Balance 3 sec PT-OP-E Functional Tests Start: 07/31/23 10:30 Freq: Status: Active Protocol: Document 07/31/23 10:30 NM (Rec: 07/31/23 12:20 NM [id number]) Functional Tests 6 Minute Walk Test Distance 737 Device Used spc Comments festinating; several standing rest breaks 30 Second Sit to Stand Test Score 15 Comments 20, knees remain flexed; retropulses PT-OP-F Manual Assessment Start: 07/31/23 10:30 Freq: Status: Active Protocol: Document 07/31/23 10:30 NM (Rec: 07/31/23 12:20 NM [id number]) Manual Assessments Soft Tissue Assessment Soft Tissue Mobility Assessment Observable limitations in B hamstring and heel cord length . Joint Mobility Assessment Joint Mobility Assessment Rigidity of trunk, BLE/BUE. Limitations in PROM and AROM of BLE/BUE due to tone PT-OP-G Mobility & Gait Start: 07/31/23 10:30 Freq: Status: Active Protocol: Document 07/31/23 10:30 NM (Rec: 07/31/23 12:20 NM [id number]) OP Gait Assessment Gait Gait Assistance Required: Standby Assistance,Contact Guard Assist Distance (Feet) 737 Assistive Devices Assistive Device Gait Belt,Straight Cane Gait Deviations General Gait Pattern Festinating,Flexed Trunk, Narrow Based Gait Factors Limiting Gait Function Factors Limiting Gait Function Abnormal Tonal Influences, Decreased Activity Tolerance, Decreased Strength,Limited Range of Motion,Poor Balance Comments Gait Comments Decreased cardiovascular endurance. SBA>CGA with fatigue Stair Climbing Evaluation Evaluation Level of Assist On Stairs Contact Guard Assistance Devices Stair Climbing Assistive Devices Left Railing Technique/Endurance Stair Climbing Direction Ascend and Descend Stair Climbing Technique Step Over Step Number of Steps Climbed 4 Stair Climbing Set # Repetitions (reps) 2 Comments Stair Climbing Comments Decreased stability with descent, increased trunk sway and and backward trunk lean PT-OP-H Neuro Start: 07/31/23 10:30 Freq: Status: Active Protocol: Document 07/31/23 10:30 NM (Rec: 07/31/23 12:20 NM [id number]) Coordination Evaluation Upper Extremity Tests Right Finger to Nose Test Moderate Impairment Finger to Therapist's Finger Test Moderate Impairment Finger to Finger Test Moderate Impairment Alternate Nose to Finger Test Moderate Impairment Pronation/Supination Test Minimal Impairment Left Finger to Nose Test Moderate Impairment Finger to Therapist's Finger Test Moderate Impairment Finger to Finger Test Moderate Impairment Alternate Nose to Finger Test Moderate Impairment Pronation/Supination Test Minimal Impairment Lower Extremity Tests Right Alternate Heel to Knee; Heel to Toe Test Moderate Impairment Heel on [place] Test Minimal Impairment Foot Tapping Test Minimal Impairment Left Alternate Heel to Knee; Heel to Toe Test Minimal Impairment Heel on [place] Test Minimal Impairment Foot Tapping Test Minimal Impairment Comments Coordination Comments limited Vital Signs Blood Pressure Sitting Blood Pressure (90/60-120/80 mmHg) 105/63 Blood Pressure Source Automatic Cuff,Right Upper Extremity Standing Blood Pressure (90/60-120/80 mmHg) 125/48 H Blood Pressure Source Automatic Cuff,Right Upper Extremity Supine Blood Pressure (90/60-120/80 mmHg) 133/68 H Blood Pressure Source Automatic Cuff,Right Upper Extremity Comments Vital Signs Comments Denies symptoms with orthostatic testing PT-OP-J Posture/Palpation/Skin Start: 07/31/23 10:30 Freq: Status: Active Protocol: Document 07/31/23 10:30 NM (Rec: 07/31/23 12:20 NM [id number]) Posture Evaluation Position Standing Head/C-Spine Posture Forward Head T-Spine Posture Increased Kyphosis Pelvis Posture Anteriorly Tilted Weight Distribution Weight Shifted Posterior Comments Posture Comments Forward trunk flexion posture. During movement, tendency for retropulsion. Demos synergistic movements of neck/ trunk with BUE/BLE movement PT-OP-K Range of Motion Start: 07/31/23 10:30 Freq: Status: Active Protocol: Document 07/31/23 10:30 NM (Rec: 07/31/23 14:56 NM [id number]) Hip Goniometric Range of Motion Hip ROM Limitations Hip ROM Limitations Muscle Tone Comments Increased rigidity Knee Goniometric Range of Motion Knee ROM Limitations Knee ROM Limitations Soft Tissue Tightness, Contracture Comments Hamstring length limited: 130 deg L, 140 deg R PT-OP-M Strength Start: 07/31/23 10:30 Freq: Status: Active Protocol: Document 07/31/23 10:30 NM (Rec: 07/31/23 12:20 NM [id number]) Hip Strength Hip Manual Muscle Testing Right Flexion (L2) 3+ Fair+ Extension (S1) 4- Good- Abduction 4- Good- Adduction 4- Good- Left Flexion (L2) 4- Good- Extension (S1) 4- Good- Abduction 4- Good- Adduction 4- Good- Knee Strength Knee Manual Muscle Testing Right Flexion (S2) 4- Good- Extension (L3) 4- Good- Left Flexion (S2) 4- Good- Extension (L3) 4- Good- Ankle/Foot Strength Ankle and Foot Manual Muscle Testing Left Dorsiflexion (L4) 4 Good Plantarflexion (S1) 4 Good Inversion 4 Good Eversion (S1) 4 Good Right Dorsiflexion (L4) 3+ Fair+ Plantarflexion (S1) 4- Good- Inversion 4- Good- Eversion (S1) 4- Good- PT-OP-Q Treatments Start: 07/31/23 10:30 Freq: Status: Active Protocol: Document 01/03/24 10:44 NM (Rec: 01/03/24 11:30 NM [id number]) Therapeutic Exercises Sitting Exercises marching Sitting Exercise Name with alt hands Side bilateral Resistance level 2 band at thighs Reps/Minutes 2x10 ea Comments mirror PT; challenging to coord if inc speed, better if dec speed HS stretch Sitting Exercise Name HS/calf stretch Side bilateral Equipment Used foot on chair, strap assist Reps/Minutes 2x60 ea Comments cued breathwork hip abduction Side bilateral Resistance level 2 band at thighs Equipment Used performed with large amplitude shldr ABD/trunk rotation Reps/Minutes 20 ea Standing Exercises large amplitude stepping Standing Exercise Name 1. fwd step and reach, 2. bwd step and reach Side bilateral Equipment Used 1 finger support on chair Reps/Minutes 10 ea side, ea exercise Comments 1 stumble w/o LOB, able to correct STS Standing Exercise Name large amplitude Side bilateral Equipment Used std chair, level 2 band Reps/Minutes 10 Comments cued wide hands and wide arms Neuro Re-Education Treatment Balance Activities Watkins Reps/Duration 45/56 PT-OP-T Assessment and Plan Start: 07/31/23 10:30 Freq: Status: Active Protocol: Document 01/03/24 10:44 NM (Rec: 01/03/24 11:30 NM [id number]) Physical Therapy Assessment Goals Five Impairment gait, stride length Impairment festinating gait, episodes of freezing [facility] Goal (LTG) Pt will ambulate with increased stride length with L foot passing R foot and R foot passing L foot at least 75% of the time without cues using LRAD in order to demonstrate improved foot clearance with gait and safety during ambulation 11/30/23: Pt demonstrates step- through pattern at least 60% of time, but less when demonstrating a freezing episode 12/07/23: pt demos step through pattern 75% of time, less freezing and festination 01/03/24: no episodes of freezing or festination, no cues required for gait. step through pattern and greater stride length 75% of time LTG Duration 8 weeks- NEW GOAL 09/18/23; MET 12/07/23 Four Impairment HEP Impairment not performing HEP Short Term Goal (STG) Pt will report compliance with HEP at least 2x/wk in order to promote independence with HEP and maximize progression with PT. 09/05/23: 3-4x/wk STG Duration 5 weeks MET [facility] Goal (LTG) Pt will report compliance with HEP at least 3x/wk in order to promote independence with HEP and transition into maintenance program upon discharge from PT. 09/18/23: performing HEP 3x/wk LTG Duration 10 weeks MET Three Impairment balance, strength, posture Impairment 30 sec STS score 15 with retropulsion, 20 chair Short Term Goal (STG) Pt will be able to perform at least 10 sit to stands without UE assistance and without retropulsion in order to demonstrate improved posture, decreased fall risk, and improved BLE strength for gait /transfers 09/05/23: pt able to perform 10 sit to stands without UE assist and good form in previous sessions from standard chair STG Duration 5 weeks MET [employer] Goal (LTG) UPDATED GOAL 09/17: Pt will be able to perform 5x STS test without UE support in 16 seconds or less (cut off specific to Parkinson's) in order to demonstrate decreased fall risk, improved posture, and BLE strength for gait and transfers. Pt will be able to perform 30 second STS test from standard chair without UE assistance and without retropulsion in order to demonstrate improved posture, decreased fall risk, and improved BLE strength for gait/transfers 09/18/23: 7 STS with improved form, eccentric lowering in 30 seconds w/o UE support 11/02/23: 26 sec 11/30/23: 15 seconds LTG Duration 10 weeks MET 09/18/23; goal updated 09/18/23- MET 11/30/23 One Impairment balance, fall risk Impairment Watkins 35/56 Short Term Goal (STG) Pt will improve Watkins score to at least 40/56 (1 MDC) in order to demonstrate improved balance and decreased fall risk 09/05/23: 46/56 STG Duration 5 weeks MET [employer] Goal (LTG) Pt will improve Watkins score to at least 48/56 in order to demonstrate improved balance and decreased fall risk 09/05/23: 46/56 11/02/23: 47/56 11/30/23: 40/56 01/03/24: 45/56 LTG Duration 8 weeks PROGRESSING; NOT MET 01/03/24 Assessment Summary Assessment Pt had good tolerance for session, gives good effort. Demos 45/56 on Watkins balance score. Session emphasis on maintenance program review ( issued in 12/11 session w/ caregiver) and improving hamstring/calf length. Continues to respond well to stretching; PT educated pt on performing stretching per prescription vs just pushing into ground. Added coordination/alternating UE/LE in seated with gentle strengthening; challenging to coordinate without cueing for slower motion to maintain trunk control. Pt does have 1 stumble with backward step and reach, but able to self correct without LOB. Physical Therapy Plan Frequency and Duration Frequency of Treatment 1-2x/wk Duration of treatment (weeks) 8 Plan of Care Start Date 11/30/23 Plan of Care End Date 02/02/24 Therapeutic Interventions Therapeutic Interventions Balance Training,Coordination Training,Gait Training,Home Exercise Program,Joint Mobilizations,Manual Therapy, Neuromuscular Re-education, Orthotic/Prosthetic Management ,Patient/Caregiver Education, Self-Care/Home Management, Sensory Integration,Soft Tissue Mobilization,Taping, Therapeutic Activities, Therapeutic Exercises Modalities Cold Pack/Ice Massage,Electric Stimulation,Hot Packs Discharge Physical Therapy Discharge Comments Pt used all available visits in authorization period. Has met 4/5 PT goals. Will need new auth and referral to return to PT in future. Discharge to maintenance program Next Visit Focus/Plan Next Note Type Discharge Summary Next Visit Plan discharge from PT
== END 2024-01-09 08:31 | disposition home or self-care (01) ==
LOC: PHYS 10:45
PROVIDERS: Family Provider Nutritionist; PCP Nutritionist
DX: G20.A1 Parkinson's disease without dyskinesia, without mention of fluctuations (principal); R53.1 Weakness; R27.8 Other lack of coordination
CPT/HCPCS: 97110; 97112; 97116; 97140; 97162; 97530; 97535

== ENCOUNTER → 2024-05-21 12:08 | Outpatient (CLI) | payer OTHER, SELFPAY ==
[2017-07-31 22:09] VITALS: BMI 29.2
--- NOTE | 2024-05-21 12:10 | DI.MRI.S_ITS ---
PROCEDURE: MR PELVIC PROSTATE PROTOCOL INDICATIONS: Elevated PSA TECHNIQUE: Coronal HASTE, axial T1 FSE with fat saturation, 3-plane nonbreath-hold T2 FSE. After the administration of contrast, dynamic axial, delayed axial and coronal VIBE or 2-D FLASH with fat saturation through the pelvis. Diffusion weighted imaging and ADC was performed. COMPARISON: None. FINDINGS: Image quality: Diffusion weighted and dynamic contrast enhanced images are diagnostic. Prostate: Gland size is 4.6 x 2.8 x 3.9 cm; ellipsoid gland volume is 26 mL. PSA density of 3.84, abnormal. Lesion 1: Location: Right lateral peripheral zone, mid gland to base, on axial series 4, image 11 and coronal series 5, image 13. Size: 0.8 x 2.0 cm. T2W signal: Hypointense. DWI signal: Markedly hyperintense. ADC signal: Markedly hypointense. Enhancement: Yes. Extracapsular extension: Broad-based contact. PI-RADS score: 5 Genitourinary system: Bladder wall thickness is normal. Distal ureters are non distended. Bowel and peritoneum: No pathologic free pelvic fluid. Inferior colon and small bowel loops are normal in caliber. Nodes and vessels: Borderline enlarged bilateral obturator chain nodes measuring 7 8 millimeters (series 21, image 84. Soft tissues: No inguinal hernias. Bones: Marrow demonstrates normal overall signal, without lesions to suggest metastases. IMPRESSION: PI-RADS 5 lesion in the lateral peripheral zone of the base to mid gland. Broad-based capsular contact may indicate extra prosthetic extension. Borderline enlarged bilateral obturator chain nodes. No aggressive osseous abnormality. Consider PMSA exam given extent of disease to exclude nancy metastasis. Dictated by: Reg Sandoval M.D. on 05/22/2024 at 10:39 Approved by: Reg Sandoval M.D. on 05/22/2024 at 10:44
== END ==
PROVIDERS: Family Provider Nutritionist; PCP Nutritionist; Referring Provider Urology; Visit Provider Urology
DX: N42.9 Disorder of prostate, unspecified (principal); R97.20 Elevated prostate specific antigen [PSA]
CPT/HCPCS: 72197; A9579

== ENCOUNTER → 2024-09-10 09:33 | Outpatient (CLI) | payer OTHER, SELFPAY ==
[2017-07-31 22:09] VITALS: BMI 29.2
--- NOTE | 2024-09-10 09:37 | DI.CT.S_ITS ---
PROCEDURE: CT CHEST ABD PEL W CON INDICATIONS: 74 y/o M w/ newly diagnosed prostate cancer, eval for mets TECHNIQUE: After the administration of intravenous contrast, 5 mm thick sections acquired from the lung apices to the symphysis. 5 mm coronal and sagittal reformats were performed, with additional 7 mm MIP reformats through the lungs. For radiation dose reduction, the following was used: automated exposure control, adjustment of mA and/or kV according to patient size. COMPARISON: [facility], MR, MR PELVIC PROSTATE PROTOCOL, 05/21/2024, 12:17. FINDINGS: Image quality: Excellent. CHEST: Lower Neck: No enlarged lymph nodes. Thyroid: Heterogeneous right mid to lower pole thyroid nodule measuring 2.5 cm. Scattered small hypodensities elsewhere in the gland. Axillae: No enlarged lymph nodes. Chest Wall: Minor bilateral gynecomastia. No suspicious chest wall mass. Lungs and Pleura: Minimal patchy nodular ground-glass opacity in the posterior segment left lower lobe, images 156 through 184. No other suspicious nodules, masses, ground-glass opacities, or dense consolidations. Occasional juxta fissural lymph nodes. No pleural effusion or pleural plaquing. Heart: Heart size is normal. Trace pericardial effusion. Mild to moderate coronary artery calcification. Moderate mitral annular calcification. Thoracic Vessels: The aorta and pulmonary arteries demonstrate normal size. Mediastinum and Anu: No enlarged lymph nodes. Esophagus: No wall thickening. No hiatal hernia. ABDOMEN: Liver: No solid mass. Gallbladder: Small dependent stone at the gallbladder neck. No gallbladder wall thickening. Biliary ducts: No biliary dilation. Pancreas: No ductal dilation. Spleen: Size is within normal limits. Adrenal Glands: No adrenal nodules. Kidneys and Ureters: A collection of two tiny calculi in the left lower pole calyx. A few cortical cysts in the left kidney. Otherwise symmetric and normal renal enhancement. No hydronephrosis. Ureters are nondilated. Stomach and Bowel: Stomach and small bowel loops are normal. Large quantity of rectal stool and mildly increased quantity of colonic stool. Normal appendix. Peritoneum: No abnormal intraperitoneal fluid. No free air. Ventral Wall: No significant ventral hernia. Abdominal Nodes: No retroperitoneal or mesenteric adenopathy by size criteria. Vessels: The abdominal aorta, IVC, and portal vein are of normal caliber. Heavy abdominal aortic atherosclerotic calcification. PELVIS: Pelvic Organs: Normal size prostate gland. Loss of fat plane between the posterior prostate and anterior rectal serosal surface. Bladder: Minor circumferential bladder wall thickening. No stones. Pelvic Nodes: No pathologically enlarged adenopathy. Please see pelvic MRI for further details. Miscellaneous: No inguinal hernias are seen. Bones: Lucent lesion in the L5 vertebral body. No cortical disruption. No other bone lesions identified. IMPRESSION: No evidence of suspicious adenopathy or definite metastatic disease in the chest, abdomen, or pelvis. Lumbar spine lesion is likely hemangioma given lack of enhancement on recent MRI. Minimal ground-glass nodularity in the posterior left lower lobe, probably small amount of pneumonitis. Right thyroid nodule. Further evaluation with thyroid ultrasound recommended on a routine basis. Nonobstructing left intrarenal calculi. Colonic and rectal obstipation. Dictated by: Kelsi Coughlin M.D. on 09/11/2024 at 12:53 Approved by: Kelsi Coughlin M.D. on 09/11/2024 at 13:11
[2024-09-10 10:31] LABS: Estimated Glomerular Filt Rate 35 mL/min (>60)
== END ==
PROVIDERS: Family Provider Nutritionist; PCP Nutritionist; Referring Provider Urology; Visit Provider Urology
DX: C61 Malignant neoplasm of prostate (principal); I25.10 Atherosclerotic heart disease of native coronary artery without angina pectoris; I34.81 Nonrheumatic mitral (valve) annulus calcification; K80.20 Calculus of gallbladder without cholecystitis without obstruction; I70.0 Atherosclerosis of aorta; N20.0 Calculus of kidney; K59.00 Constipation, unspecified; E04.1 Nontoxic single thyroid nodule
CPT/HCPCS: 36415; 71260; 74177; 82565; Q9967

== ENCOUNTER → 2024-09-26 09:34 | Outpatient (CLI) | payer OTHER, SELFPAY ==
[2017-07-31 22:09] VITALS: BMI 29.2
--- NOTE | 2024-09-26 09:35 | DI.NM.S_ITS ---
PROCEDURE: NM BONE SCAN WHOLE BODY RADIOPHARMACEUTICAL: 21.6 mCi Tc-99m MDP IV. INDICATIONS: 74 y/o M w/ newly diagnosed prostate cancer, eval for mets TECHNIQUE: Delayed whole-body scintigrams were obtained approximately 3-4 hours after intravenous injection of radiotracer. Anterior and posterior views were acquired from vertex to feet. Additional left and right oblique views of the pelvis were obtained. COMPARISON: [facility], CT, CT CHEST ABD PEL W CON, 09/10/2024, 10:39. FINDINGS: No convincing osteoblastic disease in the bones. There is excretion of radiotracer into the collecting system and bladder. Upper and lower extremity degenerative changes are present. IMPRESSION: No convincing osteoblastic metastases on scintigraphy. No uptake specifically noted at the L5 lesions seen on CT. Upper and lower extremity degenerative changes are present. Dictated by: Praveen Collazo M.D. on 09/26/2024 at 15:45 Approved by: Praveen Collazo M.D. on 09/26/2024 at 15:47
== END ==
LOC: NUCM 09:35
PROVIDERS: Family Provider Nutritionist; PCP Nutritionist; Referring Provider Urology; Visit Provider Urology
DX: C61 Malignant neoplasm of prostate (principal)
CPT/HCPCS: 78306; A9503

== ENCOUNTER → 2024-12-26 19:43 | Outpatient (CLI) | payer OTHER, SELFPAY ==
[2017-07-31 22:09] VITALS: BMI 29.2
--- NOTE | 2024-12-26 19:45 | DI.MRI.S_ITS ---
PROCEDURE: MR PELVIS WO CON INDICATIONS: Malignant neoplasm of prostate TECHNIQUE: Non-contrast axial GRE acquired from the top of the seminal vesicles through the base of the penis, centered on the prostate gland. COMPARISON: None. FINDINGS: Image quality: Limited due to rectal gas and stool. Fiducial markers present in a normal size prostate gland. Previously seen enlarged bilateral obturator nodes are less well seen given artifact. IMPRESSION: MR imaging of the prostate for radiation treatment protocol. Dictated by: Kelsi Coughlin M.D. on 12/27/2024 at 15:47 Approved by: Kelsi Coughlin M.D. on 12/27/2024 at 15:50
== END ==
PROVIDERS: Family Provider Nutritionist; PCP Nutritionist; Referring Provider Radiology Radiation Oncology; Visit Provider Radiology Radiation Oncology
DX: C61 Malignant neoplasm of prostate (principal)
CPT/HCPCS: 72195

== ENCOUNTER 2025-02-08 15:02 | Inpatient (IN) | payer OTHER, SELFPAY ==
[2017-07-31 22:09] VITALS: BMI 29.2
[2025-02-08] VITALS (11 sets, daily range): BP systolic 134–159; BP diastolic 63–105; PULSE 70–82; RESP 16–38; TEMP 36.6–37.2; O2SAT 92–99; BMI 23.8
--- NOTE | 2025-02-08 15:22 | DI.RAD.S_ITS ---
PROCEDURE: XR CHEST 1V INDICATIONS: flu-like symptoms TECHNIQUE: One view of the chest was acquired. COMPARISON: None. FINDINGS: Surgical changes and devices: None. Lungs and pleura: Lungs are clear. No pleural effusions or pneumothorax. Mediastinum: Mediastinal contours appear normal. Heart size is normal. Atherosclerotic vascular calcification noted in the aortic arch. Bones and chest wall: No suspicious bony lesions. Overlying soft tissues appear unremarkable. IMPRESSION: No acute cardiopulmonary abnormality is seen. Approved by: Thor Pacheco M.D. on 02/08/2025 at 15:04
--- NOTE | 2025-02-08 15:22 | EKG_ITS ---
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
[2025-02-08 15:32] LABS: Add Manual Diff / Slide Review NO; Hematocrit 33.6 % (41-53); Hemoglobin 11.9 g/dL (13.5-17.5); Lymphocytes Absolute Auto 800 /uL (1100-4500); Mean Corpuscular HGB Conc 35.5 % (30-36); Mean Corpuscular Hemoglobin 35.7 PG (26-34); Mean Corpuscular Volume 100.5 fL (80-100); Platelet Count 166 X10^3/uL (150-400)
[2025-02-08 15:37] LABS: Alanine Aminotransferase 9 IU/L (<50); Albumin 3.9 g/dL (3.5-5.0); Albumin Globulin Ratio 1.4 (1.0-2.8); Alkaline Phosphatase 83 U/L (38-126); Blood Urea Nitrogen 42 mg/dL (9-20); Calcium 8.7 mg/dL (8.4-10.2); Carbon Dioxide 20 mmol/L (22-32); Chloride 110 mmol/L (98-107); Creatine Kinase 89 U/L (55-170); Creatine Kinase 90 U/L (55-170); Estimated Glomerular Filt Rate 27 mL/min (>60); Globulin 2.7 g/dL (1.7-4.1); Glucose 192 mg/dL (70-99); HEMOLYSIS < 15 (0-50); Lactate (Lactic Acid) 2.0 mmol/L (0.7-2.1); Potassium 4.7 mmol/L (3.4-5.1); Sodium 137 mmol/L (137-145); Total Protein 6.6 g/dL (6.3-8.2)
[2025-02-08 15:48] LABS: NT-proBNP (BNP-Adult 18+) 525 pg/mL (<450); Troponin I 0.063 ng/mL (0.01-0.034)
--- NOTE | 2025-02-08 16:27 | ED.SOB ---
HPI - SOB/Dyspnea General Chief Complaint: Shortness of Breath/Dyspnea Stated Complaint: SOB Time Seen by Provider: 02/08/25 16:24 Source: patient and EMS Mode of arrival: EMS History of Present Illness HPI Narrative: 74 years old male with history of hypertension, diabetes on insulin, dyslipidemia, Parkinson brought in by ambulance for shortness of breath, chest tightness, lightheadedness today. The patient said he has been working on his wood carving and had to walk more than usual so later noticed lightheadedness, shortness of breath, chest tightness heart racing so he called 911. He denied any current chest tightness but still some shortness of breath. He otherwise denied any sweating, vomiting, loss of consciousness, abdominal pain, diarrhea, constipation, urine problem, leg pain, leg swelling, history of blood clot. He said his Sinemet just got increased dose last week. Related Data Home Medications ?Medication ?Instructions ?Recorded ?Confirmed VITAMIN D (Vitamin D3) 4,000 u PO QDAY ##0 03/13/16 12/16/24 insulin glargine U-300 conc 300 102 unit SQ DAILY ##0 03/13/16 12/16/24 unit/mL (1.5 mL) subcutaneous pen (T[employer] SoloStar U-300 Insulin) atorvastatin 40 mg tablet 40 mg PO DAILY 08/01/17 12/16/24 multivitamin with minerals 1 tab PO DAILY 08/01/17 12/16/24 mirabegron 25 mg tablet,extended 25 mg PO .hs 09/29/22 12/16/24 release 24 hr semaglutide 1 mg/dose (2 mg/1.5 1 mg SUBCUT QWEEK 09/29/22 12/16/24 mL) subcutaneous pen injector (Ozempic) tamsulosin 0.4 mg capsule 0.8 mg PO BEDTIME 09/29/22 12/16/24 carbidopa 25 mg-levodopa 100 1 tab PO QID 05/16/24 12/16/24 mg-entacapone 200 mg tablet polyethylene glycol 3350 17 17 g PO BID 05/16/24 12/16/24 gram/dose oral powder (Miralax) Previous Rx's ?Medication ?Instructions ?Recorded amlodipine 5 mg tablet (Norvasc) 10 mg (2 x 5 mg) PO DAILY #30 tabs 08/02/17 benazepril 20 mg tablet 20 mg PO DAILY #30 tabs 08/02/17 levofloxacin 750 mg tablet 750 mg PO DAILY #3 tabs 12/09/24 sodium,potassium,mag sulfates 17.5 See Rx Instructions PO .COMPLEX 12/09/24 gram-3.13 gram-1.6 gram oral soln #354 mL (Suprep Bowel Prep Kit) Allergies Allergy/AdvReac Type Severity Reaction Status Date / Time No Known Allergies Allergy Verified 12/16/24 10:22 Review of Systems Review of Systems Narrative: Positive for chest tightness, shortness of breath, lightheadedness, heart racing. Negative for current chest pain, leg pain, leg swelling, fever, runny nose, sore throat, coughing, vomiting, diarrhea, urine problem, loss of consciousness. Patient History Medical History High prostate specific antigen (PSA) History of urinary retention History of urinary tract infection UTI (urinary tract infection) Nocturia more than twice per night Elevated serum creatinine History of kidney stones Urinary retention History of arthritis Kidney stone Hypertension Hypercholesteremia Diabetes mellitus Parkinson disease Surgical History Hx of vasectomy History of circumcision as Family History Father No problems noted. Brother Diabetes mellitus Social History marital status: number of children: 5 household members: none lives independently: Yes occupational status: previously employed and other other: He drinks 1-2 glasses of wine at night. He quit smoking in 1969 alcohol intake: former caffeine: Yes Type(s) of exercise: none Smoking Status: Former smoker alcohol intake frequency: other Alcohol type: wine and hard liquor Exam Narrative Exam Narrative: GENERAL: Alert awake without acute distress. HEAD: Atraumatic. Normocephalic. NECK: Trachea midline. Non tender CARDIOVASCULAR: Regular rate and rhythm, systolic murmur, gallops, or rubs. RESPIRATORY: Clear to auscultation. Breath sounds equal bilaterally. No wheezes, rales, or rhonchi. GASTROINTESTINAL: Abdomen soft, non-tender, nondistended. EXTREMITIES: No edema or joint tenderness. BACK: Nontender without deformity or crepitance. No flank tenderness. NEURO: AOx3. Moving all extremities SKIN: No rash or erythema of visible areas Initial Vital Signs Initial Vital Signs: Vital Signs Pulse Rate 72 02/08/25 15:08 Respiratory Rate 38 H 02/08/25 15:08 Course Orders Ordered: ED Orders 02/08/25 15:10 Complete Blood Count AUTO DIFF Stat Comprehensive Metabolic Panel Stat Creatine Kinase Stat D Dimer Stat Lactate (Lactic Acid) Stat NT-proBNP (BNP-Adult 18+) Stat Troponin & CK Cardiac Panel Stat 02/08/25 15:22 XR chest 1V Stat EKG-12 Lead Stat 02/08/25 15:31 COVID19 -Nasal RAPID Stat 02/08/25 16:59 Complete Blood Count AUTO DIFF Routine Prothrombin Time INR Routine 02/08/25 17:00 PTT Partial Thromboplastin Xu Q6H 02/08/25 17:04 Consult to Cardiology Stat 02/08/25 17:10 Trop I [Troponin I] Stat 02/08/25 23:00 PTT Partial Thromboplastin Xu Q6H 02/09/25 05:00 Hemoglobin and Hematocrit DAILY PTT Partial Thromboplastin Xu Q6H Platelet Count DAILY 02/09/25 11:00 PTT Partial Thromboplastin Xu Q6H 02/10/25 05:00 Hemoglobin and Hematocrit DAILY Platelet Count DAILY Heparin Sodium/Dextrose (Heparin Drip) 25,000 unit in 500 mls @ 18.071 mls/hr IV CONT AQUILES; Protocol Nitroglycerin (Nitroglycerin 0.4 Mg Sl Tab) 0.4 mg SL [id number] PRN PRN Reason: Chest Pain Discontinued Medications Aspirin (Aspirin 81 Mg Chew Tab) 324 mg PO NOW ONE Stop: 02/08/25 17:05 Heparin Sodium (Porcine) (Heparin 5,000 Unit/Ml Vial) 4,500 unit IV NOW ONE Stop: 02/08/25 17:00 Vital Signs Vital signs: Vital Signs - 8 hr 02/08/25 15:08 02/08/25 15:10 02/08/25 15:10 Temperature Pulse Rate 72 71 Respiratory Rate 38 H 33 H Blood Pressure 159/70 H Pulse Oximetry 96 Oxygen Delivery Method 02/08/25 15:14 02/08/25 15:30 02/08/25 15:30 Temperature 97.9 F Pulse Rate 70 70 Respiratory Rate 20 34 H Blood Pressure 159/70 H 135/63 Pulse Oximetry 94 95 Oxygen Delivery Method Room Air MDM - SOB/Dyspnea Lab Data 02/08/25 15:10 02/08/25 15:10 Labs: Lab Results 02/08/25 02/08/25 02/08/25 Range/Units 15:10 15:10 15:52 WBC 7.6 (4.5-11.0) X10^3/uL RBC 3.34 L (4.5-5.9) X10^6/uL Hgb 11.9 L (13.5-17.5) g/dL Hct 33.6 L (41-53) % MCV 100.5 H (80-100) fL MCH 35.7 H (26-34) PG MCHC 35.5 (30-36) % RDW 14.0 (11.6-14.8) % Plt Count 166 (150-400) X10^3/uL Neut % (Auto) 81.9 H (50-75) % Lymph % (Auto) 11.0 L (25-40) % [place] % (Auto) 5.7 (3-14) % Eos % (Auto) 1.0 L (2-4) % Baso % (Auto) 0.4 (0-2) % Neut # (Auto) 6200 (0138-8020) /uL Lymph # (Auto) 800 L (2927-3227) /uL [place] # (Auto) 400 (0-900) /uL Eos # (Auto) 100 (0-450) /uL Baso # (Auto) 0 (0-100) /uL D-Dimer 424 (<500) ng/ml Sodium 137 (137-145) mmol/L Potassium 4.7 (3.4-5.1) mmol/L Chloride 110 H (98-107) mmol/L Carbon Dioxide 20 L (22-32) mmol/L BUN 42 H (9-20) mg/dL Creatinine 2.40 H (0.66-1.25) mg/dL Estimated GFR 27 L (>60) mL/min BUN/Creatinine Ratio 17.5 (6-22) Glucose 192 H (70-99) mg/dL Lactate 2.0 (0.7-2.1) mmol/L Calcium 8.7 (8.4-10.2) mg/dL Total Bilirubin 1.3 (0.2-1.3) mg/dL AST 27 (17-59) IU/L ALT 9 (<50) IU/L Alkaline Phosphatase 83 (38-126) U/L Total Creatine Kinase 89 90 (55-170) U/L Troponin I 0.063 H (0.01-0.034) ng/mL NT-Pro-B Natriuret Pep 525 H (<450) pg/mL Total Protein 6.6 (6.3-8.2) g/dL Albumin 3.9 (3.5-5.0) g/dL Globulin 2.7 (1.7-4.1) g/dL Albumin/Globulin Ratio 1.4 (1.0-2.8) SARS-CoV-2 (PCR) Negative (Negative) ECG Data Interpretation: EKG showed normal sinus rhythm at 71 beats per minute with first-degree AV block without ischemic ST-T changes. Normal axis. No prolonged QT. Second EKG showed normal sinus rhythm at 72 beats per minute with first-degree AV block with inverted T-wave in lead 3, without ischemic ST changes. No prolonged QT. Normal axis. MDM Narrative Medical decision making narrative: 74 years old male with history of hypertension, diabetes on insulin, dyslipidemia, Parkinson brought in by ambulance for shortness of breath, chest tightness, lightheadedness today. The patient said he has been working on his wood carving and had to walk more than usual so later noticed lightheadedness, shortness of breath, chest tightness heart racing so he called 911. He denied any current chest tightness but still some shortness of breath. He otherwise denied any sweating, vomiting, loss of consciousness, abdominal pain, diarrhea, constipation, urine problem, leg pain, leg swelling, history of blood clot. CV exam showed a systolic murmur, regular rhythm. His abdominal exam, lung exam were normal. No pedal edema on both legs. He is alert oriented x4 in the ED without acute distress. 5:05 p.m.. I discussed the case with our paint pourer on-call, Dr. Dumont recommended decreased benazepril to 10 mg and continue Lipitor 40 mg, amlodipine 10 mg. He will be due consult in the morning. Agree with heparin drip. Consult was placed. I discussed the case with our hospitalist and the patient was accepted to the hospital. CBC showed hemoglobin 11.9 otherwise normal CBC. BNP showed BUN 42 creatinine is 2.4 bicarb 20. Lactic acid 2.0. LFT was normal. BNP 525 and troponin 0.063 CK 90. Chest x-ray showed no acute finding. D-dimer 424. Negative COVID. Discharge Plan Departure Patient Disposition: Admitted As Inpatient Clinical Impression: Non-ST elevated myocardial infarction (non-STEMI) Admit Date/Time: 02/08/25 17:04 Admit Provider: Juan Pedersen
--- NOTE | 2025-02-08 16:37 | EKG_ITS ---
[facility] [address] [place] [address] Test Date: 2025-02-08 Pat Name: Kiet Ca Department: Room: 214 Gender: Male Reporting Coordinator: : 1950 Requested By: Order Number: [id number] Reading MD: Juan Pedersen Measurements Intervals [place] Rate: 72 P: 39 SC: 256 QRS: 20 QRSD: 102 T: 0 QT: 438 QTc: 479 Interpretive Statements Sinus rhythm with 1st degree AV block Electronically Signed On 02-09-2025 8:00:24 PST by Juan Pedersen
[2025-02-08 16:38] LABS: COVID19 -Nasal RAPID Negative (Negative)
[2025-02-08] MEDS: HEPARIN DRIP 25,000 UNIT/500 ML IV.SOLN 18.071 UNIT IV ×2 (17:25→20:08)
[2025-02-08] MEDS: HEPARIN 5,000 UNIT/ML VIAL 4500 UNIT IV (17:26)
[2025-02-08 17:41] LABS: Troponin I 0.060 ng/mL (0.01-0.034)
[2025-02-08] MEDS: ASPIRIN 81 MG CHEW TAB 324 MG PO (17:42)
--- NOTE | 2025-02-08 17:55 | PM.HP.1 ---
History of Present Illness History of Present Illness Date Patient Seen: 02/08/25 Time Patient Seen: 17:56 Chief complaint: SOB Narrative: Patient was a 74-year-old male with a history of hypertension, diabetes, HLD, and Parkinson's disease. He developed shortness a breath and chest tightness as well as being lightheaded today after working on wood carving. EMS was active and he was brought to the hospital by ambulance. He was found to have a clear chest x-ray, and an elevated troponin. He denies any cardiac history to me. He did have a stress test many years ago. He denies exertional chest pain or dyspnea recently. In the ED, he felt somewhat short of breath but was not hypoxemic. He was having some dystonia of his arms and legs which he feels is mostly related to his Parkinson's. He did have a upward titration of his Sinemet dosing about a week ago. He denies history of rectal bleeding. He was given aspirin 324 in the ED and a heparin drip. He was not on a chronic beta blockade and was not given Plavix in the ED. [facility] Medical History High prostate specific antigen (PSA) History of urinary retention History of urinary tract infection UTI (urinary tract infection) Nocturia more than twice per night Elevated serum creatinine History of kidney stones Urinary retention History of arthritis Kidney stone Hypertension Hypercholesteremia Diabetes mellitus Parkinson disease Surgical History Hx of vasectomy History of circumcision as Family History Father No problems noted. Brother Diabetes mellitus Social History marital status: number of children: 5 household members: none lives independently: Yes occupational status: previously employed and other other: He drinks 1-2 glasses of wine at night. He quit smoking in 1969 Smoking Status: Former smoker alcohol intake: former caffeine: Yes Type(s) of exercise: none Meds Home Medications and Allergies Home Medications ?Medication ?Instructions ?Recorded ?Confirmed ?Type VITAMIN D (Vitamin D3) 4,000 u PO QDAY ##0 03/13/16 12/16/24 History insulin glargine U-300 conc 300 102 unit SQ DAILY ##0 03/13/16 12/16/24 History unit/mL (1.5 mL) subcutaneous pen (Gloria ColónoStar U-300 Insulin) atorvastatin 40 mg tablet 40 mg PO DAILY 08/01/17 12/16/24 History multivitamin with minerals 1 tab PO DAILY 08/01/17 12/16/24 History amlodipine 5 mg tablet (Norvasc) 10 mg (2 x 5 mg) PO DAILY #30 tabs 08/02/17 12/16/24 Rx benazepril 20 mg tablet 20 mg PO DAILY #30 tabs 08/02/17 12/16/24 Rx mirabegron 25 mg tablet,extended 25 mg PO .hs 09/29/22 12/16/24 History release 24 hr semaglutide 1 mg/dose (2 mg/1.5 1 mg SUBCUT QWEEK 09/29/22 12/16/24 History mL) subcutaneous pen injector (Ozempic) tamsulosin 0.4 mg capsule 0.8 mg PO BEDTIME 09/29/22 12/16/24 History carbidopa 25 mg-levodopa 100 1 tab PO QID 05/16/24 12/16/24 History mg-entacapone 200 mg tablet polyethylene glycol 3350 17 17 g PO BID 05/16/24 12/16/24 History gram/dose oral powder (Miralax) levofloxacin 750 mg tablet 750 mg PO DAILY #3 tabs 12/09/24 12/16/24 Rx sodium,potassium,mag sulfates 17.5 See Rx Instructions PO .COMPLEX 12/09/24 12/16/24 Rx gram-3.13 gram-1.6 gram oral soln #354 mL (Suprep Bowel Prep Kit) Allergies Allergy/AdvReac Type Severity Reaction Status Date / Time No Known Allergies Allergy Verified 02/08/25 18:36 Review of Systems Review of Systems Narrative: All else reviewed and otherwise unremarkable except as noted in the history and physical. Exam Vital Signs (past 8 hours): - 02/08/25 15:08 02/08/25 15:10 02/08/25 15:10 Temperature Pulse Rate 72 71 Respiratory Rate 38 H 33 H Blood Pressure 159/70 H Pulse Oximetry 96 Oxygen Delivery Method 02/08/25 15:14 02/08/25 15:30 02/08/25 15:30 Temperature 97.9 F Pulse Rate 70 70 Respiratory Rate 20 34 H Blood Pressure 159/70 H 135/63 Pulse Oximetry 94 95 Oxygen Delivery Method Room Air 02/08/25 16:00 02/08/25 16:00 02/08/25 16:30 Temperature Pulse Rate 74 75 Respiratory Rate 26 H 24 Blood Pressure 139/65 Pulse Oximetry 92 97 Oxygen Delivery Method 02/08/25 16:30 02/08/25 16:32 02/08/25 16:32 Temperature Pulse Rate 76 Respiratory Rate 27 H Blood Pressure 150/105 H 134/91 H Pulse Oximetry 96 Oxygen Delivery Method 02/08/25 17:00 02/08/25 17:00 02/08/25 17:30 Temperature Pulse Rate 79 82 Respiratory Rate 28 H 26 H Blood Pressure 148/63 H Pulse Oximetry 94 96 Oxygen Delivery Method 02/08/25 17:30 Temperature Pulse Rate Respiratory Rate Blood Pressure 148/71 H Pulse Oximetry Oxygen Delivery Method Oxygen Delivery Method Room Air Narrative Exam Narrative: NAD, alert and oriented, fluent speech, calm. Normocephalic skull, EOMI, anicteric sclera, symmetric pupils. Oropharynx unremarkable, no droop. Neck supple, midline trachea, no adenopathy. Lungs clear, normal rate and effort. Heart regular, no murmur gallop or rub. Abdomen is soft, non distended and non tender. Extremities are free of edema. Skin is free of rash or lesions. Joints are not swollen or deformed. Judgment appears to be normal. Objective ECG Impression: ntervals [place] Rate: 71 P: 80 AL: 250 QRS: 28 QRSD: 92 T: 14 QT: 436 QTc: 473 Interpretive Statements Sinus rhythm with 1st degree AV block Imaging Chest x-ray: Radiologist's impression: No acute cardiopulmonary abnormality is seen. Labs 02/08/25 15:10 02/08/25 15:10 Labs: Laboratory Results - last 24 hr 02/08/25 02/08/25 02/08/25 15:10 15:10 15:52 WBC 7.6 RBC 3.34 L Hgb 11.9 L Hct 33.6 L MCV 100.5 H MCH 35.7 H MCHC 35.5 RDW 14.0 Plt Count 166 Neut % (Auto) 81.9 H Lymph % (Auto) 11.0 L [place] % (Auto) 5.7 Eos % (Auto) 1.0 L Baso % (Auto) 0.4 Neut # (Auto) 6200 Lymph # (Auto) 800 L [place] # (Auto) 400 Eos # (Auto) 100 Baso # (Auto) 0 D-Dimer 424 Sodium 137 Potassium 4.7 Chloride 110 H Carbon Dioxide 20 L BUN 42 H Creatinine 2.40 H Estimated GFR 27 L BUN/Creatinine Ratio 17.5 Glucose 192 H Lactate 2.0 Calcium 8.7 Total Bilirubin 1.3 AST 27 ALT 9 Alkaline Phosphatase 83 Total Creatine Kinase 89 90 Troponin I 0.063 H NT-Pro-B Natriuret Pep 525 H Total Protein 6.6 Albumin 3.9 Globulin 2.7 Albumin/Globulin Ratio 1.4 SARS-CoV-2 (PCR) Negative 02/08/25 17:11 WBC RBC Hgb Hct MCV MCH MCHC RDW Plt Count Neut % (Auto) Lymph % (Auto) [place] % (Auto) Eos % (Auto) Baso % (Auto) Neut # (Auto) Lymph # (Auto) [place] # (Auto) Eos # (Auto) Baso # (Auto) D-Dimer Sodium Potassium Chloride Carbon Dioxide BUN Creatinine Estimated GFR BUN/Creatinine Ratio Glucose Lactate Calcium Total Bilirubin AST ALT Alkaline Phosphatase Total Creatine Kinase Troponin I 0.060 H NT-Pro-B Natriuret Pep Total Protein Albumin Globulin Albumin/Globulin Ratio SARS-CoV-2 (PCR) Assessment & Plan Assessment & Plan narrative: 1. NSTEMI, active 2. Dm 2, insulin-dependent, active. 3. Parkinson's disease, active. 4. Hypertension, active. 5. HLD, active. PLAN: -cardiology consult -Plavix load now and then 75 mg QD. -Metoprolol 12.5 BID -heparin drip -aspirin, beta blockade, and atorvastatin. -lisinopril 2.5 mg daily. -Ativan as needed for anxiety. -trend troponin -2D echo tomorrow Anticipate 2 midnights in the hospital, supports inpatient status. DNR, confirmed tonight He lives with a son, proxy decision maker. They are in [place]. Time-Based Coding :: 35 min spent with patient and on the chart (including review of chart, obtaining history, exam, reviewing outside data, placing orders, documenting exam and treatment plan, and counseling patient) on 02/08. Quality MIPS - Admit I confirm the patient?s Advance Care Plan is present, Code status is documented, Surrogate decision maker is in patient?s record [If Yes, STOP here]: Yes MIPS - Meds 'Current medications' to include all prescriptions, [id number] products, herbals, cannabis/cannabidiol products, and vitamin/mineral/dietary (nutritional) supplements. I have utilized all available resources to obtain, update, or review the patient?s current medications. [If Yes, STOP here]: Yes
--- NOTE | 2025-02-08 17:56 | PC.NURSE ---
Left message for son, spoke with caregiver. Both will call this evening to acute care RN for update. Contact info given to caregiver.
[2025-02-08] MEDS: METOPROLOL IR 25 MG TABLET 12.5 MG PO ×2 (18:55→20:12)
[2025-02-08] MEDS: CLOPIDOGREL 75 MG TABLET 300 MG PO (18:58)
[2025-02-08 23:23] LABS: INR 1.1 (0.9-1.3); Prothrombin Time 12.5 SECONDS (9.4-12.5)
[2025-02-08 23:32] LABS: PTT Partial Thromboplastin Tim 83 SECONDS (25.1-36.5)
[2025-02-08 23:39] LABS: Troponin I 0.076 ng/mL (0.01-0.034)
[2025-02-09] VITALS (7 sets, daily range): BP systolic 137–164; BP diastolic 53–93; PULSE 56–64; RESP 16–20; TEMP 36.4–37.3; O2SAT 96–99
[2025-02-09 05:39] LABS: PTT Partial Thromboplastin Tim 52 SECONDS (25.1-36.5)
[2025-02-09 05:52] LABS: Troponin I 0.095 ng/mL (0.01-0.034)
[2025-02-09 05:59] LABS: Add Manual Diff / Slide Review NO; Hematocrit 32.0 % (41-53); Hemoglobin 11.4 g/dL (13.5-17.5); Lymphocytes Absolute Auto 1200 /uL (1100-4500); Mean Corpuscular HGB Conc 35.7 % (30-36); Mean Corpuscular Hemoglobin 35.9 PG (26-34); Mean Corpuscular Volume 100.5 fL (80-100); Platelet Count 152 X10^3/uL (150-400)
[2025-02-09 06:34] LABS: Blood Urea Nitrogen 39 mg/dL (9-20); Calcium 8.5 mg/dL (8.4-10.2); Carbon Dioxide 19 mmol/L (22-32); Chloride 112 mmol/L (98-107); Estimated Glomerular Filt Rate 33 mL/min (>60); Glucose 151 mg/dL (70-99); HEMOLYSIS < 15 (0-50); Potassium 4.0 mmol/L (3.4-5.1); Sodium 137 mmol/L (137-145)
--- NOTE | 2025-02-09 07:48 | P.PN_ITS ---
Subjective Subjective Interval history: S: Slept well, no chest pain or dyspnea. O: VSS NAD, alert and oriented. Fluent speech. Lungs are clear, normal rate and effort. Heart is regular, no murmur gallop or rub. Abdomen is soft, non distended. Extremities are free of edema. A/P: 1. NSTEMI, active 2. Dm 2, insulin-dependent, active. 3. Parkinson's disease, active. 4. Hypertension, active. 5. HLD, active. 6. MELY (Cr 2.4 at admit, 2.04 tdoay). PLAN: -cardiology consult -Plavix load now and then 75 mg QD. -Metoprolol 12.5 BID -heparin drip -aspirin, beta blockade, and atorvastatin. -lisinopril 2.5 mg daily. -Ativan as needed for anxiety. -trend troponin 2 mote times. -2D echo today Anticipate 2 midnights in the hospital, supports inpatient status. DNR, confirmed tonight He lives with a son, proxy decision maker. They are in [place]. Exam Vital Signs (past 8 hours): - 02/08/25 23:55 02/09/25 04:19 Temperature 99 F 98 F Pulse Rate 75 61 Respiratory Rate 18 18 Blood Pressure 142/68 H 164/62 H Pulse Oximetry 98 98 Oxygen Flow Rate 0 0 Oxygen Delivery Method Room Air Oxygen Flow Rate 0 Objective Labs 02/09/25 05:10 02/09/25 05:10 Labs: Laboratory Results - last 24 hr 02/08/25 02/08/25 02/08/25 15:10 15:10 15:52 WBC 7.6 RBC 3.34 L Hgb 11.9 L Hct 33.6 L MCV 100.5 H MCH 35.7 H MCHC 35.5 RDW 14.0 Plt Count 166 Neut % (Auto) 81.9 H Lymph % (Auto) 11.0 L [place] % (Auto) 5.7 Eos % (Auto) 1.0 L Baso % (Auto) 0.4 Neut # (Auto) 6200 Lymph # (Auto) 800 L [place] # (Auto) 400 Eos # (Auto) 100 Baso # (Auto) 0 PT INR APTT D-Dimer 424 Sodium 137 Potassium 4.7 Chloride 110 H Carbon Dioxide 20 L BUN 42 H Creatinine 2.40 H Estimated GFR 27 L BUN/Creatinine Ratio 17.5 Glucose 192 H POC Whole Bld Glucose Lactate 2.0 Calcium 8.7 Total Bilirubin 1.3 AST 27 ALT 9 Alkaline Phosphatase 83 Total Creatine Kinase 89 90 Troponin I 0.063 H NT-Pro-B Natriuret Pep 525 H Total Protein 6.6 Albumin 3.9 Globulin 2.7 Albumin/Globulin Ratio 1.4 SARS-CoV-2 (PCR) Negative 02/08/25 02/08/25 02/08/25 17:11 23:00 23:05 WBC RBC Hgb Hct MCV MCH MCHC RDW Plt Count Neut % (Auto) Lymph % (Auto) [place] % (Auto) Eos % (Auto) Baso % (Auto) Neut # (Auto) Lymph # (Auto) [place] # (Auto) Eos # (Auto) Baso # (Auto) PT 12.5 INR 1.1 APTT 83 H* D-Dimer Sodium Potassium Chloride Carbon Dioxide BUN Creatinine Estimated GFR BUN/Creatinine Ratio Glucose POC Whole Bld Glucose 188 H Lactate Calcium Total Bilirubin AST ALT Alkaline Phosphatase Total Creatine Kinase Troponin I 0.060 H 0.076 H NT-Pro-B Natriuret Pep Total Protein Albumin Globulin Albumin/Globulin Ratio SARS-CoV-2 (PCR) 02/09/25 02/09/25 05:10 07:30 WBC 6.2 RBC 3.18 L Hgb 11.4 L Hct 32.0 L MCV 100.5 H MCH 35.9 H MCHC 35.7 RDW 13.9 Plt Count 152 Neut % (Auto) 67.2 Lymph % (Auto) 19.9 L [place] % (Auto) 8.5 Eos % (Auto) 3.6 Baso % (Auto) 0.8 Neut # (Auto) 4100 Lymph # (Auto) 1200 [place] # (Auto) 500 Eos # (Auto) 200 Baso # (Auto) 0 PT INR APTT 52 H D D-Dimer Sodium 137 Potassium 4.0 Chloride 112 H Carbon Dioxide 19 L BUN 39 H Creatinine 2.04 H Estimated GFR 33 L BUN/Creatinine Ratio 19.1 Glucose 151 H POC Whole Bld Glucose 155 H Lactate Calcium 8.5 Total Bilirubin AST ALT Alkaline Phosphatase Total Creatine Kinase Troponin I 0.095 H NT-Pro-B Natriuret Pep Total Protein Albumin Globulin Albumin/Globulin Ratio SARS-CoV-2 (PCR) [facility] Medical History High prostate specific antigen (PSA) History of urinary retention History of urinary tract infection UTI (urinary tract infection) Nocturia more than twice per night Elevated serum creatinine History of kidney stones Urinary retention History of arthritis Kidney stone Hypertension Hypercholesteremia Diabetes mellitus Parkinson disease Surgical History Hx of vasectomy History of circumcision as Family History Father No problems noted. Brother Diabetes mellitus Social History marital status: number of children: 5 household members: caregiver lives independently: Yes occupational status: previously employed and other Previous occupational history: Lives with his son other: He drinks 1-2 glasses of wine at night. He quit smoking in 1969 Smoking Status: Former smoker alcohol intake: former caffeine: Yes Type(s) of exercise: none Assessment & Plan Time-Based Coding :: [TOTAL MINUTES] spent with patient and on the chart (including review of chart, obtaining history, exam, reviewing outside data, placing orders, documenting exam and treatment plan, and counseling patient) on [DATE].
[2025-02-09] MEDS: ASPIRIN EC 81 MG TABLET PO (09:00)
[2025-02-09] MEDS: ATORVASTATIN 20 MG TABLET 40 MG PO (09:00)
[2025-02-09] MEDS: CARBIDOPA-LEVODOPA ER 50/200 TABLET 1 EACH PO ×4 (09:00→20:41)
[2025-02-09] MEDS: ENTACAPONE 200 MG TABLET PO ×4 (09:00→20:40)
[2025-02-09] MEDS: METOPROLOL IR 25 MG TABLET 12.5 MG PO ×2 (09:01→20:40)
--- NOTE | 2025-02-09 09:35 | PM.CN ---
History of Present Illness Consult details Date Patient Seen: 02/09/25 Time Patient Seen: 09:57 Chief complaint: SOB Narrative: 74-year-old male with past medical history of hypertension, type 2 diabetes, hyperlipidemia, parkinsonism retired male with non contributory family history of coronary artery disease presented the ER with an episode of mild chest discomfort to over 10 associated with shortness of breath and exhaustion fatigue. He call emergency medical response services and requested to be brought to the hospital for evaluation. When he arrived to the hospital he did not complain of any symptoms. He was started on appropriate therapy including aspirin, heparin drip, oxygen. He did not complain of any respiratory distress. Patient reports no symptoms of exertional chest discomfort shortness of breath prior to this event. Given his history of parkinsonism, history of impaired balance and gait disturbances he walks with a walker and does not exert much. He denies any GI or symptoms. He did report symptoms of leg weakness on ambulation and tremors. He has a known history of prostate cancer and is undergoing treatment for it. Meds Home Medications and Allergies Home Medications ?Medication ?Instructions ?Recorded ?Confirmed ?Type VITAMIN D (Vitamin D3) 4,000 u PO QDAY ##0 03/13/16 02/08/25 History insulin glargine U-300 conc 300 20 unit SUBCUT BID ##0 03/13/16 02/08/25 History unit/mL (1.5 mL) subcutaneous pen (Toujeo SoloStar U-300 Insulin) atorvastatin 40 mg tablet 40 mg PO DAILY 08/01/17 02/08/25 History multivitamin with minerals 1 tab PO DAILY 08/01/17 02/08/25 History amlodipine 5 mg tablet (Norvasc) 10 mg (2 x 5 mg) PO DAILY #30 tabs 08/02/17 02/08/25 Rx benazepril 20 mg tablet 20 mg PO DAILY #30 tabs 08/02/17 02/08/25 Rx mirabegron 25 mg tablet,extended 25 mg PO .hs 09/29/22 02/08/25 History release 24 hr semaglutide 1 mg/dose (2 mg/1.5 1 mg SUBCUT QWEEK 09/29/22 02/08/25 History mL) subcutaneous pen injector (Ozempic) tamsulosin 0.4 mg capsule 0.8 mg PO BEDTIME 09/29/22 02/08/25 History carbidopa 25 mg-levodopa 100 1 tab PO QID 05/16/24 02/08/25 History mg-entacapone 200 mg tablet polyethylene glycol 3350 17 17 g PO BID 05/16/24 02/08/25 History gram/dose oral powder (Miralax) carbidopa ER 50 mg-levodopa 200 mg 1 tab PO 4XD 02/08/25 02/08/25 History tablet,extended release entacapone 200 mg tablet 200 mg PO QID 02/08/25 02/08/25 History Allergies Allergy/AdvReac Type Severity Reaction Status Date / Time No Known Allergies Allergy Verified 02/08/25 18:36 Review of Systems Review of Systems ROS: Yes All systems reviewed with the patient and are negative except as otherwise documented Constitutional Constitutional: Reports difficulty sleeping and Reports weakness ENT Ears, Nose, Mouth, and Throat: Yes dizziness Musculoskeletal Musculoskeletal: Reports abnormal gait Neurologic Neurologic: Reports abnormal movements, Reports abnormal gait, Reports dizziness, Reports lack of coordination and Reports weakness Exam Vital Signs (past 8 hours): - 02/09/25 04:19 02/09/25 08:00 02/09/25 09:00 Temperature 98 F 98.1 F Pulse Rate 61 64 Respiratory Rate 18 17 Blood Pressure 164/62 H 137/93 H 137/93 H Pulse Oximetry 98 99 Oxygen Flow Rate 0 0 Oxygen Delivery Method Room Air Oxygen Flow Rate 0 Const General: cooperative, healthy appearing and well developed Orientation: alert, awake and oriented x3 HENMT Head: normal to inspection and normocephalic Eyes General: appearance normal, both eyes and all related structures Neck Neck: normal visual inspection and full ROM Chest Chest: normal inspection of the chest Resp Effort & Inspection: normal respiratory effort and able to speak in complete sentences Cardio Palpation: normal PMI Rate: regular rate Rhythm: regular rhythm Heart Sounds: S1 normal and S2 normal Other: Low pitched soft systolic murmur. Back/Spine/Pelvis Back: normal to inspection Skin General: no rashes or lesions noted and elasticity normal Neuro General: patient alert and patient oriented x3 Cranial Nerves: CN's II-XI intact bilaterally Cognition: normal cognition Speech: speech normal Gait: gait assisted Extrem General: normal to inspection, full ROM and capillary refill normal Psych Appearance: grossly normal and well kempt Speech and Movement: speech and movement normal Objective Labs 02/09/25 05:10 02/09/25 05:10 Labs: Laboratory Results - last 24 hr 02/08/25 02/08/25 02/08/25 15:10 15:10 15:52 WBC 7.6 RBC 3.34 L Hgb 11.9 L Hct 33.6 L MCV 100.5 H MCH 35.7 H MCHC 35.5 RDW 14.0 Plt Count 166 Neut % (Auto) 81.9 H Lymph % (Auto) 11.0 L [place] % (Auto) 5.7 Eos % (Auto) 1.0 L Baso % (Auto) 0.4 Neut # (Auto) 6200 Lymph # (Auto) 800 L [place] # (Auto) 400 Eos # (Auto) 100 Baso # (Auto) 0 PT INR APTT D-Dimer 424 Sodium 137 Potassium 4.7 Chloride 110 H Carbon Dioxide 20 L BUN 42 H Creatinine 2.40 H Estimated GFR 27 L BUN/Creatinine Ratio 17.5 Glucose 192 H POC Whole Bld Glucose Lactate 2.0 Calcium 8.7 Total Bilirubin 1.3 AST 27 ALT 9 Alkaline Phosphatase 83 Total Creatine Kinase 89 90 Troponin I 0.063 H NT-Pro-B Natriuret Pep 525 H Total Protein 6.6 Albumin 3.9 Globulin 2.7 Albumin/Globulin Ratio 1.4 SARS-CoV-2 (PCR) Negative 02/08/25 02/08/25 02/08/25 17:11 23:00 23:05 WBC RBC Hgb Hct MCV MCH MCHC RDW Plt Count Neut % (Auto) Lymph % (Auto) [place] % (Auto) Eos % (Auto) Baso % (Auto) Neut # (Auto) Lymph # (Auto) [place] # (Auto) Eos # (Auto) Baso # (Auto) PT 12.5 INR 1.1 APTT 83 H* D-Dimer Sodium Potassium Chloride Carbon Dioxide BUN Creatinine Estimated GFR BUN/Creatinine Ratio Glucose POC Whole Bld Glucose 188 H Lactate Calcium Total Bilirubin AST ALT Alkaline Phosphatase Total Creatine Kinase Troponin I 0.060 H 0.076 H NT-Pro-B Natriuret Pep Total Protein Albumin Globulin Albumin/Globulin Ratio SARS-CoV-2 (PCR) 02/09/25 02/09/25 05:10 07:30 WBC 6.2 RBC 3.18 L Hgb 11.4 L Hct 32.0 L MCV 100.5 H MCH 35.9 H MCHC 35.7 RDW 13.9 Plt Count 152 Neut % (Auto) 67.2 Lymph % (Auto) 19.9 L [place] % (Auto) 8.5 Eos % (Auto) 3.6 Baso % (Auto) 0.8 Neut # (Auto) 4100 Lymph # (Auto) 1200 [place] # (Auto) 500 Eos # (Auto) 200 Baso # (Auto) 0 PT INR APTT 52 H D D-Dimer Sodium 137 Potassium 4.0 Chloride 112 H Carbon Dioxide 19 L BUN 39 H Creatinine 2.04 H Estimated GFR 33 L BUN/Creatinine Ratio 19.1 Glucose 151 H POC Whole Bld Glucose 155 H Lactate Calcium 8.5 Total Bilirubin AST ALT Alkaline Phosphatase Total Creatine Kinase Troponin I 0.095 H NT-Pro-B Natriuret Pep Total Protein Albumin Globulin Albumin/Globulin Ratio SARS-CoV-2 (PCR) PFSH Medical History High prostate specific antigen (PSA) History of urinary retention History of urinary tract infection UTI (urinary tract infection) Nocturia more than twice per night Elevated serum creatinine History of kidney stones Urinary retention History of arthritis Kidney stone Hypertension Hypercholesteremia Diabetes mellitus Parkinson disease Surgical History Hx of vasectomy History of circumcision as Family History Father No problems noted. Brother Diabetes mellitus Social History marital status: number of children: 5 household members: caregiver lives independently: Yes occupational status: previously employed and other Previous occupational history: Lives with his son other: He drinks 1-2 glasses of wine at night. He quit smoking in 1969 Tobacco & Substance Use Smoking Status: Former smoker alcohol intake: former Diet and Exercise caffeine: Yes Type(s) of exercise: none Assessment & Plan Assessment and plan (1) Non-ST elevated myocardial infarction (non-STEMI): Status: Acute (2) Prostate cancer: Status: Acute (3) Diabetes mellitus: Qualifiers: Diabetes mellitus intermediate teacher insulin use: with intermediate teacher use Diabetes mellitus type: type 2 Status: Acute (4) Chronic renal failure: Qualifiers: Chronic kidney disease stage: stage 3 (moderate) Status: Acute (5) Parkinson disease: Qualifiers: Dyskinesia presence: unspecified whether dyskinesia Fluctuating manifestations: unspecified whether manifestations fluctuate Qualified Code(s): G20.A1 - Parkinson's disease without dyskinesia, without mention of fluctuations Status: Acute Plan Agree with the treatment plan formulated by Dr. Pedersen with aspirin and heparin drip. Patient is completely asymptomatic. I wish to continue him on trending troponin. If it continues to rise I will offer him delayed invasive therapy as an option. If he becomes symptomatic patient would require urgent transfer to a facility with the wharf laborer availability. 1. Continue with same treatment plan including aspirin and heparin therapy 2. Continue trending troponin. 3. Discussed conservative versus invasive therapy for his non ST elevation myocardial infarction 4. Echocardiogram tomorrow morning to assess for wall motion abnormalities and any mechanical complications of acute NSTEMI 5. Discussed DNR status. He is open to be transferrd to a facility with concrete plant laborer availability. 6. Continue with other medications. No history of contrast allergies. Pt is willing to stay here for close observation as he is asymptomatic at this point. Assessment & Plan narrative: 74-year-old male with past medical history of hypertension, type 2 ldcoztey-zqjemfz-pcbutnghn, hyperlipidemia, parkinsonism with neurological complications including rigidity loss of balance and gait disturbances was brought to the hospital with an episode of chest discomfort. He describes pressure-like symptoms to over 10 in severity nonradiating associated with anxiety. Emergency response services were notified and he was brought to the hospital and was found to have an elevated troponin. EKG did not demonstrate any electrical changes consistent with ischemia or infarction. EKG showed normal sinus rhythm the first-degree AV block. Since then troponin has been trending up however has not been remarkably very high. EKG has not demonstrated any changes since admission. He has remained symptom free and is talking to me very comfortably. I decided to keep him here for for close observation. 1. Non ST-elevation myocardial infarction with evidence of biochemical markers elevated troponin and rising trend at this point. Patient is completely asymptomatic and currently on heparin drip and aspirin. 2. History of hypertension and on medication well-controlled. Patient reported compliance to medication. 3. Hyperlipidemia long-term atorvastatin 40 mg daily. 4. Parkinsonism since his senior care for last 18 years. He is managing with carbidopa levodopa and entacapone. 5. Prostate cancer in remission status post radiation therapy. Time-Based Coding :: [TOTAL MINUTES] spent with patient and on the chart (including review of chart, obtaining history, exam, reviewing outside data, placing orders, documenting exam and treatment plan, and counseling patient) on [DATE].
[2025-02-09] MEDS: SIMETHICONE 80 MG TABLET PO (09:44)
[2025-02-09 11:57] LABS: Troponin I 0.085 ng/mL (0.01-0.034)
[2025-02-09 12:31] LABS: PTT Partial Thromboplastin Tim 43 SECONDS (25.1-36.5)
[2025-02-09 17:30] LABS: PTT Partial Thromboplastin Tim 49 SECONDS (25.1-36.5)
[2025-02-09] MEDS: TAMSULOSIN 0.4 MG CAPSULE 0.8 MG PO (20:40)
[2025-02-09] MEDS: oxyBUTYnin ER 5 MG TABLET PO (20:41)
[2025-02-09 23:26] LABS: PTT Partial Thromboplastin Tim 50 SECONDS (25.1-36.5)
[2025-02-10] MEDS: HEPARIN DRIP 25,000 UNIT/500 ML IV.SOLN 16.565 UNIT IV (00:49)
[2025-02-10 03:00] VITALS: PULSE 54; RESP 18; TEMP 36.6; O2SAT 96
[2025-02-10 05:24] LABS: Add Manual Diff / Slide Review NO; Hematocrit 31.4 % (41-53); Hemoglobin 11.3 g/dL (13.5-17.5); Lymphocytes Absolute Auto 1400 /uL (1100-4500); Mean Corpuscular HGB Conc 36.0 % (30-36); Mean Corpuscular Hemoglobin 35.8 PG (26-34); Mean Corpuscular Volume 99.3 fL (80-100); Platelet Count 145 X10^3/uL (150-400)
[2025-02-10 05:42] LABS: Troponin I 0.067 ng/mL (0.01-0.034)
[2025-02-10 06:10] LABS: PTT Partial Thromboplastin Tim 49 SECONDS (25.1-36.5)
[2025-02-10 06:54] LABS: Blood Urea Nitrogen 38 mg/dL (9-20); Calcium 8.7 mg/dL (8.4-10.2); Carbon Dioxide 23 mmol/L (22-32); Chloride 110 mmol/L (98-107); Estimated Glomerular Filt Rate 38 mL/min (>60); Glucose 193 mg/dL (70-99); HEMOLYSIS < 15 (0-50); Potassium 4.0 mmol/L (3.4-5.1); Sodium 138 mmol/L (137-145)
[2025-02-10 07:00] VITALS: BP 149/63; PULSE 53; RESP 16; TEMP 36.3; O2SAT 97
[2025-02-10] MEDS: ENTACAPONE 200 MG TABLET PO (08:20)
[2025-02-10 08:21] VITALS: BP 149/63
[2025-02-10] MEDS: CARBIDOPA-LEVODOPA ER 50/200 TABLET 1 EACH PO (08:21)
[2025-02-10] MEDS: ATORVASTATIN 20 MG TABLET 40 MG PO (08:22)
[2025-02-10] MEDS: ASPIRIN EC 81 MG TABLET PO (08:23)
[2025-02-10] MEDS: METOPROLOL IR 25 MG TABLET 12.5 MG PO (08:23)
--- NOTE | 2025-02-10 09:25 | PM.DS.1 ---
History of Present Illness History of Present Illness Chief complaint: SOB Narrative: Patient was a 74-year-old male with a history of hypertension, diabetes, HLD, and Parkinson's disease. He developed shortness a breath and chest tightness as well as being lightheaded today after working on wood carving. EMS was active and he was brought to the hospital by ambulance. He was found to have a clear chest x-ray, and an elevated troponin. He denies any cardiac history to me. He did have a stress test many years ago. He denies exertional chest pain or dyspnea recently. In the ED, he felt somewhat short of breath but was not hypoxemic. He was having some dystonia of his arms and legs which he feels is mostly related to his Parkinson's. He did have a upward titration of his Sinemet dosing about a week ago. He denies history of rectal bleeding. He was given aspirin 324 in the ED and a heparin drip. He was not on a chronic beta blockade and was not given Plavix in the ED. Discharge Providers Provider Date of admission: 02/08/25 17:04 Discharge Date: 02/10/25 Primary care physician: Yessenia Johnson MD Consults: 02/08/25 17:04 Consult to Cardiology Stat Comment: Consulting Provider: Antoine Dumont Reason for consultation: NSTEMI Has provider been notified: Yes 02/09/25 10:06 Consult to Pharmacy Routine Comment: IF new meds at discharge. Home meds in Pharmacy. Discharge provider: Juan Pedersen MD Summary Hospital Course Discharge Diagnosis: 1. NSTEMI, active 2. Dm 2, insulin-dependent, active. 3. Parkinson's disease, active. 4. Hypertension, active. 5. HLD, active. 6. MELY (Cr 2.4 at admit, 1.81 at discharge). Hospital Course: Patient was admitted, mild dyspnea but no chest pain. Troponins were elevated. Case was discussed with Cardiology and patient was treated with IV heparin for 48 hours. The patient was seen by Cardiology and dual antiplatelet therapy was also started as well as beta blockade and low-dose VANESSA inhibitor. The patient was felt to be stable for discharge and will have close follow up with Cardiology, Dr. Dumont, with the proposed risk stratification coronary angiogram. Status at Discharge Cognitive/behavioral status at discharge: oriented Functional status at discharge: independent ambulation Overall status at discharge: patient is back to baseline Time Spent with Patient Time spent: Greater than 30 minutes Exam Vital Signs (past 8 hours): - 02/10/25 03:00 02/10/25 07:00 02/10/25 08:21 Temperature 97.9 F 97.4 F L Pulse Rate 54 L 53 L Respiratory Rate 18 16 Blood Pressure 149/63 H 149/63 H Pulse Oximetry 96 97 Oxygen Flow Rate 0 0 Oxygen Delivery Method Room Air Oxygen Flow Rate 0 Narrative Exam Narrative: NAD, alert and oriented. Fluent speech. Lungs are clear, normal rate and effort. Heart is regular, no murmur gallop or rub. Abdomen is soft, non distended. Extremities are free of edema. Objective ECG Impression: Impression: ntervals [place] Rate: 71 P: 80 [place]: 250 QRS: 28 QRSD: 92 T: 14 QT: 436 QTc: 473 Interpretive Statements Sinus rhythm with 1st degree AV block Imaging Chest x-ray: My impression: Clear. Radiologist's impression: No acute cardiopulmonary abnormality is seen. Labs 02/10/25 05:08 02/10/25 05:08 Labs: Laboratory Results - last 24 hr 02/09/25 02/09/25 02/09/25 11:15 11:20 16:22 WBC RBC Hgb Hct MCV MCH MCHC RDW Plt Count Neut % (Auto) Lymph % (Auto) [place] % (Auto) Eos % (Auto) Baso % (Auto) Neut # (Auto) Lymph # (Auto) [place] # (Auto) Eos # (Auto) Baso # (Auto) APTT 43 H D Sodium Potassium Chloride Carbon Dioxide BUN Creatinine Estimated GFR BUN/Creatinine Ratio Glucose POC Whole Bld Glucose 217 H 200 H Calcium Troponin I 0.085 H 02/09/25 02/09/25 02/09/25 17:12 20:27 23:00 WBC RBC Hgb Hct MCV MCH MCHC RDW Plt Count Neut % (Auto) Lymph % (Auto) [place] % (Auto) Eos % (Auto) Baso % (Auto) Neut # (Auto) Lymph # (Auto) [place] # (Auto) Eos # (Auto) Baso # (Auto) APTT 49 H 50 H Sodium Potassium Chloride Carbon Dioxide BUN Creatinine Estimated GFR BUN/Creatinine Ratio Glucose POC Whole Bld Glucose 232 H Calcium Troponin I 02/10/25 02/10/25 05:08 07:24 WBC 5.9 RBC 3.16 L Hgb 11.3 L Hct 31.4 L MCV 99.3 MCH 35.8 H MCHC 36.0 RDW 14.2 Plt Count 145 L Neut % (Auto) 62.5 Lymph % (Auto) 22.9 L [place] % (Auto) 9.2 Eos % (Auto) 4.7 H Baso % (Auto) 0.7 Neut # (Auto) 3700 Lymph # (Auto) 1400 [place] # (Auto) 500 Eos # (Auto) 300 Baso # (Auto) 0 APTT 49 H Sodium 138 Potassium 4.0 Chloride 110 H Carbon Dioxide 23 BUN 38 H Creatinine 1.81 H Estimated GFR 38 L BUN/Creatinine Ratio 21.0 Glucose 193 H POC Whole Bld Glucose 179 H Calcium 8.7 Troponin I 0.067 H PFSH Medical History High prostate specific antigen (PSA) History of urinary retention History of urinary tract infection UTI (urinary tract infection) Nocturia more than twice per night Elevated serum creatinine History of kidney stones Urinary retention History of arthritis Kidney stone Hypertension Hypercholesteremia Diabetes mellitus Parkinson disease Surgical History Hx of vasectomy History of circumcision as Family History Father No problems noted. Brother Diabetes mellitus Social History marital status: number of children: 5 household members: caregiver lives independently: Yes occupational status: previously employed and other Previous occupational history: Lives with his son other: He drinks 1-2 glasses of wine at night. He quit smoking in 1969 Smoking Status: Former smoker alcohol intake: former caffeine: Yes Type(s) of exercise: none Discharge Assessment & Plan Assessment and Plan Assessment: 1. NSTEMI, active 2. Dm 2, insulin-dependent, active. 3. Parkinson's disease, active. 4. Hypertension, active. 5. HLD, active. 6. MELY (Cr 2.4 at admit, 1.81 at discharge). Improved. Plan of Treatment: The patient was discharged on medical therapy and we will see Cardiology and close follow up with proposal for coronary angiogram. Therapy includes dual antiplatelet therapy, beta blockade, statin, and low-dose lisinopril. Discharge Plan Discharge Plan Patient Disposition: Home Provider Discharge Comment: Stable for discharge, discussed with Cardiology this morning. He will have close follow up with Cardiology which they will arrange. An angiogram is anticipated. Discharge orders & Medications Prescriptions: New aspirin 81 mg Tablet,Delayed Release (Dr/Ec) 81 mg PO DAILY Qty: 30 0RF lisinopril 5 mg Tablet 2.5 mg PO DAILY Qty: 30 0RF metoprolol succinate 25 mg tablet extended release 24 hr 25 mg PO DAILY Qty: 30 2RF clopidogrel [Plavix] 75 mg tablet 75 mg PO DAILY Qty: 30 1RF Continued insulin glargine U-300 conc [Toujeo SoloStar U-300 Insulin] 300 UNIT/1 ML insulin pen 20 unit SUBCUT BID Qty: 0 VITAMIN D (Vitamin D3) 4,000 u PO QDAY Qty: 0 atorvastatin 40 mg Tablet 40 mg PO DAILY multivitamin with minerals 1 tab PO DAILY entacapone 200 mg tablet 200 mg PO QID Rx Instructions: administer at the same time as l-dopa/carbidopa dose carbidopa-levodopa 50-200 mg tablet extended release 1 tab PO 4XD polyethylene glycol 3350 [Miralax] 17 gram/dose powder 17 g PO BID ykwrggwrg-[id number]-jehgclszsc 25-100-200 mg tablet 1 tab PO QID tamsulosin 0.4 mg capsule 0.8 mg PO BEDTIME Ozempic 1 mg/dose (2 mg/1.5 mL) pen injector 1 mg SUBCUT QWEEK mirabegron 25 mg tablet extended release 24 hr 25 mg PO .hs Discontinued amlodipine [Norvasc] 5 mg Tablet 10 mg PO DAILY Qty: 30 0RF benazepril 20 mg tablet 20 mg PO DAILY Qty: 30 0RF Follow up/Referrals: Yessenia Johnson MD [Primary Care Provider, Family Practice] Diet/Activity/Treatments Diet: Carb-consistent/Diabetic Visit Report/Discharge Packet Instructions: DI for Chest Pain, Clopidogrel, Metoprolol, Lisinopril Stand Alone Forms: Patient Portal/API, Stroke Signs & Symptoms Discharge Data Primary Care Provider: Yessenia Johnson
[2025-02-10] MEDS: CLOPIDOGREL 75 MG TABLET PO (10:25)
--- NOTE | 2025-02-10 11:04 | PC.NURSE ---
Pt is dressed and ready for discharge home with Caregivers. IV's have been removed. Tele has been removed. Went over d/c instructions with Pt-discussed d/c meds, time of last dose, reviewed stroke education, increased risk of bleeding due to taking Plavix, advised Pt to go to the ER if his chest pain comes back. Returned Pt home meds to Pt from Pharmacy. Pt denied further questions and will be taken out via w/c by CHEMICAL RESEARCH TECHNICIAN to POV with Caregiver and all belongings.
--- NOTE | 2025-02-10 12:12 | CM.DANOTE ---
Patient is a 74 yo male who was admitted on 02/08/25 for SOB. Pt has [facility] and [facility] for insurance and his PCP is Yessenia Johnson. EMR was reviewed. Per MD and Fifth Grade Teacher, pt with hx of DM and Parkinsons and admitted for SOB/CHF and was able to wean off hep drip and trops normal range and now medically stable to d/c home with outpt f/u with his Fifth Grade Teacher Dr. Diaz. No identified barriers to discharge and orders placed. Patient lives in [place] with son and is fairly independent with ADLs and had family bedside and per manufacturing team member instructions given this AM and was taken to POV before SW could complete bedside assessment. SIMIN Zimmerman Discharge Planning/Care Management Advanced directive, confirm from FAMILY Start: 02/08/25 18:52 Freq: Q24H Status: Discharge Protocol: Document 02/08/25 20:00 SR (Rec: 02/08/25 22:48 SR [id number]) Advance Directive, confirm on record Time 20:00 Person contacted patient Copy received No Document 02/09/25 20:00 [place] (Rec: 02/09/25 22:57 [place] [id number]) Advance Directive, confirm on record Time 20:00 Person contacted patient Copy received No
== END 2025-02-10 11:43 | disposition home or self-care (01) | DRG 281 ==
LOC: ED 16:24 → AC 17:05
PROVIDERS: Emergency Medicine; Admitting Provider Hospitalist; Emergency Provider Emergency Medicine; Family Provider Nutritionist; PCP Nutritionist; Referring Provider Emergency Medicine; Visit Provider Hospitalist
DX: I21.4 Non-ST elevation (NSTEMI) myocardial infarction (principal); N17.9 Acute kidney failure, unspecified; G20.A1 Parkinson's disease without dyskinesia, without mention of fluctuations; E78.5 Hyperlipidemia, unspecified; C61 Malignant neoplasm of prostate; E11.22 Type 2 diabetes mellitus with diabetic chronic kidney disease; N18.30 Chronic kidney disease, stage 3 unspecified; I12.9 Hypertensive chronic kidney disease with stage 1 through stage 4 chronic kidney disease, or unspecified chronic kidney disease; Z66 Do not resuscitate; Z79.4 Long term (current) use of insulin; Z87.891 Personal history of nicotine dependence; Z79.85 Long-term (current) use of injectable non-insulin antidiabetic drugs
CPT/HCPCS: 36415; 71045; 80048; 80053; 82550; 82962; 83605; 83880; 84484; 85025; 85379; 85610; 85730; 87635; 93005; 93306; 96365; 99283; 99285; J1644

== ENCOUNTER 2025-03-08 12:20 | Inpatient (IN) | payer OTHER, SELFPAY ==
[2025-02-08 18:43] VITALS: BMI 23.8
[2025-03-08] VITALS (49 sets, daily range): BP systolic 161–238; BP diastolic 55–103; PULSE 57–73; RESP 18–32; TEMP 36.5–37.1; O2SAT 96–100; BMI 21.5
--- NOTE | 2025-03-08 12:19 | ED_ITS ---
HPI - Weakness <Ce Swanson PA-C - Last Filed: 03/08/25 19:28> General Chief complaint: Weakness Stated complaint: Weakness Time Seen by Provider: 03/08/25 12:30 History of Present Illness HPI Narrative: Mr. Ca is a very pleasant 74-year-old gentleman with a past medical history of Parkinson's disease, HTN, HLD, insulin-dependent T2DM, CKD, prostate cancer undergoing radiation who presents to the emergency department via EMS from home for generalized weakness worsening over the last week. Patient has 12 hour home caregivers who help him with his ADLs. This has been going well however he reports after his most recent radiation treatment yesterday in [place], he is unable to walk, to care for himself, or perform any of his ADLs. He could not even stand up on his own today. Yesterday he was able to take the [employer]ig[employer] shuttle by himself to go to his radiation appointment. At this time patient states that he feels globally weak but denies any focal weakness. States that his right side is slightly weaker than his left but it has been this way for many years due to his Parkinson's. He denies headache, chest pain, shortness of breath. He does have some dysuria. He recalls taking medications this morning but he can not state which ones. Patient was discharged from this hospital just under 1 month ago after having an NSTEMI. I spoke with his caregiver, Ewa, who informed me that he received his Parkinson's medications and vitamins at 9:00 a.m. this morning, he takes these every 4 hours, he does not take his blood pressure medication until evening. Related Data Home Medications ?Medication ?Instructions ?Recorded ?Confirmed VITAMIN D (Vitamin D3) 4,000 u PO QDAY ##0 03/13/16 02/08/25 insulin glargine U-300 conc 300 20 unit SUBCUT BID ##0 03/13/16 02/08/25 unit/mL (1.5 mL) subcutaneous pen (Toumaryo SoloStar U-300 Insulin) atorvastatin 40 mg tablet 40 mg PO DAILY 08/01/1701/19 multivitamin with minerals 1 tab PO DAILY 08/01/17 mirabegron 25 mg tablet,extended 25 mg PO .hs 09/29/22 02/08/25 release 24 hr semaglutide 1 mg/dose (2 mg/1.5 1 mg SUBCUT QWEEK 09/1702/08/25 mL) subcutaneous pen injector (Ozempic) tamsulosin 0.4 mg capsule 0.8 mg PO BEDTIME 09/29/22 1 04/10/24 carbidopa 25 mg-levodopa 100 1 tab PO QID 05/16/24 mg-entacapone 200 mg tablet polyethylene glycol 3350 17 17 g PO BID 05/16/2402/08 gram/dose oral powder (Miralax) carbidopa ER 50 mg-levodopa 200 mg 1 tab PO 4XD 02/08/25 tablet,extended release entacapone 200 mg tablet 200 mg PO QID 02/08/2502/08 Previous Rx's ?Medication ?Instructions ?Recorded aspirin 81 mg tablet,delayed 81 mg PO DAILY #30 tabs 1 04/12/24 release clopidogrel 75 mg tablet (Plavix) 75 mg PO DAILY #30 t abs 02/10/25 lisinopril 5 mg tablet 2.5 mg (1/2 x 5 mg) PO DAILY #30 02/10/25 tabs metoprolol succinate 25 mg 25 mg PO DAILY #30 tabs tablet,extended release 24 hr Allergies Allergy/AdvReac Type Severity Reaction Status Date / Time No Known Allergies Allergy Verified 03/08/25 12:34 Review of Systems <Ce Swanson PA-C - Last Filed: 03/08/25 19:28> Review of Systems ROS Unobtainable: All systems reviewed & are unremarkable except as noted in HPI and below Patient History <Ce Swanson PA-C - Last Filed: 03/08/25 19:28> Medical History Diabetes mellitus Elevated serum creatinine High prostate specific antigen (PSA) History of arthritis History of kidney stones History of urinary retention History of urinary tract infection Hypercholesteremia Hypertension Kidney stone Nocturia more than twice per night Parkinson disease Urinary retention UTI (urinary tract infection) Surgical History History of circumcision as Hx of vasectomy Family History Father No problems noted. Brother Diabetes mellitus Social History marital status: number of children: 5 household members: caregiver lives independently: Yes occupational status: previously employed and other Previous occupational history: Lives with his son other: He drinks 1-2 glasses of wine at night. He quit smoking in 1969 Smoking Status: Former smoker alcohol intake: former caffeine: Yes Type(s) of exercise: none Exam <Ce Swanson PA-C - Last Filed: 03/08/25 19:28> Narrative Exam Narrative: GENERAL: 74 year old patient appears stated age. Chronically ill appearing patient, in no acute distress. HEAD: Atraumatic. Normocephalic. EYES: PERRL. Extraocular motions intact. No scleral icterus. No injection or drainage. ENT: Nose without bleeding, purulent drainage. Uvula midline. Airway patent. NECK: Trachea midline. Cervical ROM intact. CARDIOVASCULAR: Regular rate and rhythm. Systolic murmur auscultated. RESPIRATORY: ?Nonlabored respirations. ?Speaking in clear, full sentences. ?Clear to auscultation. Breath sounds equal bilaterally. No wheezes, rales, or rhonchi. ? GASTROINTESTINAL: Abdomen soft, non-tender, nondistended. EXTREMITIES: No LE edema BL. NEURO: AOx3. ?Clear speech. ?Answers questions appropriately. Sensation intact to light touch on upper and lower extremities and bilateral face. Bilateral ski base trimmer strength is equal. SKIN: No rash or erythema of visible areas. Initial Vital Signs Initial Vital Signs: Vital Signs Pulse Rate 72 03/08/25 12:26 Respiratory Rate 20 03/08/25 12:26 Pulse Oximetry 99 03/08/25 12:26 <Mo Aceves MD - Last Filed: 03/09/25 03:41> Initial Vital Signs Initial Vital Signs: Vital Signs Pulse Rate 72 03/08/25 12:26 Respiratory Rate 20 03/08/25 12:26 Pulse Oximetry 99 03/08/25 12:26 <Hannah Cloud MD - Last Filed: 03/10/25 01:06> Initial Vital Signs Initial Vital Signs: Vital Signs Pulse Rate 72 03/08/25 12:26 Respiratory Rate 20 03/08/25 12:26 Pulse Oximetry 99 03/08/25 12:26 Course <Ce Swanson PA-C - Last Filed: 03/08/25 19:28> Orders Ordered: Acetaminophen (Acetaminophen 325 Mg Tablet) 650 mg PO Q6H PRN PRN Reason: Fever/Mild Pain (1-3) Hydrocodone Bitart/Acetaminophen (Hydrocodone/Acet 5/325 Tablet) 1 tab PO Q4H PRN PRN Reason: Pain, Moderate (4-6) Aspirin (Aspirin Ec 81 Mg Tablet) 81 mg PO DAILY [facility] Last Admin: 03/09/25 09:11 Dose: 81 mg Documented By: KALEIGH Atorvastatin Calcium (Atorvastatin 20 Mg Tablet) 80 mg PO DAILY [facility] Last Admin: 03/09/25 13:02 Dose: Not Given Documented By: KALEIGH Carbidopa/Levodopa (Carbidopa-Levodopa Er 50/200 Tablet) 1 each PO QID [facility] Last Admin: 03/09/25 20:53 Dose: 1 each Documented By: Admin: 03/09/25 17:15 Dose: 1 each Documented By: Admin: 03/09/25 13:13 Dose: 1 each Documented By: Admin: 03/09/25 09:11 Dose: 1 each Documented By: Admin: 03/09/25 03:32 Dose: 1 each Documented By: PANCHITO Clopidogrel Bisulfate (Clopidogrel 75 Mg Tablet) 75 mg PO DAILY [facility] Last Admin: 03/09/25 09:11 Dose: 75 mg Documented By: KALEIGH Entacapone (Entacapone 200 Mg Tablet) 200 mg PO QID [facility] Last Admin: 03/09/25 20:53 Dose: 200 mg Documented By: Admin: 03/09/25 17:14 Dose: 200 mg Documented By: Admin: 03/09/25 13:13 Dose: 200 mg Documented By: Admin: 03/09/25 09:11 Dose: 200 mg Documented By: KALEIGH Hydralazine HCl (Hydralazine 20 Mg/Ml Vial) 10 mg IV Q6HR PRN PRN Reason: Hypertension Last Admin: 03/09/25 03:32 Dose: 10 mg Documented By: PANCHITO Insulin Glargine (Insulin Glargine 100 Unit/Ml 3ml Pen) 16 unit SUBCUT BID [facility] Last Admin: 03/09/25 20:58 Dose: 16 unit Documented By: Co-signed By: CATHERINE Admin: 03/09/25 09:12 Dose: 16 unit Documented By: KALEIGH Co-signed By: PIETRO Insulin Human Lispro (Insulin Lispro 100 Unit/Ml 3ml Vial) 0 unit SUBCUT ACHS [facility]; Protocol Last Admin: 03/09/25 20:58 Dose: 2 unit Documented By: Co-signed By: CATHERINE Lisinopril (Lisinopril 5 Mg Tablet) 2.5 mg PO DAILY [facility] Last Admin: 03/09/25 09:11 Dose: 2.5 mg Documented By: KALEIGH Metoprolol Succinate (Metoprolol Er 25 Mg Tablet) 25 mg PO DAILY [facility] Last Admin: 03/09/25 09:12 Dose: 25 mg Documented By: KALEIGH Morphine Sulfate (Morphine 4 Mg/Ml Inj) 3 mg IV Q2HR PRN PRN Reason: Pain, Severe (7-10) Last Admin: 03/09/25 23:22 Dose: 3 mg Documented By: Admin: 03/09/25 06:28 Dose: 3 mg Documented By: PANCHITO Naloxone HCl (Naloxone 0.4 Mg/Ml Vial) 0.2 mg IV Q2MIN PRN PRN Reason: Opiate Reversal Ondansetron HCl (Ondansetron 4 Mg/2 Ml Inj) 4 mg IV Q8HR PRN PRN Reason: Nausea And Vomiting Sodium Chloride (Sodium Chloride 0.9% Flush) 10 ml IV PRN PRN PRN Reason: Flush Sodium Chloride (Sodium Chloride 0.9% Flush) 10 ml IV BID [facility] Last Admin: 03/09/25 20:59 Dose: 10 ml Documented By: Admin: 03/09/25 09:12 Dose: 10 ml Documented By: KALEIGH Tamsulosin HCl (Tamsulosin 0.4 Mg Capsule) 0.8 mg PO BEDTIME [facility] Last Admin: 03/09/25 20:53 Dose: 0.8 mg Documented By: Discontinued Medications Aspirin (Aspirin 81 Mg Chew Tab) 324 mg PO NOW ONE Stop: 03/08/25 13:53 Last Admin: 03/08/25 13:57 Dose: 324 mg Documented By: SAMIRA Atorvastatin Calcium (Atorvastatin 20 Mg Tablet) 40 mg PO DAILY [facility] Last Admin: 03/09/25 09:11 Dose: 40 mg Documented By: KALEIGH Carbidopa/Levodopa (Carbidopa-Levodopa 25/100 Tablet) 1 each PO NOW ONE Stop: 03/08/25 13:04 Last Admin: 03/08/25 13:25 Dose: 1 each Documented By: JUANI Carbidopa/Levodopa (Carbidopa-Levodopa 25/100 Tablet) 1 each PO NOW ONE Stop: 03/08/25 17:26 Last Admin: 03/08/25 17:47 Dose: 1 each Documented By: SAMIRA Entacapone (Entacapone 200 Mg Tablet) 200 mg PO NOW ONE Stop: 03/08/25 13:04 Last Admin: 03/08/25 13:25 Dose: 200 mg Documented By: JUANI Entacapone (Entacapone 200 Mg Tablet) 200 mg PO NOW ONE Stop: 03/08/25 17:26 Last Admin: 03/08/25 17:47 Dose: 200 mg Documented By: SAMIRA Heparin Sodium (Porcine) (Heparin 5,000 Unit/Ml Vial) 4,000 unit 60 unit/kg (4000 unit) IV NOW ONE Stop: 03/08/25 14:14 Last Admin: 03/08/25 14:28 Dose: 4,000 unit Documented By: SAMIRA Heparin Sodium/Dextrose (Heparin Drip) 25,000 unit in 500 mls @ 16.329 mls/hr IV CONT [facility]; Protocol Last Titration: 03/08/25 18:28 Dose: 0 units/kg/hr, 0 mls/hr Documented By: SAMIRA Co-signed By: DANIELLA Admin: 03/08/25 14:29 Dose: 12 units/kg/hr, 16.329 mls/hr Documented By: SAMIRA Co-signed By: DANIELLA Lisinopril (Lisinopril 5 Mg Tablet) 2.5 mg PO NOW ONE Stop: 03/08/25 14:53 Last Admin: 03/08/25 15:18 Dose: 2.5 mg Documented By: SAMIRA Metoprolol Succinate (Metoprolol Er 25 Mg Tablet) 25 mg PO NOW ONE Stop: 03/08/25 14:53 Last Admin: 03/08/25 15:18 Dose: 25 mg Documented By: SAMIRA Non-Formulary Medication (Insulin Glargine U-300 Conc [Toujeo Solostar U-300 Insulin]) 20 unit SUBCUT BID [facility] Vital Signs Vital signs: Vital Signs - 8 hr 03/08/25 19:45 03/08/25 19:45 03/08/25 20:00 Pulse Rate 59 L 58 L Respiratory Rate 25 H 25 H Blood Pressure 166/74 H Pulse Oximetry 98 98 03/08/25 20:00 03/08/25 20:16 03/08/25 20:16 Pulse Rate 63 Respiratory Rate 27 H Blood Pressure 188/82 H 224/103 H Pulse Oximetry 100 03/08/25 20:30 03/08/25 20:30 03/08/25 20:45 Pulse Rate 61 Respiratory Rate 22 Blood Pressure 192/90 H 189/82 H Pulse Oximetry 99 03/08/25 20:45 03/08/25 21:00 03/08/25 21:01 Pulse Rate 62 66 Respiratory Rate 27 H Blood Pressure 215/86 H Pulse Oximetry 98 99 03/08/25 21:01 03/08/25 21:16 03/08/25 21:16 Pulse Rate 64 65 Respiratory Rate 27 H 27 H Blood Pressure 194/83 H Pulse Oximetry 98 99 03/08/25 21:30 03/08/25 21:30 03/08/25 21:46 Pulse Rate 66 69 Respiratory Rate 26 H 23 Blood Pressure 189/79 H Pulse Oximetry 97 98 03/08/25 21:46 03/08/25 22:00 03/08/25 22:00 Pulse Rate 70 Respiratory Rate Blood Pressure 218/89 H 224/89 H Pulse Oximetry 97 <Mo Aceves MD - Last Filed: 03/09/25 03:41> Orders Ordered: Acetaminophen (Acetaminophen 325 Mg Tablet) 650 mg PO Q6H PRN PRN Reason: Fever/Mild Pain (1-3) Hydrocodone Bitart/Acetaminophen (Hydrocodone/Acet 5/325 Tablet) 1 tab PO Q4H PRN PRN Reason: Pain, Moderate (4-6) Aspirin (Aspirin Ec 81 Mg Tablet) 81 mg PO DAILY [facility] Last Admin: 03/09/25 09:11 Dose: 81 mg Documented By: LDV Atorvastatin Calcium (Atorvastatin 20 Mg Tablet) 80 mg PO DAILY [facility] Last Admin: 03/09/25 13:02 Dose: Not Given Documented By: LDV Carbidopa/Levodopa (Carbidopa-Levodopa Er 50/200 Tablet) 1 each PO QID [facility] Last Admin: 03/09/25 20:53 Dose: 1 each Documented By: Admin: 03/09/25 17:15 Dose: 1 each Documented By: Admin: 03/09/25 13:13 Dose: 1 each Documented By: Admin: 03/09/25 09:11 Dose: 1 each Documented By: Admin: 03/09/25 03:32 Dose: 1 each Documented By: PANCHITO Clopidogrel Bisulfate (Clopidogrel 75 Mg Tablet) 75 mg PO DAILY [facility] Last Admin: 03/09/25 09:11 Dose: 75 mg Documented By: KALEIGH Entacapone (Entacapone 200 Mg Tablet) 200 mg PO QID [facility] Last Admin: 03/09/25 20:53 Dose: 200 mg Documented By: Admin: 03/09/25 17:14 Dose: 200 mg Documented By: Admin: 03/09/25 13:13 Dose: 200 mg Documented By: Admin: 03/09/25 09:11 Dose: 200 mg Documented By: KALEIGH Hydralazine HCl (Hydralazine 20 Mg/Ml Vial) 10 mg IV Q6HR PRN PRN Reason: Hypertension Last Admin: 03/09/25 03:32 Dose: 10 mg Documented By: PANCHITO Insulin Glargine (Insulin Glargine 100 Unit/Ml 3ml Pen) 16 unit SUBCUT BID [facility] Last Admin: 03/09/25 20:58 Dose: 16 unit Documented By: Co-signed By: CATHERINE Admin: 03/09/25 09:12 Dose: 16 unit Documented By: KALEIGH Co-signed By: PIETRO Insulin Human Lispro (Insulin Lispro 100 Unit/Ml 3ml Vial) 0 unit SUBCUT ACHS [facility]; Protocol Last Admin: 03/09/25 20:58 Dose: 2 unit Documented By: Co-signed By: CATHERINE Lisinopril (Lisinopril 5 Mg Tablet) 2.5 mg PO DAILY [facility] Last Admin: 03/09/25 09:11 Dose: 2.5 mg Documented By: KALEIGH Metoprolol Succinate (Metoprolol Er 25 Mg Tablet) 25 mg PO DAILY [facility] Last Admin: 03/09/25 09:12 Dose: 25 mg Documented By: KALEIGH Morphine Sulfate (Morphine 4 Mg/Ml Inj) 3 mg IV Q2HR PRN PRN Reason: Pain, Severe (7-10) Last Admin: 03/09/25 23:22 Dose: 3 mg Documented By: Admin: 03/09/25 06:28 Dose: 3 mg Documented By: PANCHITO Naloxone HCl (Naloxone 0.4 Mg/Ml Vial) 0.2 mg IV Q2MIN PRN PRN Reason: Opiate Reversal Ondansetron HCl (Ondansetron 4 Mg/2 Ml Inj) 4 mg IV Q8HR PRN PRN Reason: Nausea And Vomiting Sodium Chloride (Sodium Chloride 0.9% Flush) 10 ml IV PRN PRN PRN Reason: Flush Sodium Chloride (Sodium Chloride 0.9% Flush) 10 ml IV BID [facility] Last Admin: 03/09/25 20:59 Dose: 10 ml Documented By: Admin: 03/09/25 09:12 Dose: 10 ml Documented By: KALEIGH Tamsulosin HCl (Tamsulosin 0.4 Mg Capsule) 0.8 mg PO BEDTIME [facility] Last Admin: 03/09/25 20:53 Dose: 0.8 mg Documented By: Discontinued Medications Aspirin (Aspirin 81 Mg Chew Tab) 324 mg PO NOW ONE Stop: 03/08/25 13:53 Last Admin: 03/08/25 13:57 Dose: 324 mg Documented By: SAMIRA Atorvastatin Calcium (Atorvastatin 20 Mg Tablet) 40 mg PO DAILY [facility] Last Admin: 03/09/25 09:11 Dose: 40 mg Documented By: KALEIGH Carbidopa/Levodopa (Carbidopa-Levodopa 25/100 Tablet) 1 each PO NOW ONE Stop: 03/08/25 13:04 Last Admin: 03/08/25 13:25 Dose: 1 each Documented By: JUANI Carbidopa/Levodopa (Carbidopa-Levodopa 25/100 Tablet) 1 each PO NOW ONE Stop: 03/08/25 17:26 Last Admin: 03/08/25 17:47 Dose: 1 each Documented By: SAMIRA Entacapone (Entacapone 200 Mg Tablet) 200 mg PO NOW ONE Stop: 03/08/25 13:04 Last Admin: 03/08/25 13:25 Dose: 200 mg Documented By: JUANI Entacapone (Entacapone 200 Mg Tablet) 200 mg PO NOW ONE Stop: 03/08/25 17:26 Last Admin: 03/08/25 17:47 Dose: 200 mg Documented By: SAMIRA Heparin Sodium (Porcine) (Heparin 5,000 Unit/Ml Vial) 4,000 unit 60 unit/kg (4000 unit) IV NOW ONE Stop: 03/08/25 14:14 Last Admin: 03/08/25 14:28 Dose: 4,000 unit Documented By: SAMIRA Heparin Sodium/Dextrose (Heparin Drip) 25,000 unit in 500 mls @ 16.329 mls/hr IV CONT [facility]; Protocol Last Titration: 03/08/25 18:28 Dose: 0 units/kg/hr, 0 mls/hr Documented By: SAMIRA Co-signed By: DANIELLA Admin: 03/08/25 14:29 Dose: 12 units/kg/hr, 16.329 mls/hr Documented By: SAMIRA Co-signed By: DANIELLA Lisinopril (Lisinopril 5 Mg Tablet) 2.5 mg PO NOW ONE Stop: 03/08/25 14:53 Last Admin: 03/08/25 15:18 Dose: 2.5 mg Documented By: SAMIRA Metoprolol Succinate (Metoprolol Er 25 Mg Tablet) 25 mg PO NOW ONE Stop: 03/08/25 14:53 Last Admin: 03/08/25 15:18 Dose: 25 mg Documented By: SAMIRA Non-Formulary Medication (Insulin Glargine U-300 Conc [Toujeo Solostar U-300 Insulin]) 20 unit SUBCUT BID [facility] Consultations Consultation #1: Constitution made with hospitalist Dr. Moe who will graciously admit the patient Vital Signs Vital signs: Vital Signs - 8 hr 03/08/25 19:45 03/08/25 19:45 03/08/25 20:00 Pulse Rate 59 L 58 L Respiratory Rate 25 H 25 H Blood Pressure 166/74 H Pulse Oximetry 98 98 03/08/25 20:00 03/08/25 20:16 03/08/25 20:16 Pulse Rate 63 Respiratory Rate 27 H Blood Pressure 188/82 H 224/103 H Pulse Oximetry 100 03/08/25 20:30 03/08/25 20:30 03/08/25 20:45 Pulse Rate 61 Respiratory Rate 22 Blood Pressure 192/90 H 189/82 H Pulse Oximetry 99 03/08/25 20:45 03/08/25 21:00 03/08/25 21:01 Pulse Rate 62 66 Respiratory Rate 27 H Blood Pressure 215/86 H Pulse Oximetry 98 99 03/08/25 21:01 03/08/25 21:16 03/08/25 21:16 Pulse Rate 64 65 Respiratory Rate 27 H 27 H Blood Pressure 194/83 H Pulse Oximetry 98 99 03/08/25 21:30 03/08/25 21:30 03/08/25 21:46 Pulse Rate 66 69 Respiratory Rate 26 H 23 Blood Pressure 189/79 H Pulse Oximetry 97 98 03/08/25 21:46 03/08/25 22:00 03/08/25 22:00 Pulse Rate 70 Respiratory Rate Blood Pressure 218/89 H 224/89 H Pulse Oximetry 97 <Hannah Cloud MD - Last Filed: 03/10/25 01:06> Orders Ordered: Acetaminophen (Acetaminophen 325 Mg Tablet) 650 mg PO Q6H PRN PRN Reason: Fever/Mild Pain (1-3) Hydrocodone Bitart/Acetaminophen (Hydrocodone/Acet 5/325 Tablet) 1 tab PO Q4H PRN PRN Reason: Pain, Moderate (4-6) Aspirin (Aspirin Ec 81 Mg Tablet) 81 mg PO DAILY [facility] Last Admin: 03/09/25 09:11 Dose: 81 mg Documented By: KALEIGH Atorvastatin Calcium (Atorvastatin 20 Mg Tablet) 80 mg PO DAILY [facility] Last Admin: 03/09/25 13:02 Dose: Not Given Documented By: KALEIGH Carbidopa/Levodopa (Carbidopa-Levodopa Er 50/200 Tablet) 1 each PO QID [facility] Last Admin: 03/09/25 20:53 Dose: 1 each Documented By: Admin: 03/09/25 17:15 Dose: 1 each Documented By: Admin: 03/09/25 13:13 Dose: 1 each Documented By: Admin: 03/09/25 09:11 Dose: 1 each Documented By: Admin: 03/09/25 03:32 Dose: 1 each Documented By: PANCHITO Clopidogrel Bisulfate (Clopidogrel 75 Mg Tablet) 75 mg PO DAILY [facility] Last Admin: 03/09/25 09:11 Dose: 75 mg Documented By: KALEIGH Entacapone (Entacapone 200 Mg Tablet) 200 mg PO QID [facility] Last Admin: 03/09/25 20:53 Dose: 200 mg Documented By: Admin: 03/09/25 17:14 Dose: 200 mg Documented By: Admin: 03/09/25 13:13 Dose: 200 mg Documented By: Admin: 03/09/25 09:11 Dose: 200 mg Documented By: KALEIGH Hydralazine HCl (Hydralazine 20 Mg/Ml Vial) 10 mg IV Q6HR PRN PRN Reason: Hypertension Last Admin: 03/09/25 03:32 Dose: 10 mg Documented By: PANCHITO Insulin Glargine (Insulin Glargine 100 Unit/Ml 3ml Pen) 16 unit SUBCUT BID [facility] Last Admin: 03/09/25 20:58 Dose: 16 unit Documented By: Co-signed By: CATHERINE Admin: 03/09/25 09:12 Dose: 16 unit Documented By: KALEIGH Co-signed By: PIETRO Insulin Human Lispro (Insulin Lispro 100 Unit/Ml 3ml Vial) 0 unit SUBCUT ACHS [facility]; Protocol Last Admin: 03/09/25 20:58 Dose: 2 unit Documented By: Co-signed By: CATHERINE Lisinopril (Lisinopril 5 Mg Tablet) 2.5 mg PO DAILY [facility] Last Admin: 03/09/25 09:11 Dose: 2.5 mg Documented By: KALEIGH Metoprolol Succinate (Metoprolol Er 25 Mg Tablet) 25 mg PO DAILY [facility] Last Admin: 03/09/25 09:12 Dose: 25 mg Documented By: KALEIGH Morphine Sulfate (Morphine 4 Mg/Ml Inj) 3 mg IV Q2HR PRN PRN Reason: Pain, Severe (7-10) Last Admin: 03/09/25 23:22 Dose: 3 mg Documented By: Admin: 03/09/25 06:28 Dose: 3 mg Documented By: PANCHITO Naloxone HCl (Naloxone 0.4 Mg/Ml Vial) 0.2 mg IV Q2MIN PRN PRN Reason: Opiate Reversal Ondansetron HCl (Ondansetron 4 Mg/2 Ml Inj) 4 mg IV Q8HR PRN PRN Reason: Nausea And Vomiting Sodium Chloride (Sodium Chloride 0.9% Flush) 10 ml IV PRN PRN PRN Reason: Flush Sodium Chloride (Sodium Chloride 0.9% Flush) 10 ml IV BID [facility] Last Admin: 03/09/25 20:59 Dose: 10 ml Documented By: Admin: 03/09/25 09:12 Dose: 10 ml Documented By: KALEIGH Tamsulosin HCl (Tamsulosin 0.4 Mg Capsule) 0.8 mg PO BEDTIME [facility] Last Admin: 03/09/25 20:53 Dose: 0.8 mg Documented By: DR Bañuelos Medications Aspirin (Aspirin 81 Mg Chew Tab) 324 mg PO NOW ONE Stop: 03/08/25 13:53 Last Admin: 03/08/25 13:57 Dose: 324 mg Documented By: SAMIRA Atorvastatin Calcium (Atorvastatin 20 Mg Tablet) 40 mg PO DAILY [facility] Last Admin: 03/09/25 09:11 Dose: 40 mg Documented By: KALEIGH Carbidopa/Levodopa (Carbidopa-Levodopa 25/100 Tablet) 1 each PO NOW ONE Stop: 03/08/25 13:04 Last Admin: 03/08/25 13:25 Dose: 1 each Documented By: JUANI Carbidopa/Levodopa (Carbidopa-Levodopa 25/100 Tablet) 1 each PO NOW ONE Stop: 03/08/25 17:26 Last Admin: 03/08/25 17:47 Dose: 1 each Documented By: SAMIRA Entacapone (Entacapone 200 Mg Tablet) 200 mg PO NOW ONE Stop: 03/08/25 13:04 Last Admin: 03/08/25 13:25 Dose: 200 mg Documented By: JUANI Entacapone (Entacapone 200 Mg Tablet) 200 mg PO NOW ONE Stop: 03/08/25 17:26 Last Admin: 03/08/25 17:47 Dose: 200 mg Documented By: SAMIRA Heparin Sodium (Porcine) (Heparin 5,000 Unit/Ml Vial) 4,000 unit 60 unit/kg (4000 unit) IV NOW ONE Stop: 03/08/25 14:14 Last Admin: 03/08/25 14:28 Dose: 4,000 unit Documented By: SAMIRA Heparin Sodium/Dextrose (Heparin Drip) 25,000 unit in 500 mls @ 16.329 mls/hr IV CONT [facility]; Protocol Last Titration: 03/08/25 18:28 Dose: 0 units/kg/hr, 0 mls/hr Documented By: SAMIRA Co-signed By: DANIELLA Admin: 03/08/25 14:29 Dose: 12 units/kg/hr, 16.329 mls/hr Documented By: SAMIRA Co-signed By: DANIELLA Lisinopril (Lisinopril 5 Mg Tablet) 2.5 mg PO NOW ONE Stop: 03/08/25 14:53 Last Admin: 03/08/25 15:18 Dose: 2.5 mg Documented By: SAMIRA Metoprolol Succinate (Metoprolol Er 25 Mg Tablet) 25 mg PO NOW ONE Stop: 03/08/25 14:53 Last Admin: 03/08/25 15:18 Dose: 25 mg Documented By: SAMIRA Non-Formulary Medication (Insulin Glargine U-300 Conc [Toujeo Solostar U-300 Insulin]) 20 unit SUBCUT BID [facility] Vital Signs Vital signs: Vital Signs - 8 hr 03/08/25 19:45 03/08/25 19:45 03/08/25 20:00 Pulse Rate 59 L 58 L Respiratory Rate 25 H 25 H Blood Pressure 166/74 H Pulse Oximetry 98 98 03/08/25 20:00 03/08/25 20:16 03/08/25 20:16 Pulse Rate 63 Respiratory Rate 27 H Blood Pressure 188/82 H 224/103 H Pulse Oximetry 100 03/08/25 20:30 03/08/25 20:30 03/08/25 20:45 Pulse Rate 61 Respiratory Rate 22 Blood Pressure 192/90 H 189/82 H Pulse Oximetry 99 03/08/25 20:45 03/08/25 21:00 03/08/25 21:01 Pulse Rate 62 66 Respiratory Rate 27 H Blood Pressure 215/86 H Pulse Oximetry 98 99 03/08/25 21:01 03/08/25 21:16 03/08/25 21:16 Pulse Rate 64 65 Respiratory Rate 27 H 27 H Blood Pressure 194/83 H Pulse Oximetry 98 99 03/08/25 21:30 03/08/25 21:30 03/08/25 21:46 Pulse Rate 66 69 Respiratory Rate 26 H 23 Blood Pressure 189/79 H Pulse Oximetry 97 98 03/08/25 21:46 03/08/25 22:00 03/08/25 22:00 Pulse Rate 70 Respiratory Rate Blood Pressure 218/89 H 224/89 H Pulse Oximetry 97 MDM - Weakness <Ce Swanson PA-C - Last Filed: 03/08/25 19:28> Medical Records Attestation: I reviewed the patient's medical records. Lab Data 03/08/25 12:38 03/08/25 12:38 Labs: Lab Results 03/08/25 03/08/25 03/08/25 Range/Units 12:38 15:00 15:40 WBC 8.6 (4.5-11.0) X10^3/uL RBC 3.91 L (4.5-5.9) X10^6/uL Hgb 14.1 (13.5-17.5) g/dL Hct 39.4 L (41-53) % MCV 100.6 H (80-100) fL MCH 36.0 H (26-34) PG MCHC 35.8 (30-36) % RDW 14.9 H (11.6-14.8) % Plt Count 154 (150-400) X10^3/uL Neut % (Auto) 80.7 H (50-75) % Lymph % (Auto) 9.9 L (25-40) % [place] % (Auto) 6.5 (3-14) % Eos % (Auto) 2.4 (2-4) % Baso % (Auto) 0.5 (0-2) % Neut # (Auto) 6900 (8424-3133) /uL Lymph # (Auto) 900 L (6751-7267) /uL [place] # (Auto) 600 (0-900) /uL Eos # (Auto) 200 (0-450) /uL Baso # (Auto) 0 (0-100) /uL PT 11.0 (9.4-12.5) SECONDS INR 1.0 (0.9-1.3) APTT 25 L (25.1-36.5) SECONDS Sodium 138 (137-145) mmol/L Potassium 4.6 (3.4-5.1) mmol/L Chloride 110 H (98-107) mmol/L Carbon Dioxide 23 (22-32) mmol/L BUN 54 H (9-20) mg/dL Creatinine 1.69 H (0.66-1.25) mg/dL Estimated GFR 42 L (>60) mL/min BUN/Creatinine Ratio 32.0 H (6-22) Glucose 199 H (70-99) mg/dL POC Whole Bld Glucose (70-99) mg/dL Lactate 1.2 (0.7-2.1) mmol/L Calcium 8.9 (8.4-10.2) mg/dL Magnesium 2.1 (1.6-2.3) mg/dL Total Bilirubin 0.9 (0.2-1.3) mg/dL AST 29 (17-59) IU/L ALT 7 (<50) IU/L Alkaline Phosphatase 117 (38-126) U/L Total Creatine Kinase 39 L (55-170) U/L Troponin I 0.104 H 0.101 H (0.01-0.034) ng/mL NT-Pro-B Natriuret Pep 1650 H (<450) pg/mL Total Protein 6.8 (6.3-8.2) g/dL Albumin 3.9 (3.5-5.0) g/dL Globulin 2.9 (1.7-4.1) g/dL Albumin/Globulin Ratio 1.3 (1.0-2.8) Lipase 697 H (23-300) U/L Procalcitonin 0.071 (<0.5) ng/mL Urine Color Yellow Urine Appearance Clear Urine pH 6.0 (4.5-8.0) Ur Specific [place]anan 1.025 (1.000-1.035) Urine Protein 3+ H (Negative) Urine Glucose (UA) Trace H (Negative) g/dL Urine Ketones Negative (NEGATIVE) Urine Occult Blood 1+ H (Negative) Urine Nitrate Negative (Negative) Urine Bilirubin Negative (NEGATIVE) Urine Urobilinogen 0.2 (0.2) E.U./dL Ur Leukocyte Esterase Negative (NEGATIVE) Urine RBC 1-5/hpf (0-5/HPF) Urine WBC 0-1/hpf (0-5/HPF) Ur Squamous Epith Cells 0-1 /hpf (0-5/HPF) Urine Bacteria Occasional (0-1) (None) Urine Mucus 1+ H (Negative) Ur Culture Indicated? Cult not indicated Vol Urine Centrifuged 10ml (spun) Ethyl Alcohol < 10 (<10) mg/dL 03/08/25 03/08/25 Range/Units 19:19 21:13 WBC (4.5-11.0) X10^3/uL RBC (4.5-5.9) X10^6/uL Hgb (13.5-17.5) g/dL Hct (41-53) % MCV (80-100) fL MCH (26-34) PG MCHC (30-36) % RDW (11.6-14.8) % Plt Count (150-400) X10^3/uL Neut % (Auto) (50-75) % Lymph % (Auto) (25-40) % [place] % (Auto) (3-14) % Eos % (Auto) (2-4) % Baso % (Auto) (0-2) % Neut # (Auto) (5997-3910) /uL Lymph # (Auto) (8651-4636) /uL [place] # (Auto) (0-900) /uL Eos # (Auto) (0-450) /uL Baso # (Auto) (0-100) /uL PT (9.4-12.5) SECONDS INR (0.9-1.3) APTT 31 D (25.1-36.5) SECONDS Sodium (137-145) mmol/L Potassium (3.4-5.1) mmol/L Chloride (98-107) mmol/L Carbon Dioxide (22-32) mmol/L BUN (9-20) mg/dL Creatinine (0.66-1.25) mg/dL Estimated GFR (>60) mL/min BUN/Creatinine Ratio (6-22) Glucose (70-99) mg/dL POC Whole Bld Glucose 133 H (70-99) mg/dL Lactate (0.7-2.1) mmol/L Calcium (8.4-10.2) mg/dL Magnesium (1.6-2.3) mg/dL Total Bilirubin (0.2-1.3) mg/dL AST (17-59) IU/L ALT (<50) IU/L Alkaline Phosphatase (38-126) U/L Total Creatine Kinase (55-170) U/L Troponin I (0.01-0.034) ng/mL NT-Pro-B Natriuret Pep (<450) pg/mL Total Protein (6.3-8.2) g/dL Albumin (3.5-5.0) g/dL Globulin (1.7-4.1) g/dL Albumin/Globulin Ratio (1.0-2.8) Lipase (23-300) U/L Procalcitonin (<0.5) ng/mL Urine Color Urine Appearance Urine pH (4.5-8.0) Ur Specific [place] (1.000-1.035) Urine Protein (Negative) Urine Glucose (UA) (Negative) g/dL Urine Ketones (NEGATIVE) Urine Occult Blood (Negative) Urine Nitrate (Negative) Urine Bilirubin (NEGATIVE) Urine Urobilinogen (0.2) E.U./dL Ur Leukocyte Esterase (NEGATIVE) Urine RBC (0-5/HPF) Urine WBC (0-5/HPF) Ur Squamous Epith Cells (0-5/HPF) Urine Bacteria (None) Urine Mucus (Negative) Ur Culture Indicated? Vol Urine Centrifuged Ethyl Alcohol (<10) mg/dL Urine Dip Bedside Urine Glucose 250 mg/dl Bedside Urine Bilirubin - Negative Bedside Urine Ketone - Negative Urine Specific [place]anan 1.020 Bedside Urine Occult Blood + Bedside Urine pH 6.0 Bedside Urine Protein +++ 300 Bedside Urine Urobilinogen - Negative Bedside Urine Nitrite - Negative Bedside Urine Leukocytes - Negative Esterase Imaging Data Chest x-ray: Radiologist Impression: PROCEDURE: XR CHEST 1V INDICATIONS: weakness, HTN TECHNIQUE: One view of the chest was acquired. COMPARISON: [facility], XR CHEST 1V, 02/08/2025, 15:19. FINDINGS: Surgical changes and devices: None. Lungs and pleura: Lungs are clear. No pleural effusions or pneumothorax. Mediastinum: Mediastinal contours appear normal. Heart size is normal. Bones and chest wall: No suspicious bony lesions. Overlying soft tissues appear unremarkable. IMPRESSION: No acute cardiopulmonary pathology. Dictated by: Joe Waite M.D. on 03/08/2025 at 13:32 Approved by: Joe Waite M.D. on 03/08/2025 at 13:33 [facility] Narrative Medical decision making narrative: 74-year-old gentleman with a past medical history of Parkinson's disease, HTN, HLD, insulin-dependent T2DM, CKD, prostate cancer undergoing radiation who presents to the emergency department via EMS from home for generalized weakness x 1 week. Differential diagnosis includes but is not limited to hypertensive urgency, emergency, UTI, dehydration, electrolyte derangement, etc. On exam the patient is in no acute distress, nontoxic appearing, vital signs appropriate except for elevated blood pressure 227/98. Patient is globally weak, last week was able to ambulate independently and even take himself to his radiation appointments but the last few days he has been unable to stand ambulate or get around at all on his own. Physical exam does reveal systolic murmur, equal symmetric strength with no identifiable focal deficits. He denies pain at this time. He feels very fatigued. We will obtain lab work, EKG, urine. 1250: Called and spoke with the patient's caregiver, Ewa, and asked he received his HTN medications this morning. She states that he takes lisinopril and metoprolol at night therefore he is not receiving this morning. So far he has received his Parkinson's medications at 9:00 a.m. in addition to multivitamin and vitamin D3. Labs reveal elevated troponin 0.104. BNP elevated 1650. Normal electrolytes. Baseline CKD with a BUN of 54 creatinine of 1.69. Normal WBC count 8.6. Hemoglobin 14.1. 1350: Discussed with the patient his elevated troponin. He reports that he feels diffusely weak but denies any chest pain or shortness of breath at this time. Discussed goals of care. Patient is agreeable to medication management, surgery but he does not want chest compressions and he does not want intubation or ventilation if needed. 1410: Discussed the case with the e learning manager, Dr. Dumont. States that he is aware of the patient and has been trying to schedule him for an outpatient heart catheterization. Because patient is not having any chest pain shortness of breath or symptoms, he would not be a candidate for an emergency catheterization this weekend at any facility. States that this is not necessarily an NSTEMI however patient should be started on heparin in the setting of elevated troponin. 1630: Spoke with the hospitalist, Dr. Rocha, who graciously accepts the patient for admission at [facility] for further evaluation and management. Patient is aware and agreeable due transfer and is stable for transfer at this time. Repeat troponin stable/slightly improved, 0.101. 1846: Informed by nursing staff that patient has blood in his condom catheter bag. I called and spoke with e learning manager, Dr. Dumont. Heparin has been stopped. He no longer wishes for the patient to be transferred to [facility] as he does not plan to intervene/do a catheterization on this patient who is now having hematuria. He will call and speak with our hospitalist, Dr. Milan. I called and spoke with [facility] hospitalist, Dr. Rocha, to let her know heparin has been stopped. I was informed that our hospitalist, Dr. Milan, declines this patient for admission as we do not have urology or interventional cardiology services at this hospital and this patient requires higher level of care. I called and spoke with the hospitalist at [facility], Dr. Rocha. She now declines this patient for admission at her hospital since he no longer is planned to have interventional cardiology services. Discussed with her that our hospitalist does not feel comfortable keeping him here as we do not have Urology and Cardiology but [facility] does have these services. She recommends the patient be continued to monitor at this hospital and if he were to develop EKG changes, chest pain, clots of blood in his urine or other and worsening of symptoms, [facility] can then be called for transfer and admission but she declines at this time. I discussed again with Dr. Milan who states that patient is only a candidate for admission at this hospital if he wishes for comfort or palliative care. 1924: Due to shift change, case discussed with Dr. Aceves. Patient is awaiting admission at an accepting facility at this time. Heparin stopped. <Mo Aceves MD - Last Filed: 03/09/25 03:41> Lab Data Labs: Lab Results 03/08/25 03/08/25 03/08/25 Range/Units 12:38 15:00 15:40 WBC 8.6 (4.5-11.0) X10^3/uL RBC 3.91 L (4.5-5.9) X10^6/uL Hgb 14.1 (13.5-17.5) g/dL Hct 39.4 L (41-53) % MCV 100.6 H (80-100) fL MCH 36.0 H (26-34) PG MCHC 35.8 (30-36) % RDW 14.9 H (11.6-14.8) % Plt Count 154 (150-400) X10^3/uL Neut % (Auto) 80.7 H (50-75) % Lymph % (Auto) 9.9 L (25-40) % [place] % (Auto) 6.5 (3-14) % Eos % (Auto) 2.4 (2-4) % Baso % (Auto) 0.5 (0-2) % Neut # (Auto) 6900 (7060-5004) /uL Lymph # (Auto) 900 L (5336-6640) /uL [place] # (Auto) 600 (0-900) /uL Eos # (Auto) 200 (0-450) /uL Baso # (Auto) 0 (0-100) /uL PT 11.0 (9.4-12.5) SECONDS INR 1.0 (0.9-1.3) APTT 25 L (25.1-36.5) SECONDS Sodium 138 (137-145) mmol/L Potassium 4.6 (3.4-5.1) mmol/L Chloride 110 H (98-107) mmol/L Carbon Dioxide 23 (22-32) mmol/L BUN 54 H (9-20) mg/dL Creatinine 1.69 H (0.66-1.25) mg/dL Estimated GFR 42 L (>60) mL/min BUN/Creatinine Ratio 32.0 H (6-22) Glucose 199 H (70-99) mg/dL POC Whole Bld Glucose (70-99) mg/dL Lactate 1.2 (0.7-2.1) mmol/L Calcium 8.9 (8.4-10.2) mg/dL Magnesium 2.1 (1.6-2.3) mg/dL Total Bilirubin 0.9 (0.2-1.3) mg/dL AST 29 (17-59) IU/L ALT 7 (<50) IU/L Alkaline Phosphatase 117 (38-126) U/L Total Creatine Kinase 39 L (55-170) U/L Troponin I 0.104 H 0.101 H (0.01-0.034) ng/mL NT-Pro-B Natriuret Pep 1650 H (<450) pg/mL Total Protein 6.8 (6.3-8.2) g/dL Albumin 3.9 (3.5-5.0) g/dL Globulin 2.9 (1.7-4.1) g/dL Albumin/Globulin Ratio 1.3 (1.0-2.8) Lipase 697 H (23-300) U/L Procalcitonin 0.071 (<0.5) ng/mL Urine Color Yellow Urine Appearance Clear Urine pH 6.0 (4.5-8.0) Ur Specific [place] 1.025 (1.000-1.035) Urine Protein 3+ H (Negative) Urine Glucose (UA) Trace H (Negative) g/dL Urine Ketones Negative (NEGATIVE) Urine Occult Blood 1+ H (Negative) Urine Nitrate Negative (Negative) Urine Bilirubin Negative (NEGATIVE) Urine Urobilinogen 0.2 (0.2) E.U./dL Ur Leukocyte Esterase Negative (NEGATIVE) Urine RBC 1-5/hpf (0-5/HPF) Urine WBC 0-1/hpf (0-5/HPF) Ur Squamous Epith Cells 0-1 /hpf (0-5/HPF) Urine Bacteria Occasional (0-1) (None) Urine Mucus 1+ H (Negative) Ur Culture Indicated? Cult not indicated Vol Urine Centrifuged 10ml (spun) Ethyl Alcohol < 10 (<10) mg/dL 03/08/25 03/08/25 Range/Units 19:19 21:13 WBC (4.5-11.0) X10^3/uL RBC (4.5-5.9) X10^6/uL Hgb (13.5-17.5) g/dL Hct (41-53) % MCV (80-100) fL MCH (26-34) PG MCHC (30-36) % RDW (11.6-14.8) % Plt Count (150-400) X10^3/uL Neut % (Auto) (50-75) % Lymph % (Auto) (25-40) % [place] % (Auto) (3-14) % Eos % (Auto) (2-4) % Baso % (Auto) (0-2) % Neut # (Auto) (7313-9605) /uL Lymph # (Auto) (0305-3797) /uL [place] # (Auto) (0-900) /uL Eos # (Auto) (0-450) /uL Baso # (Auto) (0-100) /uL PT (9.4-12.5) SECONDS INR (0.9-1.3) APTT 31 D (25.1-36.5) SECONDS Sodium (137-145) mmol/L Potassium (3.4-5.1) mmol/L Chloride (98-107) mmol/L Carbon Dioxide (22-32) mmol/L BUN (9-20) mg/dL Creatinine (0.66-1.25) mg/dL Estimated GFR (>60) mL/min BUN/Creatinine Ratio (6-22) Glucose (70-99) mg/dL POC Whole Bld Glucose 133 H (70-99) mg/dL Lactate (0.7-2.1) mmol/L Calcium (8.4-10.2) mg/dL Magnesium (1.6-2.3) mg/dL Total Bilirubin (0.2-1.3) mg/dL AST (17-59) IU/L ALT (<50) IU/L Alkaline Phosphatase (38-126) U/L Total Creatine Kinase (55-170) U/L Troponin I (0.01-0.034) ng/mL NT-Pro-B Natriuret Pep (<450) pg/mL Total Protein (6.3-8.2) g/dL Albumin (3.5-5.0) g/dL Globulin (1.7-4.1) g/dL Albumin/Globulin Ratio (1.0-2.8) Lipase (23-300) U/L Procalcitonin (<0.5) ng/mL Urine Color Urine Appearance Urine pH (4.5-8.0) Ur Specific [place] (1.000-1.035) Urine Protein (Negative) Urine Glucose (UA) (Negative) g/dL Urine Ketones (NEGATIVE) Urine Occult Blood (Negative) Urine Nitrate (Negative) Urine Bilirubin (NEGATIVE) Urine Urobilinogen (0.2) E.U./dL Ur Leukocyte Esterase (NEGATIVE) Urine RBC (0-5/HPF) Urine WBC (0-5/HPF) Ur Squamous Epith Cells (0-5/HPF) Urine Bacteria (None) Urine Mucus (Negative) Ur Culture Indicated? Vol Urine Centrifuged Ethyl Alcohol (<10) mg/dL Urine Dip Bedside Urine Glucose 250 mg/dl Bedside Urine Bilirubin - Negative Bedside Urine Ketone - Negative Urine Specific [place] 1.020 Bedside Urine Occult Blood + Bedside Urine pH 6.0 Bedside Urine Protein +++ 300 Bedside Urine Urobilinogen - Negative Bedside Urine Nitrite - Negative Bedside Urine Leukocytes - Negative Esterase MDM Narrative Medical decision making narrative: 74-year-old gentleman with a past medical history of Parkinson's disease, HTN, HLD, insulin-dependent T2DM, CKD, prostate cancer undergoing radiation who presents to the emergency department via EMS from home for generalized weakness x 1 week. Differential diagnosis includes but is not limited to hypertensive urgency, emergency, UTI, dehydration, electrolyte derangement, etc. On exam the patient is in no acute distress, nontoxic appearing, vital signs appropriate except for elevated blood pressure 227/98. Patient is globally weak, last week was able to ambulate independently and even take himself to his radiation appointments but the last few days he has been unable to stand ambulate or get around at all on his own. Physical exam does reveal systolic murmur, equal symmetric strength with no identifiable focal deficits. He denies pain at this time. He feels very fatigued. We will obtain lab work, EKG, urine. 1250: Called and spoke with the patient's caregiver, Ewa, and asked he received his HTN medications this morning. She states that he takes lisinopril and metoprolol at night therefore he is not receiving this morning. So far he has received his Parkinson's medications at 9:00 a.m. in addition to multivitamin and vitamin D3. Labs reveal elevated troponin 0.104. BNP elevated 1650. Normal electrolytes. Baseline CKD with a BUN of 54 creatinine of 1.69. Normal WBC count 8.6. Hemoglobin 14.1. 1350: Discussed with the patient his elevated troponin. He reports that he feels diffusely weak but denies any chest pain or shortness of breath at this time. Discussed goals of care. Patient is agreeable to medication management, surgery but he does not want chest compressions and he does not want intubation or ventilation if needed. 1410: Discussed the case with the e learning manager, Dr. Dumont. States that he is aware of the patient and has been trying to schedule him for an outpatient heart catheterization. Because patient is not having any chest pain shortness of breath or symptoms, he would not be a candidate for an emergency catheterization this weekend at any facility. States that this is not necessarily an NSTEMI however patient should be started on heparin in the setting of elevated troponin. 1630: Spoke with the hospitalist, Dr. Rocha, who graciously accepts the patient for admission at [facility] for further evaluation and management. Patient is aware and agreeable due transfer and is stable for transfer at this time. Repeat troponin stable/slightly improved, 0.101. 1846: Informed by nursing staff that patient has blood in his condom catheter bag. I called and spoke with e learning manager, Dr. Dumont. Heparin has been stopped. He no longer wishes for the patient to be transferred to [facility] as he does not plan to intervene/do a catheterization on this patient who is now having hematuria. He will call and speak with our hospitalist, Dr. Milan. I called and spoke with [facility] hospitalist, Dr. Rocha, to let her know heparin has been stopped. I was informed that our hospitalist, Dr. Milan, declines this patient for admission as we do not have urology or interventional cardiology services at this hospital and this patient requires higher level of care. I called and spoke with the hospitalist at [facility], Dr. Rocha. She now declines this patient for admission at her hospital since he no longer is planned to have interventional cardiology services. Discussed with her that our hospitalist does not feel comfortable keeping him here as we do not have Urology and Cardiology but [facility] does have these services. She recommends the patient be continued to monitor at this hospital and if he were to develop EKG changes, chest pain, clots of blood in his urine or other and worsening of symptoms, [facility] can then be called for transfer and admission but she declines at this time. I discussed again with Dr. Milan who states that patient is only a candidate for admission at this hospital if he wishes for comfort or palliative care. 192: Due to shift change, case discussed with Dr. Aceves. Patient is awaiting admission at an accepting facility at this time. Heparin stopped. After extensive discussion, patient agreed to be comfort care. Patient will be admitted here at [facility] for comfort care measures and rehabilitation. Patient understands that no cardiac or urologic intervention will occur for the patient while he is under comfort care. <Hannah Cloud MD - Last Filed: 03/10/25 01:06> Lab Data Labs: Lab Results 03/08/25 03/08/25 03/08/25 Range/Units 12:38 15:00 15:40 WBC 8.6 (4.5-11.0) X10^3/uL RBC 3.91 L (4.5-5.9) X10^6/uL Hgb 14.1 (13.5-17.5) g/dL Hct 39.4 L (41-53) % MCV 100.6 H (80-100) fL MCH 36.0 H (26-34) PG MCHC 35.8 (30-36) % RDW 14.9 H (11.6-14.8) % Plt Count 154 (150-400) X10^3/uL Neut % (Auto) 80.7 H (50-75) % Lymph % (Auto) 9.9 L (25-40) % [place] % (Auto) 6.5 (3-14) % Eos % (Auto) 2.4 (2-4) % Baso % (Auto) 0.5 (0-2) % Neut # (Auto) 6900 (4673-3553) /uL Lymph # (Auto) 900 L (1848-9871) /uL [place] # (Auto) 600 (0-900) /uL Eos # (Auto) 200 (0-450) /uL Baso # (Auto) 0 (0-100) /uL PT 11.0 (9.4-12.5) SECONDS INR 1.0 (0.9-1.3) APTT 25 L (25.1-36.5) SECONDS Sodium 138 (137-145) mmol/L Potassium 4.6 (3.4-5.1) mmol/L Chloride 110 H (98-107) mmol/L Carbon Dioxide 23 (22-32) mmol/L BUN 54 H (9-20) mg/dL Creatinine 1.69 H (0.66-1.25) mg/dL Estimated GFR 42 L (>60) mL/min BUN/Creatinine Ratio 32.0 H (6-22) Glucose 199 H (70-99) mg/dL POC Whole Bld Glucose (70-99) mg/dL Lactate 1.2 (0.7-2.1) mmol/L Calcium 8.9 (8.4-10.2) mg/dL Magnesium 2.1 (1.6-2.3) mg/dL Total Bilirubin 0.9 (0.2-1.3) mg/dL AST 29 (17-59) IU/L ALT 7 (<50) IU/L Alkaline Phosphatase 117 (38-126) U/L Total Creatine Kinase 39 L (55-170) U/L Troponin I 0.104 H 0.101 H (0.01-0.034) ng/mL NT-Pro-B Natriuret Pep 1650 H (<450) pg/mL Total Protein 6.8 (6.3-8.2) g/dL Albumin 3.9 (3.5-5.0) g/dL Globulin 2.9 (1.7-4.1) g/dL Albumin/Globulin Ratio 1.3 (1.0-2.8) Lipase 697 H (23-300) U/L Procalcitonin 0.071 (<0.5) ng/mL Urine Color Yellow Urine Appearance Clear Urine pH 6.0 (4.5-8.0) Ur Specific [place] 1.025 (1.000-1.035) Urine Protein 3+ H (Negative) Urine Glucose (UA) Trace H (Negative) g/dL Urine Ketones Negative (NEGATIVE) Urine Occult Blood 1+ H (Negative) Urine Nitrate Negative (Negative) Urine Bilirubin Negative (NEGATIVE) Urine Urobilinogen 0.2 (0.2) E.U./dL Ur Leukocyte Esterase Negative (NEGATIVE) Urine RBC 1-5/hpf (0-5/HPF) Urine WBC 0-1/hpf (0-5/HPF) Ur Squamous Epith Cells 0-1 /hpf (0-5/HPF) Urine Bacteria Occasional (0-1) (None) Urine Mucus 1+ H (Negative) Ur Culture Indicated? Cult not indicated Vol Urine Centrifuged 10ml (spun) Ethyl Alcohol < 10 (<10) mg/dL 03/08/25 03/08/25 Range/Units 19:19 21:13 WBC (4.5-11.0) X10^3/uL RBC (4.5-5.9) X10^6/uL Hgb (13.5-17.5) g/dL Hct (41-53) % MCV (80-100) fL MCH (26-34) PG MCHC (30-36) % RDW (11.6-14.8) % Plt Count (150-400) X10^3/uL Neut % (Auto) (50-75) % Lymph % (Auto) (25-40) % [place] % (Auto) (3-14) % Eos % (Auto) (2-4) % Baso % (Auto) (0-2) % Neut # (Auto) (3224-3642) /uL Lymph # (Auto) (5465-2347) /uL [place] # (Auto) (0-900) /uL Eos # (Auto) (0-450) /uL Baso # (Auto) (0-100) /uL PT (9.4-12.5) SECONDS INR (0.9-1.3) APTT 31 D (25.1-36.5) SECONDS Sodium (137-145) mmol/L Potassium (3.4-5.1) mmol/L Chloride (98-107) mmol/L Carbon Dioxide (22-32) mmol/L BUN (9-20) mg/dL Creatinine (0.66-1.25) mg/dL Estimated GFR (>60) mL/min BUN/Creatinine Ratio (6-22) Glucose (70-99) mg/dL POC Whole Bld Glucose 133 H (70-99) mg/dL Lactate (0.7-2.1) mmol/L Calcium (8.4-10.2) mg/dL Magnesium (1.6-2.3) mg/dL Total Bilirubin (0.2-1.3) mg/dL AST (17-59) IU/L ALT (<50) IU/L Alkaline Phosphatase (38-126) U/L Total Creatine Kinase (55-170) U/L Troponin I (0.01-0.034) ng/mL NT-Pro-B Natriuret Pep (<450) pg/mL Total Protein (6.3-8.2) g/dL Albumin (3.5-5.0) g/dL Globulin (1.7-4.1) g/dL Albumin/Globulin Ratio (1.0-2.8) Lipase (23-300) U/L Procalcitonin (<0.5) ng/mL Urine Color Urine Appearance Urine pH (4.5-8.0) Ur Specific [place] (1.000-1.035) Urine Protein (Negative) Urine Glucose (UA) (Negative) g/dL Urine Ketones (NEGATIVE) Urine Occult Blood (Negative) Urine Nitrate (Negative) Urine Bilirubin (NEGATIVE) Urine Urobilinogen (0.2) E.U./dL Ur Leukocyte Esterase (NEGATIVE) Urine RBC (0-5/HPF) Urine WBC (0-5/HPF) Ur Squamous Epith Cells (0-5/HPF) Urine Bacteria (None) Urine Mucus (Negative) Ur Culture Indicated? Vol Urine Centrifuged Ethyl Alcohol (<10) mg/dL Urine Dip Bedside Urine Glucose 250 mg/dl Bedside Urine Bilirubin - Negative Bedside Urine Ketone - Negative Urine Specific [place] 1.020 Bedside Urine Occult Blood + Bedside Urine pH 6.0 Bedside Urine Protein +++ 300 Bedside Urine Urobilinogen - Negative Bedside Urine Nitrite - Negative Bedside Urine Leukocytes - Negative Esterase Discharge Plan Departure Patient Disposition: Admitted as Observation Clinical Impression: Generalized weakness, Elevated troponin, Prostate cancer CKD (chronic kidney disease) Qualifiers: Chronic kidney disease stage: stage 3 (moderate) Chronic kidney disease stage 3 subtype: stage 3b (GFR 30-44) Qualified Code(s): N18.32 - Chronic kidney disease, stage 3b Hematuria Qualifiers: Hematuria type: gross Qualified Code(s): R31.0 - Gross hematuria Admit Date/Time: 03/08/25 22:05 Admit Provider: Buddy Moe ED Sign-out <Hannah Cloud MD - Last Filed: 03/10/25 01:06> Cosign ED Attending Cosignature Attestation: I reviewed the documentation entered by the physician special education assistant. I was not directly involved in this patient?s care, but I reviewed the documented history, examination findings, assessment, and plan with the PA. I agree with the evaluation and plan as documented. Patient was signed out to Dr. Mo Aceves at shift change pending admission and transfer to another facility. Hannah Cloud MD Emergency Medicine Attending
--- NOTE | 2025-03-08 12:34 | DI.RAD.S_ITS ---
PROCEDURE: XR CHEST 1V INDICATIONS: weakness, HTN TECHNIQUE: One view of the chest was acquired. COMPARISON: [facility], CR, XR CHEST 1V, 02/08/2025, 15:19. FINDINGS: Surgical changes and devices: None. Lungs and pleura: Lungs are clear. No pleural effusions or pneumothorax. Mediastinum: Mediastinal contours appear normal. Heart size is normal. Bones and chest wall: No suspicious bony lesions. Overlying soft tissues appear unremarkable. IMPRESSION: No acute cardiopulmonary pathology. Dictated by: Joe Waite M.D. on 03/08/2025 at 13:32 Approved by: Joe Waite M.D. on 03/08/2025 at 13:33
--- NOTE | 2025-03-08 12:36 | EKG_ITS ---
[id number] [address] Test Date: 2025-03-08 Pat Name: Kiet Ca Department: Room: Gender: Male Master Lay Out Specialist: SANDRA : [id number] Requested By: Order Number: [id number] Reading MD: Petros Orellana MD Measurements Intervals [place] Rate: 66 P: 75 [place]: 242 QRS: 49 QRSD: 88 T: -7 QT: 438 QTc: 459 Interpretive Statements Sinus rhythm with 1st degree AV block Electronically Signed On 03-09-2025 9:19:06 PST by Petros Orellana MD
[2025-03-08 13:21] LABS: INR 1.0 (0.9-1.3); Prothrombin Time 11.0 SECONDS (9.4-12.5)
[2025-03-08 13:23] LABS: PTT Partial Thromboplastin Tim 25 SECONDS (25.1-36.5)
[2025-03-08] MEDS: CARBIDOPA-LEVODOPA 25/100 TABLET 1 EACH PO ×2 (13:25→17:47)
[2025-03-08] MEDS: ENTACAPONE 200 MG TABLET PO ×2 (13:25→17:47)
[2025-03-08 13:32] LABS: Lactate (Lactic Acid) 1.2 mmol/L (0.7-2.1)
[2025-03-08 13:33] LABS: Alanine Aminotransferase 7 IU/L (<50); Albumin 3.9 g/dL (3.5-5.0); Albumin Globulin Ratio 1.3 (1.0-2.8); Alkaline Phosphatase 117 U/L (38-126); Blood Urea Nitrogen 54 mg/dL (9-20); Calcium 8.9 mg/dL (8.4-10.2); Carbon Dioxide 23 mmol/L (22-32); Chloride 110 mmol/L (98-107); Creatine Kinase 39 U/L (55-170); Estimated Glomerular Filt Rate 42 mL/min (>60); Globulin 2.9 g/dL (1.7-4.1); Glucose 199 mg/dL (70-99); HEMOLYSIS < 15 (0-50); Lipase 697 U/L (23-300); Magnesium 2.1 mg/dL (1.6-2.3); Potassium 4.6 mmol/L (3.4-5.1); Sodium 138 mmol/L (137-145); Total Protein 6.8 g/dL (6.3-8.2)
[2025-03-08 13:45] LABS: NT-proBNP (BNP-Adult 18+) 1650 pg/mL (<450); Troponin I 0.104 ng/mL (0.01-0.034)
[2025-03-08 13:46] LABS: Ethanol (ETOH) < 10 mg/dL (<10)
[2025-03-08 13:49] LABS: Procalcitonin 0.071 ng/mL (<0.5)
[2025-03-08 13:54] LABS: Add Manual Diff / Slide Review NO; Hematocrit 39.4 % (41-53); Hemoglobin 14.1 g/dL (13.5-17.5); Lymphocytes Absolute Auto 900 /uL (1100-4500); Mean Corpuscular HGB Conc 35.8 % (30-36); Mean Corpuscular Hemoglobin 36.0 PG (26-34); Mean Corpuscular Volume 100.6 fL (80-100); Platelet Count 154 X10^3/uL (150-400)
[2025-03-08] MEDS: ASPIRIN 81 MG CHEW TAB 324 MG PO (13:57)
[2025-03-08] MEDS: HEPARIN 5,000 UNIT/ML VIAL 4000 UNIT IV (14:28)
[2025-03-08] MEDS: HEPARIN DRIP 25,000 UNIT/500 ML IV.SOLN 16.329 UNIT IV (14:29)
[2025-03-08] MEDS: METOPROLOL ER 25 MG TABLET PO (15:18)
[2025-03-08 15:37] LABS: Appearance Urine UA CLEAR; Bilirubin Urine UA NEGATIVE (NEGATIVE); Color Urine UA YELLOW; Glucose Urine UA TRACE g/dL (Negative); Ketones Urine UA NEGATIVE (NEGATIVE); Leukocyte Esterase Urine UA NEGATIVE (NEGATIVE); Nitrite Urine UA NEGATIVE (Negative); Occult Blood Urine UA 1+ (Negative); Protein Urine UA 3+ (Negative); Specific Gravity Urine UA 1.025 (1.000-1.035); Urobilinogen Urine UA 0.2 E.U./dL (0.2); pH Urine UA 6.0 (4.5-8.0)
[2025-03-08 15:45] LABS: Culture Indicated Urine Cult Not Indicated
[2025-03-08 16:18] LABS: Troponin I 0.101 ng/mL (0.01-0.034)
--- NOTE | 2025-03-08 16:35 | CM.SWNOTE ---
Addendum entered by Elsa Dorman 03/08/25 19:26: It is reported that since patient started receiving heprin, patient is presents with mild hamturia. Integrity Assessor advises to pause heprin, [facility] rescinds acceptance for transfer. Pending disposition at this time. ED provider to review further with hospitalist for POC. Patient is not medically clear at this time. Elsa Dorman, [facility] Original Note: ED DIVISION ORDER TECHNICIAN Note Patient is 74 y/o male who presents to the ED via EMS due to concern for increased weakness since yesterday, patient had radiation tx yesterday at [facility] and today patient was unable to get up to care for self. Patient's caregiver came to patient's home on her day off to check on patient and called 911. EMS reports that patient's son is out of town this weekend. Patient was admitted last month due to concern for NSTEMI. Patient's PCP is Yessenia Johnson, Patient has [employer] insurance Patient has hx of Parkinson's disease, prostate cancer- undergoing 5 radiation treatments a week, HTN, HLD, Type 2 Diabetes and CKD. DIVISION ORDER TECHNICIAN enters room to meet with patient. Patient presents as A/Ox4, patient resides in [place], patient has caregiver Ewa come 5 days a week Monday-Monday to assist with ADLs and transportation. It is reported that patient uses shuttle transport and receives rides from Ewa to get to radiation appts. Patient endorses he believes that the radiation is weakening him, he states he can manage most ADLs and prepare meals at baseline but yesterday he felt very weak and this morning he was unable to get up. Patient endorses that he uses a FWW at baseline. Patient endorses that his son is out of town this weekend visiting his gf but son is often busy with work during the day and visits occasionally. Patient endorses he has good support from his neighbor who checks on patient 3 times a day and his caregiver Ewa has been caring for him for the last 6 years. Patient endorses preference for special education preschool teacher caregiver at home and/or SNF rehab if recommended. ED provider reviews patient with Integrity Assessor and Hospitalist, Integrity Assessor recommends Heprin and states he has been unable to set up outpatient cardiology appt for patient. Hospitalist recommends patient admit somewhere with a oil laboratory analyst given patient's elevated trop. Plan: Patient has been accepted at [facility] for higher level of care, treatment and evaluation.Patient would benefit from PT/OT eval to determine appropriate plan of care. SHANTE CheungSW
--- NOTE | 2025-03-08 18:17 | PC.NURSE ---
Pt had trace amounts of blood when collecting urine sample, blood in urine bag collected through condom cath aware
--- NOTE | 2025-03-08 18:46 | PC.NURSE ---
mild hematuria, heparin paused per provider (MS). Charge aware.
--- NOTE | 2025-03-08 19:28 | W.PC.EDHO ---
Handoff/shift report received from Funmilayo Parikh RN/Lexi RN
[2025-03-08 22:41] LABS: PTT Partial Thromboplastin Tim 31 SECONDS (25.1-36.5)
--- NOTE | 2025-03-09 00:52 | PM.HP.1 ---
History of Present Illness History of Present Illness Date Patient Seen: 03/09/25 Time Patient Seen: 00:52 Chief complaint: Weakness Narrative: 74-year-old male with past medical history of Parkinson disease, hypertension, hyperlipidemia, insulin-dependent diabetes, CKD stage IV, prostate cancer with recent radiation yesterday presents with generalized weakness. Per the patient's report, the patient does have home health who comes to the house daily to help him with his ADLs. The patient initially was doing well but over the last week has been having generalized weakness to the point where he had a difficult time standing up on his own today. The patient states that he has been taking his medication including his Parkinson's medication on a regular basis. The patient also a month ago was reported to have an NSTEMI and was supposed to be scheduled for an outpatient cath which she has not had a chance to complete yet. Otherwise the patient denies any fever, chills, nausea, vomit, diarrhea, chest pain or shortness of breath. In the emergency room, the patient systolic blood pressure was elevated in the 220s. Lab initially shows a creatinine of 1.69 and troponin of 0.104. Repeat troponin was 0.101. BNP was 1658. UA was negative. Alcohol level is negative. Chest x-ray was clear. EKG shows no clear signs of acute ischemia. A general police clerk Dr. Dumont was consulted who recommended that we start heparin drip and try for possible cardiac cath. However the patient started to have significant hematuria after heparinized. Heparin drip had to be stopped and hematuria eventually slowly improved. Due to hematuria that was very significant ER physician reconsulted Dr. Dumont who states that we had to stop heparin for now. Transfer order was canceled as patient decided to focus on comfort measures only and acknowledge even if this was an ACS event. Patient also wishes for DNR/DNI. [facility] Medical History High prostate specific antigen (PSA) History of urinary retention History of urinary tract infection UTI (urinary tract infection) Nocturia more than twice per night Elevated serum creatinine History of kidney stones Urinary retention History of arthritis Kidney stone Hypertension Hypercholesteremia Diabetes mellitus Parkinson disease Surgical History Hx of vasectomy History of circumcision as Family History Father No problems noted. Brother Diabetes mellitus Social History marital status: number of children: 5 household members: caregiver lives independently: Yes occupational status: previously employed and other Previous occupational history: Lives with his son other: He drinks 1-2 glasses of wine at night. He quit smoking in 1969 Smoking Status: Former smoker alcohol intake: former caffeine: Yes Type(s) of exercise: none Meds Home Medications and Allergies Home Medications ?Medication ?Instructions ?Recorded ?Confirmed ?Type VITAMIN D (Vitamin D3) 4,000 u PO QDAY ##0 03/13/16 02/08/25 History insulin glargine U-300 conc 300 20 unit SUBCUT BID ##0 03/13/16 02/08/25 History unit/mL (1.5 mL) subcutaneous pen (Gloria SolAnetaar U-300 Insulin) atorvastatin 40 mg tablet 40 mg PO DAILY 08/01/17 02/08/25 History multivitamin with minerals 1 tab PO DAILY 08/01/17 02/08/25 History mirabegron 25 mg tablet,extended 25 mg PO .hs 09/29/22 02/08/25 History release 24 hr semaglutide 1 mg/dose (2 mg/1.5 1 mg SUBCUT QWEEK 09/29/22 02/08/25 History mL) subcutaneous pen injector (Ozempic) tamsulosin 0.4 mg capsule 0.8 mg PO BEDTIME 09/29/22 02/08/25 History carbidopa 25 mg-levodopa 100 1 tab PO QID 05/16/24 02/08/25 History mg-entacapone 200 mg tablet polyethylene glycol 3350 17 17 g PO BID 05/16/24 02/08/25 History gram/dose oral powder (Miralax) carbidopa ER 50 mg-levodopa 200 mg 1 tab PO 4XD 02/08/25 02/08/25 History tablet,extended release entacapone 200 mg tablet 200 mg PO QID 02/08/25 02/08/25 History aspirin 81 mg tablet,delayed 81 mg PO DAILY #30 tabs 02/10/25 Rx release clopidogrel 75 mg tablet (Plavix) 75 mg PO DAILY #30 tabs 02/10/25 Rx lisinopril 5 mg tablet 2.5 mg (1/2 x 5 mg) PO DAILY #30 02/10/25 Rx tabs metoprolol succinate 25 mg 25 mg PO DAILY #30 tabs 02/10/25 Rx tablet,extended release 24 hr Allergies Allergy/AdvReac Type Severity Reaction Status Date / Time No Known Allergies Allergy Verified 03/08/25 12:34 Review of Systems Review of Systems ROS: Yes All systems reviewed with the patient and are negative except as otherwise documented Exam Vital Signs (past 8 hours): - 03/08/25 17:00 03/08/25 17:00 03/08/25 17:15 Temperature Pulse Rate 57 L 57 L Respiratory Rate 21 24 Blood Pressure 169/78 H Pulse Oximetry 98 99 03/08/25 17:15 03/08/25 17:17 03/08/25 17:30 Temperature Pulse Rate 59 L 59 L Respiratory Rate 29 H Blood Pressure 191/95 H 191/95 H Pulse Oximetry 99 03/08/25 17:30 03/08/25 17:45 03/08/25 17:45 Temperature Pulse Rate 59 L Respiratory Rate 32 H Blood Pressure 203/93 H 203/90 H Pulse Oximetry 100 03/08/25 18:00 03/08/25 18:00 03/08/25 18:15 Temperature Pulse Rate 58 L 59 L Respiratory Rate 23 23 Blood Pressure 207/91 H Pulse Oximetry 100 100 03/08/25 18:15 03/08/25 18:30 03/08/25 18:32 Temperature Pulse Rate 61 61 Respiratory Rate 22 20 Blood Pressure 205/90 H Pulse Oximetry 99 99 03/08/25 18:32 03/08/25 18:45 03/08/25 18:45 Temperature Pulse Rate 61 Respiratory Rate 22 Blood Pressure 221/88 H 201/87 H Pulse Oximetry 100 03/08/25 19:00 03/08/25 19:00 03/08/25 19:15 Temperature Pulse Rate 60 59 L Respiratory Rate 25 H 24 Blood Pressure 188/55 H Pulse Oximetry 100 97 03/08/25 19:15 03/08/25 19:30 03/08/25 19:30 Temperature Pulse Rate 58 L Respiratory Rate 23 Blood Pressure 178/77 H 171/76 H Pulse Oximetry 97 03/08/25 19:45 03/08/25 19:45 03/08/25 20:00 Temperature Pulse Rate 59 L 58 L Respiratory Rate 25 H 25 H Blood Pressure 166/74 H Pulse Oximetry 98 98 03/08/25 20:00 03/08/25 20:16 03/08/25 20:16 Temperature Pulse Rate 63 Respiratory Rate 27 H Blood Pressure 188/82 H 224/103 H Pulse Oximetry 100 03/08/25 20:30 03/08/25 20:30 03/08/25 20:45 Temperature Pulse Rate 61 Respiratory Rate 22 Blood Pressure 192/90 H 189/82 H Pulse Oximetry 99 03/08/25 20:45 03/08/25 21:00 03/08/25 21:01 Temperature Pulse Rate 62 66 Respiratory Rate 27 H Blood Pressure 215/86 H Pulse Oximetry 98 99 03/08/25 21:01 03/08/25 21:16 03/08/25 21:16 Temperature Pulse Rate 64 65 Respiratory Rate 27 H 27 H Blood Pressure 194/83 H Pulse Oximetry 98 99 03/08/25 21:30 03/08/25 21:30 03/08/25 21:46 Temperature Pulse Rate 66 69 Respiratory Rate 26 H 23 Blood Pressure 189/79 H Pulse Oximetry 97 98 03/08/25 21:46 03/08/25 22:00 03/08/25 22:00 Temperature Pulse Rate 70 Respiratory Rate Blood Pressure 218/89 H 224/89 H Pulse Oximetry 97 03/08/25 22:15 03/08/25 22:15 03/08/25 23:03 Temperature Pulse Rate 66 Respiratory Rate 21 Blood Pressure 198/86 H 200/65 H Pulse Oximetry 97 03/08/25 23:14 03/08/25 23:16 Temperature 97.7 F Pulse Rate 66 Respiratory Rate 22 Blood Pressure 208/78 H 209/80 H Pulse Oximetry 100 Oxygen Delivery Method Room Air Narrative Exam Narrative: Physical Exam: GENERAL: The patient is not in any acute distressed. Awake and alert. HEENT: Nonicteric sclerae, PERRLA, EOMI. Oropharynx clear. Moist mucous membranes. Conjunctivae appear well perfused. HEART: Regular rate and rhythm without murmurs. No lower extremities edema. LUNGS: Clear to auscultation bilaterally. No wheezing, crackles or rhonchi ABDOMEN: Soft, positive bowel sounds, nontender. SKIN: No rash, no excessive bruising, petechiae, or purpura. NEUROLOGIC: AxO x 3. Cranial nerves II-XII intact without motor/sensory deficit. Objective Labs 03/08/25 12:38 03/08/25 12:38 Labs: Laboratory Results - last 24 hr 03/08/25 03/08/25 03/08/25 12:38 15:00 15:40 WBC 8.6 RBC 3.91 L Hgb 14.1 Hct 39.4 L MCV 100.6 H MCH 36.0 H MCHC 35.8 RDW 14.9 H Plt Count 154 Neut % (Auto) 80.7 H Lymph % (Auto) 9.9 L [place] % (Auto) 6.5 Eos % (Auto) 2.4 Baso % (Auto) 0.5 Neut # (Auto) 6900 Lymph # (Auto) 900 L [place] # (Auto) 600 Eos # (Auto) 200 Baso # (Auto) 0 PT 11.0 INR 1.0 APTT 25 L Sodium 138 Potassium 4.6 Chloride 110 H Carbon Dioxide 23 BUN 54 H Creatinine 1.69 H Estimated GFR 42 L BUN/Creatinine Ratio 32.0 H Glucose 199 H POC Whole Bld Glucose Lactate 1.2 Calcium 8.9 Magnesium 2.1 Total Bilirubin 0.9 AST 29 ALT 7 Alkaline Phosphatase 117 Total Creatine Kinase 39 L Troponin I 0.104 H 0.101 H NT-Pro-B Natriuret Pep 1650 H Total Protein 6.8 Albumin 3.9 Globulin 2.9 Albumin/Globulin Ratio 1.3 Lipase 697 H Procalcitonin 0.071 Urine Color Yellow Urine Appearance Clear Urine pH 6.0 Ur Specific [place] 1.025 Urine Protein 3+ H Urine Glucose (UA) Trace H Urine Ketones Negative Urine Occult Blood 1+ H Urine Nitrate Negative Urine Bilirubin Negative Urine Urobilinogen 0.2 Ur Leukocyte Esterase Negative Urine RBC 1-5/hpf Urine WBC 0-1/hpf Ur Squamous Epith Cells 0-1 /hpf Urine Bacteria Occasional (0-1) Urine Mucus 1+ H Ur Culture Indicated? Cult not indicated Vol Urine Centrifuged 10ml (spun) Ethyl Alcohol < 10 03/08/25 03/08/25 19:19 21:13 WBC RBC Hgb Hct MCV MCH MCHC RDW Plt Count Neut % (Auto) Lymph % (Auto) [place] % (Auto) Eos % (Auto) Baso % (Auto) Neut # (Auto) Lymph # (Auto) [place] # (Auto) Eos # (Auto) Baso # (Auto) PT INR APTT 31 D Sodium Potassium Chloride Carbon Dioxide BUN Creatinine Estimated GFR BUN/Creatinine Ratio Glucose POC Whole Bld Glucose 133 H Lactate Calcium Magnesium Total Bilirubin AST ALT Alkaline Phosphatase Total Creatine Kinase Troponin I NT-Pro-B Natriuret Pep Total Protein Albumin Globulin Albumin/Globulin Ratio Lipase Procalcitonin Urine Color Urine Appearance Urine pH Ur Specific [place] Urine Protein Urine Glucose (UA) Urine Ketones Urine Occult Blood Urine Nitrate Urine Bilirubin Urine Urobilinogen Ur Leukocyte Esterase Urine RBC Urine WBC Ur Squamous Epith Cells Urine Bacteria Urine Mucus Ur Culture Indicated? Vol Urine Centrifuged Ethyl Alcohol Assessment & Plan Assessment & Plan narrative: Possible NSTEMI Admit the patient to medical observation. As stated above. Due to significant hematuria after starting heparin drip, the patient decided that he would want no further intervention and would only want comfort measures only. Will need palliative and hospice consult in the morning. Will continue to monitor patient to treat symptoms only. As needed morphine and Ativan ordered. Hypertension. Monitor blood pressure and resume home medication. As needed hydralazine if needed. Of note depending on discussion with palliative care consider stopping any medication that would prolong life. Generalized weakness with underlying multiple comorbidity including prostate cancer. PT OT would be needed and possible placement with hospice. Hematuria in the setting of prostate cancer and heparin drip. Heparin drip stopped. Monitor for now. The patient does not want to be transferred for urology consultation Hyperlipidemia. Resume home statin. Insulin-dependent diabetes. Monitor glucose and treat if needed. Parkinson's disease. PT OT and resume home Parkinson medication. DVT prophylaxis SCDs due to observational status. CODE STATUS DNR/DNI and comfort measures only. Disposition likely 2 to days nursing facility for hospice care. Time-Based Coding :: [TOTAL MINUTES] spent with patient and on the chart (including review of chart, obtaining history, exam, reviewing outside data, placing orders, documenting exam and treatment plan, and counseling patient) on [DATE]. Quality VTE Deep Vein Thrombosis/Pulmonary Embolism Present on Admission: No
[2025-03-09 03:32] VITALS: BP 190/83; PULSE 77
[2025-03-09] MEDS: hydrALAZINE 20 MG/ML VIAL 10 MG IV (03:32)
[2025-03-09] MEDS: CARBIDOPA-LEVODOPA ER 50/200 TABLET 1 EACH PO ×5 (03:32→20:53)
[2025-03-09 04:05] VITALS: BP 158/67; PULSE 78
[2025-03-09] MEDS: MORPHINE 4 MG/ML INJ 3 MG IV ×2 (06:28→23:22)
[2025-03-09 09:00] VITALS: BP 134/61; PULSE 76; RESP 16; TEMP 36.1; O2SAT 97
[2025-03-09 09:11] VITALS: BP 134/61; PULSE 76
[2025-03-09] MEDS: CLOPIDOGREL 75 MG TABLET PO (09:11)
[2025-03-09] MEDS: ASPIRIN EC 81 MG TABLET PO (09:11)
[2025-03-09] MEDS: ENTACAPONE 200 MG TABLET PO ×4 (09:11→20:53)
[2025-03-09] MEDS: ATORVASTATIN 20 MG TABLET 40 MG PO (09:11)
[2025-03-09 09:12] VITALS: BP 134/61; PULSE 76
[2025-03-09] MEDS: SODIUM CHLORIDE 0.9% FLUSH 10 ML IV ×2 (09:12→20:59)
[2025-03-09] MEDS: INSULIN GLARGINE 100 UNIT/ML 3ML PEN 16 UNIT SUBCUT ×2 (09:12→20:58)
[2025-03-09] MEDS: METOPROLOL ER 25 MG TABLET PO (09:12)
--- NOTE | 2025-03-09 11:47 | PM.PN.IH.1 ---
Subjective Subjective Date Patient Seen: 03/09/25 Time Patient Seen: 08:56 Interval history: Admission draft: 74-year-old male with past medical history of Parkinson disease, hypertension, hyperlipidemia, insulin-dependent diabetes, CKD stage IV, prostate cancer with recent radiation yesterday presents with generalized weakness. Per the patient's report, the patient does have home health who comes to the house daily to help him with his ADLs. The patient initially was doing well but over the last week has been having generalized weakness to the point where he had a difficult time standing up on his own today. The patient states that he has been taking his medication including his Parkinson's medication on a regular basis. The patient also a month ago was reported to have an NSTEMI and was supposed to be scheduled for an outpatient cath which she has not had a chance to complete yet. Otherwise the patient denies any fever, chills, nausea, vomit, diarrhea, chest pain or shortness of breath. In the emergency room, the patient systolic blood pressure was elevated in the 220s. Lab initially shows a creatinine of 1.69 and troponin of 0.104. Repeat troponin was 0.101. BNP was 1658. UA was negative. Alcohol level is negative. Chest x-ray was clear. EKG shows no clear signs of acute ischemia. A general firer diesel locomotive Dr. Dumont was consulted who recommended that we start heparin drip and try for possible cardiac cath. However the patient started to have significant hematuria after heparinized. Heparin drip had to be stopped and hematuria eventually slowly improved. Due to hematuria that was very significant ER physician reconsulted Dr. Dumont who states that we had to stop heparin for now. Transfer order was canceled as patient decided to focus on comfort measures only and acknowledge even if this was an ACS event. Patient also wishes for DNR/DNI. 03/09: Patient is sitting up, appears comfortable. He is eating breakfast with assistance a nurse's aide. He denies chest pain or shortness of breath. He states he feels very weak. He has prostate cancer undergoing active radiation therapy presently, with proximally 14 treatments left. He was admitted to this hospital last month but had difficulty coordinating cardiology follow-up with Dr. Dumont for planned outpatient cardiac catheterization. EXAM: GENERAL: This is a well-nourished, well-developed patient, in no apparent distress. EYES: Pupils equal round and reactive. Extraocular motions intact. No scleral icterus. No injection or drainage. ENT: Mucous membranes pink and moist. NECK: Trachea midline. No JVD, bruits or lymphadenopathy. Supple, nontender, no meningeal signs. CARDIOVASCULAR: Regular rate and rhythm without murmurs, gallops, or rubs. RESPIRATORY: Clear to auscultation. GASTROINTESTINAL: Abdomen soft, non-tender, nondistended. EXTREMITIES: No clubbing, cyanosis, or edema. NEUROLOGIC: Alert, oriented, speech fluent, decreased facial expression consistent with known Parkinson's, full upper and lower motor strength, no focal deficits evident. DERMATOLOGIC: No rashes or skin lesions. EKG 03/08: Sinus rhythm with first-degree AV block, 66 beats per minute, no acute ischemic changes Chest x-ray 03/08: No acute cardiopulmonary pathology. Assessment/Plan: 1. Non-STEMI. Admit the patient to medical observation. Due to significant hematuria after starting heparin drip, the patient decided that he would want no further intervention and would only want medical management without interventional care on this admission. Continue aspirin, clopidogrel, increase atorvastatin to 80 mg daily, and continue antihypertensives and diabetes care. Consider hospice consultation. 2. Hypertension. Monitor blood pressure and resume home medication. As needed hydralazine if needed. Of note depending on discussion with palliative care consider stopping any medication that would prolong life. 3. Generalized weakness with underlying multiple comorbidity including prostate cancer. PT OT would be needed and possible placement with hospice. 4. Hematuria in the setting of prostate cancer and heparin drip. Heparin drip stopped. Monitor for now. The patient does not want to be transferred for urology consultation 5. Hyperlipidemia. Increase atorvastatin to 80 mg daily. 6. Insulin-dependent diabetes. Monitor glucose and treat if needed. 7. Parkinson's disease. Continue home Parkinson medication. Hold on PT until troponins trending down. Plan: -observation -continue medication management -increase atorvastatin to 80 mg daily -trend cardiac enzymes -restart therapy when cardiac enzymes and cardiac status stable DVT prophylaxis SCDs due to observational status. CODE STATUS DNR/DNI and comfort measures only. Disposition likely 2 to days nursing facility. Exam Vital Signs (past 8 hours): - 03/09/25 04:05 03/09/25 09:00 03/09/25 09:11 Temperature 97.0 F L Pulse Rate 78 76 76 Respiratory Rate 16 Blood Pressure 158/67 H 134/61 134/61 Pulse Oximetry 97 Oxygen Flow Rate 0 03/09/25 09:12 Temperature Pulse Rate 76 Respiratory Rate Blood Pressure 134/61 Pulse Oximetry Oxygen Flow Rate Oxygen Delivery Method Room Air Oxygen Flow Rate 0 Objective Labs 03/08/25 12:38 03/08/25 12:38 Labs: Laboratory Results - last 24 hr 03/08/25 03/08/25 03/08/25 12:38 15:00 15:40 WBC 8.6 RBC 3.91 L Hgb 14.1 Hct 39.4 L MCV 100.6 H MCH 36.0 H MCHC 35.8 RDW 14.9 H Plt Count 154 Neut % (Auto) 80.7 H Lymph % (Auto) 9.9 L [place] % (Auto) 6.5 Eos % (Auto) 2.4 Baso % (Auto) 0.5 Neut # (Auto) 6900 Lymph # (Auto) 900 L [place] # (Auto) 600 Eos # (Auto) 200 Baso # (Auto) 0 PT 11.0 INR 1.0 APTT 25 L Sodium 138 Potassium 4.6 Chloride 110 H Carbon Dioxide 23 BUN 54 H Creatinine 1.69 H Estimated GFR 42 L BUN/Creatinine Ratio 32.0 H Glucose 199 H POC Whole Bld Glucose Lactate 1.2 Calcium 8.9 Magnesium 2.1 Total Bilirubin 0.9 AST 29 ALT 7 Alkaline Phosphatase 117 Total Creatine Kinase 39 L Troponin I 0.104 H 0.101 H NT-Pro-B Natriuret Pep 1650 H Total Protein 6.8 Albumin 3.9 Globulin 2.9 Albumin/Globulin Ratio 1.3 Lipase 697 H Procalcitonin 0.071 Urine Color Yellow Urine Appearance Clear Urine pH 6.0 Ur Specific [place] 1.025 Urine Protein 3+ H Urine Glucose (UA) Trace H Urine Ketones Negative Urine Occult Blood 1+ H Urine Nitrate Negative Urine Bilirubin Negative Urine Urobilinogen 0.2 Ur Leukocyte Esterase Negative Urine RBC 1-5/hpf Urine WBC 0-1/hpf Ur Squamous Epith Cells 0-1 /hpf Urine Bacteria Occasional (0-1) Urine Mucus 1+ H Ur Culture Indicated? Cult not indicated Vol Urine Centrifuged 10ml (spun) Ethyl Alcohol < 10 03/08/25 03/08/25 03/09/25 19:19 21:13 08:57 WBC RBC Hgb Hct MCV MCH MCHC RDW Plt Count Neut % (Auto) Lymph % (Auto) [place] % (Auto) Eos % (Auto) Baso % (Auto) Neut # (Auto) Lymph # (Auto) [place] # (Auto) Eos # (Auto) Baso # (Auto) PT INR APTT 31 D Sodium Potassium Chloride Carbon Dioxide BUN Creatinine Estimated GFR BUN/Creatinine Ratio Glucose POC Whole Bld Glucose 133 H 172 H Lactate Calcium Magnesium Total Bilirubin AST ALT Alkaline Phosphatase Total Creatine Kinase Troponin I NT-Pro-B Natriuret Pep Total Protein Albumin Globulin Albumin/Globulin Ratio Lipase Procalcitonin Urine Color Urine Appearance Urine pH Ur Specific [place] Urine Protein Urine Glucose (UA) Urine Ketones Urine Occult Blood Urine Nitrate Urine Bilirubin Urine Urobilinogen Ur Leukocyte Esterase Urine RBC Urine WBC Ur Squamous Epith Cells Urine Bacteria Urine Mucus Ur Culture Indicated? Vol Urine Centrifuged Ethyl Alcohol PFSH Medical History Diabetes mellitus Elevated serum creatinine High prostate specific antigen (PSA) History of arthritis History of kidney stones History of urinary retention History of urinary tract infection Hypercholesteremia Hypertension Kidney stone Nocturia more than twice per night Parkinson disease Urinary retention UTI (urinary tract infection) Surgical History History of circumcision as Hx of vasectomy Family History Father No problems noted. Brother Diabetes mellitus Social History marital status: number of children: 5 household members: caregiver lives independently: Yes occupational status: previously employed and other Previous occupational history: Lives with his son other: He drinks 1-2 glasses of wine at night. He quit smoking in 1969 Smoking Status: Former smoker alcohol intake: former caffeine: Yes Type(s) of exercise: none Assessment & Plan Time-Based Coding :: [TOTAL MINUTES] spent with patient and on the chart (including review of chart, obtaining history, exam, reviewing outside data, placing orders, documenting exam and treatment plan, and counseling patient) on [DATE]. Quality VTE Deep Vein Thrombosis/Pulmonary Embolism Present on Admission: No PROFEE Commercial Loan Processor Document charge(s): No Charge Codes Subsequent inpatient/observation care: [id number]
--- NOTE | 2025-03-09 16:24 | CM.DPNOTE ---
DCP note REFINING EQUIPMENT OPERATOR reviewed EMR per provider in morning rounds, NSTEMI active, manage medically here for a few days to see how he does. no PT at this time. no transfer. if continues to decline, provider may f/u with him about CC/palliative approach. P: DC pending medical POC. will f/u about increased CGs in the home and HH likely (likely won't want SNF due to inability to get chemo at SNF, pt very interested in chemo tx) SIMIN Allison
[2025-03-09] MEDS: TAMSULOSIN 0.4 MG CAPSULE 0.8 MG PO (20:53)
[2025-03-09] MEDS: INSULIN LISPRO 100 UNIT/ML 3ML VIAL SUBCUT (20:58)
[2025-03-09 21:35] VITALS: BP 163/60; PULSE 64; RESP 18; TEMP 36.3; O2SAT 97
[2025-03-10] MEDS: MORPHINE 4 MG/ML INJ 3 MG IV ×2 (05:23→16:39)
[2025-03-10] MEDS: SODIUM CHLORIDE 0.9% FLUSH 10 ML IV ×3 (05:24→21:57)
--- NOTE | 2025-03-10 05:43 | PM.PN.1 ---
Subjective Subjective Interval history: A&P 74-year-old male with past medical history of Parkinson disease, hypertension, hyperlipidemia, insulin-dependent diabetes, CKD stage IV, prostate cancer with recent radiation yesterday presents with generalized weakness. NSTEMI Troponin was 0.1-[address] or T-wave. At presentation, Cardiology was consulted and heparin drip and cardiac catheterization were recommended. However after initiation of heparin, the patient developed hematuria and the heparin needed to be discontinued. Subsequently, the patient reported that he did not want a pursue cardiac catheterization even if this was an ACS event. Given his underlying prostate cancer, he just wanted to focus on comfort with regards to any cardiac issues. Goal-directed medical therapy with aspirin, clopidogrel, atorvastatin, blood pressure and diabetes management. Recheck troponin in the Hypertension Hyperlipidemia Continue lisinopril, metoprolol, and atorvastatin Prostate cancer Currently receiving radiation therapy, the patient reports yes between 12 and 14 more treatments. Outpatient follow-up for XRT Type 2 diabetes mellitus, insulin dependent Blood glucose adequately controlled Continue glargine b.i.d. and lispro a.c. and HS Parkinson's disease Weakness exacerbated by XRT PT and OT CKD stage 4 Clinically stable Monitor as needed Avoid nephrotoxins Renally dose medications as required Code Status: DNR Diet: Carb Lines/Tubes: PIV DVT Prophylaxis: Enoxaparin Discharge Planning: Discharge to home tomorrow Chief Complaint: Weakness Subjective: Patient denies chest pain or shortness a breath. Main complaint is weakness. Objective A&O, WN, WD, NAD NCAT, OP moist, neck supple RRR, nl S1 and S2, no murmurs CTA bilaterally Soft, NT, ND, +BS Warm without edema Neuro grossly nonfocal Pleasant, cooperative Labs: No new labs in the last 24 hours. Prior labs notable for creatinine 1.94. Imaging: Imaging reviewed and notable for Time: 55 minutes spent with patient and on the chart (including review of chart, obtaining history, exam, reviewing outside data, placing orders, documenting exam and treatment plan, and counseling patient) Exam Vital Signs (past 8 hours): Oxygen Delivery Method Room Air Oxygen Flow Rate 0 Objective Labs 03/10/25 04:55 03/10/25 04:55 Labs: Laboratory Results - last 24 hr 03/09/25 03/09/25 03/09/25 08:57 12:06 16:54 POC Whole Bld Glucose 172 H 265 H 214 H 12/21/25 19:35 POC Whole Bld Glucose 255 H [facility] Medical History Diabetes mellitus Elevated serum creatinine High prostate specific antigen (PSA) History of arthritis History of kidney stones History of urinary retention History of urinary tract infection Hypercholesteremia Hypertension Kidney stone Nocturia more than twice per night Parkinson disease Urinary retention UTI (urinary tract infection) Surgical History History of circumcision as Hx of vasectomy Family History Father No problems noted. Brother Diabetes mellitus Social History marital status: number of children: 5 household members: family and caregiver lives independently: Yes occupational status: previously employed and other Previous occupational history: Lives with his son other: He drinks 1-2 glasses of wine at night. He quit smoking in 1969 Smoking Status: Former smoker alcohol intake: former caffeine: Yes Type(s) of exercise: none Assessment & Plan Time-Based Coding :: [TOTAL MINUTES] spent with patient and on the chart (including review of chart, obtaining history, exam, reviewing outside data, placing orders, documenting exam and treatment plan, and counseling patient) on [DATE]. Quality VTE Deep Vein Thrombosis/Pulmonary Embolism Present on Admission: No
[2025-03-10 06:13] LABS: Blood Urea Nitrogen 53 mg/dL (9-20); Calcium 8.7 mg/dL (8.4-10.2); Carbon Dioxide 22 mmol/L (22-32); Chloride 113 mmol/L (98-107); Estimated Glomerular Filt Rate 35 mL/min (>60); Glucose 101 mg/dL (70-99); HEMOLYSIS < 15 (0-50); Potassium 4.2 mmol/L (3.4-5.1); Sodium 138 mmol/L (137-145)
[2025-03-10 06:27] LABS: Troponin I 0.126 ng/mL (0.01-0.034)
[2025-03-10 06:30] LABS: Add Manual Diff / Slide Review NO; Hematocrit 35.5 % (41-53); Hemoglobin 12.8 g/dL (13.5-17.5); Lymphocytes Absolute Auto 1300 /uL (1100-4500); Mean Corpuscular HGB Conc 36.0 % (30-36); Mean Corpuscular Hemoglobin 36.5 PG (26-34); Mean Corpuscular Volume 101.1 fL (80-100); Platelet Count 156 X10^3/uL (150-400)
[2025-03-10 08:00] VITALS: BP 150/59; PULSE 59; RESP 18; TEMP 36.1; O2SAT 97
[2025-03-10] MEDS: INSULIN GLARGINE 100 UNIT/ML 3ML PEN 16 UNIT SUBCUT ×2 (08:43→21:50)
[2025-03-10] MEDS: CLOPIDOGREL 75 MG TABLET PO (08:44)
[2025-03-10] MEDS: ATORVASTATIN 20 MG TABLET 80 MG PO (08:44)
[2025-03-10] MEDS: ENTACAPONE 200 MG TABLET PO ×4 (08:44→21:47)
[2025-03-10] MEDS: ASPIRIN EC 81 MG TABLET PO (08:44)
[2025-03-10] MEDS: CARBIDOPA-LEVODOPA ER 50/200 TABLET 1 EACH PO ×4 (08:44→21:46)
[2025-03-10 08:45] VITALS: BP 150/59
[2025-03-10] MEDS: METOPROLOL ER 25 MG TABLET PO (08:45)
[2025-03-10] MEDS: INSULIN LISPRO 100 UNIT/ML 3ML VIAL SUBCUT ×2 (12:43→18:34)
--- NOTE | 2025-03-10 13:37 | OT.IP.EVAL ---
Current Diagnoses Non-ST elevation (NSTEMI) myocardial infarction (03/10/25) Past Medical History (Last Reviewed 03/09/25 @ 11:55 by Marcio Milan MD) Diabetes mellitus Elevated serum creatinine High prostate specific antigen (PSA) History of arthritis History of kidney stones History of urinary retention History of urinary tract infection Hypercholesteremia Hypertension Kidney stone Nocturia more than twice per night Parkinson disease Urinary retention UTI (urinary tract infection) Surgical History (Last Reviewed 03/09/25 @ 11:55 by Marcio Milan MD) History of circumcision as Hx of vasectomy Occupational Therapy Inpatient Evaluation/Re-Eval M1 OT IP Prior Functional Status Start: 03/10/25 13:04 Freq: Status: Active Protocol: Document 03[facility]10/25 11[facility]Rec[facility]10[facility] Medical Review Prior Functional Status Medical History Yes Reviewed Communication Pt is able to make needs known. Mobility and Gait Pt amb with 4WW in his home and sometimes uses a small w/c. Pt utilizes [facility] for his appointments. Activities of Daily Pt has a caregiver for 3-4 hrs/day 5 days/wk. He Living and IADL's performs his BADLs with S for safety and reheats meals in the microwave. He was able to toilet without assistance, frequently using a urinal. Pts caregiver would provided S or setup for ADLs, housework, cooking, and medication mgmt. He reports he will need more hours of assistance. Social History Household Members family,caregiver Living Arrangements House Number of Floors ( One Floor Floors) Number of Stairs To 2 B Enter/Railing? Home Environment Standard Height Toilet,Walk in Shower,Built-In Shower Seat Home Equipment Four Wheel Walker,Manual Wheelchair Additional Social Pts son lives in an apartment over the garage on the History Comment same property. Pts son works. M2 OT-IP Current Condition Start: 03/10/25 13:04 Freq: Status: Active Protocol: Document 03/10/25 11:25 MANOLO (Rec: 03/10/25 13:37 [facility]) Occupational Therapy Current Condition Current Condition Evaluation Date 03/10/25 Treatment Diagnosis weakness, decreased self care Diagnosis Onset Date 03/10/25 Post Operative Precautions Other Precautions falls M3 OT- IP Subjective and Pain Start: 03/10/25 13:04 Freq: Status: Active Protocol: Document 03/10/25 11:25 MANOLO (Rec: 03/10/25 13:37 [facility] Desktop) OT- Subjective Occupational Therapy Visit Type Type Initial Evaluation Visit Start Time 11:25 Visit Stop Time 11:57 Notes Pt was up in recliner on entrance of OT and agreeable to participating in OT eval. Occupational Therapy Visit Comments Patient Comments Pt states, I fell out of bed to use the urinal and spent the night on the floor until my caregiver found me, when asked why he was in the hospital. Pt also says that he will not be able to go home without more caregiver assistance and thinks he would benefit from SNF prior to dc home. Patient/Caregiver Pt says he needs to be able to walk 40-50 feet for Goals household activities. OT Pain Assessment Pain Present Pain Present Denied Pain M4 OT- IP ADL's Start: 03/10/25 13:04 Freq: Status: Active Protocol: Document 03/10/25 11:25 DANIELKELLI (Rec: 03/10/25 13:37 [facility] Desktop) OT [id number] Comments OT Self-Feeding Not observed. Pt reports that he had difficulty feeding Comments himself this morning. He uses weighted utensils at home. OT spoke with dietary about getting this provided for his meals while in the hospital. OT ADL-Grooming General Evaluation Grooming Ability Standby Assistance Areas Needing Retrieving/Set-up of Grooming Items Assistance Comments OT Grooming Comments Pt performed grooming while up in chair on setup of articles OT ADL-Oral Care General Eval Oral Care Ability Standby Assistance Comments Oral Care Comments Pt performed oral hygiene while up in chair on setup of articles. OT ADL-Dressing General Eval Lower Body Dressing Standby Assistance Ability Areas Needing Socks Assistance Comments OT Dressing Comments Pt was able to doff and don B socks while sitting in chair without any assistance. Pt may need increased assistance for dressing components that require standing balance, will continue to assess. OT ADL-Toileting General Evaluation Toileting Ability Total Assistance Areas Needing Empty Catheter or Colostomy Assistance Comments OT Toileting Pt is currently reliant on a catheter. Comments OT ADL-Bathing Comments OT Bathing Comments not observed M5 OT- IP IADL's Start: 03/10/25 13:04 Freq: Status: Active Protocol: Document 03/10/25 11:25 [facility] (Rec: 03/10/25 13:37 [facility]) OT-Instrumental Activities of Daily Living Deficits IADL Deficits No Deficits Identified Home Safety Awareness Awareness of Need Good Awareness for Assistance at Home Ability to Problem Able to Problem Solve Solve Emergency Situations Medication Management Medication Caregiver Administers Management Money Management Money Management Caregiver Provides Supervision Meal Preparation Meal Preparation Caregiver Provides Assist Duplicating Machine Mechanic Duplicating Machine Mechanic Caregiver Provides Assist Driving Driving Caregiver Provides Assist Driving Comments Pt reports he drives locally some in a small street legal vehicle. M6 OT- IP Functional Cognition Start: 03/10/25 13:04 Freq: Status: Active Protocol: Document 03/10/25 11:25 [facility]ANIELSUSHMARENATO (Rec: 03/10/25 13:37 [facility]) Cognitive Factors Limiting Selfcare Function Cognitive Ability Level of Alertness Alert Patient Orientation Name,Year,Day of Week,Place,Situation Attention Span Capable of Focused Attention,Capable of Sustained Ability Attention Ability to Follow Able to Follow One Step Commands,Able to Follow Multi- Commands Step Commands Memory Description No Deficits Noted Safety Awareness No Deficits Noted Problem Solving No deficits Noted Ability Cognitive Comments Cognitive Assessment Pt needs heavy cues for safety awareness during Comments functional tfs. OT- Vision and Hearing OT- Hearing Assessment OT- Hearing Hearing Impaired,Use of Hearing Aids Assessment OT- Vision Assessment Visual Acuity WFL,Glasses All The Time M7 OT- IP Mobility and Balance Start: 03/10/25 13:04 Freq: Status: Active Protocol: Document 03/10/25 11:25 DANIELSUSHMARENATO (Rec: 03/10/25 13:37 [facility] Desktop) OT-Transfer Assessment Sit to and From Stand Sit to and from Contact Guard Assistance Stand Technique Transfer Destination Chair Devices Transfer Assistive Gait Belt,Front Wheeled Walker Devices Comments Mobility Comments Pts BP while sitting up in recliner 96/34, WI 66, O2 sat on RM 96%. When standing pts BP 87/38, pt was asymptomatic despite lower BP than his baseline. Pt requires heavy cues for safety when standing as he attempted to stand by pulling himself up on FWW. Once cues provided, pt able to safely stand with CGA. Pt returned to sitting with CGA. Due to BP, OT did not ambulate pt to sink for sink side ADLs. OT- Balance Assessment Sitting Balance and Reactions Static Sitting Good Balance Ability Dynamic Sitting Good Balance Ability Standing Balance and Reactions Static Standing Good Balance Ability M8 OT- IP Objective Assessments Start: 03/10/25 13:04 Freq: Status: Active Protocol: Document 03/10/25 11:25 [facility] (Rec: 03/10/25 13:37 [facility]) OT Gross Range of Motion Upper Extremity Range of Motion Assessment Within Functional Limits OT Strength Upper Extremity Strength Assessment Bilaterally Impaired Shoulder R 4- Elbow L tricep 4- Hand Stogy Maker Strength Hand Dominance Right Comments Strength Comments Unless otherwise indicated above B UE strength 4/5 OT- Coordination Assessment Upper Extremity Finger to Nose Test Within Functional Limits Comments Coordination thumb to finger tips intact Comments OT-Muscle Tone Assessment Muscle Tone WNL No OT Sensation Assessment Comments Summary Comments no sensory deficits noted Edema Edema Absent M9 OT- IP Assessment and Plan Start: 03/10/25 13:04 Freq: Status: Active Protocol: Document 03/10/25 11:25 [facility] (Rec: 03/10/25 13:37 [facility]) OT Summary Assessment and Plan Potential Rehabilitation Good Potential Analytic Complexity Moderate at Evaluation Summary OT Impairments Strength,Balance,Functional Mobility,Self-Feeding, Grooming,Dressing,Toileting,Bathing,Toilet Transfers, Shower Transfers,Activity Tolerance Progress Towards Progressing Toward Goals Goals Assessment Summary Pt is a 74 yo M who has a hx of Parkinson's, CKD, prostate cancer (with ongoing radiation treatments), and a NSTEMI ~1 month ago. Pt reports that he fell while trying to use the urinal and couldn't get himself up off the floor, so he spent the night on the floor until his caregiver arrived the next morning. She was unable to help him up so EMS was contacted. Pt has been admitted for generalized weakness. During eval, pt BP 96/34 while sitting and 87/38 in standing, although he was asymptomatic. His troponin was 1.26, during rounds MD stated that she was not concerned by this level and cleared pt for therapy. Prior to eval, nsg also agreed that pt was safe for treatment. Pt demonstrated seated BADLs, performing socks with S, oral hygiene with S, hair grooming with S, and currently requires total A for toileting using the catheter. Additionally , pt presents with decreased functional mobility, muscle weakness, and decreased balance. Pt would benefit from skilled OT services to address these deficits and promote return toward PLOF. Recommend dc to SNF for improved function and safety. Goals Self-Feeding Goal Independent,Adapted Utensil Grooming Goal Independent Dressing Goal Independent Toileting Goal Independent Bathing Goal Standby Assistance Toilet Transfer Goal Independent Shower Transfer Goal Standby Assistance,Walk-in Shower,Shower Chair Days to Meet Goals 10 Frequency of Treatment Other frequency 5x/wk Treatment Plan OT Treatment Plan ADL Training,Functional Mobility,Therapeutic Exercises, Patient/Family Education,Discharge Planning Other Treatment sink side ADLs when safe, shower/sponge bath Recommendations and Next Treatment Focus Discharge Recommendations OT Discharge SNF Rehab Recommendations Other Discharge grab bars shower/toilet, toilet standing frame Recommendations Transportation Needs Private Vehicle at Discharge
--- NOTE | 2025-03-10 14:12 | DIET.CONS ---
Dietary Consultation Note Admission Date: 03/10/2025 10:29 Assessment: 74 y M admitted for generalized weakness. Dietitian screened for MNA score. Met with pt at bedside. Reports doing around 3-4 Ensure Max per day at home plus eating meals as normal, if skips a meal does an Ensure max. Hx CKD4 on radiation. NFPE limited to face with no findings. Ht: 177.8 cm Wt: 68.039 kg BMI: 21.5 UBW: -15 lb; 75 kg 02/08/25 (-9% weight loss in 1 month, severe) Last BM: 03/09/25 (03/09/25 17:00) MNA: 8 Lawson Score: 18 Diet: 03/10/25 Dinner Carbohydrate Consistent Diet Diet Modifications: Carbohydrate level: Medium (3 CHO) Reflex DM orders: No Food Texture: Level 7 - Regular Liquid Consistency: Level 0 - Thin Nutrition Percent Meal Consumed 100% 03/09/25 18:00 Percent Meal Consumed 50% 03/09/25 10:00 Labs: RBC 3.51 X10^6/uL (4.5-5.9) L 03/10/25 04:55 Hgb 12.8 g/dL (13.5-17.5) L 03/10/25 04:55 Hct 35.5 % (41-53) L 03/10/25 04:55 Creatinine 1.94 mg/dL (0.66-1.25) H 03/10/25 04:55 Lactate 1.2 mmol/L (0.7-2.1) 03/08/25 12:38 NT-Pro-B Natriuret Pep 1650 pg/mL (<450) H 03/08/25 12:38 Nutrition Diagnosis: Unintentional weight loss r/t increased nutrient needs aeb radiation Interventions: -Discussed adding healthy fats to ensure max for caloric intake (peanut butter or 1-2 tbsp oil) w/o causing BG concerns and to prevent further weight loss -Ensure Max BID EER: 95 g protein (1.4 g/kg per cancer w/ radiation; protein needs with radiation prioritized over CKD4 protein reduction for muscle mass maintenance) Monitoring/Evaluations: PO intakes Electronically Signed by: Rosie Chavarria 03/10/25 14:12 Clinical [address] [id number]
[2025-03-10 14:16] LABS: Hemoglobin A1C% w Est Avg Glu 6.4 % (4.0-6.0)
--- NOTE | 2025-03-10 15:59 | PT.IIE ---
Current Diagnoses Non-ST elevation (NSTEMI) myocardial infarction (03/10/25) Surgical History (Last Reviewed 03/09/25 @ 11:55 by Marcio Milan MD) History of circumcision as Hx of vasectomy Medical History (Last Reviewed 03/09/25 @ 11:55 by Marcio Milan MD) Diabetes mellitus Elevated serum creatinine High prostate specific antigen (PSA) History of arthritis History of kidney stones History of urinary retention History of urinary tract infection Hypercholesteremia Hypertension Kidney stone Nocturia more than twice per night Parkinson disease Urinary retention UTI (urinary tract infection) Physical Therapy Inpatient Evaluation/Re-Eval M1 PT IP Prior Functional Status Start: 03/10/25 16:45 Freq: Status: Active Protocol: Document 03/10/25 16:45 NW (Rec: 03/10/25 16:58 NW [id number]) Medical Review Prior Functional Status Medical History Yes Reviewed Communication Pt is able to make needs known. Mobility and Gait Pt amb with 4WW in his home and sometimes uses a small w/c. Pt utilizes [facility] for his appointments. Activities of Daily Pt has a caregiver for 3-4 hrs/day 5 days/wk. He Living and IADL's performs his BADLs with S for safety and reheats meals in the microwave. He was able to toilet without assistance, frequently using a urinal. Pts caregiver would provided S or setup for ADLs, housework, cooking, and medication mgmt. He reports he will need more hours of assistance. Social History Household Members family,caregiver Living Arrangements House Number of Floors ( One Floor Floors) Number of Stairs To 2 B Enter/Railing? Home Environment Standard Height Toilet,Walk in Shower,Built-In Shower Seat Home Equipment Four Wheel Walker,Manual Wheelchair Additional Social Pts son lives in an apartment over the garage on the History Comment same property. Pts son works. M2 PT-IP Current Condition Start: 03/10/25 16:45 Freq: Status: Active Protocol: Document 03/10/25 16:45 NW (Rec: 03/10/25 16:58 NW [id number]) Physical Therapy Current Condition Current Condition Evaluation Date 03/10/25 Treatment Diagnosis Parkinson's, debility Onset Date 03/08/25 M3 PT-IP Subjective Start: 03/10/25 16:45 Freq: Status: Active Protocol: Document 03/10/25 16:45 NW (Rec: 03/10/25 16:58 NW [id number]) Subjective Physical Therapy Visit Type Type Initial Evaluation Visit Start Time 15:29 Visit Stop Time 15:59 Notes caregiver present during session Number of CREATIVE COORDINATOR Visits 0 Physical Therapy Visit Comments Patient Comments Pt is found seated in bed side chair and states he is exhausted from sitting up all day. Pt is pleasant and engaged to participate with therapy. Patient Goals go to rehab M4 PT-IP Mobility and Gait Start: 03/10/25 16:45 Freq: Status: Active Protocol: Document 03/10/25 16:45 NW (Rec: 03/10/25 16:58 NW [id number]) PT-Bed Mobility Assessment Sit to Supine Sit to Supine Minimal Assistance,1 Person Assistance PT-Transfer Assessment Sit to and From Stand Sit to and from Minimal Assistance,1 Person Assistance,Use of Upper Stand Extremities Equipment Transfer Assistive Gait Belt,Front Wheeled Walker Device Transfers Transfer Destination Bed,Chair Transfer Technique Stand Step Pivot Transfer Ability Level of Assist Minimal Assistance,1 Person Assistance,Use of Upper Extremities Comments Mobility Comments Notable poor weight shift, feet clearance, heavy posterior lean requiring min/modA to maintain upright with fatigue. Bradykinesia movements with increased time to perform. Performed 3 x STS from bed side chair and one stand pivot transfer to bed. has cleared pt with elevated troponin levels. Gait Assessment Comments Gait Comments Not able secondary to fatigue this time PT-Balance Assessment Sitting Balance and Reactions Static Sitting Fair Balance Ability Dynamic Sitting Poor Balance Ability Standing Balance and Reactions Static Standing Poor Balance Ability Dynamic Standing Poor Balance Ability Device Used FWW Comments Other Balance Tests/ requires bilateral UE support on bed side chair to Deviations/Treatment maintain upright. : M5 PT-IP Objective Assessments Start: 03/10/25 16:45 Freq: Status: Active Protocol: Document 03/10/25 16:45 NW (Rec: 03/10/25 16:58 NW [id number]) Orientation Orientation/Cognition Level of Alertness Alert Orientation Name,Age,Birthday,Month,Date,Year,Day of Week,Place, Situation Safety Awareness Understands Safety Issues Gross Range of Motion Upper Extremity ROM Assessment Bilaterally Impaired Impairments unable to raise bilateral UE > 90 deg flexion Lower Extremity ROM Assessment Within Functional Limits Strength Lower Extremity Strength Assessment Right Impaired Knee 4/5 exten, 3+/5 flexion Ankle 4/5 DF Comments Strength Comments challenged to sustain strength with testing Coordination Assessment Gross Coordination Gross Coordination Impaired Assessment Finger to Nose Test Moderate Impairment Heel on Cedillo Test Moderate Impairment Sensation Assessment Sensation Gross Sensation Right LE Impaired,Left LE Impaired Light Touch Impaired Muscle Tone Comments Muscle Tone Comments DNT tone secondary to pt fatiguing sitting in bed side chair, defer to next session M6 PT-IP Treatment Start: 03/10/25 16:45 Freq: Status: Active Protocol: Document 03/10/25 16:45 NW (Rec: 03/10/25 16:58 NW [id number]) Physical Therapy Treatment Education Education Provided Safety Other Treatments Other Treatment Education given on importance of balance between being Performed out of bed and resting. M7 PT-IP Assessment and Plan Start: 03/10/25 16:45 Freq: Status: Active Protocol: Document 03/10/25 16:45 NW (Rec: 03/10/25 16:58 NW [id number]) PT Summary Assessment and Plan Potential Rehabilitation Fair Potential Status of Condition Evolving at Evaluation Summary Impairments ROM,Strength,Balance,Coordination,Sensation,Tone,Bed Mobility,Transfers,Gait,Activity Tolerance Progress Towards Progressing Toward Goals Goals Assessment Summary Kiet is a 74 yr old male admitted after a fall and recent NSTEMI within the last month that is being managed with outpatient care with notable PMH of Parkinson's, HTN, and prostate CA. At baseline pt has caregiver assistance 3-4 hours a day for 5x/wk and ambulates 40-50 ft within the home with a 4WW. Additionally pt has transport chair and electric WC that he has used occasionally due to medical decline. Pt is found resting in bed side chair and is exhausted from sitting up all day. Vitals are within normal limits and pt tests with notable UE and LE weakness R>L and poor core control to sit unsupported. Utilizes momentum to achieve standing with FWW at [place] and has small bradykinesia movements that require extra time to perform stand pivot transfer at [place]. At this time pt is not at baseline and requires further assistance and rehabilitation to assist in returning to PLOF. Recommending SNF upon discharge. Goals Bed Mobility Goal Standby Assistance Transfer Goal Standby Assistance,Front Wheeled Walker Gait Goal Contact Guard Assistance Gait Distance 30 Other Goals Potentially progress to 4 inch steps x 2 with unilateral railing on R. Days to Meet Goals 10 Frequency of Treatment Frequency Of Once a Day Treatment Treatment Plan Physical Therapy Bed Mobility Training,Transfer Training,Gait Training, Treatment Plan Therapeutic Exercise,Balance Retraining,Discharge Planning,Neuromuscular Re-ed,Coordination Retraining Other progress to ambulation as tolerated Recommendations and Next Treatment Focus Precautions Other Precautions falls risk Weight Bearing Status Weight Bearing Weight Bear as Tolerated Status Recommendations To Nursing Amount of Assist 1 Person Assist Needed Discharge Recommendations PT Discharge SNF Rehab Recommendations Transportation Needs Wheelchair/Cabulance at Discharge - PT assist 1
--- NOTE | 2025-03-10 16:31 | CM.DPNOTE ---
DCP note [employer] TECHNICIAN reviewed EMR Met with pt/brother/JESUS in room. introduced self and role. pt reports he talked to radiologist- plan to stop tx and go to SNF. [employer] TECHNICIAN reviewed SNF process/options. interested in SNF. [place] [facility] auth needed. [employer] TECHNICIAN gave them list to review for preferences. PT/OT orders placed and pending. P: dc to SNF pending therapy recs/refs needed/auth needed. f/u closely tomorrow. transport with family in POV likely. SIMIN Allison
[2025-03-10 20:34] VITALS: BP 133/76; PULSE 67; RESP 18; TEMP 36.4; O2SAT 96
[2025-03-10] MEDS: TAMSULOSIN 0.4 MG CAPSULE 0.8 MG PO (21:46)
--- NOTE | 2025-03-11 02:30 | PC.NURSE ---
Pt. stated he as wrapped up in blankets and was hot. Noted old dark yellow stain on sheet. Complete ed change and reorientation of patient done. Denies discomfort.
[2025-03-11 05:17] LABS: Blood Urea Nitrogen 49 mg/dL (9-20); Calcium 8.4 mg/dL (8.4-10.2); Carbon Dioxide 21 mmol/L (22-32); Chloride 111 mmol/L (98-107); Estimated Glomerular Filt Rate 36 mL/min (>60); Glucose 171 mg/dL (70-99); HEMOLYSIS < 15 (0-50); Potassium 4.2 mmol/L (3.4-5.1); Sodium 136 mmol/L (137-145)
[2025-03-11 05:29] LABS: Troponin I 0.080 ng/mL (0.01-0.034)
[2025-03-11 08:00] VITALS: BP 150/49; PULSE 87; RESP 16; TEMP 36.3; O2SAT 96
[2025-03-11 08:43] VITALS: BP 165/64; PULSE 65
[2025-03-11] MEDS: ENTACAPONE 200 MG TABLET PO ×4 (08:43→21:12)
[2025-03-11] MEDS: CLOPIDOGREL 75 MG TABLET PO (08:43)
[2025-03-11] MEDS: ATORVASTATIN 20 MG TABLET 80 MG PO (08:43)
[2025-03-11] MEDS: ASPIRIN EC 81 MG TABLET PO (08:43)
[2025-03-11] MEDS: METOPROLOL ER 25 MG TABLET PO (08:43)
[2025-03-11 08:44] VITALS: BP 165/64; PULSE 65
[2025-03-11] MEDS: CARBIDOPA-LEVODOPA ER 50/200 TABLET 1 EACH PO ×4 (08:44→21:12)
[2025-03-11] MEDS: INSULIN LISPRO 100 UNIT/ML 3ML VIAL SUBCUT ×4 (08:58→21:14)
[2025-03-11] MEDS: INSULIN GLARGINE 100 UNIT/ML 3ML PEN 20 UNIT SUBCUT ×2 (08:59→21:13)
[2025-03-11 10:40] VITALS: BP 165/67; PULSE 72
--- NOTE | 2025-03-11 11:05 | PT.IPTN ---
Current Diagnoses Non-ST elevation (NSTEMI) myocardial infarction (03/10/25) Physical Therapy Treatment Note M2 PT-IP Current Condition Start: 03/10/25 16:45 Freq: Status: Active Protocol: Document 03/11/25 10:40 SP (Rec: 03/11/25 11:26 belia Gan) Physical Therapy Current Condition Current Condition Evaluation Date 03/10/25 Treatment Diagnosis Parkinson's, debility Onset Date 03/08/25 M3 PT-IP Subjective Start: 03/10/25 16:45 Freq: Status: Active Protocol: Document 03/11/25 10:40 SP (Rec: 03/11/25 11:26 belia Gan) Subjective Physical Therapy Visit Type Type Treatment Note Visit Start Time 10:40 Visit Stop Time 11:05 Notes 25 min Brother and JESUS arrived mid session, observed tx. Number of LINE MAINTENANCE SUPERVISOR Visits 1 Physical Therapy Visit Comments Patient Comments Pt upright in bed when arrived. Agreeable to working with LINE MAINTENANCE SUPERVISOR. Patient Goals Go to rehab to get stronger before returning home. M4 PT-IP Mobility and Gait Start: 03/10/25 16:45 Freq: Status: Active Protocol: Document 03/11/25 10:40 SP (Rec: 03/11/25 11:26 belia Gan) PT-Bed Mobility Assessment Supine to Sit Supine to Sit Moderate Assistance,1 Person Assistance,Head of Bed Elevated,Bedrails Scooting Scooting to Edge of Contact Guard Assistance Bed PT-Transfer Assessment Sit to and From Stand Sit to and from Contact Guard Assistance,Minimal Assistance,1 Person Stand Assistance,Use of Upper Extremities Equipment Transfer Assistive Gait Belt,Front Wheeled Walker Device Transfers Transfer Destination Chair Transfer Technique pt ambulated with FWW Transfer Ability Level of Assist Contact Guard Assistance,Minimal Assistance,1 Person Assistance,Use of Upper Extremities Comments Mobility Comments Initially hypertensive supine: 195/63 HR 71 SaO2 97% on RA. Pt required Mod A for trunk righting to sit and when needed LE to EOB. Vital improved: 165/57 HR 72, states feels ok to mobilize into standing. CGA during STS from EOB, redirection to push with BUEs on bed to come to standing. Instructed standing marching with FWW pre gait. Gait around room bench>door>chair. Max cues for increased stride and foot clearance, festination and shuffle gait at times forward and during pivot turns, improves with cuing. Seated rest in chair. Then completed 1 portable step L HR only CG/Min A, fair propulsion ascend, poor forward descending Min A x2 reps. Pt was up in chair with chair alarm donned due to fall risk. Recommending SNF for progression strengthen and balance. Gait Assessment Gait Gait Assistance Contact Guard Assist,1 Person Assist Required: Distance (Feet) 30 Assistive Devices Assistive Device Gait Belt,Front Wheeled Walker Gait Deviations General Gait Pattern Antalgic,Decreased Stride Length,Decreased Feet Clearance,Festinating,Flexed Trunk,Step-to Gait Factors Limiting Gait Function Factors Limiting Decreased Activity Tolerance,Decreased Strength, Gait Function Difficulty Following Directions,Incoordination,Poor Balance,Poor Safety Awareness Comments Gait Comments see mobility comments Stair Climbing Assessment Evaluation Level of Assist On Contact Guard Assistance,Minimal Assistance,1 Person Stairs Assistance Devices Stair Climbing Left Railing Assistive Devices Technique/Endurance Stair Climbing Ascend and Descend Direction Stair Climbing Step to Step Technique Number of Steps 1 Climbed Stair Climbing Set # 2 Repetitions (reps) Comments Stair Climbing see mobility comments Comments PT-Balance Assessment Sitting Balance and Reactions Static Sitting Good Balance Ability Dynamic Sitting Fair Balance Ability Standing Balance and Reactions Static Standing Good Balance Ability Dynamic Standing Fair Balance Ability Device Used FWW M5 PT-IP Objective Assessments Start: 03/10/25 16:45 Freq: Status: Active Protocol: Document 03/10/25 16:45 NW (Rec: 03/10/25 16:58 NW [id number]) Orientation Orientation/Cognition Level of Alertness Alert Orientation Name,Age,Birthday,Month,Date,Year,Day of Week,Place, Situation Safety Awareness Understands Safety Issues Gross Range of Motion Upper Extremity ROM Assessment Bilaterally Impaired Impairments unable to raise bilateral UE > 90 deg flexion Lower Extremity ROM Assessment Within Functional Limits Strength Lower Extremity Strength Assessment Right Impaired Knee 4/5 exten, 3+/5 flexion Ankle 4/5 DF Comments Strength Comments challenged to sustain strength with testing Coordination Assessment Gross Coordination Gross Coordination Impaired Assessment Finger to Nose Test Moderate Impairment Heel on [place]edillo Test Moderate Impairment Sensation Assessment Sensation Gross Sensation Right LE Impaired,Left LE Impaired Light Touch Impaired Muscle Tone Comments Muscle Tone Comments DNT tone secondary to pt fatiguing sitting in bed side chair, defer to next session M6 PT-IP Treatment Start: 03/10/25 16:45 Freq: Status: Active Protocol: Document 03/11/25 10:40 SP (Rec: 03/11/25 11:26 belia Gan) Physical Therapy Treatment Other Treatments Other Treatment Continue education given on importance of mobilizing Performed with staff, stable before and during mobility. M7 PT-IP Assessment and Plan Start: 03/10/25 16:45 Freq: Status: Active Protocol: Document 03/11/25 10:40 SP (Rec: 03/11/25 11:26 belia Gan) PT Summary Assessment and Plan Potential Rehabilitation Fair Potential Status of Condition Evolving at Evaluation Summary Impairments ROM,Strength,Balance,Coordination,Sensation,Tone,Bed Mobility,Transfers,Gait,Activity Tolerance Progress Towards Progressing Toward Goals,Slow Progress due to Activity Goals Tolerance Assessment Summary Kiet is a 74 yr old male admitted after a fall and recent NSTEMI within the last month that is being managed with outpatient care with notable PMH of Parkinson's, HTN, and prostate CA. Pt required Mod A for bed mobility sup>sit, CG/Min A during STS and gait festination/shuffling steps around room with FWW with cues for foot clearance and stride, cues for proper hand placement for eccentric sitting and control descending stairs, CG/Min A during trial portable step mgt. Pt is not back to his baseline only needing caregiver 3-4 hrs daily x5 days/week with 4WW, recommending SNF for progression strength, balance and stair mgt. Will continue to assess progress. Goals Bed Mobility Goal Standby Assistance Transfer Goal Standby Assistance,Front Wheeled Walker Gait Goal Contact Guard Assistance Gait Distance 30 Other Goals Potentially progress to 4 inch steps x 2 with unilateral railing on R. Days to Meet Goals 10 Frequency of Treatment Frequency Of Once a Day Treatment Treatment Plan Physical Therapy Bed Mobility Training,Transfer Training,Gait Training, Treatment Plan Therapeutic Exercise,Balance Retraining,Discharge Planning,Neuromuscular Re-ed,Coordination Retraining Other progress to ambulation as tolerated with FWW then Recommendations and progress 4WW when able, step mgt. Next Treatment Focus Precautions Other Precautions falls risk Weight Bearing Status Weight Bearing Weight Bear as Tolerated Status Recommendations To Nursing Amount of Assist 1 Person Assist Needed Discharge Recommendations PT Discharge SNF Rehab Recommendations Transportation Needs Wheelchair/Cabulance at Discharge - PT assist 1
--- NOTE | 2025-03-11 11:45 | OT.IP.TRT ---
Current Diagnoses Non-ST elevation (NSTEMI) myocardial infarction (03/10/25) Occupational Therapy Treatment Note M2 OT-IP Current Condition Start: 03/10/25 13:04 Freq: Status: Active Protocol: Document 03/10/25 11:25 [facility] (Rec: 03/10/25 13:37 [facility] Desktop) Occupational Therapy Current Condition Current Condition Evaluation Date 03/10/25 Treatment Diagnosis weakness, decreased self care Diagnosis Onset Date 03/10/25 Post Operative Precautions Other Precautions falls M3 OT- IP Subjective and Pain Start: 03/10/25 13:04 Freq: Status: Active Protocol: Document 03/11/25 11:43 [facility] (Rec: 03/11/25 11:50 [facility] Desktop) OT- Subjective Occupational Therapy Visit Type Type Treatment Note Visit Start Time 11:20 Visit Stop Time 11:45 Occupational Therapy Visit Comments Patient Comments Pt agreed to get up tp brush his teeth. Patient/Caregiver TO get stronger. Goals M4 OT- IP ADL's Start: 03/10/25 13:04 Freq: Status: Active Protocol: Document 03/11/25 11:43 [facility] (Rec: 03/11/25 11:50 [facility] Desktop) OT [id number] Comments OT Self-Feeding Pt states the weighted utensil were too heavy and Comments called the kitchen for a plate guard. OT ADL-Grooming General Evaluation Grooming Ability Standby Assistance Areas Needing Retrieving/Set-up of Grooming Items Assistance Comments OT Grooming Comments Pt performed grooming while up in chair after setup of articles. Pt was going to attempt to get to the sink but too tired and therefore performed while seated. OT ADL-Oral Care General Eval Oral Care Ability Independent M5 OT- IP IADL's Start: 03/10/25 13:04 Freq: Status: Active Protocol: Document 03/10/25 11:25 [facility] (Rec[facility] 03/10/25 13:37 [facility] OT-Instrumental Activities of Daily Living Deficits IADL Deficits No Deficits Identified Home Safety Awareness Awareness of Need Good Awareness for Assistance at Home Ability to Problem Able to Problem Solve Solve Emergency Situations Medication Management Medication Caregiver Administers Management Money Management Money Management Caregiver Provides Supervision Meal Preparation Meal Preparation Caregiver Provides Assist Physical Therapist Aide Physical Therapist Aide Caregiver Provides Assist Driving Driving Caregiver Provides Assist Driving Comments Pt reports he drives locally some in a small street legal vehicle. M6 OT- IP Functional Cognition Start: 03/10/25 13:04 Freq: Status: Active Protocol: Document 03/11/25 11:43 [facility] (Rec: 03/11/25 11:50 [facility] Desktop) Cognitive Factors Limiting Selfcare Function Cognitive Comments Cognitive Assessment VC for hand placement and safety awareness. Comments M7 OT- IP Mobility and Balance Start: 03/10/25 13:04 Freq: Status: Active Protocol: Document 03/11/25 11:43 [facility] (Rec: 03/11/25 11:50 [facility] Desktop) OT-Transfer Assessment Sit to and From Stand Sit to and from Moderate Assistance Stand Comments Mobility Comments MODA to stand, vc to scoot forwards and push up from the armrests of the recliner to stand to the FWW. OT- Balance Assessment Sitting Balance and Reactions Static Sitting Good Balance Ability Dynamic Sitting Good Balance Ability Standing Balance and Reactions Static Standing Fair Balance Ability M8 OT- IP Objective Assessments Start: 03/10/25 13:04 Freq: Status: Active Protocol: Document 03/10/25 11:25 [facility] (Rec: 03/10/25 13:37 [facility] OT Gross Range of Motion Upper Extremity Range of Motion Assessment Within Functional Limits OT Strength Upper Extremity Strength Assessment Bilaterally Impaired Shoulder R 4- Elbow L tricep 4- Hand Tufting Machine Operator Strength Hand Dominance Right Comments Strength Comments Unless otherwise indicated above B UE strength 4/5 OT- Coordination Assessment Upper Extremity Finger to Nose Test Within Functional Limits Comments Coordination thumb to finger tips intact Comments OT-Muscle Tone Assessment Muscle Tone WNL No OT Sensation Assessment Comments Summary Comments no sensory deficits noted Edema Edema Absent M9 OT- IP Assessment and Plan Start: 03/10/25 13:04 Freq: Status: Active Protocol: Document 03/11/25 11:43 [facility] (Rec: 03/11/25 11:50 [facility] Desktop) OT Summary Assessment and Plan Potential Rehabilitation Good Potential Analytic Complexity Moderate at Evaluation Summary OT Impairments Strength,Balance,Functional Mobility,Self-Feeding, Grooming,Dressing,Toileting,Bathing,Toilet Transfers, Shower Transfers,Activity Tolerance Progress Towards Slow Progress due to Medical Issues,Slow Progress due Goals to Activity Tolerance Assessment Summary Pt states too tired from PT session just earlier and needing more assist to stand to the FWW. Pt states the weighted utensils were too heavy and able to request plate guard for pt. Also suggested use of cup to increased ease for his soup. Pt to go to skilled rehab when medically stable. Goals Self-Feeding Goal Independent,Adapted Utensil Grooming Goal Independent Dressing Goal Independent Toileting Goal Independent Bathing Goal Standby Assistance Toilet Transfer Goal Independent Shower Transfer Goal Standby Assistance,Walk-in Shower,Shower Chair Days to Meet Goals 15 Frequency of Treatment Other frequency 5x/wk Treatment Plan OT Treatment Plan ADL Training,Functional Mobility,Therapeutic Exercises, Patient/Family Education,Discharge Planning Other Treatment sink side ADLs when safe, shower/sponge bath Recommendations and Next Treatment Focus Discharge Recommendations OT Discharge SNF Rehab Recommendations Other Discharge grab bars shower/toilet, toilet standing frame Recommendations Transportation Needs Private Vehicle at Discharge
[2025-03-11] MEDS: SODIUM CHLORIDE 0.9% FLUSH 10 ML IV ×2 (12:10→21:18)
--- NOTE | 2025-03-11 13:48 | PC.NURSE ---
0700 -1400 pt stated that he at times cannot hold utensils for eating; will assist as needed; pt is able to swallow meal at breakfast and was able to feed himself at breakfast; resting between cares; ate lunch with some feeding assistance; had good appetite. pt continues to interact well with staff; taking oral fluids well; has had insulin per scale; pt asks appropriate questions about his plan of care. Pt able to be up in chair well and tolerates being repositioned well in bed.
--- NOTE | 2025-03-11 15:11 | P.PN_ITS ---
Subjective Subjective Interval history: A&P 74-year-old male with past medical history of Parkinson disease, hypertension, hyperlipidemia, insulin-dependent diabetes, CKD stage IV, prostate cancer with recent radiation yesterday presents with generalized weakness. NSTEMI Troponin was 0.126 initially, repeat 0.08, without ST or T-wave changes. At presentation, Cardiology was consulted and heparin drip and cardiac catheterization were recommended. However after initiation of heparin, the patient developed hematuria and the heparin needed to be discontinued. Subsequently, the patient reported that he did not want a pursue cardiac catheterization even if this was an ACS event. Given his underlying prostate cancer, he just wanted to focus on comfort with regards to any cardiac issues. * Continue goal-directed medical therapy with aspirin, clopidogrel, atorvastatin, blood pressure and diabetes management. Hypertension Hyperlipidemia * Continue lisinopril, metoprolol, and atorvastatin Prostate cancer Currently receiving radiation therapy, the patient reports yes between 12 and 14 more treatments. * Outpatient follow-up with Rad [facility] rehab at [facility] completed Type 2 diabetes mellitus, insulin dependent Blood glucose suboptimal control * Continue glargine b.i.d. -keep a.m. dose at 20 units, increase p.m. dose to 20 units * Continue lispro a.c. and HS Parkinson's disease Weakness exacerbated by XRT * PT and OT CKD stage 4 Clinically stable * Monitor as needed * Avoid nephrotoxins * Renally dose medications as required Code Status: DNR Diet: Carb controlled Lines/Tubes: PIV, condom cath DVT Prophylaxis: Enoxaparin Discharge Planning: Patient is medically stable to discharge. Can discharge to correction facility for short-term rehab when a bed is available. Chief Complaint: Weakness Subjective: Patient denies chest pain or shortness a breath. Main complaint is weakness. No overnight events Objective A&O, WN, WD, NAD NCAT, OP moist, neck supple RRR, nl S1 and S2, + systolic murmur loudest at left upper sternal border CTA bilaterally Soft, NT, ND, +BS Warm without edema Neuro grossly nonfocal Pleasant, cooperative Labs: No new labs in the last 24 hours. Prior labs notable for creatinine 1.94 which is baseline Imaging: Imaging reviewed and notable for chest x-ray without acute cardiopulmonary abnormality Time: 40 minutes spent with patient and on the chart (including review of chart, obtaining history, exam, reviewing outside data, placing orders, documenting exam and treatment plan, and counseling patient) Exam Vital Signs (past 8 hours): - 03/11/25 08:00 03/11/25 08:43 03/11/25 08:44 Temperature 97.4 F L Pulse Rate 87 65 65 Respiratory Rate 16 Blood Pressure 150/49 H 165/64 H 165/64 H Pulse Oximetry 96 Oxygen Flow Rate 0 03/11/25 10:40 Temperature Pulse Rate 72 Respiratory Rate Blood Pressure 165/67 H Pulse Oximetry Oxygen Flow Rate Oxygen Delivery Method Room Air Oxygen Flow Rate 0 Objective Labs 03/10/25 04:55 03/11/25 04:35 Labs: Laboratory Results - last 24 hr 03/10/25 03/10/25 03/10/25 18:04 19:46 21:41 Sodium Potassium Chloride Carbon Dioxide BUN Creatinine Estimated GFR BUN/Creatinine Ratio Glucose POC Whole Bld Glucose 164 H 182 H 166 H Calcium Troponin I 03/11/25 03/11/25 03/11/25 04:35 07:58 12:08 Sodium 136 L Potassium 4.2 Chloride 111 H Carbon Dioxide 21 L BUN 49 H Creatinine 1.91 H Estimated GFR 36 L BUN/Creatinine Ratio 25.7 H Glucose 171 H POC Whole Bld Glucose 206 H 218 H Calcium 8.4 Troponin I 0.080 H PFSH Medical History Diabetes mellitus Elevated serum creatinine High prostate specific antigen (PSA) History of arthritis History of kidney stones History of urinary retention History of urinary tract infection Hypercholesteremia Hypertension Kidney stone Nocturia more than twice per night Parkinson disease Urinary retention UTI (urinary tract infection) Surgical History History of circumcision as Hx of vasectomy Family History Father No problems noted. Brother Diabetes mellitus Social History marital status: number of children: 5 household members: family and caregiver lives independently: Yes occupational status: previously employed and other Previous occupational history: Lives with his son other: He drinks 1-2 glasses of wine at night. He quit smoking in 1969 Smoking Status: Former smoker alcohol intake: former caffeine: Yes Type(s) of exercise: none Assessment & Plan Time-Based Coding :: [TOTAL MINUTES] spent with patient and on the chart (including review of chart, obtaining history, exam, reviewing outside data, placing orders, documenting exam and treatment plan, and counseling patient) on [DATE]. Quality VTE Deep Vein Thrombosis/Pulmonary Embolism Present on Admission: No
--- NOTE | 2025-03-11 16:39 | CM.DPNOTE ---
DCP note COMMUNITY MARKETING MANAGER reviewed EMR per provider medically stable. COMMUNITY MARKETING MANAGER met with pt, preference for [facility] in [place] vs [facility] in [place]. COMMUNITY MARKETING MANAGER faxed refs to both- acceptance pending. f/u with them Mon. faxed auth request to [place] f [phone], spoke with Lavinia. p for shared line is [phone]. per Lavinia, will auth when accepting facility found. call when accepting facility known and they will auth. PASRR needed. P: dc to [place] SNF pending accepting facilities. family to transport. will continue to follow closely for DCP Coordination SIMIN Allison
[2025-03-11 19:45] VITALS: BP 210/68; PULSE 63; RESP 18; TEMP 36.4; O2SAT 99
[2025-03-11 20:17] VITALS: BP 177/54
[2025-03-11] MEDS: TAMSULOSIN 0.4 MG CAPSULE 0.8 MG PO (21:12)
[2025-03-12] VITALS (8 sets, daily range): BP systolic 120–174; BP diastolic 39–65; PULSE 58–71; RESP 18–20; TEMP 36.3–36.4; O2SAT 96–98
[2025-03-12] MEDS: hydrALAZINE 20 MG/ML VIAL 10 MG IV (00:27)
--- NOTE | 2025-03-12 01:35 | PC.NURSE ---
Midnight vital signs with HR 64 and BP 174/60, on both Lopressor and Lisinopril. Given 10 mg hydralazine IV with follow up BP 137/42 and HR 58. Hospitalist supply and distribution manager informed per nursing informatics clinical analyst. Will continue to watch, no intervention required at this time per hospitalist.
[2025-03-12 05:48] LABS: Blood Urea Nitrogen 51 mg/dL (9-20); Calcium 8.3 mg/dL (8.4-10.2); Carbon Dioxide 21 mmol/L (22-32); Chloride 112 mmol/L (98-107); Estimated Glomerular Filt Rate 41 mL/min (>60); Glucose 126 mg/dL (70-99); HEMOLYSIS < 15 (0-50); Potassium 3.8 mmol/L (3.4-5.1); Sodium 137 mmol/L (137-145)
[2025-03-12 06:00] LABS: Hematocrit 30.8 % (41-53); Hemoglobin 11.3 g/dL (13.5-17.5); Mean Corpuscular HGB Conc 36.6 % (30-36); Mean Corpuscular Hemoglobin 36.6 PG (26-34); Mean Corpuscular Volume 100.0 fL (80-100); Platelet Count 133 X10^3/uL (150-400)
[2025-03-12] MEDS: ENOXAPARIN 40 MG/0.4 ML SYRINGE SUBCUT (08:27)
[2025-03-12] MEDS: ENTACAPONE 200 MG TABLET PO ×4 (08:28→20:33)
[2025-03-12] MEDS: CLOPIDOGREL 75 MG TABLET PO (08:29)
[2025-03-12] MEDS: CARBIDOPA-LEVODOPA ER 50/200 TABLET 1 EACH PO ×4 (08:29→20:33)
[2025-03-12] MEDS: METOPROLOL ER 25 MG TABLET PO (08:29)
[2025-03-12] MEDS: ATORVASTATIN 20 MG TABLET 80 MG PO (08:29)
[2025-03-12] MEDS: ASPIRIN EC 81 MG TABLET PO (08:29)
[2025-03-12] MEDS: SODIUM CHLORIDE 0.9% FLUSH 10 ML IV ×2 (08:30→20:33)
[2025-03-12] MEDS: INSULIN LISPRO 100 UNIT/ML 3ML VIAL SUBCUT ×6 (08:32→20:34)
[2025-03-12] MEDS: INSULIN GLARGINE 100 UNIT/ML 3ML PEN 20 UNIT SUBCUT ×2 (08:32→20:33)
--- NOTE | 2025-03-12 09:30 | OT.IP.TRT ---
Current Diagnoses Non-ST elevation (NSTEMI) myocardial infarction (03/10/25) Occupational Therapy Treatment Note M2 OT-IP Current Condition Start: 03/10/25 13:04 Freq: Status: Active Protocol: Document 03/10/25 11:25 MANOLO (Rec: 03/10/25 13:37 [email or web address] Desktop) Occupational Therapy Current Condition Current Condition Evaluation Date 03/10/25 Treatment Diagnosis weakness, decreased self care Diagnosis Onset Date 03/10/25 Post Operative Precautions Other Precautions falls M3 OT- IP Subjective and Pain Start: 03/10/25 13:04 Freq: Status: Active Protocol: Document 03/12/25 09:30 [facility] (Rec: 03/12/25 09:40 [facility] Desktop) OT- Subjective Occupational Therapy Visit Type Type Treatment Note Visit Start Time 08:20 Visit Stop Time 09:30 Notes Pt seen from [id number] and [id number] Occupational Therapy Visit Comments Patient Comments Pt agreed to shower. Patient/Caregiver Pt states now feels able to go home. Goals OT Pain Assessment Pain When Pain Assessed At Rest Pain Present Pain Present Denied Pain M4 OT- IP ADL's Start: 03/10/25 13:04 Freq: Status: Active Protocol: Document 03/12/25 09:30 [facility] (Rec: 03/12/25 09:40 [facility] Desktop) OT [id number] General Evaluation Self-Feeding Ability Independent OT ADL-Grooming General Evaluation Grooming Ability Independent OT ADL-Oral Care General Eval Oral Care Ability Independent OT ADL-Dressing General Eval Upper Body Dressing Independent Ability Lower Body Dressing Standby Assistance Ability Comments OT Dressing Comments SBA while standing to pull up brief over his hips. OT ADL-Toileting Comments OT Toileting Condom catheter just removed by nursing aid. Comments OT ADL-Bathing General Evaluation Bathing Ability Minimal Assistance Areas Needing Wash/Dry Back Assistance Comments OT Bathing Comments Pt able to do most showering needs with SBA, and assist for his back. Pt had one loss of balance while standing in the shower and CGA to regain his balance. Pt will benefit form continued assist for showers at home and benefit from installing grab bars. M5 OT- IP IADL's Start: 03/10/25 13:04 Freq: Status: Active Protocol: Document 03/10/25 11:25 MANOLO (Rec: 03/10/25 13:37 [facility] Desktop) OT-Instrumental Activities of Daily Living Deficits IADL Deficits No Deficits Identified Home Safety Awareness Awareness of Need Good Awareness for Assistance at Home Ability to Problem Able to Problem Solve Solve Emergency Situations Medication Management Medication Caregiver Administers Management Money Management Money Management Caregiver Provides Supervision Meal Preparation Meal Preparation Caregiver Provides Assist Entry Level Assistant Manager Entry Level Assistant Manager Caregiver Provides Assist Driving Driving Caregiver Provides Assist Driving Comments Pt reports he drives locally some in a small street legal vehicle. M6 OT- IP Functional Cognition Start: 03/10/25 13:04 Freq: Status: Active Protocol: Document 03/12/25 09:30 [facility] (Rec: 03/12/25 09:40 [facility] Desktop) Cognitive Factors Limiting Selfcare Function Cognitive Comments Cognitive Assessment Pt needing vc to slow down and use the FWW properly. Pt Comments states was trying to show off as he was carrying the FWW initially. M7 OT- IP Mobility and Balance Start: 03/10/25 13:04 Freq: Status: Active Protocol: Document 03/12/25 09:30 [facility] (Rec: 03/12/25 09:40 [facility] Desktop) OT- Bed Mobility Assessment Supine to Sit Supine to Sit Assist Standby Assistance OT-Transfer Assessment Sit to and From Stand Sit to and from Standby Assistance,Contact Guard Assistance,Use of Stand Upper Extremities Transfers Transfer Ability Standby Assistance,Contact Guard Assistance Technique Transfer Destination Chair,Shower Stall,Toilet Devices Transfer Assistive Gait Belt,Front Wheeled Walker Devices Comments Mobility Comments SBA to stand from surfaces and heavily use of his arms to assist as well. Once on his feet close SBA, CGA for uneven surfaces of the threshold of the shower. Pt able to use FWW and good to try 4ww next session. OT- Balance Assessment Sitting Balance and Reactions Static Sitting Good Balance Ability Dynamic Sitting Good Balance Ability Standing Balance and Reactions Static Standing Good Balance Ability Dynamic Standing Fair Balance Ability M8 OT- IP Objective Assessments Start: 03/10/25 13:04 Freq: Status: Active Protocol: Document 03/10/25 11:25 [email or web address] (Rec: 03/10/25 13:37 [facility] Desktop) OT Gross Range of Motion Upper Extremity Range of Motion Assessment Within Functional Limits OT Strength Upper Extremity Strength Assessment Bilaterally Impaired Shoulder R 4- Elbow L tricep 4- Hand Emt Dispatcher Strength Hand Dominance Right Comments Strength Comments Unless otherwise indicated above B UE strength 4/5 OT- Coordination Assessment Upper Extremity Finger to Nose Test Within Functional Limits Comments Coordination thumb to finger tips intact Comments OT-Muscle Tone Assessment Muscle Tone WNL No OT Sensation Assessment Comments Summary Comments no sensory deficits noted Edema Edema Absent M9 OT- IP Assessment and Plan Start: 03/10/25 13:04 Freq: Status: Active Protocol: Document 03/12/25 09:30 [facility] (Rec: 03/12/25 09:40 [facility] Desktop) OT Summary Assessment and Plan Potential Rehabilitation Good Potential Analytic Complexity Moderate at Evaluation Summary OT Impairments Strength,Balance,Functional Mobility,Dressing,Toileting ,Bathing,Toilet Transfers,Shower Transfers,Activity Tolerance Progress Towards Progressing Toward Goals Goals Assessment Summary Able to request light weight large handled utensils for pt for meals. Pt able to tolerate grooming, oral care, toileting, bathing , and dressing today. Pt just needing assist to wash his back and CGA for balance while stepping over the threshold on the shower. Pt will benefit form getting grab bars in the shower and toilet safety frame. Pt feels he no longer needs SNF and feels able to go home with increased assist at home. Pt will benefit from home health. Goals Self-Feeding Goal Independent,Adapted Utensil Grooming Goal Independent Dressing Goal Independent Toileting Goal Independent Bathing Goal Standby Assistance Toilet Transfer Goal Independent Shower Transfer Goal Standby Assistance,Walk-in Shower,Shower Chair Days to Meet Goals 5 Frequency of Treatment Other frequency 5x/week Treatment Plan OT Treatment Plan ADL Training,Functional Mobility,Therapeutic Exercises, Patient/Family Education,Discharge Planning Other Treatment ADL's with 4ww Recommendations and Next Treatment Focus Discharge Recommendations OT Discharge Home with 10/10 Assist Available,Home Health Recommendations Other Discharge grab bar for toilet/shower, toilet safety frame Recommendations Transportation Needs Private Vehicle at Discharge
--- NOTE | 2025-03-12 10:45 | PT.IPTN ---
Current Diagnoses Non-ST elevation (NSTEMI) myocardial infarction (03/10/25) Physical Therapy Treatment Note M2 PT-IP Current Condition Start: 03/10/25 16:45 Freq: Status: Active Protocol: Document 03/11/25 10:40 SP (Rec: 03/11/25 11:26 SP belia sosa) Physical Therapy Current Condition Current Condition Evaluation Date 03/10/25 Treatment Diagnosis Parkinson's, debility Onset Date 03/08/25 M3 PT-IP Subjective Start: 03/10/25 16:45 Freq: Status: Active Protocol: Document 03/12/25 13:24 NW (Rec: 03/12/25 13:34 NW [id number]) Subjective Physical Therapy Visit Type Type Treatment Note Visit Start Time 10:17 Visit Stop Time 10:45 Physical Therapy Visit Comments Patient Comments Pt is received sitting in bed side chair and wants to get up. Patient Goals To get stronger. M4 PT-IP Mobility and Gait Start: 03/10/25 16:45 Freq: Status: Active Protocol: Document 03/12/25 13:24 NW (Rec: 03/12/25 13:34 NW [id number]) PT-Transfer Assessment Sit to and From Stand Sit to and from Contact Guard Assistance,1 Person Assistance,Use of Stand Upper Extremities Equipment Transfer Assistive Gait Belt,4 Wheeled Walker Device Transfers Transfer Destination Chair Transfer Technique Stand Step Pivot Transfer Ability Level of Assist Contact Guard Assistance,1 Person Assistance,Use of Upper Extremities Comments Mobility Comments Cues for brake management on 4WW. Adequate power production and is able to achieve and maintain balance upon stance with variable posterior support. Gait Assessment Gait Gait Assistance Contact Guard Assist,1 Person Assist Required: Distance (Feet) 40 Assistive Devices Assistive Device Gait Belt,4 Wheeled Walker Gait Deviations General Gait Pattern Decreased Stride Length,Decreased Feet Clearance, Festinating,Flexed Trunk Factors Limiting Gait Function Factors Limiting Decreased Strength,Incoordination,Poor Balance,Poor Gait Function Safety Awareness Comments Gait Comments Ambulated 40 ft over two equal bouts with 4WW at CGA with occasional episodes of freezing. VC given for pt to count 1,2,3 and step with good initiation of step through pattern following. Pt requires cues for safety awareness with distance to perform turn and sit in bed side chair as pt begins early and has to retrowalk with minima foot clearance 2-3 ft. Cues again for brake management. Stair Climbing Assessment Evaluation Level of Assist On Contact Guard Assistance,1 Person Assistance Stairs Devices Stair Climbing Right Railing Assistive Devices Technique/Endurance Stair Climbing Ascend Direction Stair Climbing Step to Step Technique Number of Steps 1 Climbed Stair Climbing Set # 2 Repetitions (reps) Comments Stair Climbing Performed at edge of bed with portable step of 6. Good Comments power production with use of R UE support on railing to pull up. Demonstrates fatigue following completion. PT-Balance Assessment Sitting Balance and Reactions Static Sitting Good Balance Ability Dynamic Sitting Fair Balance Ability Standing Balance and Reactions Static Standing Good Balance Ability Dynamic Standing Fair Balance Ability Device Used 4WW M5 PT-IP Objective Assessments Start: 03/10/25 16:45 Freq: Status: Active Protocol: Document 03/10/25 16:45 NW (Rec: 03/10/25 16:58 NW [id number]) Orientation Orientation/Cognition Level of Alertness Alert Orientation Name,Age,Birthday,Month,Date,Year,Day of Week,Place, Situation Safety Awareness Understands Safety Issues Gross Range of Motion Upper Extremity ROM Assessment Bilaterally Impaired Impairments unable to raise bilateral UE > 90 deg flexion Lower Extremity ROM Assessment Within Functional Limits Strength Lower Extremity Strength Assessment Right Impaired Knee 4/5 exten, 3+/5 flexion Ankle 4/5 DF Comments Strength Comments challenged to sustain strength with testing Coordination Assessment Gross Coordination Gross Coordination Impaired Assessment Finger to Nose Test Moderate Impairment Heel on Cedillo Test Moderate Impairment Sensation Assessment Sensation Gross Sensation Right LE Impaired,Left LE Impaired Light Touch Impaired Muscle Tone Comments Muscle Tone Comments DNT tone secondary to pt fatiguing sitting in bed side chair, defer to next session M6 PT-IP Treatment Start: 03/10/25 16:45 Freq: Status: Active Protocol: Document 03/12/25 13:24 NW (Rec: 03/12/25 13:34 NW [id number]) Physical Therapy Treatment Other Treatments Other Treatment Education on different 4WW with options of U-step for Performed individuals with Parkinson's. Education on verbal and visual cues to assist with freezing episodes during functional mobility. M7 PT-IP Assessment and Plan Start: 03/10/25 16:45 Freq: Status: Active Protocol: Document 03/12/25 13:24 NW (Rec: 03/12/25 13:34 NW [id number]) PT Summary Assessment and Plan Potential Rehabilitation Fair Potential Status of Condition Evolving at Evaluation Summary Impairments ROM,Strength,Balance,Coordination,Sensation,Tone,Bed Mobility,Transfers,Gait,Activity Tolerance Progress Towards Progressing Toward Goals,Slow Progress due to Activity Goals Tolerance Assessment Summary Pt is able to decreased assistance with STS, ambulation , and step navigation today compared to previous sessions. Continues to have poor activity tolerance requiring frequent and long rest breaks between bouts of ambulation and stair progress. Demonstrate festination and freezing with ambulation today with good response to verbal cues for initiation. Pt is unsafe to return home secondary to reduced assistance. Continue to recommend SNF. Goals Bed Mobility Goal Standby Assistance Transfer Goal Standby Assistance,Front Wheeled Walker Gait Goal Contact Guard Assistance Gait Distance 30 Other Goals Potentially progress to 4 inch steps x 2 with unilateral railing on . Days to Meet Goals 10 Frequency of Treatment Frequency Of Once a Day Treatment Treatment Plan Physical Therapy Bed Mobility Training,Transfer Training,Gait Training, Treatment Plan Therapeutic Exercise,Balance Retraining,Discharge Planning,Neuromuscular Re-ed,Coordination Retraining Other progress to ambulation as tolerated with FWW then Recommendations and progress 4WW when able, step mgt. Next Treatment Focus Precautions Other Precautions falls risk Weight Bearing Status Weight Bearing Weight Bear as Tolerated Status Recommendations To Nursing Amount of Assist 1 Person Assist Needed Discharge Recommendations PT Discharge Home with 10/10 Assist Available,SNF Rehab,Home vs SNF Recommendations Other Discharge does not have level of assist to go home Recommendations Transportation Needs Wheelchair/Cabulance at Discharge - PT assist 1
--- NOTE | 2025-03-12 11:11 | CM.DPC ---
Addendum entered by Qi Nguyen RN 03/12/25 13:01: CM spoke with patient's brother, Arben. Arben is willing to transport patient to SNF. [facility] in [place] will have a male bed for patient Monday. PASRR completed and sent. COVID result need to be sent NÉSTOR to [facility]. [facility] morning [facility]. P. [phone] Original Note: CM spoke with patient at bedside and discussed HH vs SNF. Patient verbalized feeling stronger. Patient also verbalized feeling exhausted from PT eval this am. Patient is agreeable to SNF for continued strength and endurance training. Patient only has 3 hours of caregiver per day. Ewa is the primary CG and also Medical POA. P. [phone]. Patient has 2 brothers that should be able to transport patient to SNF. Arben P.[phone]. Patrice P. [phone]
[2025-03-12 13:43] LABS: COVID19 -Nasal RAPID Negative (Negative)
--- NOTE | 2025-03-12 15:20 | P.PN_ITS ---
Subjective Subjective Date Patient Seen: 03/12/25 Time Patient Seen: 15:20 Interval history: Chief complaint: Non ST-elevation SD with hematuria complication of treatment with IV heparin patient prefers conservative management History of present illness: 03/08: 74-year-old male with past medical history of Parkinson disease, hypertension, hyperlipidemia, insulin-dependent diabetes, CKD stage IV, prostate cancer with recent radiation yesterday presents with generalized weakness. Per the patient's report, the patient does have home health who comes to the house daily to help him with his ADLs. The patient initially was doing well but over the last week has been having generalized weakness to the point where he had a difficult time standing up on his own today. The patient states that he has been taking his medication including his Parkinson's medication on a regular basis. The patient also a month ago was reported to have an NSTEMI and was supposed to be scheduled for an outpatient cath which she has not had a chance to complete yet. Otherwise the patient denies any fever, chills, nausea, vomit, diarrhea, chest pain or shortness of breath. In the emergency room, the patient systolic blood pressure was elevated in the 220s. Lab initially shows a creatinine of 1.69 and troponin of 0.104. Repeat troponin was 0.101. BNP was 1658. UA was negative. Alcohol level is negative. Chest x-ray was clear. EKG shows no clear signs of acute ischemia. A general wheat and oats flake miller Dr. Dumont was consulted who recommended that we start heparin drip and try for possible cardiac cath. However the patient started to have significant hematuria after heparinized. Heparin drip had to be stopped and hematuria eventually slowly improved. Due to hematuria that was very significant ER physician reconsulted Dr. Dumont who states that we had to stop heparin for now. Transfer order was canceled as patient decided to focus on comfort measures only and acknowledge even if this was an ACS event. Patient also wishes for DNR/DNI. 03/09: Patient is sitting up, appears comfortable. He is eating breakfast with assistance a nurse's aide. He denies chest pain or shortness of breath. He states he feels very weak. He has prostate cancer undergoing active radiation therapy presently, with proximally 14 treatments left. He was admitted to this hospital last month but had difficulty coordinating cardiology follow-up with Dr. Dumont for planned outpatient cardiac catheterization. 03/10-03/12: Patient decided against any invasive workup outpatient or inpatient continuing to manage symptoms still very weak previously was trying to go home but at this point does not feel physically capable of managing at home Review of systems: No fever or chills rigors No chest pain palpitations shortness for breath at rest +dyspnea on exertion No nausea vomiting diarrhea No paresthesia paresis Physical exam: No acute distress in good spirits HEENT unremarkable Heart rate and rhythm regular Lungs clear Abdomen nontender nondistended Extremities no edema Assessment and plan NSTEMI presenting with generalized weakness * Troponin was 0.126 initially, repeat 0.08, without ST or T-wave changes. At presentation, Cardiology was consulted and heparin drip and cardiac catheterization were recommended. However after initiation of heparin, the patient developed hematuria and the heparin needed to be discontinued. Subsequently, the patient reported that he did not want a pursue cardiac catheterization even if this was an ACS event. Given his underlying prostate cancer, he just wanted to focus on comfort with regards to any cardiac issues. * Continue goal-directed medical therapy with aspirin, clopidogrel, atorvastatin, blood pressure and diabetes management. Hypertension Hyperlipidemia * Continue lisinopril, metoprolol, and atorvastatin Prostate cancer Currently receiving radiation therapy, the patient reports yes between 12 and 14 more treatments. * Outpatient follow-up with [facility] rehab [facility] completed Type 2 diabetes mellitus, insulin dependent Blood glucose suboptimal control * Continue glargine b.i.d. -keep a.m. dose at 20 units, increase p.m. dose to 20 units * Continue lispro a.c. and HS Parkinson's disease Weakness exacerbated by XRT * PT and OT CKD stage 4 Clinically stable * Monitor as needed * Avoid nephrotoxins * Renally dose medications as required Code Status: * DNR DVT Prophylaxis: * Enoxaparin Disposition: * Referrals to custodial facility due to weakness Time based billing: * 35 minutes were involved in evaluation of the patient including [id number] evaluation physical examination review of previous records review of objective laboratory EKG and imaging findings Exam Vital Signs (past 8 hours): - 03/12/25 08:18 03/12/25 08:45 Temperature 97.3 F L Pulse Rate 68 71 Respiratory Rate 20 Blood Pressure 151/52 H Pulse Oximetry 98 Oxygen Flow Rate 0 Oxygen Delivery Method Room Air Oxygen Flow Rate 0 Objective Labs 03/12/25 05:10 03/12/25 05:10 Labs: Laboratory Results - last 24 hr 03/11/25 03/11/25 03/12/25 16:52 20:19 05:10 WBC 6.6 RBC 3.09 L Hgb 11.3 L Hct 30.8 L MCV 100.0 MCH 36.6 H MCHC 36.6 H RDW 14.7 Plt Count 133 L Sodium 137 Potassium 3.8 Chloride 112 H Carbon Dioxide 21 L BUN 51 H Creatinine 1.71 H Estimated GFR 41 L BUN/Creatinine Ratio 29.8 H Glucose 126 H POC Whole Bld Glucose 160 H 208 H Calcium 8.3 L SARS-CoV-2 (PCR) 03/12/25 03/12/25 03/12/25 07:54 11:02 13:05 WBC RBC Hgb Hct MCV MCH MCHC RDW Plt Count Sodium Potassium Chloride Carbon Dioxide BUN Creatinine Estimated GFR BUN/Creatinine Ratio Glucose POC Whole Bld Glucose 118 H 181 H Calcium SARS-CoV-2 (PCR) Negative [facility] Medical History Diabetes mellitus Elevated serum creatinine High prostate specific antigen (PSA) History of arthritis History of kidney stones History of urinary retention History of urinary tract infection Hypercholesteremia Hypertension Kidney stone Nocturia more than twice per night Parkinson disease Urinary retention UTI (urinary tract infection) Surgical History History of circumcision as Hx of vasectomy Family History Father No problems noted. Brother Diabetes mellitus Social History marital status: number of children: 5 household members: family and caregiver lives independently: Yes occupational status: previously employed and other Previous occupational history: Lives with his son other: He drinks 1-2 glasses of wine at night. He quit smoking in 1969 Smoking Status: Former smoker alcohol intake: former caffeine: Yes Type(s) of exercise: none Assessment & Plan Time-Based Coding :: [TOTAL MINUTES] spent with patient and on the chart (including review of chart, obtaining history, exam, reviewing outside data, placing orders, documenting exam and treatment plan, and counseling patient) on [DATE]. Quality VTE Deep Vein Thrombosis/Pulmonary Embolism Present on Admission: No
[2025-03-12] MEDS: TAMSULOSIN 0.4 MG CAPSULE 0.8 MG PO (20:33)
[2025-03-12] MEDS: SENNOSIDES 8.6 MG TABLET PO (20:33)
[2025-03-13 07:47] VITALS: BP 180/62; PULSE 59; RESP 12; TEMP 36.1; O2SAT 97
[2025-03-13] MEDS: ENOXAPARIN 40 MG/0.4 ML SYRINGE SUBCUT (08:32)
[2025-03-13] MEDS: ATORVASTATIN 20 MG TABLET 80 MG PO (08:32)
[2025-03-13 08:33] VITALS: BP 167/85; PULSE 72
[2025-03-13] MEDS: CLOPIDOGREL 75 MG TABLET PO (08:33)
[2025-03-13] MEDS: ENTACAPONE 200 MG TABLET PO ×4 (08:33→22:19)
[2025-03-13] MEDS: ASPIRIN EC 81 MG TABLET PO (08:33)
[2025-03-13] MEDS: METOPROLOL ER 25 MG TABLET PO (08:33)
[2025-03-13] MEDS: CARBIDOPA-LEVODOPA ER 50/200 TABLET 1 EACH PO ×4 (08:33→20:39)
[2025-03-13 08:34] VITALS: BP 165/75; PULSE 72
[2025-03-13] MEDS: INSULIN LISPRO 100 UNIT/ML 3ML VIAL SUBCUT ×7 (08:37→20:39)
[2025-03-13] MEDS: INSULIN GLARGINE 100 UNIT/ML 3ML PEN 20 UNIT SUBCUT ×2 (08:38→20:40)
--- NOTE | 2025-03-13 09:15 | OT.IP.TRT ---
Current Diagnoses Non-ST elevation (NSTEMI) myocardial infarction (03/10/25) Occupational Therapy Treatment Note M2 OT-IP Current Condition Start: 03/10/25 13:04 Freq: Status: Active Protocol: Document 03/10/25 11:25 MANOLO (Rec: 03/10/25 13:37 [facility] Desktop) Occupational Therapy Current Condition Current Condition Evaluation Date 03/10/25 Treatment Diagnosis weakness, decreased self care Diagnosis Onset Date 03/10/25 Post Operative Precautions Other Precautions falls M3 OT- IP Subjective and Pain Start: 03/10/25 13:04 Freq: Status: Active Protocol: Document 03/13/25 09:15 CCC (Rec: 03/13/25 13:05 CCC Desktop) OT- Subjective Occupational Therapy Visit Type Type Treatment Note Visit Start Time 08:40 Visit Stop Time 09:15 Occupational Therapy Visit Comments Patient Comments Pt agreed to get up to do grooming needs and practice use of 4ww. Patient/Caregiver Pt feels to weak to go home and not changing his mind Goals to go to skilled rehab. OT Pain Assessment Pain When Pain Assessed At Rest Pain Present Pain Present Denied Pain M4 OT- IP ADL's Start: 03/10/25 13:04 Freq: Status: Active Protocol: Document 03/13/25 09:15 CCC (Rec: 03/13/25 13:05 CCC Desktop) OT [id number] General Evaluation Self-Feeding Ability Independent OT ADL-Grooming General Evaluation Grooming Ability Independent Comments OT Grooming Comments Pt able to sit on the 4ww for grooming needs. OT ADL-Oral Care General Eval Oral Care Ability Independent OT ADL-Dressing General Eval Upper Body Dressing Independent Ability Lower Body Dressing Contact Guard Assistance Ability Comments OT Dressing Comments Pt able to hermilo brief while standing but having a loss of balance and needing to sit on the bed. 2nd attempt needing CGA for balance. OT ADL-Toileting General Evaluation Toileting Ability Contact Guard Assistance Areas Needing Manage Clothing Assistance M5 OT- IP IADL's Start: 03/10/25 13:04 Freq: Status: Active Protocol: Document 03/10/25 11:25 MANOLO (Rec: 03/10/25 13:37 [facility] Desktop) OT-Instrumental Activities of Daily Living Deficits IADL Deficits No Deficits Identified Home Safety Awareness Awareness of Need Good Awareness for Assistance at Home Ability to Problem Able to Problem Solve Solve Emergency Situations Medication Management Medication Caregiver Administers Management Money Management Money Management Caregiver Provides Supervision Meal Preparation Meal Preparation Caregiver Provides Assist Utility Porter Utility Porter Caregiver Provides Assist Driving Driving Caregiver Provides Assist Driving Comments Pt reports he drives locally some in a small street legal vehicle. M6 OT- IP Functional Cognition Start: 03/10/25 13:04 Freq: Status: Active Protocol: Document 03/13/25 09:15 [facility] (Rec: 03/13/25 13:05 [facility] Desktop) Cognitive Factors Limiting Selfcare Function Cognitive Comments Cognitive Assessment Able to go over energy conservation strategies with pt Comments for ADL and mobility needs. Emphasized to pt that it is not safe to sit on roll around on the 4ww. M7 OT- IP Mobility and Balance Start: 03/10/25 13:04 Freq: Status: Active Protocol: Document 03/13/25 09:15 [facility] (Rec: 03/13/25 13:05 [facility] Desktop) OT- Bed Mobility Assessment Supine to Sit Supine to Sit Assist Standby Assistance OT-Transfer Assessment Sit to and From Stand Sit to and from Standby Assistance,Contact Guard Assistance Stand Transfers Transfer Ability Standby Assistance,Contact Guard Assistance Technique Transfer Destination Bed,Chair Devices Transfer Assistive Gait Belt,Front Wheeled Walker Devices Comments Mobility Comments Pt SBA to CGA for use of 4ww, mainly assist to hold the 4ww in place when trying to turn around and sit on it. OT- Balance Assessment Sitting Balance and Reactions Static Sitting Normal Balance Ability Dynamic Sitting Good Balance Ability Standing Balance and Reactions Static Standing Good Balance Ability Dynamic Standing Fair Balance Ability M8 OT- IP Objective Assessments Start: 03/10/25 13:04 Freq: Status: Active Protocol: Document 03/10/25 11:25 MANOLO (Rec: 03/10/25 13:37 [facility]OLO Desktop) OT Gross Range of Motion Upper Extremity Range of Motion Assessment Within Functional Limits OT Strength Upper Extremity Strength Assessment Bilaterally Impaired Shoulder R 4- Elbow L tricep 4- Hand Transfer Professor Strength Hand Dominance Right Comments Strength Comments Unless otherwise indicated above B UE strength 4/5 OT- Coordination Assessment Upper Extremity Finger to Nose Test Within Functional Limits Comments Coordination thumb to finger tips intact Comments OT-Muscle Tone Assessment Muscle Tone WNL No OT Sensation Assessment Comments Summary Comments no sensory deficits noted Edema Edema Absent M9 OT- IP Assessment and Plan Start: 03/10/25 13:04 Freq: Status: Active Protocol: Document 03/13/25 09:15 [facility] (Rec: 03/13/25 13:05 [facility] Desktop) OT Summary Assessment and Plan Potential Rehabilitation Good Potential Analytic Complexity Moderate at Evaluation Summary OT Impairments Strength,Balance,Functional Mobility,Dressing,Toileting ,Bathing,Toilet Transfers,Shower Transfers,Activity Tolerance Assessment Summary Pt able to use the light weight large handles utensils for meal with increased ease for meals. Pt able to use 4ww in the room, but needing CGA to hold 4ww in place when turning around to sit down on it for grooming needs. Pt to go to skilled rehab when medically stable. Goals Self-Feeding Goal Independent,Adapted Utensil Grooming Goal Independent Dressing Goal Independent Toileting Goal Independent Bathing Goal Standby Assistance Toilet Transfer Goal Independent Shower Transfer Goal Standby Assistance,Walk-in Shower,Shower Chair Days to Meet Goals 5 Frequency of Treatment Other frequency 5x/week Treatment Plan OT Treatment Plan ADL Training,Functional Mobility,Therapeutic Exercises, Patient/Family Education,Discharge Planning Other Treatment ADL endurance Recommendations and Next Treatment Focus Discharge Recommendations OT Discharge SNF Rehab Recommendations Other Discharge grab bar for toilet/shower, toilet safety frame Recommendations Transportation Needs Private Vehicle at Discharge
--- NOTE | 2025-03-13 09:46 | PT.IPTN ---
Current Diagnoses Non-ST elevation (NSTEMI) myocardial infarction (03/10/25) Physical Therapy Treatment Note M2 PT-IP Current Condition Start: 03/10/25 16:45 Freq: Status: Active Protocol: Document 03/11/25 10:40 SP (Rec: 03/11/25 11:26 SP belia sosa) Physical Therapy Current Condition Current Condition Evaluation Date 03/10/25 Treatment Diagnosis Parkinson's, debility Onset Date 03/08/25 M3 PT-IP Subjective Start: 03/10/25 16:45 Freq: Status: Active Protocol: Document 03/13/25 11:30 NW (Rec: 03/13/25 11:38 NW [id number]) Subjective Physical Therapy Visit Type Type Treatment Note Visit Start Time 09:20 Visit Stop Time 09:46 Number of [employer] SALES MANAGER Visits 0 Physical Therapy Visit Comments Patient Comments Pt felt very tired after last session. Notes some fatigue today after working with OT. Pt is found sitting in bed side chair. Patient Goals Go to rehab. M4 PT-IP Mobility and Gait Start: 03/10/25 16:45 Freq: Status: Active Protocol: Document 03/13/25 11:30 NW (Rec: 03/13/25 11:38 NW [id number]) PT-Transfer Assessment Sit to and From Stand Sit to and from Minimal Assistance,1 Person Assistance,Use of Upper Stand Extremities Equipment Transfer Assistive Gait Belt,4 Wheeled Walker Device Transfers Transfer Destination Bed,Chair Transfer Technique Stand Step Pivot Transfer Ability Level of Assist Contact Guard Assistance Comments Mobility Comments Poor power production coming to stance with bradykinesia movements. With lower surfaces requires Godwin with use of UE and anterior weight shift with momentum. From elevated edge of bed able to perform at CGA. Cues for applying brakes prior to sitting. Poor eccentric control. Gait Assessment Gait Gait Assistance Minimum Assistance,1 Person Assist Required: Distance (Feet) 45 Able to Maintain Yes Weight Bearing Status During Gait Assistive Devices Assistive Device Gait Belt,4 Wheeled Walker Gait Deviations General Gait Pattern Decreased Stride Length,Decreased Feet Clearance, Festinating,Flexed Trunk Factors Limiting Gait Function Factors Limiting Decreased Strength,Incoordination,Poor Balance,Poor Gait Function Safety Awareness Comments Gait Comments Ambulated 44 ft over 3 unequal bouts with 4WW at Godwin to assist with weight shift with increased freezing. Cues given for pt to stomp like a monster with increased stride length for 5-10 ft. With freezing able to initiate movement with 3,2,1 step countdown throughout session. Cues for safety awareness with turning and distance from surface to go to a seated position. PT-Balance Assessment Sitting Balance and Reactions Static Sitting Good Balance Ability Dynamic Sitting Fair Balance Ability Standing Balance and Reactions Static Standing Good Balance Ability Dynamic Standing Fair Balance Ability Device Used 4WW Functional Assessments Functional Tests 5 Times Sit to Stand 28 sec with UE modified and 4WW M5 PT-IP Objective Assessments Start: 03/10/25 16:45 Freq: Status: Active Protocol: Document 03/10/25 16:45 NW (Rec: 03/10/25 16:58 NW [id number]) Orientation Orientation/Cognition Level of Alertness Alert Orientation Name,Age,Birthday,Month,Date,Year,Day of Week,Place, Situation Safety Awareness Understands Safety Issues Gross Range of Motion Upper Extremity ROM Assessment Bilaterally Impaired Impairments unable to raise bilateral UE > 90 deg flexion Lower Extremity ROM Assessment Within Functional Limits Strength Lower Extremity Strength Assessment Right Impaired Knee 4/5 exten, 3+/5 flexion Ankle 4/5 DF Comments Strength Comments challenged to sustain strength with testing Coordination Assessment Gross Coordination Gross Coordination Impaired Assessment Finger to Nose Test Moderate Impairment Heel on Cedillo Test Moderate Impairment Sensation Assessment Sensation Gross Sensation Right LE Impaired,Left LE Impaired Light Touch Impaired Muscle Tone Comments Muscle Tone Comments DNT tone secondary to pt fatiguing sitting in bed side chair, defer to next session M6 PT-IP Treatment Start: 03/10/25 16:45 Freq: Status: Active Protocol: Document 03/13/25 11:30 NW (Rec: 03/13/25 11:38 NW [id number]) Physical Therapy Treatment Education Education Provided Safety Other Treatments Other Treatment Education on different 4WW with options of U-step for Performed individuals with Parkinson's. Education on verbal and visual cues to assist with freezing episodes during functional mobility. M7 PT-IP Assessment and Plan Start: 03/10/25 16:45 Freq: Status: Active Protocol: Document 03/13/25 11:30 NW (Rec: 03/13/25 11:38 NW [id number]) PT Summary Assessment and Plan Potential Rehabilitation Fair Potential Status of Condition Evolving at Evaluation Summary Impairments ROM,Strength,Balance,Coordination,Sensation,Tone,Bed Mobility,Transfers,Gait,Activity Tolerance Progress Towards Progressing Toward Goals,Slow Progress due to Activity Goals Tolerance Assessment Summary Performed modified 5 x STS with 4WW with score of 28 seconds deeming pt a falls risk. Improved gait pattern with cues to assist with initiation of movement (count down and stomping like a monster). Pt has fair carryover from previous session with safety awareness with regards to brake usage and turning. Poor activity tolerance. Continue to recommend SNF upon discharge. Goals Bed Mobility Goal Standby Assistance Transfer Goal Standby Assistance,Front Wheeled Walker Gait Goal Contact Guard Assistance Gait Distance 30 Other Goals Potentially progress to 4 inch steps x 2 with unilateral railing on R. Days to Meet Goals 10 Frequency of Treatment Frequency Of Once a Day Treatment Treatment Plan Physical Therapy Bed Mobility Training,Transfer Training,Gait Training, Treatment Plan Therapeutic Exercise,Balance Retraining,Discharge Planning,Neuromuscular Re-ed,Coordination Retraining Other progress to ambulation as tolerated with FWW then Recommendations and progress 4WW when able, step mgt. Next Treatment Focus Precautions Other Precautions falls risk Weight Bearing Status Weight Bearing Weight Bear as Tolerated Status Recommendations To Nursing Amount of Assist 1 Person Assist Needed Discharge Recommendations PT Discharge Home with 10/10 Assist Available,SNF Rehab,Home vs SNF Recommendations Other Discharge does not have level of assist to go home Recommendations Transportation Needs Wheelchair/Cabulance at Discharge - PT assist 1
--- NOTE | 2025-03-13 13:44 | PM.PN.1 ---
Subjective Subjective Date Patient Seen: 03/13/25 Interval history: Chief complaint: Non ST-elevation OH with hematuria complication of treatment with IV heparin patient prefers conservative management History of present illness: 03/08: 74-year-old male with past medical history of Parkinson disease, hypertension, hyperlipidemia, insulin-dependent diabetes, CKD stage IV, prostate cancer with recent radiation yesterday presents with generalized weakness. Per the patient's report, the patient does have home health who comes to the house daily to help him with his ADLs. The patient initially was doing well but over the last week has been having generalized weakness to the point where he had a difficult time standing up on his own today. The patient states that he has been taking his medication including his Parkinson's medication on a regular basis. The patient also a month ago was reported to have an NSTEMI and was supposed to be scheduled for an outpatient cath which she has not had a chance to complete yet. Otherwise the patient denies any fever, chills, nausea, vomit, diarrhea, chest pain or shortness of breath. In the emergency room, the patient systolic blood pressure was elevated in the 220s. Lab initially shows a creatinine of 1.69 and troponin of 0.104. Repeat troponin was 0.101. BNP was 1658. UA was negative. Alcohol level is negative. Chest x-ray was clear. EKG shows no clear signs of acute ischemia. A general computer security coordinator Dr. Dumont was consulted who recommended that we start heparin drip and try for possible cardiac cath. However the patient started to have significant hematuria after heparinized. Heparin drip had to be stopped and hematuria eventually slowly improved. Due to hematuria that was very significant ER physician reconsulted Dr. Dumont who states that we had to stop heparin for now. Transfer order was canceled as patient decided to focus on comfort measures only and acknowledge even if this was an ACS event. Patient also wishes for DNR/DNI. 03/09: Patient is sitting up, appears comfortable. He is eating breakfast with assistance a nurse's aide. He denies chest pain or shortness of breath. He states he feels very weak. He has prostate cancer undergoing active radiation therapy presently, with proximally 14 treatments left. He was admitted to this hospital last month but had difficulty coordinating cardiology follow-up with Dr. Dumont for planned outpatient cardiac catheterization. 03/10-03/12: Patient decided against any invasive workup outpatient or inpatient continuing to manage symptoms still very weak previously was trying to go home but at this point does not feel physically capable of managing at home 03/13: No new complaint today a bit tired after physical therapy Review of systems: No fever or chills rigors No chest pain palpitations shortness for breath at rest +dyspnea on exertion No nausea vomiting diarrhea No paresthesia paresis Physical exam: No acute distress in good spirits HEENT unremarkable Heart rate and rhythm regular Lungs clear Abdomen nontender nondistended Extremities no edema Assessment and plan NSTEMI presenting with generalized weakness Troponin was 0.126 initially, repeat 0.08, without ST or T-wave changes. At presentation, Cardiology was consulted and heparin drip and cardiac catheterization were recommended. However after initiation of heparin, the patient developed hematuria and the heparin needed to be discontinued. Subsequently, the patient reported that he did not want a pursue cardiac catheterization even if this was an ACS event. Given his underlying prostate cancer, he just wanted to focus on comfort with regards to any cardiac issues. Continue goal-directed medical therapy with aspirin, clopidogrel, atorvastatin, blood pressure and diabetes management. Hypertension Hyperlipidemia Continue lisinopril, metoprolol, and atorvastatin Prostate cancer Currently receiving radiation therapy, the patient reports yes between 12 and 14 more treatments. Outpatient follow-up with Rad Onc once rehab at [facility] completed Type 2 diabetes mellitus, insulin dependent Blood glucose suboptimal control Continue glargine b.i.d. -keep a.m. dose at 20 units, increase p.m. dose to 20 units Continue lispro a.c. and HS Parkinson's disease Weakness exacerbated by XRT PT and OT CKD stage 4 Clinically stable Monitor as needed Avoid nephrotoxins Renally dose medications as required Code Status: DNR DVT Prophylaxis: Enoxaparin Disposition: [facility] to [place] due to weakness Time based billin minutes were involved in evaluation of the patient including [id number] evaluation physical examination review of previous records review of objective laboratory EKG and imaging findings Exam Vital Signs (past 8 hours): - 03/13/25 07:47 03/13/25 08:33 03/13/25 08:34 Temperature 97.0 F L Pulse Rate 59 L 72 72 Respiratory Rate 12 Blood Pressure 180/62 H 167/85 H 165/75 H Pulse Oximetry 97 Oxygen Flow Rate 0 Oxygen Delivery Method Room Air Oxygen Flow Rate 0 Objective Labs 03/12/25 05:10 03/12/25 05:10 Labs: Laboratory Results - last 24 hr 03/12/25 03/12/25 03/13/25 16:19 20:30 07:44 POC Whole Bld Glucose 167 H 199 H 135 H 03/13/25 10:54 POC Whole Bld Glucose 218 H PFSH Medical History Diabetes mellitus Elevated serum creatinine High prostate specific antigen (PSA) History of arthritis History of kidney stones History of urinary retention History of urinary tract infection Hypercholesteremia Hypertension Kidney stone Nocturia more than twice per night Parkinson disease Urinary retention UTI (urinary tract infection) Surgical History History of circumcision as Hx of vasectomy Family History Father No problems noted. Brother Diabetes mellitus Social History marital status: number of children: 5 household members: family and caregiver lives independently: Yes occupational status: previously employed and other Previous occupational history: Lives with his son other: He drinks 1-2 glasses of wine at night. He quit smoking in 1969 Smoking Status: Former smoker alcohol intake: former caffeine: Yes Type(s) of exercise: none Assessment & Plan Time-Based Coding :: [TOTAL MINUTES] spent with patient and on the chart (including review of chart, obtaining history, exam, reviewing outside data, placing orders, documenting exam and treatment plan, and counseling patient) on [DATE]. Quality VTE Deep Vein Thrombosis/Pulmonary Embolism Present on Admission: No
[2025-03-13] MEDS: SODIUM CHLORIDE 0.9% FLUSH 10 ML IV ×2 (15:33→22:41)
[2025-03-13 19:47] VITALS: BP 180/63; PULSE 69; RESP 18; TEMP 36.7; O2SAT 98
[2025-03-13] MEDS: TAMSULOSIN 0.4 MG CAPSULE 0.8 MG PO (20:39)
[2025-03-13 22:37] VITALS: BP 171/65; PULSE 65
[2025-03-13] MEDS: hydrALAZINE 20 MG/ML VIAL 10 MG IV (22:37)
[2025-03-13 23:30] VITALS: BP 157/55; PULSE 71
[2025-03-14] MEDS: ACETAMINOPHEN 325 MG TABLET 650 MG PO (05:01)
[2025-03-14] MEDS: ATORVASTATIN 20 MG TABLET 80 MG PO (08:39)
[2025-03-14] MEDS: ASPIRIN EC 81 MG TABLET PO (08:39)
[2025-03-14] MEDS: CARBIDOPA-LEVODOPA ER 50/200 TABLET 1 EACH PO ×4 (08:39→21:15)
[2025-03-14] MEDS: CLOPIDOGREL 75 MG TABLET PO (08:39)
[2025-03-14] MEDS: INSULIN GLARGINE 100 UNIT/ML 3ML PEN 20 UNIT SUBCUT ×2 (08:40→21:17)
[2025-03-14] MEDS: ENTACAPONE 200 MG TABLET PO ×4 (08:40→21:15)
[2025-03-14 08:43] VITALS: BP 126/57; PULSE 64
[2025-03-14 08:44] VITALS: BP 126/57; PULSE 64
[2025-03-14] MEDS: METOPROLOL ER 25 MG TABLET PO (08:44)
[2025-03-14] MEDS: INSULIN LISPRO 100 UNIT/ML 3ML VIAL SUBCUT ×6 (08:44→17:40)
[2025-03-14] MEDS: ENOXAPARIN 40 MG/0.4 ML SYRINGE SUBCUT (08:53)
[2025-03-14] MEDS: SODIUM CHLORIDE 0.9% FLUSH 10 ML IV ×2 (08:54→21:15)
[2025-03-14 09:00] VITALS: BP 126/57; PULSE 64; RESP 22; TEMP 36.2; O2SAT 94
--- NOTE | 2025-03-14 10:59 | CM.DPC ---
Patient has declined to use [facility] for SNF. Patient has elected to use [facility] coverage for SNF. Katty with [facility] has been updated. CM left VM with SD. CM requested update on SNF Auth.
--- NOTE | 2025-03-14 11:57 | CM.DPC ---
Per Dr. Acevedo, discharge on hold. MI argueta/bladder training today. CM to follow up with [facility]. Neri in AM for male bed availability. preference is SV.
--- NOTE | 2025-03-14 13:08 | PT.IPTN ---
Current Diagnoses Non-ST elevation (NSTEMI) myocardial infarction (03/10/25) Physical Therapy Treatment Note M2 PT-IP Current Condition Start: 03/10/25 16:45 Freq: Status: Active Protocol: Document 03/11/25 10:40 SP (Rec: 03/11/25 11:26 SP belia sosa) Physical Therapy Current Condition Current Condition Evaluation Date 03/10/25 Treatment Diagnosis Parkinson's, debility Onset Date 03/08/25 M3 PT-IP Subjective Start: 03/10/25 16:45 Freq: Status: Active Protocol: Document 03/14/25 12:56 AB (Rec: 03/14/25 13:08 AB [id number]) Subjective Physical Therapy Visit Type Type Treatment Note Visit Start Time 11:22 Visit Stop Time 11:45 Number of [employer] PROFESSOR Visits 1 Physical Therapy Visit Comments Patient Comments Patient agreeable to participate in physical therapy. Patient Goals Go to rehab. Therapy Pain Assessment Pain When Pain Assessed At Rest Pain Present Pain Present Denied Pain M4 PT-IP Mobility and Gait Start: 03/10/25 16:45 Freq: Status: Active Protocol: Document 03/14/25 12:56 AB (Rec: 03/14/25 13:08 AB [id number]) PT-Bed Mobility Assessment Rolling Level of Assist Contact Guard Assistance,1 Person Assistance Supine to Sit Supine to Sit Minimal Assistance,1 Person Assistance,Head of Bed Elevated,Bedrails Scooting Scooting to Edge of Contact Guard Assistance Bed PT-Transfer Assessment Sit to and From Stand Sit to and from Contact Guard Assistance,1 Person Assistance,Use of Stand Upper Extremities Equipment Transfer Assistive Gait Belt,Front Wheeled Walker Device Transfers Transfer Destination Bed,Chair Transfer Technique Stand Step Pivot Transfer Ability Level of Assist Contact Guard Assistance Comments Mobility Comments Sit to stand with verbal cues for nose over toes, increased UE use for sit to stand, trial without UE use able to stand able to perform without UE use 1/4 times / ie unable X 3. Gait Assessment Gait Gait Assistance Contact Guard Assist,1 Person Assist Required: Distance (Feet) 84 Able to Maintain Yes Weight Bearing Status During Gait Assistive Devices Assistive Device Gait Belt,Front Wheeled Walker Gait Deviations General Gait Pattern Decreased Stride Length,Decreased Feet Clearance, Festinating,Flexed Trunk Factors Limiting Gait Function Factors Limiting Decreased Strength,Incoordination,Poor Balance,Poor Gait Function Safety Awareness Comments Gait Comments Patient ambulated with FWW CGA 84 feet first trial, increased gait deviations throughout turns, no freezing , but dec velocity at times, and able to correct without cues, VC for posture throughout. Second trial with increased focus on turns CGA FWW 42 feet with patient requesting return to chair due to fatigue. PT-Balance Assessment Sitting Balance and Reactions Static Sitting Good Balance Ability Dynamic Sitting Fair Balance Ability Standing Balance and Reactions Static Standing Good Balance Ability Dynamic Standing Fair Balance Ability Device Used FWW M5 PT-IP Objective Assessments Start: 03/10/25 16:45 Freq: Status: Active Protocol: Document 03/10/25 16:45 NW (Rec: 03/10/25 16:58 NW [id number]) Orientation Orientation/Cognition Level of Alertness Alert Orientation Name,Age,Birthday,Month,Date,Year,Day of Week,Place, Situation Safety Awareness Understands Safety Issues Gross Range of Motion Upper Extremity ROM Assessment Bilaterally Impaired Impairments unable to raise bilateral UE > 90 deg flexion Lower Extremity ROM Assessment Within Functional Limits Strength Lower Extremity Strength Assessment Right Impaired Knee 4/5 exten, 3+/5 flexion Ankle 4/5 DF Comments Strength Comments challenged to sustain strength with testing Coordination Assessment Gross Coordination Gross Coordination Impaired Assessment Finger to Nose Test Moderate Impairment Heel on [place] Test Moderate Impairment Sensation Assessment Sensation Gross Sensation Right LE Impaired,Left LE Impaired Light Touch Impaired Muscle Tone Comments Muscle Tone Comments DNT tone secondary to pt fatiguing sitting in bed side chair, defer to next session M6 PT-IP Treatment Start: 03/10/25 16:45 Freq: Status: Active Protocol: Document 03/14/25 12:56 AB (Rec: 03/14/25 13:08 [id number]) Physical Therapy Treatment Exercises Knee ROM Measurement seated rot with chest yeast tender, sit to stand with UE 5 Other Treatments Other Treatment Focus on good posture when reaching upright sit sit to Performed stand M7 PT-IP Assessment and Plan Start: 03/10/25 16:45 Freq: Status: Active Protocol: Document 03/14/25 12:56 AB (Rec: 03/14/25 13:08 [id number]) PT Summary Assessment and Plan Potential Rehabilitation Fair Potential Status of Condition Evolving at Evaluation Summary Impairments ROM,Strength,Balance,Coordination,Sensation,Tone,Bed Mobility,Transfers,Gait,Activity Tolerance Progress Towards Progressing Toward Goals,Slow Progress due to Activity Goals Tolerance Assessment Summary Patient ambulated increased distance this session with FWW with no cues needed for freezing, gait pattern deficits increased significantly through turning and verbal cues required. Patient with increased fatigue on second trial, increased gait deviation noted and patient requested return to chair. Goals Bed Mobility Goal Standby Assistance Transfer Goal Standby Assistance,Front Wheeled Walker Gait Goal Contact Guard Assistance Gait Distance 30 Other Goals Potentially progress to 4 inch steps x 2 with unilateral railing on R. Days to Meet Goals 10 Frequency of Treatment Frequency Of Once a Day Treatment Treatment Plan Physical Therapy Bed Mobility Training,Transfer Training,Gait Training, Treatment Plan Therapeutic Exercise,Balance Retraining,Discharge Planning,Neuromuscular Re-ed,Coordination Retraining Other Continue progress to ambulation as tolerated with FWW Recommendations and then progress 4WW when able, step mgt. Next Treatment Focus Precautions Other Precautions falls risk Weight Bearing Status Weight Bearing Weight Bear as Tolerated Status Recommendations To Nursing Amount of Assist 1 Person Assist,PT/OT Assist Only Needed Discharge Recommendations PT Discharge Home with 24/ Assist Available,SNF Rehab,Home vs SNF Recommendations Other Discharge does not have level of assist to go home Recommendations Transportation Needs Wheelchair/Cabulance at Discharge - PT assist 1
--- NOTE | 2025-03-14 13:08 | CM.DPC ---
ND AUTH #[id number]. Accepting facility: [place], [place]. [phone]. Patient's brother, carlos eduardo Theodore. between 10AM and 11AM Monday03/15/2025. Patient updated.
--- NOTE | 2025-03-14 14:22 | OT.IP.TRT ---
Current Diagnoses Non-ST elevation (NSTEMI) myocardial infarction (03/10/25) Occupational Therapy Treatment Note M2 OT-IP Current Condition Start: 03/10/25 13:04 Freq: Status: Active Protocol: Document 03/10/25 11:25 TJOHJACOBTON (Rec: 03/10/25 13:37 TJOHNSTON Desktop) Occupational Therapy Current Condition Current Condition Evaluation Date 03/10/25 Treatment Diagnosis weakness, decreased self care Diagnosis Onset Date 03/10/25 Post Operative Precautions Other Precautions falls M3 OT- IP Subjective and Pain Start: 03/10/25 13:04 Freq: Status: Active Protocol: Document 03/14/25 13:15 DANIELOHNSTON (Rec: 03/14/25 14:22 TJOHNSTON Desktop) OT- Subjective Occupational Therapy Visit Type Type Treatment Note Visit Start Time 13:15 Visit Stop Time 13:37 Occupational Therapy Visit Comments Patient Comments Pt agreed to participate in grooming tasks. Patient/Caregiver Pt reports he is going to SNF tomorrow to get stronger. Goals OT Pain Assessment Pain When Pain Assessed At Rest Pain Present Pain Present Denied Pain M4 OT- IP ADL's Start: 03/10/25 13:04 Freq: Status: Active Protocol: Document 03/14/25 13:15 DANIELOHNSTON (Rec: 03/14/25 14:22 TJOHNSTON Desktop) OT [id number] Comments OT Self-Feeding not observed Comments OT ADL-Grooming General Evaluation Grooming Ability Independent Comments OT Grooming Comments Pt amb with FWW to sink for hygiene. Pt said he was too tired to stand to perform hygiene and asked to sit. Pt sat on BSC and was able to complete hair grooming. OT ADL-Oral Care General Eval Oral Care Ability Independent Comments Oral Care Comments Pt amb with FWW to sink for hygiene. Pt said he was too tired to stand to perform oral hygiene and asked to sit. Pt sat on BSC and was able to complete oral hygiene without assist. OT ADL-Dressing General Eval Lower Body Dressing Minimal Assistance Ability Comments OT Dressing Comments Pt was able to hermilo brief, initiating while sitting and then standing to pull up. Pt requested assist to complete pulling it up into position. Pt states he didn 't sleep well last night and is very tired. OT ADL-Toileting General Evaluation Toileting Ability Minimal Assistance Areas Needing Manage Clothing Assistance Comments OT Toileting Pt reported that his brief was soiled and was able to Comments doff brief but needed MIN A to pull up new brief into final position. OT ADL-Bathing Comments OT Bathing Comments not observed M5 OT- IP IADL's Start: 03/10/25 13:04 Freq: Status: Active Protocol: Document 03/10/25 11:25 MANOLO (Rec: 03/10/25 13:37 [facility]) OT-Instrumental Activities of Daily Living Deficits IADL Deficits No Deficits Identified Home Safety Awareness Awareness of Need Good Awareness for Assistance at Home Ability to Problem Able to Problem Solve Solve Emergency Situations Medication Management Medication Caregiver Administers Management Money Management Money Management Caregiver Provides Supervision Meal Preparation Meal Preparation Caregiver Provides Assist Loan Processing Supervisor Loan Processing Supervisor Caregiver Provides Assist Driving Driving Caregiver Provides Assist Driving Comments Pt reports he drives locally some in a small street legal vehicle. M6 OT- IP Functional Cognition Start: 03/10/25 13:04 Freq: Status: Active Protocol: Document 03/13/25 09:15 CCC (Rec: 03/13/25 13:05 CCC Desktop) Cognitive Factors Limiting Selfcare Function Cognitive Comments Cognitive Assessment Able to go over energy conservation strategies with pt Comments for ADL and mobility needs. Emphasized to pt that it is not safe to sit on roll around on the 4ww. M7 OT- IP Mobility and Balance Start: 03/10/25 13:04 Freq: Status: Active Protocol: Document 03/14/25 13:15 MANOLO (Rec: 03/14/25 14:22 DANIELINNSTON Desktop) OT-Transfer Assessment Sit to and From Stand Sit to and from Standby Assistance Stand Transfers Transfer Ability Standby Assistance Technique Transfer Destination Chair Devices Transfer Assistive Gait Belt,Front Wheeled Walker Devices Comments Mobility Comments Pt SBA with FWW. Pt stands very quickly and a little impulsively, but no noted LOB during todays tx. OT- Balance Assessment Sitting Balance and Reactions Static Sitting Normal Balance Ability Dynamic Sitting Good Balance Ability Standing Balance and Reactions Static Standing Good Balance Ability Dynamic Standing Fair Balance Ability M8 OT- IP Objective Assessments Start: 03/10/25 13:04 Freq: Status: Active Protocol: Document 03/10/25 11:25 MANOLO (Rec: 03/10/25 13:37 [facility] Desktop) OT Gross Range of Motion Upper Extremity Range of Motion Assessment Within Functional Limits OT Strength Upper Extremity Strength Assessment Bilaterally Impaired Shoulder R 4- Elbow L tricep 4- Hand Department Administrator Strength Hand Dominance Right Comments Strength Comments Unless otherwise indicated above B UE strength 4/5 OT- Coordination Assessment Upper Extremity Finger to Nose Test Within Functional Limits Comments Coordination thumb to finger tips intact Comments OT-Muscle Tone Assessment Muscle Tone WNL No OT Sensation Assessment Comments Summary Comments no sensory deficits noted Edema Edema Absent M9 OT- IP Assessment and Plan Start: 03/10/25 13:04 Freq: Status: Active Protocol: Document 03/14/25 13:15 [facility] (Rec: 03/14/25 14:22 [facility] Desktop) OT Summary Assessment and Plan Potential Rehabilitation Good Potential Analytic Complexity Moderate at Evaluation Summary OT Impairments Strength,Balance,Functional Mobility,Dressing,Toileting ,Bathing,Toilet Transfers,Shower Transfers,Activity Tolerance Assessment Summary Pt BP is 138/50 at start of tx. Overall, pt participated well in OT. Pt requested to sit sink side for ADLs and reported it was due to fatigue. Pt is able to manage I while seated for hair and oral hygiene. Pt was aware that he had soiled his brief. Pt is able to manage doffing brief and needed MIN A to finish pulling up the new one over his hips. Pt reports this is due to fatigue as well. Pt was left up in chair with all needs met and in reach, chair alarm set. Pt reports he will be going to SNF tomorrow for continued rehab and improved I. Cont per POC. Goals Self-Feeding Goal Independent,Adapted Utensil Dressing Goal Independent Toileting Goal Independent Bathing Goal Standby Assistance Toilet Transfer Goal Independent Shower Transfer Goal Standby Assistance,Walk-in Shower,Shower Chair Days to Meet Goals 5 Frequency of Treatment Other frequency 5x/week Treatment Plan OT Treatment Plan ADL Training,Functional Mobility,Therapeutic Exercises, Patient/Family Education,Discharge Planning Other Treatment ADL endurance Recommendations and Next Treatment Focus Discharge Recommendations OT Discharge SNF Rehab Recommendations Other Discharge grab bar for toilet/shower, toilet safety frame Recommendations Transportation Needs Private Vehicle at Discharge
--- NOTE | 2025-03-14 16:57 | PM.PN.1 ---
Subjective Subjective Date Patient Seen: 03/14/25 Time Patient Seen: 16:57 Interval history: Chief complaint: Non ST-elevation PR with hematuria complication of treatment with IV heparin patient prefers conservative management History of present illness: 03/08: 74-year-old male with past medical history of Parkinson disease, hypertension, hyperlipidemia, insulin-dependent diabetes, CKD stage IV, prostate cancer with recent radiation yesterday presents with generalized weakness. Per the patient's report, the patient does have home health who comes to the house daily to help him with his ADLs. The patient initially was doing well but over the last week has been having generalized weakness to the point where he had a difficult time standing up on his own today. The patient states that he has been taking his medication including his Parkinson's medication on a regular basis. The patient also a month ago was reported to have an NSTEMI and was supposed to be scheduled for an outpatient cath which she has not had a chance to complete yet. Otherwise the patient denies any fever, chills, nausea, vomit, diarrhea, chest pain or shortness of breath. In the emergency room, the patient systolic blood pressure was elevated in the 220s. Lab initially shows a creatinine of 1.69 and troponin of 0.104. Repeat troponin was 0.101. BNP was 1658. UA was negative. Alcohol level is negative. Chest x-ray was clear. EKG shows no clear signs of acute ischemia. A general air defense artillery officer Dr. Dumont was consulted who recommended that we start heparin drip and try for possible cardiac cath. However the patient started to have significant hematuria after heparinized. Heparin drip had to be stopped and hematuria eventually slowly improved. Due to hematuria that was very significant ER physician reconsulted Dr. Dumont who states that we had to stop heparin for now. Transfer order was canceled as patient decided to focus on comfort measures only and acknowledge even if this was an ACS event. Patient also wishes for DNR/DNI. 03/09: Patient is sitting up, appears comfortable. He is eating breakfast with assistance a nurse's aide. He denies chest pain or shortness of breath. He states he feels very weak. He has prostate cancer undergoing active radiation therapy presently, with proximally 14 treatments left. He was admitted to this hospital last month but had difficulty coordinating cardiology follow-up with Dr. Dumont for planned outpatient cardiac catheterization. 03/10-03/12: Patient decided against any invasive workup outpatient or inpatient continuing to manage symptoms still very weak previously was trying to go home but at this point does not feel physically capable of managing at home 03/13: No new complaint today a bit tired after physical therapy 03/14: Cooperative and working with physical therapy Review of systems: No fever or chills rigors No chest pain palpitations shortness for breath at rest +dyspnea on exertion No nausea vomiting diarrhea No paresthesia paresis Physical exam: No acute distress in good spirits HEENT unremarkable Heart rate and rhythm regular Lungs clear Abdomen nontender nondistended Extremities no edema Assessment and plan NSTEMI presenting with generalized weakness Troponin was 0.126 initially, repeat 0.08, without ST or T-wave changes. At presentation, Cardiology was consulted and heparin drip and cardiac catheterization were recommended. However after initiation of heparin, the patient developed hematuria and the heparin needed to be discontinued. Subsequently, the patient reported that he did not want a pursue cardiac catheterization even if this was an ACS event. Given his underlying prostate cancer, he just wanted to focus on comfort with regards to any cardiac issues. Continue goal-directed medical therapy with aspirin, clopidogrel, atorvastatin, blood pressure and diabetes management. Hypertension Hyperlipidemia Continue lisinopril, metoprolol, and atorvastatin Prostate cancer Currently receiving radiation therapy, the patient reports yes between 12 and 14 more treatments. Outpatient follow-up with Rad Onc [facility] rehab at [facility] completed Type 2 diabetes mellitus, insulin dependent Blood glucose suboptimal control Continue glargine b.i.d. -keep a.m. dose at 20 units, increase p.m. dose to 20 units Continue lispro a.c. and HS Parkinson's disease Weakness exacerbated by XRT PT and OT CKD stage 4 Clinically stable Monitor as needed Avoid nephrotoxins Renally dose medications as required Code Status: DNR DVT Prophylaxis: Enoxaparin Disposition: [place] AUTH #[id number]. Accepting facility: [place], [place]. [phone]. Patient's brother, carlos eduardo Theodore. between 10AM and 11AM Monday03/15/2025. Patient updated. Time based billin minutes were involved in evaluation of the patient including [id number] evaluation physical examination review of previous records review of objective laboratory EKG and imaging findings Exam Vital Signs (past 8 hours): - 12/26/25 09:00 Temperature 97.1 F L Pulse Rate 64 Respiratory Rate 22 Blood Pressure 126/57 L Pulse Oximetry 94 Oxygen Delivery Method Room Air Oxygen Flow Rate 0 Objective Labs 03/12/25 05:10 03/12/25 05:10 Labs: Laboratory Results - last 24 hr 03/13/25 03/14/25 03/14/25 20:10 07:49 12:07 POC Whole Bld Glucose 225 H 139 H 171 H PFSH Medical History Diabetes mellitus Elevated serum creatinine High prostate specific antigen (PSA) History of arthritis History of kidney stones History of urinary retention History of urinary tract infection Hypercholesteremia Hypertension Kidney stone Nocturia more than twice per night Parkinson disease Urinary retention UTI (urinary tract infection) Surgical History History of circumcision as Hx of vasectomy Family History Father No problems noted. Brother Diabetes mellitus Social History marital status: number of children: 5 household members: family and caregiver lives independently: Yes occupational status: previously employed and other Previous occupational history: Lives with his son other: He drinks 1-2 glasses of wine at night. He quit smoking in 1969 Smoking Status: Former smoker alcohol intake: former caffeine: Yes Type(s) of exercise: none Assessment & Plan Time-Based Coding :: [TOTAL MINUTES] spent with patient and on the chart (including review of chart, obtaining history, exam, reviewing outside data, placing orders, documenting exam and treatment plan, and counseling patient) on [DATE]. Quality VTE Deep Vein Thrombosis/Pulmonary Embolism Present on Admission: No
[2025-03-14 19:00] VITALS: BP 167/62; PULSE 67; RESP 17; TEMP 36.4; O2SAT 98
[2025-03-14] MEDS: TAMSULOSIN 0.4 MG CAPSULE 0.8 MG PO (21:15)
[2025-03-14] MEDS: MELATONIN 3 MG TABLET 9 MG PO (22:08)
[2025-03-14 22:37] VITALS: BP 160/57
[2025-03-15 08:00] VITALS: BP 140/70; PULSE 66; RESP 19; TEMP 36.2; O2SAT 97
--- NOTE | 2025-03-15 08:05 | P.DS_ITS ---
History of Present Illness History of Present Illness Date Patient Seen: 03/15/25 Time Patient Seen: 08:05 Chief complaint: Weakness Narrative: Chief complaint: Non ST-elevation ND with hematuria complication of treatment with IV heparin patient prefers conservative management History of present illness: 03/08: 74-year-old male with past medical history of Parkinson disease, hypertension, hyperlipidemia, insulin-dependent diabetes, CKD stage IV, prostate cancer with recent radiation yesterday presents with generalized weakness. Per the patient's report, the patient does have home health who comes to the house daily to help him with his ADLs. The patient initially was doing well but over the last week has been having generalized weakness to the point where he had a difficult time standing up on his own today. The patient states that he has been taking his medication including his Parkinson's medication on a regular basis. The patient also a month ago was reported to have an NSTEMI and was supposed to be scheduled for an outpatient cath which she has not had a chance to complete yet. Otherwise the patient denies any fever, chills, nausea, vomit, diarrhea, chest pain or shortness of breath. In the emergency room, the patient systolic blood pressure was elevated in the 220s. Lab initially shows a creatinine of 1.69 and troponin of 0.104. Repeat troponin was 0.101. BNP was 1658. UA was negative. Alcohol level is negative. Chest x-ray was clear. EKG shows no clear signs of acute ischemia. A general vocal artist Dr. Dumont was consulted who recommended that we start heparin drip and try for possible cardiac cath. However the patient started to have significant hematuria after heparinized. Heparin drip had to be stopped and hematuria eventually slowly improved. Due to hematuria that was very significant ER physician reconsulted Dr. Dumont who states that we had to stop heparin for now. Transfer order was canceled as patient decided to focus on comfort measures only and acknowledge even if this was an ACS event. Patient also wishes for DNR/DNI. 03/09: Patient is sitting up, appears comfortable. He is eating breakfast with assistance a nurse's aide. He denies chest pain or shortness of breath. He states he feels very weak. He has prostate cancer undergoing active radiation therapy presently, with proximally 14 treatments left. He was admitted to this hospital last month but had difficulty coordinating cardiology follow-up with Dr. Dumont for planned outpatient cardiac catheterization. 03/10-03/12: Patient decided against any invasive workup outpatient or inpatient continuing to manage symptoms still very weak previously was trying to go home but at this point does not feel physically capable of managing at home 03/13: No new complaint today a bit tired after physical therapy 03/14: Cooperative and working with physical therapy 03/15: No complaints this morning Review of systems: No fever or chills rigors No chest pain palpitations shortness for breath at rest No nausea vomiting diarrhea No paresthesia paresis Physical exam: No acute distress in good spirits HEENT unremarkable Heart rate and rhythm regular Lungs clear Abdomen nontender nondistended Extremities no edema Assessment and plan NSTEMI presenting with generalized weakness * Troponin was 0.126 initially, repeat 0.08, without ST or T-wave changes. At presentation, Cardiology was consulted and heparin drip and cardiac catheterization were recommended. However after initiation of heparin, the patient developed hematuria and the heparin needed to be discontinued. Subsequently, the patient reported that he did not want a pursue cardiac catheterization even if this was an ACS event. Given his underlying prostate cancer, he just wanted to focus on comfort with regards to any cardiac issues. * Continue goal-directed medical therapy with aspirin, clopidogrel, atorvastatin, blood pressure and diabetes management. Hypertension Hyperlipidemia * Continue lisinopril, metoprolol, and atorvastatin Prostate cancer Currently receiving radiation therapy, the patient reports yes between 12 and 14 more treatments. * Outpatient follow-up with Rad Onc [facility] rehab at [facility] completed Type 2 diabetes mellitus, insulin dependent Blood glucose suboptimal control * Continue glargine b.i.d. -keep a.m. dose at 20 units, increase p.m. dose to 20 units * Continue lispro a.c. and HS Parkinson's disease Weakness exacerbated by XRT * PT and OT CKD stage 4 Clinically stable * Monitor as needed * Avoid nephrotoxins * Renally dose medications as required Code Status: * DNR DVT Prophylaxis: * Enoxaparin Disposition: * [place] AUTH #[id number]. Accepting facility: [place], [place]. [phone]. * Patient's brother, carlos eduardo Theodore. between 10AM and 11AM Monday03/15/2025. Patient updated. Time based billing: * 35 minutes were involved in evaluation of the patient including [id number] evaluation physical examination review of previous records review of objective laboratory EKG and imaging findings Discharge Providers Provider Date of admission: 03/10/25 10:29 Discharge Date: 03/15/25 Primary care physician: Yessenia Johnson MD Consults: 03/08/25 14:16 [place] [facility] [place] Locker Room Manager Stat Comment: Locker Room Manager Consult needed for:: Unable to care for self 03/08/25 22:31 Consult to Discharge Planning Routine Comment: 03/10/25 10:30 Consult to Occupational Therapy Evaluate & Treat Comment: Physician Instructions: Evaluate and treat 03/10/25 10:31 Consult to Physical Therapy Evaluate & Treat Comment: Physician Instructions: Evaluate and Treat 03/10/25 15:33 Consult to Occupational Therapy Evaluate & Treat Comment: parkinsons, weakness Physician Instructions: Evaluate and treat Consult to Physical Therapy Evaluate & Treat Comment: Physician Instructions: Evaluate and Treat, parkinsons, weakness Discharge provider: Anthony Soto MD Exam Vital Signs (past 8 hours): Oxygen Delivery Method Room Air Oxygen Flow Rate 0 Objective Labs 03/12/25 05:10 03/12/25 05:10 Labs: Laboratory Results - last 24 hr 03/14/25 03/14/25 03/14/25 12:07 17:16 19:55 POC Whole Bld Glucose 171 H 150 H 168 H 03/15/25 07:58 POC Whole Bld Glucose 143 H PFSH Medical History Diabetes mellitus Elevated serum creatinine High prostate specific antigen (PSA) History of arthritis History of kidney stones History of urinary retention History of urinary tract infection Hypercholesteremia Hypertension Kidney stone Nocturia more than twice per night Parkinson disease Urinary retention UTI (urinary tract infection) Surgical History History of circumcision as Hx of vasectomy Family History Father No problems noted. Brother Diabetes mellitus Social History marital status: number of children: 5 household members: family and caregiver lives independently: Yes occupational status: previously employed and other Previous occupational history: Lives with his son other: He drinks 1-2 glasses of wine at night. He quit smoking in 1969 Smoking Status: Former smoker alcohol intake: former caffeine: Yes Type(s) of exercise: none Discharge Plan Discharge Plan Patient Disposition: Assisted Living Discharge orders & Medications Discharge Orders: Discharge (Order); Ordered 03/15/25 Ordered By: Anthony Soto Prescriptions: New insulin lispro [Admelog U-100 Insulin lispro] 100 unit/mL Solution 4 unit SUBCUT 1645 Qty: 6 0RF insulin lispro [Admelog U-100 Insulin lispro] 100 unit/mL Solution 2 unit SUBCUT 0745,1145 Qty: 3 0RF insulin lispro [Admelog U-100 Insulin lispro] 100 unit/mL Solution 0 unit SUBCUT ACHS Qty: 6 0RF Continued insulin glargine U-300 conc [Toujeo SoloStar U-300 Insulin] 300 UNIT/1 ML insulin pen 20 unit SUBCUT BID Qty: 0 VITAMIN D (Vitamin D3) 4,000 u PO QDAY Qty: 0 atorvastatin 40 mg Tablet 40 mg PO DAILY multivitamin with minerals 1 tab PO DAILY entacapone 200 mg tablet 200 mg PO QID Rx Instructions: administer at the same time as l-dopa/carbidopa dose carbidopa-levodopa 50-200 mg tablet extended release 1 tab PO 4XD aspirin 81 mg Tablet,Delayed Release (Dr/Ec) 81 mg PO DAILY Qty: 30 0RF lisinopril 5 mg Tablet 2.5 mg PO DAILY Qty: 30 0RF metoprolol succinate 25 mg tablet extended release 24 hr 25 mg PO DAILY Qty: 30 2RF clopidogrel [Plavix] 75 mg tablet 75 mg PO DAILY Qty: 30 1RF polyethylene glycol 3350 [Miralax] 17 gram/dose powder 17 g PO BID sqnqgbxps-xvanwisp-gyqstghyih 25-100-200 mg tablet 1 tab PO QID tamsulosin 0.4 mg capsule 0.8 mg PO BEDTIME mirabegron 25 mg tablet extended release 24 hr 25 mg PO .hs Discontinued Ozempic 1 mg/dose (2 mg/1.5 mL) pen injector 1 mg SUBCUT QWEEK Follow up/Referrals: Yessenia Johnson MD [Primary Care Provider, Family Practice] Visit Report/Discharge Packet Stand Alone Forms: [employer], Patient Portal/API, Stroke Signs & Symptoms, Influenza Vaccine Info, Notice of Privacy Practices, Inpatient vs Outpatient, Pneumococcal Vaccine Info, Pt. Rights & Responsibilities Discharge Data Primary Care Provider: Yessenia Johnson VTE Deep Vein Thrombosis/Pulmonary Embolism Present on Admission: No
[2025-03-15] MEDS: INSULIN LISPRO 100 UNIT/ML 3ML VIAL SUBCUT ×2 (08:54→08:55)
[2025-03-15] MEDS: INSULIN GLARGINE 100 UNIT/ML 3ML PEN 20 UNIT SUBCUT (08:55)
[2025-03-15 08:56] VITALS: BP 140/70; PULSE 66
[2025-03-15] MEDS: ATORVASTATIN 20 MG TABLET 80 MG PO (08:56)
[2025-03-15] MEDS: CARBIDOPA-LEVODOPA ER 50/200 TABLET 1 EACH PO (08:56)
[2025-03-15] MEDS: CLOPIDOGREL 75 MG TABLET PO (08:56)
[2025-03-15] MEDS: METOPROLOL ER 25 MG TABLET PO (08:56)
[2025-03-15] MEDS: ENTACAPONE 200 MG TABLET PO (08:56)
[2025-03-15] MEDS: ASPIRIN EC 81 MG TABLET PO (08:56)
[2025-03-15] MEDS: SODIUM CHLORIDE 0.9% FLUSH 10 ML IV (08:57)
--- NOTE | 2025-03-15 10:46 | PC.NURSE ---
Addendum entered by Arlene Kahn RN 03/15/25 11:30: Report called to HEIDY Ward at 1039am ([phone]) Original Note: Pt discharged to [facility] ([facility] in [facility] at 1044. Escorted off floor in wheelchair accompanied by family and hospital staff. IV removed, discharge teaching included in packet for facility. Patient left the floor with all belongings.
== END 2025-03-15 10:47 | DRG 281 ==
LOC: ED 19:21 → AC 22:06
PROVIDERS: Internal Medicine; Internal Medicine Infectious Disease; Physician Assistant; Admitting Provider Internal Medicine; Emergency Provider Family Medicine; Family Provider Nutritionist; PCP Nutritionist; Visit Provider Internal Medicine
DX: I21.4 Non-ST elevation (NSTEMI) myocardial infarction (principal); N18.4 Chronic kidney disease, stage 4 (severe); C61 Malignant neoplasm of prostate; R31.9 Hematuria, unspecified; G20.A1 Parkinson's disease without dyskinesia, without mention of fluctuations; E11.22 Type 2 diabetes mellitus with diabetic chronic kidney disease; I12.9 Hypertensive chronic kidney disease with stage 1 through stage 4 chronic kidney disease, or unspecified chronic kidney disease; R53.1 Weakness; E78.5 Hyperlipidemia, unspecified; I25.2 Old myocardial infarction; Z51.5 Encounter for palliative care; Z66 Do not resuscitate; Z79.4 Long term (current) use of insulin; Z87.891 Personal history of nicotine dependence; Z79.02 Long term (current) use of antithrombotics/antiplatelets
CPT/HCPCS: 36415; 71045; 80048; 80053; 80320; 81001; 81003; 82550; 82962; 83036; 83605; 83690; 83735; 83880; 84145; 84484; 85025; 85027; 85610; 85730; 87635; 93005; 93010; 96365; 96366; 97116; 97161; 97166; 97530; 97535; 99284; 99285; G0378; J0360; J1644; J1650; J1815; J2272